=== PATIENT | male | born 1950 | race Caucasian/White ===

== ENCOUNTER 2022-11-30 12:18 | Inpatient (IN) | payer MEDICARE, MEDICAID, SELFPAY ==
[2022-11-30 12:19] VITALS: BP 146/81; PULSE 132; RESP 18; TEMP 36.2; O2SAT 99; BMI 22.4
--- NOTE | 2022-11-30 12:44 | ED.VIS.GI ---
HPI HPI - GI History of Present Illness Chief Complaint: GI Bleed Detail of Chief Complaint: Rectal bleeding today. Since 7 AM. Informant: patient Abdominal Pain/Flank Pain Onset: Today Current Severity: Mild Maximum Severity: Mild Worsened by: Nothing Relieved by: Nothing Nausea/Vomiting/Emesis GI Symptom: Negative for Nausea or Vomiting Diarrhea/Melena/Hematochezia GI Symptom: Positive for Hematochezia; Negative for Diarrhea or Melena Stool Quality: Positive for Loose Severity: Mild Associated Symptoms Associated Symptoms: Negative for Dysuria, Frequency or Hematuria Narrative Narrative: 72-year-old male past medical history of left inguinal hernia. Does not see a physician. He has never had abdominal surgery nor colonoscopy. Said the day he felt a pop and has had bright red blood rectal bleeding since about 7 AM. He had multiple episodes. He is not on any medications and no blood thinners. He has never had this before. Prior similar symptoms: No Recent Illness/Hospitalization: No PFSH PFSH Medical History no medical history no medical history Allergy/AdvReac Type Severity Reaction Status Date / Time No Known Allergies Allergy Verified 11/30/22 12:20 Surgical History no surgical history no surgical history Social History Smoking Status: Never smoker ROS ROS ED ROS Narrative Rectal bleeding today. No recent illness. Review of Systems ROS Unobtainable: Denies due to encephalopathy Constitutional Constitutional ED: Denies chills or fever(s) ENT ENT ED: Denies ear pain Cardiovascular Cardiovascular: Denies chest pain Respiratory/Chest Respiratory/Chest: Denies cough or dyspnea Gastrointestinal Gastrointestinal: Denies abdominal pain, constipation, diarrhea, melena, nausea or vomiting Genitourinary Genitourinary ED: Denies dysuria or hematuria Musculoskeletal Musculoskeletal: Denies arthralgias Integumentary Denies abscess Neurologic Neurologic: Denies headache(s) Psychiatric Psychiatric: Denies anxiety Endocrine Endocrinology: Denies polydipsia Hematologic/Lymphatic Hematologic/Lymphatic: Denies easy bleeding Allergic/Immunologic Allergic/Immunologic ED: Denies mouth swelling EXAM Physical Exam Narrative Exam Narrative: Well-appearing 72-year-old male. Vital signs are stable other elevated heart rate of 132. H EENT exam unremarkable. Neck nontender. Lungs clear. Heart tachycardic rate about 120 no murmur. Abdomen soft nontender normal bowel sounds no peritoneal signs. Reducible left inguinal hernia. Rectal exam currently no gross bleeding. No mass. No external hemorrhoids. Moving all 4 extremities. Nontender no edema. Neurologically is awake and alert with no focal motor deficits. Const Vital Signs: 11/30/22 12:19 Temperature 97.1 F L Temperature Source Temporal Pulse Rate 132 H Respiratory Rate 18 Blood Pressure 146/81 H Blood Pressure Mean 102 Pulse Ox 99 Oxygen Delivery Method Room Air Positive well nourished and well developed; Negative for obese, cachectic, contractures or unkempt General Appearance ED: well developed and NAD; Negative for unkempt, cachectic, contractures or pallor Nutritional Appearance: Negative for cachectic or obese HEENT Reports moist mucous membranes; Denies dry mucous membranes normocephalic and atraumatic; Negative for trauma or tenderness Mouth ED: No dry mucous membranes Mouth: No dry mucous membranes Eyes PERRL and EOMs intact bilaterally General Eye ED: Negative for pale conjunctiva or scleral icterus Neck no lymphadenopathy, supple and no JVD General: Negative for tenderness Carotids: Negative for other Lymph Lymphatic: Negative for other Resp normal respiratory effort and clear to auscultation bilaterally Effort and Inspection: Negative for respiratory distress or retractions Auscultation: Negative for rales, rhonchi or wheezes Cardio regular rhythm, S1 normal heart sound, S2 normal heart sound and no murmurs; Negative for regular rate Rate: tachycardic Rhythm: Negative for abnormal rhythm GI non-tender, non-distended and no masses GI Narrative: Reducible left inguinal hernia. Inspection: Negative for abdominal distention Auscultation: normoactive bowel sounds Palpation: soft and hernia; Negative for tender, guarding, rigid, mass, pulsatile mass or rebound tenderness present Back/Spine no CVA tenderness General Back: Negative for CVA tenderness Cervical Spine: Negative for cervical spine tenderness Thoracic Spine / Upper Back: Negative for thoracic spinal tenderness Lumbar Spine / Lower Back: Negative for lumbar spinal tenderness Coccyx: Negative for other Extremity full ROM General Extremety ED: Negative for edema or tenderness General Extremity: Negative for edema Neuro CN's II-XII intact bilaterally and moves all extremities Sensorium / Orientation: alert, oriented to person, oriented to place and oriented to time; Negative for orientation impaired, confused, lethargic or stuporous Motor Exam: strength 5/5 throughout Psych mental status grossly normal and thought process normal Appearance: Negative for unkempt Attitude: No agitated Mood & Affect: Negative for depressed, anxious or tearful Skin no wounds General Skin Exam: Negative for jaundice or pallor Lesions: no lesions Rashes: no rashes Trauma: Negative for abrasion Nails: Negative for discolored MDM MDM MDM Narrative Medical decision making narrative: 72-year-old male with bright red blood per rectum consistent with lower GI bleed. Screening labs will be obtained. To be typed and screened for blood in case he needs transfused. We patient is doing well at 2:40 PM. He knows he will be admitted for lower GI bleed needs further evaluation most likely colonoscopy. At this time he has been typed and screened for blood but he has not been transfused nor is he needed. Hospitalist is on page. Patient did have gross blood per rectum while in the emergency department. History & Record Review Discussion w/independent historian: Patient Lab Data Attestation: I reviewed the patient's lab results. Lab results narrative: CBC shows white count 8.7. H&H of 13.0 and 39. Platelets 234. Electrolytes show a gap of 8. BUN and creatinine of 20 and 1. Glucose 172. Liver enzymes unremarkable. Blood type a positive. Labs: Laboratory Results - last 24 hr 11/30/22 13:07 WBC 8.7 RBC 4.02 L Hgb 13.0 Hct 39.9 L MCV 99.3 H MCH 32.3 H MCHC 32.6 RDW Std Deviation 42.8 RDW Coeff of Angela 11.7 Plt Count 234 MPV 10.1 Immature Gran % (Auto) 0.600 Neut % (Auto) 82.3 H Lymph % (Auto) 12.9 L Alfalfa % (Auto) 3.6 Eos % (Auto) 0.1 Baso % (Auto) 0.5 Absolute Neuts (auto) 7.1 Absolute Lymphs (auto) 1.12 Nucleated RBC % 0 Sodium 136 Potassium 4.4 Chloride 105 Carbon Dioxide 23.0 Anion Gap 8 BUN 20 H Creatinine 1.05 Estim Creat Clear Calc 63.65 Est GFR (MDRD) Af Amer 89 Est GFR (MDRD) Non-Af 74 BUN/Creatinine Ratio 19.0 Glucose 172 H Calcium 9.1 Total Bilirubin 0.90 AST 15 ALT 21 Alkaline Phosphatase 70 Total Protein 7.0 Albumin 3.7 Globulin 3.3 Albumin/Globulin Ratio 1.1 Blood Type A POSITIVE Antibody Screen NEGATIVE Discharge Plan Triage Chief Complaint: GI Bleed ED Provider: Lasha Hinson Dx/Rx/DC Orders Clinical Impression: Acute lower gastrointestinal bleeding Primary Care Provider: Tim Dobbs Referrals: Tim Dobbs DO [Primary Care Provider] - Disposition Disposition: Acute Care Hospital [facility]
[2022-11-30 13:22] LABS: Absolute Lymphocyte Count 1.12 X10^3/uL (0.83-4.51); Absolute Neutrophil Count 7.1 X10^3/uL (2.0-7.7); Basophil# 0.04 X10^3/uL; Basophil% 0.5 % (0-1); Eosinophil# 0.01 X10^3/uL; Eosinophils% 0.1 % (0-5); Hematocrit 39.9 % (40-54); Lymphocyte # 1.12 X10^3/ul (0.83-4.51); Lymphocyte % 12.9 % (19-41); Mean Corp Hgb Conc 32.6 g/dL (32-36); Mean Corpuscular Hgb 32.3 pg (27.0-32.0); Mean Corpuscular Volume 99.3 fL (80-94); Mean Platelet Vol. 10.1 fl (6.2-12.0); Monocyte# 0.31 X10^3/uL; Monocyte% 3.6 % (0-10); NRBC Flagged by Analyzer 0 % (0-5); Neutrophil # 7.12 X10^3/uL (2.7-7.7); Neutrophil % 82.3 % (47-70); Platelet Count 234 K/mm3 (150-450); RBC Distribution Width CV 11.7 % (11.6-14.6); RBC Distribution Width SD 42.8 fl (35.1-43.9); Red Blood Count 4.02 M/mm3 (4.6-6.2); White Blood Count 8.7 K/mm3 (4.4-11.0)
[2022-11-30 13:31] LABS: ALB/GLOB Ratio 1.1 RATIO (0.9-2.4); AST(SGOT) 15 U/L (15-37); Alanine Aminotransfer ALT/SGPT 21 U/L (16-61); Albumin, Serum 3.7 g/dL (3.2-5.0); Alkaline Phosphatase 70 U/L (45-117); Anion Gap 8 (5-15); BUN 20 mg/dL (7-18); Calcium,Total 9.1 mg/dL (8.5-10.1); Chloride 105 mmol/L (98-107); Creatinine, Serum 1.05 mg/dL (0.70-1.30); EST Glomerular Filtration Rate 74 mL/min (>60); Est Glom Filt Rate - Afr Amer 89 mL/min (>60); Estimated Creatinine Clearance 63.65 ml/min; Globulin 3.3 g/dL (2.2-4.2); Glucose 172 mg/dL (74-106); Potassium 4.4 mmol/L (3.5-5.1); Sodium Level 136 mmol/L (136-145)
--- NOTE | 2022-11-30 15:05 | EKG12_ITS ---
Test Reason : ADMISSION Blood Pressure : / mmHG Vent. Rate : 110 BPM Atrial Rate : 110 BPM P-R Int : 160 ms QRS Dur : 072 ms QT Int : 338 ms P-R-T Axes : 062 -37 056 degrees QTc Int : 457 ms Sinus tachycardia Left axis deviation Inferior infarct , age undetermined Abnormal ECG Confirmed by SHREYA LANE, KRISSY ([id number]), advertising editor MERVIN CAMPBELL ([id number]) on 12/01/2022 1:29:40 PM Referred By: Confirmed By:KRISSY CASH MD
[2022-11-30 15:27] VITALS: BP 158/74; PULSE 105; RESP 20; TEMP 37.1; O2SAT 96
--- NOTE | 2022-11-30 15:28 | PCM.HP.STD ---
HPI - General General Date of Admission: 11/30/22 Date of Service: 11/30/22 Chief Complaint: Rectal bleed started at 6 AM today HPI Narrative SRINIVAS OG, is a 72 M who presents who has never seen a doctor in his life came to ED for bright red rectal bleeding started at 6 AM today. He said it was not large and first if it was red and then every about 90 minutes and was brownish in color. He also has left inguinal hernia for about 10 years which is reducible but for last few years he is having pain and bulges out when he stands up. Although he came mainly for lower GI bleed but he states he also intermittent, isolated, dull ache lower chest pain, unrelated to activity or exertion for last 5 6 years. It is not associated with shortness of breath, localized anteriorly and does not bother him. Vitals in the ED reviewed. Patient is sinus tachycardic heart rate 132/min blood pressure 146/81. EKG ordered in ED and shows sinus tachycardia 110 beats 1, QTc 457 ms. 2 sets of troponin ordered. Labs reviewed and discussed in assessment plan. Patient is further admitted Past medical history: Left inguinal hernia. Does not see any doctor therefore unclear whether he has hypertension. Blood sugar is 172, hypoglycemia therefore probably has diabetes mellitus. Past surgical history none Social history: Non-smoker. Not heavy alcoholic drinker. Denies substance use. Patient is unmarried has brothers and sisters. [facility] background Family history: Hypertension in his brother. [facility] Medical History no medical history Home Medications NK 11/30/22 [History Last Taken Unknown] Allergy/AdvReac Type Severity Reaction Status Date / Time No Known Allergies Allergy Verified 11/30/22 12:20 Surgical History no surgical history Social History Smoking Status: Never smoker ROS ROS Narrative Constitutional: Denies chronic fatigue and weakness. No fever. HEENT: Reports systems reviewed and no addt'l complaints, except as documented Respiratory/Chest: No acute shortness of breath or respiratory distress or wheezing. CVS: As described in HPI Gastrointestinal: Denies abdominal pain except left inguinal hernia pain intermittently Genitourinary: Denies burning urination or new urinary tract symptoms Musculoskeletal: Denies acute joint pain or limited range of motion. No acute injury Neurologic: Denies seizure-like symptoms. skin: No ulcer. No rash Endocrinology: Reports systems reviewed and no addt'l complaints, except as documented Hematologic/Lymphatic: Reports systems reviewed and no addt'l complaints, except as documented Rest 14 ROS are negative except as mentioned in HPI Vital Signs Vital Signs Vital Signs: 11/30/22 12:19 11/30/22 15:27 Temperature 97.1 F L 98.7 F Temperature Source Temporal Oral Pulse Rate 132 H 105 H Respiratory Rate 18 20 H Blood Pressure 146/81 H 158/74 H Blood Pressure Mean 102 102 Pulse Ox 99 96 Oxygen Delivery Method Room Air Room Air Weight Weight: 156 lb Body Mass Index (BMI) 22.4 Physical Exam Narrative General: Alert, Oriented x3, Cooperative HEENT: Atraumatic, PERRLA, EOMI, Normocephalic Oral: Oral mucosa dry. No Gingival or Mucosal Lesions/ Ulcerations Neck: Supple, No JVD, Negative Carotid Bruits Lungs: Air entry diminished in bilateral lung bases. No crepitation/rhonchi Cardiovascular: Regular rate, Regular Rhythm, Normal S1, Normal S2, No murmurs Abdomen: Bowel Sounds Present, Soft, Non Tender, Non-Distended Left large inguinal hernia seems direct. Reducible. Bowel sounds present probably bowel in hernial sac : No renal angle tenderness. No suprapubic tenderness. Extremities: No edema, Capillary Refill Less than 3 Seconds Skin: No rashes, No breakdown Musculoskeletal: No Tenderness to Palpation of Joints or Extremities Neurological: Cranial nerves II-XII grossly intact, DTR 2+/4. No acute focal neurological deficit. Psych/Mental Status: Normal Affect, Appropriate. Results Lab / Micro Data 11/30/22 13:07 11/30/22 13:07 Labs: Laboratory Results - last 24 hr 11/30/22 13:07: WBC 8.7, RBC 4.02 L, Hgb 13.0, Hct 39.9 L, MCV 99.3 H, MCH 32.3 H, MCHC 32.6, RDW Std Deviation 42.8, RDW Coeff of Angela 11.7, Plt Count 234, MPV 10.1, Immature Gran % (Auto) 0.600, Neut % (Auto) 82.3 H, Lymph % (Auto) 12.9 L, [place] % (Auto) 3.6, Eos % (Auto) 0.1, Baso % (Auto) 0.5, Absolute Neuts (auto) 7.1, Absolute Lymphs (auto) 1.12, Nucleated RBC % 0, Sodium 136, Potassium 4.4, Chloride 105, Carbon Dioxide 23.0, Anion Gap 8, BUN 20 H, Creatinine 1.05, Estim Creat Clear Calc 63.65, Est GFR (MDRD) Af Amer 89, Est GFR (MDRD) Non-Af 74, BUN/Creatinine Ratio 19.0, Glucose 172 H, Calcium 9.1, Total Bilirubin 0.90, AST 15, ALT 21, Alkaline Phosphatase 70, Total Protein 7.0, Albumin 3.7, Globulin 3.3, Albumin/Globulin Ratio 1.1, Blood Type A POSITIVE, Antibody Screen NEGATIVE Assessment & Plan Assessment/Plan (1) Acute lower gastrointestinal bleeding: PLAN: Plan 1. Acute GI bleed most probably lower GI bleed: Patient is being admitted in PCU. Currently hemodynamically stable except mild sinus tachycardia. H&H 13/40. MCV 100. Platelet count normal. H&H every 6 hourly x2. CBC with differential tomorrow AM. [employer] consulted and discussed with Dr. Bishop. Plan for EGD and colonoscopy tomorrow AM. Colon prep started and discussed with patient and he agrees. 2. Intermittent, isolated chest discomfort, atypical for 5 years: Unclear about etiology probably may be GERD/dyspepsia/GI etiology. Protonix 40 mg IV started. Twelve-lead EKG shows sinus tachycardia with nonspecific ST-T suggestive of cardiac ischemia. 2 sets of troponin ordered first now. Patient denies shortness of breath, dyspnea, dizziness, diaphoresis, orthopnea or PND. No leg swelling. 3. Hyperglycemia: A1c ordered for tomorrow AM. 4. Chronic left inguinal hernia for more than 10 years: Gradually left inguinal hernia is getting symptomatic with pain and discomfort therefore I recommended to follow-up general surgery after discharge. Will need referral to general surgery. DVT prophylaxis: Following prophylaxis contraindicated. Bilateral SCDs Living will/advanced directive/end of life care: Patient does not have living will or advanced directive. Patient does not have designated power of traffic law attorney for health. His brother, Pal is next of kin. After discussion of benefits/risks procedures involved with full code, DNR CC arrest and DNR CC, the patient opted for full code. Patient does want artificial life support including intubation, tube feed, ventilator and/chest compression, central venous catheter, vasopressor and DC shock if needed Total time spent in [id number] encounter in discussion of advanced directive 17 minutes. Laboratory Results 11/30/22 13:07: WBC 8.7, RBC 4.02 L, Hgb 13.0, Hct 39.9 L, MCV 99.3 H, MCH 32.3 H, MCHC 32.6, RDW Std Deviation 42.8, RDW Coeff of Angela 11.7, Plt Count 234, MPV 10.1, Immature Gran % (Auto) 0.600, Neut % (Auto) 82.3 H, Lymph % (Auto) 12.9 L, [place] % (Auto) 3.6, Eos % (Auto) 0.1, Baso % (Auto) 0.5, Absolute Neuts (auto) 7.1, Absolute Lymphs (auto) 1.12, Nucleated RBC % 0, Sodium 136, Potassium 4.4, Chloride 105, Carbon Dioxide 23.0, Anion Gap 8, BUN 20 H, Creatinine 1.05, Estim Creat Clear Calc 63.65, Est GFR (MDRD) Af Amer 89, Est GFR (MDRD) Non-Af 74, BUN/Creatinine Ratio 19.0, Glucose 172 H, Calcium 9.1, Total Bilirubin 0.90, AST 15, ALT 21, Alkaline Phosphatase 70, Total Protein 7.0, Albumin 3.7, Globulin 3.3, Albumin/Globulin Ratio 1.1, Blood Type A POSITIVE, Antibody Screen NEGATIVE Charges/Coding Visit Charges Inpatient E&M: 57957 Init Hosp L3 Procedures Hospitalists Procedures: 58117 Advncd Care Plan 30 Min
[2022-11-30 15:54] LABS: Magnesium 2.1 mg/dL (1.6-2.6)
[2022-11-30 16:26] LABS: Troponin-I HS 3 pg/mL (3.0-78.0)
[2022-11-30 16:30] LABS: Troponin-I HS 17 pg/mL (3.0-78.0)
[2022-11-30 16:52] VITALS: BP 138/75; PULSE 115; RESP 18; TEMP 36.6; O2SAT 97; BMI 21.7
--- NOTE | 2022-11-30 17:00 | NURSING ---
Patient stated to this nurse he was dizzy and lightheaded earlier today. This nurse explained to patient that he needs to call for assistance if he needs to go to the bathroom. Patient stated that he will be fine and will call staff if he becomes dizzy while getting up. This RN further explained that staff still needs to be with him that the call light may not be in reach if chcf to bathroom and he is dizzy. The patient then stated I know my body and fine getting up without staff. This RN continued to explain to patient that we do not want him to fall and for his safety, call staff. Patient agreed.
[2022-11-30] MEDS: Lactated Ringers 1,000 ML 100 ML IV (17:28)
[2022-11-30 17:56] LABS: Hematocrit 40.6 % (40-54); Hemoglobin 13.3 g/dL (13.0-16.5)
[2022-11-30] MEDS: Bisacodyl 5 MG Tablet 20 MG PO (18:10)
[2022-11-30] MEDS: Polyethylene Glycol 3350 BOWEL PREP PO (21:08)
[2022-11-30 21:50] VITALS: BP 109/56; PULSE 97; RESP 16; TEMP 35.3; O2SAT 97
[2022-11-30 21:57] VITALS: O2SAT 97
--- NOTE | 2022-11-30 23:00 | CON.PCM.GI_ITS ---
HPI Consult Data Date of Consult: 11/30/22 HPI Narrative Reason for Consultation: GI bleed HPI Narrative: SRINIVAS OG, is a 72-year-old male past medical history of left inguinal hernia. He does not see a physician. He has never had abdominal surgery nor colonoscopy. He said the day he felt a pop and has had bright red blood rectal bleeding since about 7 AM. He had multiple episodes. He is not on any medications and no blood thinners. He has never had this before. [facility] Medical History no medical history Home Medications egojpky-idgsosivpvnls-izhcadeh 250 mg-250 mg-65 mg tablet (Excedrin Extra Strength) 2 tab PO Q6H PRN pain 12/01/22 [History Last Taken Unknown] Allergy/AdvReac Type Severity Reaction Status Date / Time No Known Allergies Allergy Verified 11/30/22 12:20 Surgical History no surgical history Social History Smoking Status: Former smoker ROS ROS Narrative Constitutional: Denies chronic fatigue and weakness. No fever. HEENT: Reports systems reviewed and no addt'l complaints, except as documented Respiratory/Chest: No acute shortness of breath or respiratory distress or wheezing. CVS: As described in HPI Gastrointestinal: Denies abdominal pain except left inguinal hernia pain intermittently Genitourinary: Denies burning urination or new urinary tract symptoms Musculoskeletal: Denies acute joint pain or limited range of motion. No acute injury Neurologic: Denies seizure-like symptoms. skin: No ulcer. No rash Endocrinology: Reports systems reviewed and no addt'l complaints, except as documented Hematologic/Lymphatic: Reports systems reviewed and no addt'l complaints, except as documented Rest 14 ROS are negative except as mentioned in HPI Physical Exam Narrative GENERAL: cooperative HEENT: Atraumatic; normocephalic EYES; Anicteric, Normal Conjunctiva NECK; supple, normal thyroid, RESPIRATORY: Diminished to auscultation CARDIOVASCULAR: Regular S1 S2, GI: soft, normoactive bowel sounds, : No Renal angle tenderness; EXTREMITIES: No edema, no clubbing, MUSCULOSKELETAL: no muscle wasting NEURO: Awake; no lateralizing signs. SKIN: No Rash PSYCH; Flat affect Lab / Micro Data 12/01/22 05:40 12/01/22 05:40 Labs: Laboratory Results - last 24 hr 11/30/22 17:47: Hgb 13.3, Hct 40.6 11/30/22 23:30: Hgb 12.1 L, Hct 36.8 L 12/01/22 05:40: WBC 8.4, RBC 3.44 L, Hgb 11.5 L, Hct 33.0 L, MCV 95.9 H, MCH 33.4 H, MCHC 34.8 D, RDW Std Deviation 41.9, RDW Coeff of Angela 12.0, Plt Count 203, MPV 10.2, Immature Gran % (Auto) 0.600, Neut % (Auto) 69.1, Lymph % (Auto) 22.4, [place] % (Auto) 7.4, Eos % (Auto) 0.1, Baso % (Auto) 0.4, Absolute Neuts (auto) 5.8, Absolute Lymphs (auto) 1.88, Nucleated RBC % 0, Sodium 138, Potassium 4.3, Chloride 108 H, Carbon Dioxide 25.0, Anion Gap 5, BUN 25 H, Creatinine 0.91, Estim Creat Clear Calc 71.51, Est GFR (MDRD) Af Amer 106, Est GFR (MDRD) Non-Af 87, BUN/Creatinine Ratio 27.6 H, Glucose 101, Hemoglobin A1c 5.3, Calcium 8.5, TSH 0.54 Radiology Impression Abdomen/Pelvis CTA 12/01/22 12:38 IMPRESSION: Fatty infiltration of the liver. Left renal cyst. Sigmoid diverticulosis. 3.9 mm noncalcified nodule in the peripheral lateral aspect of the right lower lobe. Electronically Signed: Jan Clement MD at 14:14 EDT , Assessment & Plan Assessment/Plan (1) Acute lower gastrointestinal bleeding: PLAN: Plan Patient is a 72-year-old gentleman who presented with rectal bleed. To monitored bed consultation placed to GI 1. Hematochezia ? Lower versus upper GI bleed. Admitted to monitored bed H&H ordered every 6 hours patient started on Protonix drip consultation placed to GI plan for patient to undergo upper and lower endoscopy -Colonoscopy findings. - Blood in the rectum, in the recto-sigmoid colon, in the sigmoid colon, in the descending colon, at the splenic flexure, in the transverse colon, at the hepatic flexure, in the ascending colon and in the cecum. - Diverticulosis in the recto-sigmoid colon, in the sigmoid colon and in the descending colon. 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 Treated with a heater probe. - No specimens collected. EGD findings - Z-line irregular, 38 cm from the incisors. Biopsied. - Acute gastritis. Biopsied. - Chronic duodenitis. Biopsied. 2. Hyperglycemia ? Diabetes mellitus ruled out with a normal hemoglobin A1c 3. Chronic left inguinal hernia ? Patient to follow-up with general surgery as outpatient 4. DVT prophylaxis ? SCDs for now Time spent in the patient's overall evaluation,decision-making process, review of diagnostic data, adjustment of management, discussion with other providers, nursing nursing and ancillary staff involved in patient's care documentation, 40 Minutes
[2022-11-30 23:39] LABS: Hematocrit 36.8 % (40-54); Hemoglobin 12.1 g/dL (13.0-16.5)
[2022-12-01] VITALS (11 sets, daily range): BP systolic 99–148; BP diastolic 63–73; PULSE 92–109; RESP 15–18; TEMP 36.3–37.9; O2SAT 96–100; BMI 21.6; BMI 21.7
--- NOTE | 2022-12-01 | GASB_PTH ---
PATIENT: SRINIVAS OG LOC: [facility] U#:[id number] AGE/SX: 72/M ROOM: [facility] RE11/30/[address]: Dr. Ervin Snider MD : [id number] BED: 1 DIS: 12/02/2022 SPEC #: [id number] RECD: 12/01/22 14:20 STATUS: YOVANA BOWDEN #: [id number] LOLA: 12/01/22 00:[address]: Jim Bishop DEPT: SURGICAL PATHOLOGY RECD BY: Rambo Lazaro ENTERED: 12/02/22 08:55 SP TYPE: Gastric Bx OTHR DR: MD Dr. Tim Taylor DO Dr. Prakash Chand, MD Tissues: A - Duodenum, NOS B - Gastric mucous membrane C - Esophageal mucous membrane Procedures: Special Stain Group II Surgery Specimen Level IV Alcian Blue/PAS (control) Comments: @ Ordering doctor for SUIV edited from to @ by LISA at 12/02/22 1441 @ Submitting doctor edited from to @ by RGOOD at 12/02/22 1441 HEADER OPERATION: Colonoscopy, EGD and biopsy and gold probe bipolar PRE-OP DIAGNOSIS: GI bleed TISSUE SUBMITTED: A - Duodenal biopsy, B - Antral biopsy and H. pylori and path, C - Distal esophagus biopsy MICROSCOPIC DIAGNOSIS A. Duodenal biopsy: Fragments of duodenal mucosa with mild acute and chronic inflammation and villous blunting. B. Antral biopsy: Mild gastritis. See microscopic description and comment. C. Distal esophagus, biopsy: Fragments of gastroesophageal mucosa with chronic inflammation. Intestinal metaplasia (goblet cell metaplasia) not identified. See comment. SJ:filiberto 12/03/2022 COMMENT B. The results of immunohistochemistry for Helicobacter pylori will be reported separately ([id number]). C. Alcian blue/PAS stain with matched control is used in the evaluation of the specimen. MICROSCOPIC DESCRIPTION Slides are reviewed. B. The specimen shows fragments of gastric mucosa with chronic inflammatory cell infiltrates in the lamina propria consisting of lymphocytes and plasma cells, consistent with mild chronic gastritis. GROSS DESCRIPTION A - Received in fixative is one container labeled with the patient's name and designated duodenum biopsy. The specimen consists of two irregular fragments of light goetz soft tissue that in aggregate measure 0.6 x 0.3 x 0.1 cm. The specimen is totally submitted in one cassette. B - Received in fixative is one container labeled with the patient's name and designated antral biopsy. The specimen consists of two irregular fragments of light goetz soft tissue that in aggregate measure 0.9 x 0.3 x 0.1 cm. The specimen is totally submitted in one cassette. C - Received in fixative is one container labeled with the patient's name and designated distal esophagus. The specimen consists of two irregular fragments of light goetz soft tissue that in aggregate measure 0.6 x 0.3 x 0.1 cm. The specimen is totally submitted in one cassette. / SJ:rg 12/02/2022 TC:3 CPT: 59865 x3, 73798
[2022-12-01] MEDS: Lactated Ringers 1,000 ML 100 ML IV ×2 (03:42→12:38)
[2022-12-01 06:15] LABS: Absolute Lymphocyte Count 1.88 X10^3/uL (0.83-4.51); Absolute Neutrophil Count 5.8 X10^3/uL (2.0-7.7); Basophil# 0.03 X10^3/uL; Basophil% 0.4 % (0-1); Eosinophil# 0.01 X10^3/uL; Eosinophils% 0.1 % (0-5); Hemoglobin 11.5 g/dL (13.0-16.5); Lymphocyte # 1.88 X10^3/ul (0.83-4.51); Lymphocyte % 22.4 % (19-41); Mean Corp Hgb Conc 34.8 g/dL (32-36); Mean Corpuscular Hgb 33.4 pg (27.0-32.0); Mean Corpuscular Volume 95.9 fL (80-94); Mean Platelet Vol. 10.2 fl (6.2-12.0); Monocyte# 0.62 X10^3/uL; Monocyte% 7.4 % (0-10); NRBC Flagged by Analyzer 0 % (0-5); Neutrophil % 69.1 % (47-70); Platelet Count 203 K/mm3 (150-450); RBC Distribution Width SD 41.9 fl (35.1-43.9); Red Blood Count 3.44 M/mm3 (4.6-6.2); White Blood Count 8.4 K/mm3 (4.4-11.0)
[2022-12-01 06:57] LABS: Anion Gap 5 (5-15); BUN 25 mg/dL (7-18); BUN/Creat Ratio 27.6 RATIO (10-20); Calcium,Total 8.5 mg/dL (8.5-10.1); Chloride 108 mmol/L (98-107); Creatinine, Serum 0.91 mg/dL (0.70-1.30); EST Glomerular Filtration Rate 87 mL/min (>60); Est Glom Filt Rate - Afr Amer 106 mL/min (>60); Estimated Creatinine Clearance 71.51 ml/min; Glucose 101 mg/dL (74-106); Potassium 4.3 mmol/L (3.5-5.1); Sodium Level 138 mmol/L (136-145); Thyroid Stim Hormone (TSH) 0.54 uIU/mL (0.358-3.74)
--- NOTE | 2022-12-01 08:57 | PN.HOSP_ITS ---
Reason for Visit Reason for Visit: Diagnoses Gastrointestinal hemorrhage, unspecified (11/30/22) Subjective Subjective Patient is a 72-year-old gentleman who presented with rectal bleed. To monitored bed consultation placed to GI Objective Data Objective Data Vital Signs: Vital Signs Temp Pulse Resp BP Pulse Ox O2 Del Method 98.4 F 101 H 18 135/63 H 97 Room Air 12/01/22 07:41 12/01/22 07:41 12/01/22 07:41 12/01/22 07:41 12/01/22 07:41 12/01/22 07:51 Oxygen Delivery Method Room Air Weight: 68.9 kg Body Mass Index (BMI) 21.7 Intake & Output: Intake and Output for Last 24 Hours 11/29/22 11/30/22 12/01/22 23:59 23:59 23:59 Intake Total 455 / 455 795 / 795 Balance 455 / 455 795 / 795 Lab / Micro Data 12/01/22 05:40 12/01/22 05:40 Labs: Laboratory Results - last 24 hr 11/30/22 13:07: WBC 8.7, RBC 4.02 L, Hgb 13.0, Hct 39.9 L, MCV 99.3 H, MCH 32.3 H, MCHC 32.6, RDW Std Deviation 42.8, RDW Coeff of Angela 11.7, Plt Count 234, MPV 10.1, Immature Gran % (Auto) 0.600, Neut % (Auto) 82.3 H, Lymph % (Auto) 12.9 L, [place] % (Auto) 3.6, Eos % (Auto) 0.1, Baso % (Auto) 0.5, Absolute Neuts (auto) 7.1, Absolute Lymphs (auto) 1.12, Nucleated RBC % 0, Sodium 136, Potassium 4.4, Chloride 105, Carbon Dioxide 23.0, Anion Gap 8, BUN 20 H, Creatinine 1.05, Estim Creat Clear Calc 63.65, Est GFR (MDRD) Af Amer 89, Est GFR (MDRD) Non-Af 74, BUN/Creatinine Ratio 19.0, Glucose 172 H, Calcium 9.1, Magnesium 2.1, Total Bilirubin 0.90, AST 15, ALT 21, Alkaline Phosphatase 70, Troponin I High Sens 3, Total Protein 7.0, Albumin 3.7, Globulin 3.3, Albumin/Globulin Ratio 1.1, Blood Type A POSITIVE, Antibody Screen NEGATIVE 11/30/22 15:50: Troponin I High Sens 17 11/30/22 17:47: Hgb 13.3, Hct 40.6 11/30/22 19:07: Troponin I High Sens Cancelled 11/30/22 23:30: Hgb 12.1 L, Hct 36.8 L 12/01/22 05:40: WBC 8.4, RBC 3.44 L, Hgb 11.5 L, Hct 33.0 L, MCV 95.9 H, MCH 33.4 H, MCHC 34.8 D, RDW Std Deviation 41.9, RDW Coeff of Angela 12.0, Plt Count 203, MPV 10.2, Immature Gran % (Auto) 0.600, Neut % (Auto) 69.1, Lymph % (Auto) 22.4, [place] % (Auto) 7.4, Eos % (Auto) 0.1, Baso % (Auto) 0.4, Absolute Neuts ( auto) 5.8, Absolute Lymphs (auto) 1.88, Nucleated RBC % 0, Sodium 138, Potassium 4.3, Chloride 108 H, Carbon Dioxide 25.0, Anion Gap 5, BUN 25 H, Creatinine 0.91, Estim Creat Clear Calc 71.51, Est GFR (MDRD) Af Amer 106, Est GFR (MDRD) Non-Af 87, BUN/Creatinine Ratio 27.6 H, Glucose 101, Calcium 8.5, TSH 0.54 Physical Exam Narrative GENERAL: cooperative HEENT: Atraumatic; normocephalic EYES; Anicteric, Normal Conjunctiva NECK; supple, normal thyroid, RESPIRATORY: Diminished to auscultation CARDIOVASCULAR: Regular S1 S2, GI: soft, normoactive bowel sounds, : No Renal angle tenderness; EXTREMITIES: No edema, no clubbing, MUSCULOSKELETAL: no muscle wasting NEURO: Awake; no lateralizing signs. SKIN: No Rash PSYCH; Flat affect Assessment & Plan Assessment/Plan (1) Acute lower gastrointestinal bleeding: PLAN: Plan Patient is a 72-year-old gentleman who presented with rectal bleed. To monitored bed consultation placed to GI 1. Hematochezia ? Lower versus upper GI bleed. Admitted to monitored bed H&H ordered every 6 hours patient started on Protonix drip consultation placed to GI plan for patient to undergo upper and lower endoscopy -Colonoscopy findings. - Blood in the rectum, in the recto-sigmoid colon, in the sigmoid colon, in the descending colon, at the splenic flexure, in the transverse colon, at the hepatic flexure, in the ascending colon and in the cecum. - Diverticulosis in the recto-sigmoid colon, in the sigmoid colon and in the descending colon. 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 Treated with a heater probe. - No specimens collected. EGD findings - Z-line irregular, 38 cm from the incisors. Biopsied. - Acute gastritis. Biopsied. - Chronic duodenitis. Biopsied. 2. Hyperglycemia ? Diabetes mellitus ruled out with a normal hemoglobin A1c 3. Chronic left inguinal hernia ? Patient to follow-up with general surgery as outpatient 4. DVT prophylaxis ? SCDs for now Time spent in the patient's overall evaluation,decision-making process, review of diagnostic data, adjustment of management, discussion with other providers, nursing nursing and ancillary staff involved in patient's care documentation, 40 Minutes Charges/Coding Visit Charges Inpatient E&M: 58847 Subs Hosp L2
[2022-12-01 09:24] LABS: Hemoglobin A1c 5.3 % (3.8-5.6)
--- NOTE | 2022-12-01 10:26 | NURSING ---
Patient left unit to AC/OR for EGD and colonoscopy with Dr. Bishop.
--- NOTE | 2022-12-01 11:07 | EKG12_ITS ---
Test Reason : PREOP Blood Pressure : / mmHG Vent. Rate : 108 BPM Atrial Rate : 108 BPM P-R Int : 142 ms QRS Dur : 080 ms QT Int : 342 ms P-R-T Axes : 063 001 063 degrees QTc Int : 458 ms Sinus tachycardia Otherwise normal ECG When compared with ECG of 30-NOV-2022 15:14, MANUAL COMPARISON REQUIRED, DATA IS UNCONFIRMED Confirmed by ROLANDA LANE, ROSAURA ([id number]), web editor NICHOLAS HIGGINS ([id number]) on 12/08/2022 11:34:25 AM Referred By: SHAZIA Confirmed By:TYRONE ORANTES MD
--- NOTE | 2022-12-01 11:30 | IMM_PTH ---
PATIENT: SRINIVAS OG LOC: [facility] U#:[id number] AGE/SX: 72/M ROOM: [facility] RE11/30/[address]: Dr. Ervin Snider MD : 1950 BED: 1 DIS: 12/02/2022 SPEC #: [id number] RECD: 12/03/22 07:32 STATUS: YOVANA REQ #: [id number] LOLA: 12/01/22 11:[address]: Jim Bishop DEPT: IMMUNOHISTOCHEMISTRY RECD BY: Naomie Pack ENTERED: 12/03/22 07:33 SP TYPE: IMMUNO OTHR DR: MD Dr. Tim Taylor DO Dr. Prakash Chand, MD Tissues: B - Stomach, NOS Procedures: H Pylori (initial) PHYSICIAN & INSTITUTION [place] [id number] SPECIMEN INFORMATION: Tissue Source: B - Antral biopsy Clinical Info: GI bleed Specimen Number: [id number] CPT code: 51175 METHODOLOGY: Deparaffinized sections of prefer/formalin-fixed tissue or PAP/DQ stained slides are incubated with monoclonal/polyclonal antibodies/oligonucleotide probes. Localization is made via biotin free immunoperoxidase method. Appropriate controls are performed and reacted as expected. Results on target cell population are indicated in the following table: RESULTS: ANTIBODY / CLONE RESULT Block B H Pylori (polyclonal) negative These tests were developed and their performance characteristics determined by [facility]. They may not have been cleared or approved by the U.S. Food and Drug Administration. The FDA has determined that such clearance or approval is not necessary. The above immunohistochemical/dualISH markers are ordered and reviewed by the Pathologist. INTERPRETATION: B. Antral biopsy: Negative for Helicobacter pylori organisms. SJ:filiberto 12/03/2022
--- NOTE | 2022-12-01 12:30 | OP.EGD_ITS ---
Patient Name: Ezekiel Monson Procedure Date: 12/01/2022 11:20 AM Date of : 1950 Age: 72 Procedure: Upper GI endoscopy Indications: Hematochezia Providers: Jim Bishop DO Medicines: Monitored Anesthesia Care Patient Profile: This is a 72 year old male. Refer to note in patient chart for documentation of history and physical. Patient has symptoms of acute abdominal cramping. Complications: No immediate complications. Procedure: Pre-Anesthesia Assessment: - Prior to the procedure, a History and Physical was performed, and patient medications and allergies were reviewed. The patient is competent. The risks and benefits of the procedure and the sedation options and risks were discussed with the patient. All questions were answered and informed consent was obtained. Patient identification and proposed procedure were verified by the physician in the pre-procedure area. Mental Status Examination: alert and oriented. Airway Examination: normal oropharyngeal airway and neck mobility. Respiratory Examination: clear to auscultation. CV Examination: normal. Prophylactic Antibiotics: The patient does not require prophylactic antibiotics. Prior Anticoagulants: The patient has taken no previous anticoagulant or antiplatelet agents. ASA Grade Assessment: II - A patient with mild systemic disease. After reviewing the risks and benefits, the patient was deemed in satisfactory condition to undergo the procedure. The anesthesia plan was to use monitored anesthesia care (MAC). Immediately prior to administration of medications, the patient was re-assessed for adequacy to receive sedatives. The heart rate, respiratory rate, oxygen saturations, blood pressure, adequacy of pulmonary ventilation, and response to care were monitored throughout the procedure. The physical status of the patient was re-assessed after the procedure. After obtaining informed consent, the endoscope was passed under direct vision. Throughout the procedure, the patient's blood pressure, pulse, and oxygen saturations were monitored continuously. The pediatric colonoscope was introduced through the mouth, and advanced to the second part of duodenum. The upper GI endoscopy was accomplished without difficulty. The patient tolerated the procedure well. Scope In: 11:45:21 AM Scope Out: 11:51:18 AM Total Procedure Duration Time 0 hours 5 minutes 57 seconds Findings: The Z-line was irregular and was found 38 cm from the incisors. Biopsies were taken with a cold forceps for histology. Verification of patient identification for the specimen was done. Estimated blood loss was minimal. Patchy mild inflammation characterized by erosions and erythema was found in the gastric antrum. Biopsies were taken with a cold forceps for histology. Verification of patient identification for the specimen was done. Estimated blood loss was minimal. Patchy mild inflammation characterized by congestion (edema), erosions and erythema was found in the duodenal bulb. Biopsies were taken with a cold forceps for histology. Verification of patient identification for the specimen was done. Estimated blood loss: none. Impression: - Z-line irregular, 38 cm from the incisors. Biopsied. - Acute gastritis. Biopsied. - Chronic duodenitis. Biopsied. Recommendation: - Return patient to [facility] for [facility] care. - Await pathology results. - Use Protonix (pantoprazole) 40 mg PO BID. - Continue present medications. Procedure Code(s): --- Professional --- 97658, Esophagogastroduodenoscopy, flexible, transoral; with biopsy, single or multiple CPT copyright 2017 [employer]. All rights reserved. The codes documented in this report are preliminary and upon hot knife foxing cutter review may be revised to meet current compliance requirements. Jim Bishop DO 12/01/2022 12:29:58 PM This report has been signed electronically. Number of Addenda: 0 Note Initiated On: 12/01/2022 11:20 AM
--- NOTE | 2022-12-01 12:30 | OP.CCLET_ITS ---
12/01/2022 iTm Dobbs Re : Upper GI endoscopy procedure for Ezekiel Monson Dear Rinku This procedure was performed on Thursday, December 01, 2022. My impressions and recommendations are as follows: Impressions : - Z-line irregular, 38 cm from the incisors. Biopsied. - Acute gastritis. Biopsied. - Chronic duodenitis. Biopsied. Recommendations : - Return patient to [facility] for ongoing care. - Await pathology results. - Use Protonix (pantoprazole) 40 mg PO BID. - Continue present medications. My findings are described in the full procedure note, which is enclosed. If I can be of further assistance, please feel free to contact me at . Sincerely, Jim Bishop, 12/01/2022 12:29:58 PM This report has been signed electronically.
--- NOTE | 2022-12-01 12:36 | OP.COLON_ITS ---
Patient Name: Ezekiel Monson Procedure Date: 12/01/2022 11:51 AM Date of : 1950 Age: 72 Procedure: Colonoscopy Indications: Hematochezia Providers: Jim Bishop DO Medicines: Monitored Anesthesia Care Patient Profile: This is a 72 year old male. Refer to note in patient chart for documentation of history and physical. Patient has symptoms of acute abdominal cramping. Last Colonoscopy: none. The patient's first colonoscopy is today. Complications: No immediate complications. Procedure: Pre-Anesthesia Assessment: - Prior to the procedure, a History and Physical was performed, and patient medications and allergies were reviewed. The patient is competent. The risks and benefits of the procedure and the sedation options and risks were discussed with the patient. All questions were answered and informed consent was obtained. Patient identification and proposed procedure were verified by the physician in the pre-procedure area. Mental Status Examination: alert and oriented. Airway Examination: normal oropharyngeal airway and neck mobility. Respiratory Examination: clear to auscultation. CV Examination: normal. Prophylactic Antibiotics: The patient does not require prophylactic antibiotics. Prior Anticoagulants: The patient has taken no previous anticoagulant or antiplatelet agents. ASA Grade Assessment: II - A patient with mild systemic disease. After reviewing the risks and benefits, the patient was deemed in satisfactory condition to undergo the procedure. The anesthesia plan was to use monitored anesthesia care (MAC). Immediately prior to administration of medications, the patient was re-assessed for adequacy to receive sedatives. The heart rate, respiratory rate, oxygen saturations, blood pressure, adequacy of pulmonary ventilation, and response to care were monitored throughout the procedure. The physical status of the patient was re-assessed after the procedure. After I obtained informed consent, the scope was passed under direct vision. Throughout the procedure, the patient's blood pressure, pulse, and oxygen saturations were monitored continuously. The pediatric colonoscope was introduced through the anus and advanced to the terminal ileum. The colonoscopy was performed without difficulty. The patient tolerated the procedure well. The quality of the bowel preparation was fair. Scope In: 11:54:04 AM Scope Withdrawal Time 0 hours 19 minutes 21 seconds Scope Out: 12:21:46 PM Total Procedure Duration Time 0 hours 27 minutes 42 seconds Findings: The perianal and digital rectal examinations were normal. Red blood was found in the rectum, in the recto-sigmoid colon, in the sigmoid colon, in the descending colon, at the splenic flexure, in the transverse colon, at the hepatic flexure, in the ascending colon and in the cecum. Multiple small and large-mouthed diverticula were found in the recto-sigmoid colon, sigmoid colon and descending colon. Lavage of the area was performed using copious amounts, resulting in clearance with fair visualization. The terminal ileum contained two small angiodysplastic lesions with bleeding. Coagulation for hemostasis using heater probe was successful. Estimated blood loss was minimal. Impression: - Preparation of the colon was fair. - Blood in the rectum, in the recto-sigmoid colon, in the sigmoid colon, in the descending colon, at the splenic flexure, in the transverse colon, at the hepatic flexure, in the ascending colon and in the cecum. - Diverticulosis in the recto-sigmoid colon, in the sigmoid colon and in the descending colon. 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 Treated with a heater probe. - No specimens collected. - Ct angiography Recommendation: - Return patient to [facility] for ongoing care. - Repeat colonoscopy because the bowel preparation was poor. - Continue present medications. Procedure Code(s): --- Professional --- 70705, Colonoscopy, flexible; with control of bleeding, any method CPT copyright 2017 [employer]. All rights reserved. The codes documented in this report are preliminary and upon reactor operator review may be revised to meet current compliance requirements. Jim Bishop DO 12/01/2022 12:35:31 PM This report has been signed electronically. Number of Addenda: 0 Note Initiated On: 12/01/2022 11:51 AM
--- NOTE | 2022-12-01 12:36 | OP.CCLET_ITS ---
12/01/2022 Tim Dobbs Re : Colonoscopy procedure for Ezekiel Monson Ingridr Rinku This procedure was performed on Thursday, December 01, 2022. My impressions and recommendations are as follows: Impressions : - Preparation of the colon was fair. - Blood in the rectum, in the recto-sigmoid colon, in the sigmoid colon, in the descending colon, at the splenic flexure, in the transverse colon, at the hepatic flexure, in the ascending colon and in the cecum. - Diverticulosis in the recto-sigmoid colon, in the sigmoid colon and in the descending colon. 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 Treated with a heater probe. - No specimens collected. - Ct angiography Recommendations : - Return patient to [facility] for ongoing care. - Repeat colonoscopy because the bowel preparation was poor. - Continue present medications. My findings are described in the full procedure note, which is enclosed. If I can be of further assistance, please feel free to contact me at . Sincerely, Jim Bishop DO 12/01/2022 12:35:31 PM This report has been signed electronically.
--- NOTE | 2022-12-01 12:38 | CT_ITS ---
STUDY: CTA ABDOMEN AND PELVIS WITH CONTRAST REASON FOR EXAM: Male, 72 years old. Acute lower gi bleeding RADIATION DOSAGE (If Supplied By Facility): CTDIvol = ( 9.23 ) mGy, DLP = ( 375.94 ) mGycm TECHNIQUE: Transaxial images were obtained from the dome of the diaphragm to the symphysis pubis without oral contrast. IV 100mL Isovue-370 was administered. Sagittal and coronal images were reconstructed. Individualized dose optimization techniques were used for this CT. COMPARISON: None. FINDINGS: There is a 3.9 mm noncalcified nodule in the anterior lateral aspect of the right lower lobe abutting the lateral pleural surface as seen on axial image #7. The visualized portions of the heart are within normal limits. There is decreased attenuation of the liver consistent with steatosis. Normal gallbladder and extrahepatic biliary system. Normal spleen. Normal pancreas. Normal bilateral adrenal glands. Normal right kidney. 2 cm x 1.8 cm cyst in the lateral aspect of the left kidney. Normal visualized stomach. Normal small intestine. There are multiple colonic diverticula consistent with diverticulosis. The appendix is visualized and appears normal. There is scattered atherosclerotic calcification of the abdominal aorta, without a demonstrated aneurysm. Normal inferior vena cava. Normal retroperitoneum. Distended urinary bladder. There is enlargement of the prostate gland. The prostate measures 5.4 cm x 3.9 cm. This causes indentation at the bladder base. There is a small umbilical hernia containing fat. There are mild degenerative changes of the visualized lumbar spine. CT/CTA Abd/Pelvis W/WO Contrast IMPRESSION: Fatty infiltration of the liver. Left renal cyst. Sigmoid diverticulosis. 3.9 mm noncalcified nodule in the peripheral lateral aspect of the right lower lobe. Electronically Signed: Jan Clement MD at 14:14 EDT ,
--- NOTE | 2022-12-01 16:22 | CASEMGMT ---
RN CM Face to Face with patient for initial transition planning/care coordination assessment. RN CM introduced self and role at [facility]. Patient lying in bed, alert and oriented. Patient willing to participate in assessment and is able to answer all questions appropriately. Care providers, pharmacy, and demographics verified. Patient wishes to discharge home, denies need for home health at this time. Patient states he has no further needs or concerns at this time. CM to follow for discharge planning needs that may arise. PCP: Rinku, but has yet to make appt to establish care Specialists: none Preferred Pharmacy: [facility] Retail at discharge Insurance: [facility] Prescription Benefit: yes Living Will/HPOA: none LNOK: sister, Brother Living Arrangements: Patient lives alone in a 2 story apartment. Patient states he is independent and able to ambulate stairs. Transportation: self, brother, sisters DME/HHC: Patient denies DME or previous HHC or SNF Disposition Plan: Patient to discharge home with follow-up plans in place. Jolly ARIASN, RN, CM
[2022-12-02 01:00] VITALS: BP 127/71; PULSE 91; RESP 16; TEMP 37.3; O2SAT 97
[2022-12-02 05:00] VITALS: BP 131/65; PULSE 96; RESP 16; TEMP 37.2; O2SAT 98
[2022-12-02 05:28] VITALS: BMI 21.6
[2022-12-02 06:12] LABS: Absolute Lymphocyte Count 2.79 X10^3/uL (0.83-4.51); Basophil# 0.05 X10^3/uL; Basophil% 0.7 % (0-1); Eosinophil# 0.05 X10^3/uL; Eosinophils% 0.7 % (0-5); Hematocrit 27.5 % (40-54); Hemoglobin 8.7 g/dL (13.0-16.5); Lymphocyte # 2.79 X10^3/ul (0.83-4.51); Lymphocyte % 37.6 % (19-41); Mean Corp Hgb Conc 31.6 g/dL (32-36); Mean Corpuscular Hgb 32.3 pg (27.0-32.0); Mean Corpuscular Volume 102.2 fL (80-94); Mean Platelet Vol. 10.4 fl (6.2-12.0); Monocyte# 0.54 X10^3/uL; Monocyte% 7.3 % (0-10); NRBC Flagged by Analyzer 0 % (0-5); Neutrophil # 3.96 X10^3/uL (2.7-7.7); Neutrophil % 53.3 % (47-70); Platelet Count 179 K/mm3 (150-450); RBC Distribution Width CV 12.1 % (11.6-14.6); Red Blood Count 2.69 M/mm3 (4.6-6.2); White Blood Count 7.4 K/mm3 (4.4-11.0)
[2022-12-02 07:06] LABS: AST(SGOT) 13 U/L (15-37); Alanine Aminotransfer ALT/SGPT 18 U/L (16-61); Albumin, Serum 2.9 g/dL (3.2-5.0); Alkaline Phosphatase 50 U/L (45-117); Anion Gap 2 (5-15); BUN 21 mg/dL (7-18); BUN/Creat Ratio 20.8 RATIO (10-20); Bilirubin, Direct 0.22 mg/dL (0.00-0.30); Calcium,Total 8.5 mg/dL (8.5-10.1); Chloride 111 mmol/L (98-107); Creatinine, Serum 1.01 mg/dL (0.70-1.30); EST Glomerular Filtration Rate 77 mL/min (>60); Est Glom Filt Rate - Afr Amer 93 mL/min (>60); Estimated Creatinine Clearance 64.15 ml/min; Globulin 2.3 g/dL (2.2-4.2); Glucose 88 mg/dL (74-106); Magnesium 2.1 mg/dL (1.6-2.6); Phosphorus 3.1 mg/dL (2.5-4.9); Potassium 4.3 mmol/L (3.5-5.1); Protein, Total 5.2 g/dL (6.4-8.2); Sodium Level 141 mmol/L (136-145)
--- NOTE | 2022-12-02 08:23 | PN.HOSP_ITS ---
Reason for Visit Reason for Visit: Diagnoses Gastrointestinal hemorrhage, unspecified (11/30/22) Subjective Subjective Seen, hemoglobin down to 8.7. Patient continues to experience bowel movement with dark red blood. Objective Data Objective Data Vital Signs: Vital Signs Temp Pulse Resp BP Pulse Ox O2 Del Method 99.0 F 96 16 131/65 H 98 Room Air 12/02/22 05:00 12/02/22 05:00 12/02/22 05:00 12/02/22 05:00 12/02/22 05:00 12/02/22 05:00 Oxygen Delivery Method Room Air Weight: 68.6 kg Body Mass Index (BMI) 21.6 Intake & Output: Intake and Output for Last 24 Hours 11/30/22 12/01/22 12/02/22 23:59 23:59 23:59 Intake Total 455 / 455 2168.33 / 2408.33 340 / 340 Balance 455 / 455 2168.33 / 2408.33 340 / 340 Lab / Micro Data 12/02/22 05:49 12/02/22 05:49 Labs: Laboratory Results - last 24 hr 12/01/22 05:40: Hemoglobin A1c 5.3 12/02/22 05:49: WBC 7.4, RBC 2.69 L, Hgb 8.7 L, Hct 27.5 L, MCV 102.2 H D, MCH 32.3 H, MCHC 31.6 L D, RDW Std Deviation 45.0 H, RDW Coeff of Angela 12.1, Plt C ount 179, MPV 10.4, Immature Gran % (Auto) 0.400, Neut % (Auto) 53.3, Lymph % (Auto) 37.6, [place] % (Auto) 7.3, Eos % (Auto) 0.7, Baso % (Auto) 0.7, Absolute Neuts (auto) 4.0, Absolute Lymphs (auto) 2.79, Nucleated RBC % 0, Sodium 141, Potassium 4.3, Chloride 111 H, Carbon Dioxide 28.0, Anion Gap 2 L, BUN 21 H, Creatinine 1.01, Estim Creat Clear Calc 64.15, Est GFR (MDRD) Af Amer 93, Est GFR (MDRD) Non-Af 77, BUN/Creatinine Ratio 20.8 H, Glucose 88, Calcium 8.5, Phosphorus 3.1, Magnesium 2.1, Total Bilirubin 0.80, Direct Bilirubin 0.22, AST 13 L, ALT 18, Alkaline Phosphatase 50, Total Protein 5.2 L, Albumin 2.9 L, Globulin 2.3 Radiography Diagnostic Testing: Radiology Impression Abdomen/Pelvis CTA 12/01/22 12:38 IMPRESSION: Fatty infiltration of the liver. Left renal cyst. Sigmoid diverticulosis. 3.9 mm noncalcified nodule in the peripheral lateral aspect of the right lower lobe. Electronically Signed: Jan Clement MD at 14:14 EDT , Physical Exam Narrative GENERAL: cooperative HEENT: Atraumatic; normocephalic EYES; Anicteric, Normal Conjunctiva NECK; supple, normal thyroid, RESPIRATORY: Diminished to auscultation CARDIOVASCULAR: Regular S1 S2, GI: soft, normoactive bowel sounds, : No Renal angle tenderness; EXTREMITIES: No edema, no clubbing, MUSCULOSKELETAL: no muscle wasting NEURO: Awake; no lateralizing signs. SKIN: No Rash PSYCH; Flat affect Assessment & Plan Assessment/Plan (1) Acute lower gastrointestinal bleeding: PLAN: Plan Patient is a 72-year-old gentleman who presented with rectal bleed. To monitored bed consultation placed to GI 1. Hematochezia ? Lower versus upper GI bleed. Admitted to monitored bed H&H ordered every 6 hours patient started on Protonix drip consultation placed to GI plan for patient to undergo upper and lower endoscopy -Colonoscopy findings. - Blood in the rectum, in the recto-sigmoid colon, in the sigmoid colon, in the descending colon, at the splenic flexure, in the transverse colon, at the hepatic flexure, in the ascending colon and in the cecum. - Diverticulosis in the recto-sigmoid colon, in the sigmoid colon and in the descending colon. 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 Treated with a heater probe. - No specimens collected. EGD findings - Z-line irregular, 38 cm from the incisors. Biopsied. - Acute gastritis. Biopsied. - Chronic duodenitis. Biopsied. 2. Hyperglycemia ? Diabetes mellitus ruled out with a normal hemoglobin A1c 3. Chronic left inguinal hernia ? Patient to follow-up with general surgery as outpatient 4. DVT prophylaxis ? SCDs for now Time spent in the patient's overall evaluation,decision-making process, review of diagnostic data, adjustment of management, discussion with other providers, nursing nursing and ancillary staff involved in patient's care documentation, 40 Minutes Charges/Coding Visit Charges Inpatient E&M: 22661 Subs Hosp L2
--- NOTE | 2022-12-02 08:51 | DS.PCM_ITS ---
Providers Date of Admission: 11/30/22 Date of Discharge: 12/02/22 Primary Care Physician: Dr. Tim Dobbs, Consultations 11/30/22 17:10 Consult: Gastroenterology Routine Consulting Provider: [facility] Reason for Consult: Lower GI Bleed EMERGENT Consult: No MD Notified: Yes Date Notified: 11/30/22 Time Notified: 15:30 Method of Notification: Verbal Reason For Visit: RECTAL BLEED Diagnosis Discharge Diagnosis (1) Acute lower gastrointestinal bleeding: Status: Acute Code(s): K92.2 - Gastrointestinal hemorrhage, unspecified Plan Patient is a 72-year-old gentleman who presented with rectal bleed. To monitored bed consultation placed to GI 1. Hematochezia ? Lower versus upper GI bleed. Admitted to monitored bed H&H ordered every 6 hours patient started on Protonix drip consultation placed to GI plan for patient to undergo upper and lower endoscopy -Colonoscopy findings. - Blood in the rectum, in the recto-sigmoid colon, in the sigmoid colon, in the descending colon, at the splenic flexure, in the transverse colon, at the hepatic flexure, in the ascending colon and in the cecum. - Diverticulosis in the recto-sigmoid colon, in the sigmoid colon and in the descending colon. 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 Treated with a heater probe. - No specimens collected. EGD findings - Z-line irregular, 38 cm from the incisors. Biopsied. - Acute gastritis. Biopsied. - Chronic duodenitis. Biopsied. 2. Hyperglycemia ? Diabetes mellitus ruled out with a normal hemoglobin A1c 3. Chronic left inguinal hernia ? Patient to follow-up with general surgery as outpatient 4. DVT prophylaxis ? SCDs for now Time spent in the patient's overall evaluation,decision-making process, review of diagnostic data, adjustment of management, discussion with other providers, nursing nursing and ancillary staff involved in patient's care documentation, 35Minutes Medications at Discharge Home Medications acetaminophen 325 mg tablet 650 mg (2 x 325 mg) PO Q6H PRN PRN Pain 1-10 Or Fever >100.7 #0 tabs 12/02/22 pantoprazole 40 mg tablet,delayed release (Protonix) 40 mg PO BID #120 tabs 12/02/22 Hospital Course Procedures Colonoscopy and EGD Summary of Care Provided Minutes Spent on Discharge: 35 Physical Exam Narrative GENERAL: cooperative HEENT: Atraumatic; normocephalic EYES; Anicteric, Normal Conjunctiva NECK; supple, normal thyroid, RESPIRATORY: Diminished to auscultation CARDIOVASCULAR: Regular S1 S2, GI: soft, normoactive bowel sounds, : No Renal angle tenderness; EXTREMITIES: No edema, no clubbing, MUSCULOSKELETAL: no muscle wasting NEURO: Awake; no lateralizing signs. SKIN: No Rash PSYCH; Flat affect Weight / BMI Weight Weight: 68.6 kg Body Mass Index (BMI) 21.6 ABG / Lab / Microbiology Data 12/02/22 05:49 12/02/22 05:49 Laboratory: Laboratory Results - last 24 hr 12/01/22 05:40: Hemoglobin A1c 5.3 12/02/22 05:49: WBC 7.4, RBC 2.69 L, Hgb 8.7 L, Hct 27.5 L, MCV 102.2 H D, MCH 32.3 H, MCHC 31.6 L D, RDW Std Deviation 45.0 H, RDW Coeff of Angela 12.1, Plt Count 179, MPV 10.4, Immature Gran % (Auto) 0.400, Neut % (Auto) 53.3, Lymph % (Auto) 37.6, [place] % (Auto) 7.3, Eos % (Auto) 0.7, Baso % (Auto) 0.7, Absolute Neuts (auto) 4.0, Absolute Lymphs (auto) 2.79, Nucleated RBC % 0, Sodium 141, Potassium 4.3, Chloride 111 H, Carbon Dioxide 28.0, Anion Gap 2 L, BUN 21 H, Creatinine 1.01, Estim Creat Clear Calc 64.15, Est GFR (MDRD) Af Amer 93, Est G FR (MDRD) Non-Af 77, BUN/Creatinine Ratio 20.8 H, Glucose 88, Calcium 8.5, Ph osphorus 3.1, Magnesium 2.1, Total Bilirubin 0.80, Direct Bilirubin 0.22, AST 13 L, ALT 18, Alkaline Phosphatase 50, Total Protein 5.2 L, Albumin 2.9 L, Globulin 2.3 Radiography Diagnostic Testing: Radiology Impression Abdomen/Pelvis CTA 12/01/22 12:38 IMPRESSION: Fatty infiltration of the liver. Left renal cyst. Sigmoid diverticulosis. 3.9 mm noncalcified nodule in the peripheral lateral aspect of the right lower lobe. Electronically Signed: Jan Clement MD at 14:14 EDT , D/C Instructions Discharge Diet: No restrictions Discharge Activity: Return to Normal Activity Call your doctor if you observe: Fever of 101 or Higher, Shortness of breath, Fainting spells and Chest pain Meaningful Use Info Meaningful Use Diagnoses (Choose all that apply): None applicable Discharge Plan Admission Admit Date/Time: 11/30/22 14:52 Attending Provider: Ervin Snider Primary Care Provider: Tim Dobbs Consulting Providers: Stan Leung Discharge Orders/Prescriptions Prescriptions: New acetaminophen 325 mg Tablet 650 mg PO Q6H PRN PRN (Reason: Pain 1-10 Or Fever >100.7) Qty: 0 0RF pantoprazole [Protonix] 40 mg tablet,delayed release (DR/EC) 40 mg PO BID Qty: 120 0RF Discontinued Excedrin Extra Strength 250-250-65 mg tablet 2 tab PO Q6H PRN (Reason: pain) Patient Comments: Has been taking more past several weeks than normal for headaches Referrals / Follow Up: Tim Dobbs DO [Primary Care Provider] - Within 2 Weeks Jim Bishop DO [Med Staff - Active Staff] - Within 2 Weeks Yolette Clinton MD [Med Staff - Active Staff] - Within 2 Weeks (for Left Inguinal hernia) Disposition Disposition (needs filled in before D/C Order can be placed): Home, Self Care Charges/Coding Visit Charges Inpatient E&M: 18682 Disch Hosp >30min
[2022-12-02 09:08] VITALS: BP 131/59; PULSE 108; RESP 16; TEMP 36.8; O2SAT 99
[2022-12-02 09:38] VITALS: O2SAT 99
--- NOTE | 2022-12-02 10:24 | PHA.DC.MC.R ---
Pharmacy [facility] Pharmacy Service has performed discharge medication reconciliation and counseling for this patient. 1. ACETAMINOPHEN 650MG PO Q6H PRN PAIN OR FEVER 2. PANTOPRAZOLE 40MG PO BID The patient's discharge medication list was reviewed for discrepancies and discrepancies were resolved. The patient was counseled on the following discharge medications and changes in medications for homegoing were reviewed. The Reason for Use, instructions for use, and potential side effects were reviewed for all new medications. The patient's questions regarding all of their medications were answered. The patient was able to verbally demonstrate an understanding of their discharge medications. Patient counseled by pharmacy helperSharlene. Medications at Discharge Home Medications acetaminophen 325 mg tablet 650 mg (2 x 325 mg) PO Q6H PRN PRN Pain 1-10 Or Fever >100.7 #0 tabs 12/02/22 pantoprazole 40 mg tablet,delayed release (Protonix) 40 mg PO BID #120 tabs 12/02/22
--- NOTE | 2022-12-02 11:00 | EX.PCM.PN.GI ---
Subjective Subjective Patient underwent and egd and colonoscopy yesterday for an acute GI bleed. No problems or bleeding overnight. Objective Data Objective Data Vital Signs: Vital Signs Temp Pulse Resp BP Pulse Ox O2 Del Method 98.3 F 108 H 16 131/59 H 99 Room Air 12/02/22 09:08 12/02/22 09:08 12/02/22 09:08 12/02/22 09:08 12/02/22 09:38 12/02/22 09:08 Oxygen Delivery Method Room Air Weight: 151 lb 3.794 oz Body Mass Index (BMI) 21.6 Intake & Output: Intake and Output for Last 24 Hours 11/30/22 12/01/22 12/02/22 23:59 23:59 23:59 Intake Total 455 / 455 2168.33 / 2408.33 340 / 340 Balance 455 / 455 2168.33 / 2408.33 340 / 340 Lab / Micro Data 12/02/22 05:49 12/02/22 05:49 Labs: Laboratory Results - last 24 hr 12/02/22 05:49: WBC 7.4, RBC 2.69 L, Hgb 8.7 L, Hct 27.5 L, MCV 102.2 H D, MCH 32.3 H, MCHC 31.6 L D, RDW Std Deviation 45.0 H, RDW Coeff of Angela 12.1, Plt Count 179, MPV 10.4, Immature Gran % (Auto) 0.400, Neut % (Auto) 53.3, Lymph % (Auto) 37.6, [place] % (Auto) 7.3, Eos % (Auto) 0.7, Baso % (Auto) 0.7, Absolute Neuts (auto) 4.0, Absolute Lymphs (auto) 2.79, Nucleated RBC % 0, Sodium 141, Potassium 4.3, Chloride 111 H, Carbon Dioxide 28.0, Anion Gap 2 L, BUN 21 H, Creatinine 1.01, Estim Creat Clear Calc 64.15, Est GFR (MDRD) Af Amer 93, Est GFR (MDRD) Non-Af 77, BUN/Creatinine Ratio 20.8 H, Glucose 88, Calcium 8.5, Phosphorus 3.1, Magnesium 2.1, Total Bilirubin 0.80, Direct Bilirubin 0.22, AST 13 L, ALT 18, Alkaline Phosphatase 50, Total Protein 5.2 L, Albumin 2.9 L, Globulin 2.3 Radiography Diagnostic Testing: Radiology Impression Abdomen/Pelvis CTA 12/01/22 12:38 IMPRESSION: Fatty infiltration of the liver. Left renal cyst. Sigmoid diverticulosis. 3.9 mm noncalcified nodule in the peripheral lateral aspect of the right lower lobe. Electronically Signed: Jan Clement MD at 14:14 EDT , Physical Exam Narrative GENERAL: cooperative HEENT: Atraumatic; normocephalic EYES; Anicteric, Normal Conjunctiva NECK; supple, normal thyroid, RESPIRATORY: Diminished to auscultation CARDIOVASCULAR: Regular S1 S2, GI: soft, normoactive bowel sounds, : No Renal angle tenderness; EXTREMITIES: No edema, no clubbing, MUSCULOSKELETAL: no muscle wasting NEURO: Awake; no lateralizing signs. SKIN: No Rash PSYCH; Flat affect Assessment & Plan Assessment/Plan (1) Acute lower gastrointestinal bleeding: PLAN: Plan Patient is a 72-year-old gentleman who presented with rectal bleed. To monitored bed consultation placed to GI Hematochezia ? Likely secondary to diverticular bleed. He did have blood school. There was some angiodysplastic or active bleeding was. He should undergo repeat colonoscopy with a better prep for capsule endoscopy in the future. -Colonoscopy findings. - Blood in the rectum, in the recto-sigmoid colon, in the sigmoid colon, in the descending colon, at the splenic flexure, in the transverse colon, at the hepatic flexure, in the ascending colon and in the cecum. - Diverticulosis in the recto-sigmoid colon, in the sigmoid colon and in the descending colon. 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 Treated with a heater probe. - No specimens collected. EGD findings - Z-line irregular, 38 cm from the incisors. Biopsied. - Acute gastritis. Biopsied. - Chronic duodenitis. Biopsied. Charges/Coding Visit Charges Inpatient E&M: 91220 Subs Hosp L3
== END 2022-12-02 11:17 | disposition home or self-care (01) | DRG 379 ==
LOC: ED 15:03 → PCU 15:28
PROVIDERS: Internal Medicine Gastroenterology; Admitting Provider Internal Medicine; Emergency Provider Emergency Medicine; PCP Family Medicine; Visit Provider Internal Medicine
PROC: 0DJD8ZZ Inspection of Lower Intestinal Tract, Via Natural or Artificial Opening Endoscopic (ICD-10-PCS; CPT 45378; principal; 2022-12-01 11:25)
DX: K55.21 Angiodysplasia of colon with hemorrhage (principal); K29.01 Acute gastritis with bleeding; K62.5 Hemorrhage of anus and rectum; K40.90 Unilateral inguinal hernia, without obstruction or gangrene, not specified as recurrent; K21.9 Gastro-esophageal reflux disease without esophagitis; K57.31 Diverticulosis of large intestine without perforation or abscess with bleeding; K29.81 Duodenitis with bleeding; R73.9 Hyperglycemia, unspecified; R07.89 Other chest pain; Z87.891 Personal history of nicotine dependence
CPT/HCPCS: 36415; 74174; 80048; 80053; 80076; 83036; 83735; 84100; 84443; 84484; 85014; 85018; 85025; 86850; 86900; 86901; 88305; 88313; 88342; 93005; 94668; 97162; 97165; 97530; 97535; 99252; 99284; J7030; J7120; Q9967; A4216; G0463; J2405

== ENCOUNTER 2022-12-03 10:40 | Inpatient (IN) | payer MEDICARE, MEDICAID, SELFPAY ==
[2022-12-03] VITALS (12 sets, daily range): BP systolic 106–156; BP diastolic 61–75; PULSE 74–112; RESP 12–18; TEMP 36.6–37.7; O2SAT 98–100; BMI 21.9; BMI 21.7
--- NOTE | 2022-12-03 10:51 | EKG12_ITS ---
Test Reason : GI Blood Pressure : / mmHG Vent. Rate : 107 BPM Atrial Rate : 107 BPM P-R Int : 144 ms QRS Dur : 082 ms QT Int : 340 ms P-R-T Axes : 062 014 045 degrees QTc Int : 453 ms Sinus tachycardia Otherwise normal ECG Confirmed by ROLANDA LANE, ROSAURA ([id number]), staff editor NICHOLAS HIGGINS ([id number]) on 12/08/2022 8:16:27 AM Referred By: Confirmed By:TYRONE ORANTES MD
--- NOTE | 2022-12-03 10:53 | ED.VIS.GI ---
HPI HPI - GI History of Present Illness Chief Complaint: GI Bleed Informant: patient Narrative Narrative: Presents to ED by EMS for continued rectal bleeding with lightheaded symptoms with standing. Discharged yesterday after 2-day stay for similar. He had a upper and lower endoscopy. He is not on any blood thinners. Said to bowel movements with blood since leaving the hospital last 1 this morning. He was lightheaded in the shower. He did not trust himself driving therefore called EMS. He lives alone. Lower abdominal cramping. No cardiac history. He was placed on Protonix and he was discharged status post 2 doses. After initiation of workup evaluation records, EGD colonoscopy. Colonoscopy is blood throughout the colon, there was heater probe performed to areas of angiodysplasia. There is recommendations of repeat colonoscopy in the near future with a better bowel prep. Possible capsule endoscopy. His hemoglobin 8.7 yesterday down from 11 the day prior. He was not transfused any blood. Blood type a positive. Prior similar symptoms: Yes PFSH PFSH Medical History GI bleed Home Medications pantoprazole 40 mg tablet,delayed release (Protonix) 40 mg PO BID #120 tabs 12/02/22 [Rx Last Taken 12/02/22] Allergy/AdvReac Type Severity Reaction Status Date / Time No Known Allergies Allergy Verified 12/03/22 10:42 Social History Smoking Status: Unknown if ever smoked ROS ROS ED Constitutional Constitutional ED: Denies chills, fever(s) or sweats Eyes Eyes: Denies change in vision ENT ENT ED: Denies dysphagia or sore throat Cardiovascular Cardiovascular: Reports other Details: lightheaded ; Denies chest pain, leg edema, palpitations or racing heartbeat Respiratory/Chest Respiratory/Chest: Denies cough, dyspnea or dyspnea on exertion Gastrointestinal Gastrointestinal: Reports abdominal pain and other Details: Rectal bleeding ; Denies diarrhea, nausea or vomiting Genitourinary Genitourinary ED: Denies dysuria, hematuria or urinary frequency Musculoskeletal Musculoskeletal: Denies back pain, extremity pain or neck pain Integumentary Denies rash or wounds Neurologic Neurologic: Denies headache(s), paresthesias or weakness EXAM Physical Exam Const Vital Signs: 12/03/22 10:42 12/03/22 10:48 12/03/22 11:11 Temperature 98 F Temperature Source Oral Pulse Rate 112 H 102 H Respiratory Rate 12 16 Respiratory Effort Normal Non-Labored Respiratory Pattern Normal Blood Pressure 146/69 H 121/66 H Blood Pressure Mean 94 84 Pulse Ox 98 100 Oxygen Delivery Method Room Air Room Air Positive well nourished and well developed General Appearance ED: well developed and NAD HEENT Reports moist mucous membranes normocephalic and atraumatic Eyes PERRL and EOMs intact bilaterally General Eye ED: Yes normal appearance of both eyes and pale conjunctiva Neck no lymphadenopathy and supple General: Negative for tenderness Chest Wall Chest: Negative for tenderness Resp normal respiratory effort and normal air movement Effort and Inspection: symmetric chest movement; Negative for respiratory distress Cardio regular rhythm and no murmurs Rate: tachycardic Peripheral Pulses: pulses 2+ throughout GI normal to inspection, nondistended, normoactive bowel sounds and non-tender Palpation: Negative for guarding or rebound tenderness present Back/Spine no CVA tenderness and no thoracic nor lumbar tenderness Extremity normal to inspection General Extremety ED: Negative for edema or tenderness General Extremity: Negative for edema Neuro oriented x3 and no sensory deficits noted Sensorium / Orientation: awake and alert Skin no rashes or lesions noted and no wounds Skin Narrative: Mild pallor of the skin. MDM MDM MDM Narrative Medical decision making narrative: Interventions / MDM: Differential diagnosis: Hematochezia, diverticular bleed Diagnosis considered but do not suspect: No significant pain for diverticulitis concerns My EKG interpretation: Sinus rate of 107, no ST or T wave changes. Imaging independently reviewed and interpreted by myself: N/A External documents reviewed: Inpatient records and colonoscopy and EGD report. Test considered but not ordered:N/A ED course: Patient tachycardic on arrival blood pressure 146/69. Started on IV fluids, NPO. EKG ordered. Will check labs, will likely need readmission for continued GI bleed. 1135: Hemoglobin trend 8.5 slightly down from 8.7 yesterday. Heart rate improving with fluids. I spoke with SHAHZAD Vega, will keep n.p.o. he would like to obtain a CT angiogram abdomen pelvis due to diffuse blood in the colon from the colonoscopy. This will help guide his treatment plan. Plan for admission. I spoke with Dr. Mcdowell for admission. After admission, I did receive a call from Dr. Bishop, I reviewed the CT imaging concerning for pneumoperitoneum. I reviewed this and also saw this. I did speak with hospitalist Dr. Snider who is managing the patient. I spoke with surgeon Dr. Rivera, to inform him of the findings and the consult placed to him. He is aware of the consult. He will see the patient on the medical floor. Re-evaluation: stable Disposition discussed with patient/family/significant other: Case discussed with consulting clinician: N/A This note was generated with [employer] dictation software. It may contain incorrect words, spelling, and punctuation that were not noted in checking the note before signing. Lab Data Labs: Laboratory Results - last 24 hr 12/03/22 11:10 WBC 10.0 RBC 2.54 L Hgb 8.5 L Hct 25.0 L MCV 98.4 H MCH 33.5 H MCHC 34.0 D RDW Std Deviation 42.5 RDW Coeff of Angela 11.9 Plt Count 182 MPV 9.9 Immature Gran % (Auto) 0.500 Neut % (Auto) 81.0 H Lymph % (Auto) 11.7 L [place] % (Auto) 6.1 Eos % (Auto) 0.1 Baso % (Auto) 0.6 Absolute Neuts (auto) 8.1 H Absolute Lymphs (auto) 1.17 Nucleated RBC % 0 PT 14.8 INR 1.2 APTT 25.8 Sodium 139 Potassium 3.7 Chloride 107 Carbon Dioxide 24.0 Anion Gap 8 BUN 22 H Creatinine 1.14 Estim Creat Clear Calc 57.50 Est GFR (MDRD) Af Amer 81 Est GFR (MDRD) Non-Af 67 BUN/Creatinine Ratio 19.3 Glucose 140 H Calcium 8.6 Radiography Diagnostic Testing: Clinical Impression(s) from Imaging Studies Abdomen/Pelvis CTA 12/03/22 11:33 IMPRESSION: Small amount of free intraperitoneal air. Sigmoid diverticulosis. Prostatic enlargement. Small umbilical hernia and left inguinal hernia containing fat. Electronically Signed: Jan Clement MD at 12:34 EDT , Critical Care Time Critical Care Time: Yes Critical care time (excluding procedures): 30-74 minutes, Discussing w/Patient &/or Family/Film Flat Inspector, Discussing w/Consultants, Arranging Admission or Transfer, Performing Direct Patient Care at Bedside and - (35 minutes) Discharge Plan Dx/Rx/DC Orders Clinical Impression: GI bleed, Sinus tachycardia, Near syncope, Blood loss anemia, Pneumoperitoneum Disposition Disposition: Acute Care Hospital [facility] Discharge Date/Time: 12/03/22 12:31
[2022-12-03] MEDS: 0.9% Normal Saline 1,000 ML 150 ML IV (11:10)
[2022-12-03 11:19] LABS: Absolute Lymphocyte Count 1.17 X10^3/uL (0.83-4.51); Absolute Neutrophil Count 8.1 X10^3/uL (2.0-7.7); Basophil# 0.06 X10^3/uL; Basophil% 0.6 % (0-1); Eosinophil# 0.01 X10^3/uL; Eosinophils% 0.1 % (0-5); Hemoglobin 8.5 g/dL (13.0-16.5); Lymphocyte # 1.17 X10^3/ul (0.83-4.51); Lymphocyte % 11.7 % (19-41); Mean Corpuscular Hgb 33.5 pg (27.0-32.0); Mean Corpuscular Volume 98.4 fL (80-94); Mean Platelet Vol. 9.9 fl (6.2-12.0); Monocyte# 0.61 X10^3/uL; Monocyte% 6.1 % (0-10); NRBC Flagged by Analyzer 0 % (0-5); Neutrophil # 8.08 X10^3/uL (2.7-7.7); Platelet Count 182 K/mm3 (150-450); RBC Distribution Width CV 11.9 % (11.6-14.6); RBC Distribution Width SD 42.5 fl (35.1-43.9); Red Blood Count 2.54 M/mm3 (4.6-6.2)
[2022-12-03 11:28] LABS: International Normalized Ratio 1.2; Partial Thromboplast Time 25.8 Seconds (24.1-36.2); Prothrombin Time (Protime)PT. 14.8 SECONDS (11.7-14.9)
[2022-12-03 11:33] LABS: Anion Gap 8 (5-15); BUN 22 mg/dL (7-18); BUN/Creat Ratio 19.3 RATIO (10-20); Calcium,Total 8.6 mg/dL (8.5-10.1); Chloride 107 mmol/L (98-107); Creatinine, Serum 1.14 mg/dL (0.70-1.30); EST Glomerular Filtration Rate 67 mL/min (>60); Est Glom Filt Rate - Afr Amer 81 mL/min (>60); Glucose 140 mg/dL (74-106); Potassium 3.7 mmol/L (3.5-5.1); Sodium Level 139 mmol/L (136-145)
--- NOTE | 2022-12-03 11:33 | CT_ITS ---
STUDY: CTA ABDOMEN AND PELVIS WITH CONTRAST REASON FOR EXAM: Male, 72 years old. gi bleed RADIATION DOSAGE (If Supplied By Facility): CTDIvol = ( 16.89 ) mGy, DLP = ( 621.37 ) mGycm TECHNIQUE: Transaxial images were obtained from the dome of the diaphragm to the symphysis pubis without oral contrast. IV 100mL Isovue-370 was administered. Sagittal and coronal images were reconstructed. Individualized dose optimization techniques were used for this CT. COMPARISON: Comparison is made with prior study dated December 01, 2022. FINDINGS: The visualized lung bases are unremarkable. The visualized portions of the heart are within normal limits. Small amount of the free intraperitoneal air. There is decreased attenuation of the liver consistent with steatosis. Normal gallbladder and extrahepatic biliary system. Normal spleen. Normal pancreas. Normal bilateral adrenal glands. Normal right kidney. Stable 2 cm cyst in the lateral aspect of the left kidney. Normal visualized stomach. Normal small intestine. There are multiple colonic diverticula consistent with diverticulosis. The appendix is visualized and appears normal. There is scattered atherosclerotic calcification of the abdominal aorta, without a demonstrated aneurysm. Normal inferior vena cava. Normal retroperitoneum. Normal urinary bladder. Stable enlargement of the prostate with indentation at the bladder base. There is a small umbilical hernia containing fat. Left pneumonia containing fat. There are diffuse degenerative changes of the visualized lumbar spine. CT/CTA Abd/Pelvis W/WO Contrast IMPRESSION: Small amount of free intraperitoneal air. Sigmoid diverticulosis. Prostatic enlargement. Small umbilical hernia and left inguinal hernia containing fat. Electronically Signed: Jan Clement MD at 12:34 EDT ,
--- NOTE | 2022-12-03 11:44 | NURSING ---
DR VALERIO FOR DR HAN
--- NOTE | 2022-12-03 11:47 | NURSING ---
MED SURG GI BLEED ELLER
--- NOTE | 2022-12-03 11:54 | HP.PCM.HOS_ITS ---
HPI - General General Date of Admission: 12/03/22 Date of Service: 12/03/22 Chief Complaint: Bleeding per rectum HPI Narrative SRINIVAS OG, is a 72 M who presents with bleeding per rectum. Patient had recently been admitted for rectal bleed underwent colonoscopy and EGD colonoscopy did not show. Blood in the rectum, in the recto-sigmoid colon, in the sigmoid colon, in the descending colon, at the splenic flexure, in the transverse colon, at the hepatic flexure, in the ascending colon and in the cecum. Diverticulosis in the recto-sigmoid colon, in the sigmoid colon and in the descending colon. 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 Treated with a heater probe. EGD findings included- Z-line irregular, 38 cm fr om the incisors. Biopsied. - Acute gastritis. Biopsied. - Chronic duodenitis. Biopsied. Patient was discharged home in stable condition returned the following day complaining of lightheadedness as well as bleeding per rectum. Hemoglobin on discharge was 8.7 hemoglobin on his 3 admission was 8.5 admitted to a monitored bed for further management [facility] Medical History GI bleed Home Medications pantoprazole 40 mg tablet,delayed release (Protonix) 40 mg PO BID #120 tabs 12/02/22 [Rx Last Taken 12/02/22] Allergy/AdvReac Type Severity Reaction Status Date / Time No Known Allergies Allergy Verified 12/03/22 10:42 no significant family history Social History Smoking Status: Unknown if ever smoked ROS ROS Narrative GENERAL: denies fever, chills, night sweats, weight loss, anorexia HEENT: denies headache, sinus congestion, or drainage, dysphagia RESPIRATORY: denies cough, sputum production, shortness of breath, CARDIAC: denies chest pain, palpitations, orthopnea, PND GASTROINTESTINAL: denies abdominal pain, nausea, vomiting, GENITOURINARY: denies dysuria, urgency, frequency, heamaturia EXTREMITY: denies swelling MUSCULOSKELETAL: denies current joint pain or tenderness NEUROLOGIC: denies focal numbness, weakness, tingling HEMATOLOGIC: denies easy bruising and/or hemorrhage INTEGUMENT: denies rashes PSYCHIATRIC: denies suicidal or homicidal ideation Vital Signs Vital Signs Vital Signs: 12/03/22 10:42 12/03/22 10:48 12/03/22 11:11 Temperature 98 F Temperature Source Oral Pulse Rate 112 H 102 H Respiratory Rate 12 16 Respiratory Effort Normal Non-Labored Respiratory Pattern Normal Blood Pressure 146/69 H 121/66 H Blood Pressure Mean 94 84 Pulse Ox 98 100 Oxygen Delivery Method Room Air Room Air 12/03/22 11:49 Temperature 98.8 F Temperature Source Oral Pulse Rate 99 Respiratory Rate 18 Respiratory Effort Respiratory Pattern Blood Pressure 106/62 Blood Pressure Mean 76 Pulse Ox 98 Oxygen Delivery Method Room Air Weight Weight: 69.4 kg Body Mass Index (BMI) 21.9 Physical Exam Narrative GENERAL: cooperative HEENT: Atraumatic; normocephalic EYES; Anicteric, Normal Conjunctiva NECK; supple, normal thyroid, RESPIRATORY: Diminished to auscultation CARDIOVASCULAR: Regular S1 S2, GI: soft, normoactive bowel sounds, : No Renal angle tenderness; EXTREMITIES: No edema, no clubbing, MUSCULOSKELETAL: no muscle wasting NEURO: Awake; no lateralizing signs. SKIN: No Rash PSYCH; Flat affect Results Lab / Micro Data 12/03/22 11:10 12/03/22 11:10 Labs: Laboratory Results - last 24 hr 12/03/22 11:10: WBC 10.0, RBC 2.54 L, Hgb 8.5 L, Hct 25.0 L, MCV 98.4 H, MCH 33.5 H, MCHC 34.0 D, RDW Std Deviation 42.5, RDW Coeff of Angela 11.9, Plt Count 182, MPV 9.9, Immature Gran % (Auto) 0.500, Neut % (Auto) 81.0 H, Lymph % (Auto) 11.7 L, [place] % (Auto) 6.1, Eos % (Auto) 0.1, Baso % (Auto) 0.6, Absolute Neuts (auto) 8.1 H, Absolute Lymphs (auto) 1.17, Nucleated RBC % 0, PT 14.8, INR 1.2, APTT 25.8, Sodium 139, Potassium 3.7, Chloride 107, Carbon Dioxide 24.0, Anion Gap 8, BUN 22 H, Creatinine 1.14, Estim Creat Clear Calc 57.50, Est GFR (MDRD) Af Amer 81, Est GFR (MDRD) Non-Af 67, BUN/Creatinine Ratio 19.3, Glucose 140 H, Calcium 8.6 Assessment & Plan Assessment/Plan (1) Blood loss anemia: PLAN: Plan Patient is a 72-year-old gentleman who presented with recent hospitalization for GI bleed underwent endoscopic evaluation with findings as stated above readmitted with bleeding per rectum and lightheadedness 1. Hematochezia Patient had recently undergone endoscopic evaluation findings included -Colonoscopy findings. - Blood in the rectum, in the recto-sigmoid colon, in the sigmoid colon, in the descending colon, at the splenic flexure, in the transverse colon, at the hepatic flexure, in the ascending colon and in the cecum. - Diverticulosis in the recto-sigmoid colon, in the sigmoid colon and in the descending colon. - Two bleeding angiodysplas No specimens collected. EGD findings - Z-line irregular, 38 cm from the incisors. Biopsied. - Acute gastritis. Biopsied. - Chronic duodenitis. Biopsied. Patient presented with bleeding per rectum. Hemoglobin on discharge was 8.7 was 8.5 on admission admitted to a monitored bed H&H ordered patient is on PPI continue 2. Relative hypotension ? Patient resuscitated with IV fluids 3. Chronic left inguinal hernia ? Patient to follow-up with general surgery as outpatient 4. DVT prophylaxis ? SCDs for now Time spent in the patient's overall evaluation,decision-making process, review of diagnostic data, adjustment of management, discussion with other providers, nursing nursing and ancillary staff involved in patient's care documentation, 55 minutes Charges/Coding Visit Charges Inpatient E&M: 40867 Init Hosp L2
[2022-12-03] MEDS: KCl 20MEQ in D5NS 20 MEQ/1,000 ML IV.SOLN. 150 MEQ IV ×3 (15:15→23:57)
--- NOTE | 2022-12-03 15:35 | CON.PCM.SX_ITS ---
Assessment & Plan Assessment/Plan (1) Perforated bowel: PLAN: I have been consulted in conjunction with Dr. Rivera. I have reviewed my findings with him and he will independently evaluate this patient. Patient returns to the hospital with severe abdominal pain and guarding in the right lower quadrant following a colonoscopy and upper scope from a recent hospitalization. CT scan of the ab/pel is demonstrating free air consistent with a bowel perforation likely in the area of the distal ileum where the heater probe was used. Dr. Rivera will plan to perform an urgent laparoscopic possible conversion to open exploration with possible bowel resection, today. Procedure details, risks and benefits have been explained. Patient has had the opportunity to ask and have questions answered. Patient verbally understands and agrees with the plan. I have attempted to contact the patient's brother to discuss the plan with him however he did not pick up and delivery driver and there was no answering machine. Thank you for allowing us to participate in this patient's care. HPI Consult Data Date of Consult: 12/03/22 HPI Narrative Reason for Consultation: Abdominal pain HPI Narrative: SRINIVAS OG, is a 72 M who presents following a 2 day hospitalization for GI bleed. Patient had an upper and lower scope by Dr. Bishop on 12/01/22. Findings included Blood in the rectum, in the recto-sigmoid colon, in the sigmoid colon, in the descending colon, at the splenic flexure, in the transverse colon, at the hepatic flexure, in the ascending colon and in the cecum. Diverticulosis in the recto-sigmoid colon, in the sigmoid colon and in the descending colon. 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 Treated with a heater probe. No specimens collected Patient was discharged to home yesterday. Patient states he was sent home on Protonix. Patient notes he had abdominal pain wake him up around 0200 AM. He notes he tried to move around to get comfortable and drink so me water, however this took an hour before he was able to settle down. Patient notes when he tried to get up for the morning and get his shower, he felt lightheaded. Abdominal pain continued. He also was noting melanotic stools at least 2 times before calling EMS to return back to the hospital. Patient continues to have melanotic stools since admission. CT scan of the ab/pel demonstrated free air in the abdomen. Patient was subsequently admitted. Patient notes a slight amount of nausea. No vomiting. He notes he has been taking Excedrin 1-2 tablets daily x 2 weeks for a headache. Patient denies cardiac history. He does not take any routine medications. He is not on any blood thinners at home. He greco not have any pulmonary concerns. He denies any previous abdominal surgeries. He denies any complications with anesthesia. [facility] Medical History GI bleed Home Medications pantoprazole 40 mg tablet,delayed release (Protonix) 40 mg PO BID #120 tabs 12/02/22 [Rx Last Taken 12/02/22] Allergy/AdvReac Type Severity Reaction Status Date / Time No Known Allergies Allergy Verified 12/03/22 10:42 Family History no significant family his Social History Smoking Status: Unknown if ever smoked ROS Constitutional Constitutional: Reports malaise and weakness Eyes Eyes: Reports systems reviewed and no addt'l complaints, except as documented ENT HEENT: Reports systems reviewed and no addt'l complaints, except as documented Cardiovascular Cardiovascular: Reports systems reviewed and no addt'l complaints, except as d ocumented Respiratory/Chest Respiratory/Chest: Reports systems reviewed and no addt'l complaints, except as documented Gastrointestinal Gastrointestinal: Reports systems reviewed and no addt'l complaints, except as documented Genitourinary Genitourinary: Reports systems reviewed and no addt'l complaints, except as documented Musculoskeletal Musculoskeletal: Reports systems reviewed and no addt'l complaints, except as documented Integumentary Integumentary: Reports systems reviewed and no addt'l complaints, except as documented Neurologic Neurologic: Reports systems reviewed and no addt'l complaints, except as documented Psychiatric Psychiatric: Reports systems reviewed and no addt'l complaints, except as documented Endocrine Endocrinology: Reports systems reviewed and no addt'l complaints, except as documented Hematologic/Lymphatic Hematologic/Lymphatic: Reports systems reviewed and no addt'l complaints, except as documented Allergic/Immunologic Allergic/Immunologic: Reports systems reviewed and no addt'l complaints, except as documented Physical Exam Const alert, oriented x3 and no apparent distress HEENT normocephalic Eyes General Eye: normal appearance of both eyes Neck full ROM Lymph Lymphatic: no lymphadenopathy noted Chest inspection of chest normal Resp normal respiratory effort and clear to auscultation bilaterally Cardio regular rate and regular rhythm GI GI Narrative: Abdomen- pain and guarding with palpation of the right lower quadrant. Positive bowel sounds throughout. no CVA tenderness Back/Spine no CVA tenderness Extremity normal to inspection Skin no rashes or lesions noted Neuro no focal motor deficits and no sensory deficits noted Psych mental status grossly normal Lab / Micro Data 12/03/22 11:10 12/03/22 11:10 Labs: Laboratory Results - last 24 hr 12/03/22 11:10: WBC 10.0, RBC 2.54 L, Hgb 8.5 L, Hct 25.0 L, MCV 98.4 H, MCH 33.5 H, MCHC 34.0 D, RDW Std Deviation 42.5, RDW Coeff of Angela 11.9, Plt Count 182, MPV 9.9, Immature Gran % (Auto) 0.500, Neut % (Auto) 81.0 H, Lymph % (Auto) 11.7 L, [place] % (Auto) 6.1, Eos % (Auto) 0.1, Baso % (Auto) 0.6, Absolute Neuts (auto) 8.1 H, Absolute Lymphs (auto) 1.17, Nucleated RBC % 0, PT 14.8, INR 1.2, APTT 25.8, Sodium 139, Potassium 3.7, Chloride 107, Carbon Dioxide 24.0, Anion Gap 8, BUN 22 H, Creatinine 1.14, Estim Creat Clear Calc 57.50, Est GFR (MDRD) Af Amer 81, Est GFR (MDRD) Non-Af 67, BUN/Creatinine Ratio 19.3, Glucose 140 H, Calcium 8.6 Radiology Impression Abdomen/Pelvis CTA 12/03/22 11:33 IMPRESSION: Small amount of free intraperitoneal air. Sigmoid diverticulosis. Prostatic enlargement. Small umbilical hernia and left inguinal hernia containing fat. Electronically Signed: Jan Clement MD at 12:34 EDT , Charges/Coding Visit Charges Office Visits / Consults: [id number] IP Consult L3
--- NOTE | 2022-12-03 16:00 | COL_PTH ---
PATIENT: SRINIVAS OG LOC: [facility] U#:[id number] AGE/SX: 72/M ROOM: [facility] RE12/03/[address]: Dr. Wil York DO : 1950 BED: 1 DIS: 12/22/2022 SPEC #: [id number] RECD: 12/04/22 07:37 STATUS: YOVANA RESoraya #: [id number] LOLA: 12/03/22 16:[address]: Donny Rivera DEPT: SURGICAL PATHOLOGY RECD BY: Shamika Allen ENTERED: 12/04/22 10:01 SP TYPE: COLON OTHR DR: MD Dr. Pk Shearer, MD Dr. Tim Maravilla Dr., DO Dr. Stan Leung MD Tissues: Colon, NOS Procedures: Surgery Specimen Level V Comments: @ Ordering doctor for SUV edited from to @ by LISA at 12/04/22 1445 @ Submitting doctor edited from to @ ángel GONZALEZ at 12/04/22 1445 HEADER OPERATION: Exploratory laparoscopy and ileocecectomy PRE-OP DIAGNOSIS: Perforated bowel TISSUE SUBMITTED: Terminal ileum and cecum MICROSCOPIC DIAGNOSIS Cecum and terminal ileum, segmental resection: Mucosal ulceration of small bowel with associated microscopic perforation, acute and chronic inflammation and acute serositis. Appendix with fibrofatty obliteration of lumen. Margins of excision with no pathologic change. Five out of five lymph nodes with no pathologic change. See comment. AM:filiberto 12/08/2022 COMMENT The microscopic focus of perforation measures approximately 1 mm in diameter. Clinical correlation is suggested. MICROSCOPIC DESCRIPTION Slides are reviewed. GROSS DESCRIPTION Received in fixative is one container labeled with the patient's name and designated terminal ileum and cecum. The specimen consists of a segment of cecum with segment of small intestine with attached mesentery and pericolonic adipose tissue. The appendix is also present. Segment of small intestine measures 15.0 cm in length and cecum measures 6.0 x 6.0 cm. The appendix measures 5.0 cm in length and 0.4 cm in diameter. The cecum appears to be dilated. Both resection margins are stapled. The cecum is filled with large amount of fecal material. The ileocecal valve appears to be slightly congested. No mucosal lesion is identified. Also present in the container is a donut-shaped piece of tissue measuring 4.0 x 1.0 x 1.0 cm. Sections will be submitted after fixation. / SJ:filiberto 12/04/2022 The specimen consists of 16.0 cm of small bowel with attached cecum measuring 7.0 cm in length and attached appendix measuring 6.0 cm in length with a diameter of 0.6 cm. The mucosa is thrown into normal fold. No mass lesions are identified. Located approximately 11.0 cm from the proximal margin of resection and 5.6 cm from the ileocecal valve and within the small bowel is an area of ulceration measuring 3.0 x 3.0 mm. The serosal in the area of the ulceration is whitish-goetz in color. No gross perforation is identified. Serial sections of the appendix reveal fibrous obliteration of lumen. The attached fibrofatty tissue contains a number of grossly unremarkable nodules resembling lymph nodes. [employer] sections are submitted in six cassettes as follows: 1 - mucosal margins of excision, 2??ileocecal valve, 3 - area of ulceration, 4 - appendix, 5 - uninvolved small and large bowel, 6 - lymph nodes. / AM:filiberto 12/05/2022 TC:2 CPT: 17578
--- NOTE | 2022-12-03 16:33 | NURSING ---
Patient transported to surgery.
[2022-12-03] MEDS: Bupivacaine 0.5% PF 10 ML VIAL (18:42)
--- NOTE | 2022-12-03 18:48 | PCM.OPRPT ---
Report of Operation Date of Procedure: 12/03/22 Pre-Operative Diagnosis: Perforated bowel Post-Operative Diagnosis: Perforated distal ileum Surgery/Procedure Performed:: Exploratory laparoscopy with ileocecectomy Type of Anesthesia: General/Regional Specimen's removed: Terminal ileum and cecum Estimated Blood Loss (mL): 20 Description of Procedure: Patient was brought back to the operating room and general anesthesia was induced. The abdomen was prepped and draped in usual sterile fashion. A midline incision was made superior to the umbilicus and deepened to the fascia which was elevated and incised. A port was placed into the abdomen and the abdomen was insufflated 15 mmHg. Under direct visualization a left lower quadrant 5 mm port was placed and a suprapubic 5 mm port was placed. Patient was placed in Trendelenburg position and the colon was identified. Terminal ileum was identified and traced backwards until the inflamed area overlying the psoas. Next using Enseal the terminal ileum and cecum were mobilized from its lateral attachments. Once there was enough mobility in the small bowel and colon the ports were removed. The midline superior incision was lengthened and the trocar was removed. A wound protector was placed. The terminal ileum and cecum were delivered through the incision. The terminal ileum was traced to proximal to the area of injury and divided using a VICENTE stapler. Using Enseal the bowel was taken from its mesentery back to the cecum. Just distal to the ileocecal valve the cecum was divided using a VICENTE stapler and the specimen was sent for pathology. Next the corner of the staple line of the colon and the corner of the staple line of the small bowel removed. A VICENTE stapler was used to create a [id number] functional end to end anastomosis. The staple line was inspected and there appeared to be no bleeding. The enterostomy was closed with a 60 TX stapler. The 3-0 silk was used to create a crotch suture. The staple line appeared to have good hemostasis and it was well-perfused. The mesenteric defect was closed with a running 3-0 Vicryl suture and the bowel was returned into the abdomen. The abdomen was copiously irrigated and suctioned dry. The omentum was draped over the bowel. Next gloves were changed by the operating staff and then the fascia was closed with running #1 PDS suture from the top and bottom meeting in the middle. Subcutaneous tissue was irrigated and suctioned dry. Local anesthetic was injected, the incisions were closed with interrupted 4-0 Monocryl sutures. Steri-Strips and bandages were applied and the patient was taken to PACU in stable condition. Admit VTE Documentation VTE Mechan Device Prophylaxis: SCD's
[2022-12-03] MEDS: 0.9% Normal Saline 1,000 ML 15 ML IV (19:24)
[2022-12-03] MEDS: Morphine 2 MG/ML Syringe IV (23:01)
[2022-12-04] VITALS (17 sets, daily range): BP systolic 122–156; BP diastolic 52–74; PULSE 99–113; RESP 16–18; TEMP 36.7–37.4; O2SAT 92–100; BMI 22.7
[2022-12-04 06:35] LABS: Absolute Lymphocyte Count 0.58 X10^3/uL (0.83-4.51); Absolute Neutrophil Count 11.2 X10^3/uL (2.0-7.7); Basophil# 0.01 X10^3/uL; Basophil% 0.1 % (0-1); Hematocrit 20.3 % (40-54); Hemoglobin 6.6 g/dL (13.0-16.5); Lymphocyte # 0.58 X10^3/ul (0.83-4.51); Lymphocyte % 4.5 % (19-41); Mean Corp Hgb Conc 32.5 g/dL (32-36); Mean Corpuscular Hgb 33.3 pg (27.0-32.0); Mean Corpuscular Volume 102.5 fL (80-94); Mean Platelet Vol. 10.3 fl (6.2-12.0); Monocyte# 0.97 X10^3/uL; Monocyte% 7.6 % (0-10); NRBC Flagged by Analyzer 0 % (0-5); Neutrophil # 11.16 X10^3/uL (2.7-7.7); Neutrophil % 87.3 % (47-70); POSITIVE DIFFERENTIAL YES; Platelet Count 167 K/mm3 (150-450); RBC Distribution Width CV 12.3 % (11.6-14.6); RBC Distribution Width SD 44.8 fl (35.1-43.9); Red Blood Count 1.98 M/mm3 (4.6-6.2); White Blood Count 12.8 K/mm3 (4.4-11.0)
[2022-12-04 06:38] LABS: Differential Indicated SCAN CRITERIA MET
[2022-12-04 07:09] LABS: Anion Gap 4 (5-15); BUN 15 mg/dL (7-18); BUN/Creat Ratio 13.9 RATIO (10-20); Calcium,Total 7.6 mg/dL (8.5-10.1); Chloride 115 mmol/L (98-107); Creatinine, Serum 1.08 mg/dL (0.70-1.30); EST Glomerular Filtration Rate 71 mL/min (>60); Est Glom Filt Rate - Afr Amer 86 mL/min (>60); Estimated Creatinine Clearance 62.79 ml/min; Glucose 177 mg/dL (74-106); Phosphorus 2.7 mg/dL (2.5-4.9); Potassium 4.3 mmol/L (3.5-5.1); Sodium Level 142 mmol/L (136-145)
[2022-12-04 07:10] LABS: Macrocytosis 2+
[2022-12-04 07:52] LABS: Hematocrit 20.3 % (40-54); Hemoglobin 6.6 g/dL (13.0-16.5)
--- NOTE | 2022-12-04 08:15 | PN.SURG_ITS ---
Subjective Subjective The patient describes that he is not in much pain but his nurses are saying he was complaining of right lower quadrant pain earlier today. He also had to have straight cath overnight. Objective Data Objective Data Vital Signs: Vital Signs Temp Pulse Resp BP Pulse Ox O2 Del Method O2 Flow Rate 99.0 F 104 H 18 132/59 H 99 Nasal Cannula 2 12/04/22 08:00 12/04/22 08:00 12/04/22 08:00 12/04/22 08:00 12/04/22 08:00 12/04/22 08:00 12/04/22 08:00 Oxygen Flow Rate (L/min) 2 Oxygen Delivery Method Nasal Cannula Weight: 158 lb 4.67 oz Body Mass Index (BMI) 22.7 Intake & Output: Intake and Output for Last 24 Hours 12/02/22 12/03/22 12/04/22 23:59 23:59 23:59 Intake Total 2476.5 / 2476.5 1050 / 1050 Output Total 570 / 570 Balance 2476.5 / 2476.5 480 / 480 Lab / Micro Data 12/04/22 07:34 12/04/22 06:13 Labs: Laboratory Results - last 24 hr 12/03/22 11:10: WBC 10.0, RBC 2.54 L, Hgb 8.5 L, Hct 25.0 L, MCV 98.4 H, MCH 33.5 H, MCHC 34.0 D, RDW Std Deviation 42.5, RDW Coeff of Angela 11.9, Plt Count 182, MPV 9.9, Immature Gran % (Auto) 0.500, Neut % (Auto) 81.0 H, Lymph % (Auto) 11.7 L, [place] % (Auto) 6.1, Eos % (Auto) 0.1, Baso % (Auto) 0.6, Absolute Neuts (auto) 8.1 H, Absolute Lymphs (auto) 1.17, Nucleated RBC % 0, PT 14.8, INR 1.2, APTT 25.8, Sodium 139, Potassium 3.7, Chloride 107, Carbon Dioxide 24.0, Anion Gap 8, BUN 22 H, Creatinine 1.14, Estim Creat Clear Calc 57.50, Est GFR (MDRD) Af Amer 81, Est GFR (MDRD) Non-Af 67, BUN/Creatinine Ratio 19.3, Glucose 140 H, Calcium 8.6, Crossmatch See Detail 12/04/22 06:13: WBC 12.8 H, RBC 1.98 L, Hgb 6.6 L, Hct 20.3 L, MCV 102.5 H, MCH 33.3 H, MCHC 32.5, RDW Std Deviation 44.8 H, RDW Coeff of Angela 12.3, Plt Count 167, MPV 10.3, Immature Gran % (Auto) 0.500, Neut % (Auto) 87.3 H, Lymph % (Auto) 4.5 L, [place] % (Auto) 7.6, Eos % (Auto) 0.0, Baso % (Auto) 0.1, Absolute Neuts (auto) 11.2 H, Absolute Lymphs (auto) 0.58 L, Nucleated RBC % 0, Macrocytosis 2+, Sodium 142, Potassium 4.3, Chloride 115 H, Carbon Dioxide 23.0, Anion Gap 4 L, BUN 15, Creatinine 1.08, Estim Creat Clear Calc 62.79, Est GFR (MDRD) Af Amer 86, Est GFR (MDRD) Non-Af 71, BUN/Creatinine Ratio 13.9, Glucose 177 H, Calcium 7.6 L, Phosphorus 2.7, Magnesium 2.0 12/04/22 07:34: Hgb 6.6 L, Hct 20.3 L Radiography Diagnostic Testing: Radiology Impression Abdomen/Pelvis CTA 12/03/22 11:33 IMPRESSION: Small amount of free intraperitoneal air. Sigmoid diverticulosis. Prostatic enlargement. Small umbilical hernia and left inguinal hernia containing fat. Electronically Signed: Jan Clement MD at 12:34 EDT , Physical Exam Const oriented x3 Resp normal respiratory effort GI soft to palpation Palpation: tender RLQ and RUQ Assessment & Plan Assessment/Plan (1) Perforated bowel: PLAN: Patient had ileocecectomy yesterday for perforated bowel. There was not much bleeding at all during the case but today his hemoglobin has dropped 2 g. It was confirmed with repeat H&H. I have ordered 2 units of blood. Recheck hemoglobin after transfusion. Unsure if the anemia is due to his ongoing GI bleed or if this is due to the surgery. If his hemoglobin does not respond to the 2 units of blood I will order CT scan of the abdomen pelvis to check for intra-abdominal bleeding. Continue n.p.o. with IV fluids and IV antibiotics for now. Donny Rivera MD Pager: [facility] [address] [place] [address], [address] [place] [phone] Office:
--- NOTE | 2022-12-04 10:56 | PCM.PN.HOSP ---
Reason for Visit Reason for Visit: Diagnoses Iron deficiency anemia secondary to blood loss (chronic) (12/03/22) Perforation of intestine (nontraumatic) (12/03/22) Objective Data Objective Data Vital Signs: Vital Signs Temp Pulse Resp BP Pulse Ox O2 Del Method O2 Flow Rate 99 F 103 H 16 127/59 H 97 Room Air 2 12/04/22 10:17 12/04/22 10:17 12/04/22 10:17 12/04/22 10:17 12/04/22 10:17 12/04/22 10:17 12/04/22 08:00 Oxygen Flow Rate (L/min) 2 Oxygen Delivery Method Room Air Weight: 158 lb 4.67 oz Body Mass Index (BMI) 22.7 Intake & Output: Intake and Output for Last 24 Hours 12/02/22 12/03/22 12/04/22 23:59 23:59 23:59 Intake Total 2476.5 / 2476.5 1100 / 1100 Output Total 670 / 670 Balance 2476.5 / 2476.5 430 / 430 Lab / Micro Data 12/04/22 07:34 12/04/22 06:13 Labs: Laboratory Results - last 24 hr 12/03/22 11:10: WBC 10.0, RBC 2.54 L, Hgb 8.5 L, Hct 25.0 L, MCV 98.4 H, MCH 33.5 H, MCHC 34.0 D, RDW Std Deviation 42.5, RDW Coeff of Angela 11.9, Plt Count 182, MPV 9.9, Immature Gran % (Auto) 0.500, Neut % (Auto) 81.0 H, Lymph % (Auto) 11.7 L, [place] % (Auto) 6.1, Eos % (Auto) 0.1, Baso % (Auto) 0.6, Absolute Neuts (auto) 8.1 H, Absolute Lymphs (auto) 1.17, Nucleated RBC % 0, PT 14.8, INR 1.2, APTT 25.8, Sodium 139, Potassium 3.7, Chloride 107, Carbon Dioxide 24.0, Anion Gap 8, BUN 22 H, Creatinine 1.14, Estim Creat Clear Calc 57.50, Est GFR (MDRD) Af Amer 81, Est GFR (MDRD) Non-Af 67, BUN/Creatinine Ratio 19.3, Glucose 140 H, Calcium 8.6, Blood Type A POSITIVE, Antibody Screen NEGATIVE, Crossmatch See Detail 12/04/22 06:13: WBC 12.8 H, RBC 1.98 L, Hgb 6.6 L, Hct 20.3 L, MCV 102.5 H, MCH 33.3 H, MCHC 32.5, RDW Std Deviation 44.8 H, RDW Coeff of Angela 12.3, Plt Count 167, MPV 10.3, Immature Gran % (Auto) 0.500, Neut % (Auto) 87.3 H, Lymph % (Auto) 4.5 L, [place] % (Auto) 7.6, Eos % (Auto) 0.0, Baso % (Auto) 0.1, Absolute Neuts (auto) 11.2 H, Absolute Lymphs (auto) 0.58 L, Nucleated RBC % 0, Macrocytosis 2+, Sodium 142, Potassium 4.3, Chloride 115 H, Carbon Dioxide 23.0, Anion Gap 4 L, BUN 15, Creatinine 1.08, Estim Creat Clear Calc 62.79, Est GFR (MDRD) Af Amer 86, Est GFR (MDRD) Non-Af 71, BUN/Creatinine Ratio 13.9, Glucose 177 H, Calcium 7.6 L, Phosphorus 2.7, Magnesium 2.0 12/04/22 07:34: Hgb 6.6 L, Hct 20.3 L Radiography Diagnostic Testing: Radiology Impression Abdomen/Pelvis CTA 12/03/22 11:33 IMPRESSION: Small amount of free intraperitoneal air. Sigmoid diverticulosis. Prostatic enlargement. Small umbilical hernia and left inguinal hernia containing fat. Physical Exam Narrative Seen and examined. Patient has not passed flatus. Patient was taken for surgery yesterday. Physical exam General: Alert, Oriented x3, Cooperative HEENT: Atraumatic, PERRLA, EOMI, Normocephalic Oral: Oral mucosa dry. No Gingival or Mucosal Lesions/ Ulcerations Neck: Supple, No JVD, Negative Carotid Bruits Lungs: Air entry diminished in bilateral lung bases. No crepitation/rhonchi Cardiovascular: Regular rate, Regular Rhythm, Normal S1, Normal S2, No murmurs Abdomen: Bowel Sounds sluggish, Soft, mild operative tenderness with voluntary rigidity on palpation : No renal angle tenderness. No suprapubic tenderness. Extremities: No edema, Capillary Refill Less than 3 Seconds Skin: No rashes, No breakdown Musculoskeletal: No Tenderness to Palpation of Joints or Extremities Neurological: Cranial nerves II-XII grossly intact, DTR 2+/4. No acute focal neurological deficit. Psych/Mental Status: Flat affect. Assessment & Plan Assessment/Plan (1) Blood loss anemia: PLAN: Plan Patient is a 72-year-old gentleman who presented with recent hospitalization for GI bleed underwent endoscopic evaluation with findings as stated above readmitted with bleeding per rectum and lightheadedness 1. Perforated distal ileum with free intraperitoneal air after recent colonoscopy 12/01/2022: Patient was recently admitted and discharged after hematochezia. Patient had exploratory laparoscopy. Ileocecectomy under general anesthesia on 12/03/2022. Surgeon on board. 2. Recent lower GI bleed with hematochezia Patient had recently undergone endoscopic evaluation findings included -Colonoscopy findings. - Blood in the rectum, in the recto-sigmoid colon, in the sigmoid colon, in the descending colon, at the splenic flexure, in the transverse colon, at the hepatic flexure, in the ascending colon and in the cecum. - Diverticulosis in the recto-sigmoid colon, in the sigmoid colon and in the descending colon. - Two bleeding angiodysplas No specimens collected. EGD findings - Z-line irregular, 38 cm from the incisors. Biopsied. - Acute gastritis. Biopsied. - Chronic duodenitis. Biopsied. 3. Relative hypotension with acute anemia of blood loss/GI hemorrhage and postop blood loss: Patient hemoglobin was 12.1 on 11/30/2022 dropped to 6.6 today. 1 unit of PRBC transfusion. Monitor posttransfusion H&H 3. Chronic left inguinal hernia ? Patient to follow-up with general surgery as outpatient 4. DVT prophylaxis ? SCDs for now Total time of the visit including total time spent in counseling or coordination of care, (more than 50% of the total time, spent in obtaining medical information from nurses and other ancillary care providers,explaining to the patient about labs, imaging, diagnosis and management of active complex medical conditions), , review of labs and imaging is 40 minutes. Clinical Impression(s) from Imaging Studies Abdomen/Pelvis CTA 12/03/22 11:33 IMPRESSION: Small amount of free intraperitoneal air. Sigmoid diverticulosis. Prostatic enlargement. Small umbilical hernia and left inguinal hernia containing fat. Charges/Coding Visit Charges Inpatient E&M: 48757 Subs Hosp L2
[2022-12-04 17:10] LABS: Hematocrit 28.7 % (40-54); Hemoglobin 9.4 g/dL (13.0-16.5)
[2022-12-04] MEDS: 0.9% Normal Saline 1,000 ML 125 ML IV (17:24)
[2022-12-04] MEDS: Tamsulosin HCl 0.4 MG Capsule 0.8 MG PO (17:59)
[2022-12-05] VITALS (7 sets, daily range): BP systolic 146–169; BP diastolic 63–80; PULSE 99–113; RESP 14–18; TEMP 36.7–37; O2SAT 94–99; BMI 23.2
[2022-12-05] MEDS: 0.9% Normal Saline 1,000 ML 125 ML IV ×2 (02:03→11:24)
[2022-12-05] MEDS: Ondansetron 4 MG/2 ML Vial IV ×3 (05:30→23:42)
[2022-12-05 06:15] LABS: Absolute Lymphocyte Count 1.35 X10^3/uL (0.83-4.51); Absolute Neutrophil Count 7.9 X10^3/uL (2.0-7.7); Basophil# 0.04 X10^3/uL; Basophil% 0.4 % (0-1); Eosinophil# 0.03 X10^3/uL; Eosinophils% 0.3 % (0-5); Hematocrit 27.1 % (40-54); Hemoglobin 8.7 g/dL (13.0-16.5); Lymphocyte # 1.35 X10^3/ul (0.83-4.51); Lymphocyte % 13.3 % (19-41); Mean Corp Hgb Conc 32.1 g/dL (32-36); Mean Corpuscular Volume 96.4 fL (80-94); Mean Platelet Vol. 10.3 fl (6.2-12.0); Monocyte# 0.78 X10^3/uL; Monocyte% 7.7 % (0-10); NRBC Flagged by Analyzer 0 % (0-5); Neutrophil # 7.87 X10^3/uL (2.7-7.7); Neutrophil % 77.8 % (47-70); Platelet Count 177 K/mm3 (150-450); RBC Distribution Width CV 15.9 % (11.6-14.6); RBC Distribution Width SD 56.1 fl (35.1-43.9); Red Blood Count 2.81 M/mm3 (4.6-6.2); White Blood Count 10.1 K/mm3 (4.4-11.0)
[2022-12-05 06:40] LABS: Anion Gap 5 (5-15); BUN 13 mg/dL (7-18); BUN/Creat Ratio 15.2 RATIO (10-20); Calcium,Total 8.4 mg/dL (8.5-10.1); Chloride 115 mmol/L (98-107); Creatinine, Serum 0.86 mg/dL (0.70-1.30); EST Glomerular Filtration Rate 93 mL/min (>60); Est Glom Filt Rate - Afr Amer 113 mL/min (>60); Estimated Creatinine Clearance 78.85 ml/min; Glucose 114 mg/dL (74-106); Potassium 3.8 mmol/L (3.5-5.1); Sodium Level 142 mmol/L (136-145)
[2022-12-05] MEDS: proCHLORPERazine 10 MG/2 ML Vial IV (06:46)
--- NOTE | 2022-12-05 08:27 | PCM.PN.SRG ---
Subjective Subjective Patient reports he is feeling some pain and weakness today. Objective Data Objective Data Vital Signs: Vital Signs Temp Pulse Resp BP Pulse Ox O2 Del Method O2 Flow Rate 98.4 F 105 H 18 146/70 H 96 Room Air 2 12/05/22 03:57 12/05/22 03:57 12/05/22 03:57 12/05/22 03:57 12/05/22 03:57 12/05/22 03:57 12/04/22 08:00 Oxygen Flow Rate (L/min) 2 Oxygen Delivery Method Room Air Weight: 158 lb 4.67 oz Body Mass Index (BMI) 22.7 Intake & Output: Intake and Output for Last 24 Hours 12/03/22 12/04/22 12/05/22 23:59 23:59 23:59 Intake Total 2476.5 / 2476.5 2170 / 2170 1050 / 1050 Output Total 1045 / 1945 1300 / 1300 Balance 2476.5 / 2476.5 1125 / 225 -250 / -250 Lab / Micro Data 12/05/22 05:57 12/05/22 05:57 Labs: Laboratory Results - last 24 hr 12/03/22 11:10: Blood Type A POSITIVE, Antibody Screen NEGATIVE, Crossmatch See Detail 12/04/22 15:02: Hgb 9.4 L, Hct 28.7 L 12/05/22 05:57: WBC 10.1, RBC 2.81 L, Hgb 8.7 L, Hct 27.1 L, MCV 96.4 H D, MCH 31.0, MCHC 32.1, RDW Std Deviation 56.1 H, RDW Coeff of Angela 15.9 H, Plt Count 177, MPV 10.3, Immature Gran % (Auto) 0.500, Neut % (Auto) 77.8 H, Lymph % (Auto) 13.3 L, [place] % (Auto) 7.7, Eos % (Auto) 0.3, Baso % (Auto) 0.4, Absolute Neuts (auto) 7.9 H, Absolute Lymphs (auto) 1.35, Nucleated RBC % 0, Sodium 142, Potassium 3.8, Chloride 115 H, Carbon Dioxide 22.0, Anion Gap 5, BUN 13, Creatinine 0.86, Estim Creat Clear Calc 78.85, Est GFR (MDRD) Af Amer 113, Est GFR (MDRD) Non-Af 93, BUN/Creatinine Ratio 15.2, Glucose 114 H, Calcium 8.4 L Physical Exam Const oriented x3 Resp normal respiratory effort GI soft to palpation Inspection: abdominal distention Palpation: tender Assessment & Plan Assessment/Plan (1) Perforated bowel: PLAN: Patient's white count came down and his hemoglobin responded appropriately to the transfusion. Tachycardia mildly improved. Patient is very distended and likely has postoperative ileus. I will obtain an x-ray and continue to monitor. If the patient becomes too nauseated or starts vomiting then I will place an NG tube. Patient's urine output has picked up. Donny Rivera MD Pager: [facility] [address] [place] [address], [address] [place] [address] Office:
--- NOTE | 2022-12-05 09:29 | RAD_ITS ---
STUDY: X-RAY - ABDOMEN/PELVIS REASON FOR EXAM: Male, 72 years old. distention, s/p ileocecectomy TECHNIQUE: Single AP view of the abdomen / pelvis. COMPARISON: None. FINDINGS: Normal visualized lung bases. Gas-filled loops of small and large bowel. The visualized liver, spleen and kidneys are grossly normal in size and morphology. Normal soft tissue structures. Normal visualized osseous structures. RAD/Abdomen Single View (Portable) IMPRESSION: Ileus versus bowel obstruction Electronically Signed: Eamon Wood MD at 17:01 EDT ,
--- NOTE | 2022-12-05 09:31 | PN.HOSP_ITS ---
Reason for Visit Reason for Visit: Diagnoses Iron deficiency anemia secondary to blood loss (chronic) (12/03/22) Perforation of intestine (nontraumatic) (12/03/22) Subjective Subjective Perioperative follow-up after hollow viscus perforation. Objective Data Objective Data Vital Signs: Vital Signs Temp Pulse Resp BP Pulse Ox O2 Del Method O2 Flow Rate 98.1 F 107 H 14 156/63 H 95 Room Air 2 12/05/22 09:00 12/05/22 09:00 12/05/22 09:00 12/05/22 09:00 12/05/22 09:00 12/05/22 09:05 12/04/22 08:00 Oxygen Flow Rate (L/min) 2 Oxygen Delivery Method Room Air Weight: 162 lb Body Mass Index (BMI) 23.2 Intake & Output: Intake and Output for Last 24 Hours 12/03/22 12/04/22 12/05/22 23:59 23:59 23:59 Intake Total 2476.5 / 2476.5 2170 / 2170 1100 / 1100 Output Total 1045 / 1945 1300 / 1300 Balance 2476.5 / 2476.5 1125 / 225 -200 / -200 Lab / Micro Data 12/05/22 05:57 12/05/22 05:57 Labs: Laboratory Results - last 24 hr 12/03/22 11:10: Blood Type A POSITIVE, Antibody Screen NEGATIVE, Crossmatch See Detail 12/04/22 15:02: Hgb 9.4 L, Hct 28.7 L 12/05/22 05:57: WBC 10.1, RBC 2.81 L, Hgb 8.7 L, Hct 27.1 L, MCV 96.4 H D, MCH 31.0, MCHC 32.1, RDW Std Deviation 56.1 H, RDW Coeff of Angela 15.9 H, Plt Count 17 7, MPV 10.3, Immature Gran % (Auto) 0.500, Neut % (Auto) 77.8 H, Lymph % (Auto) 13.3 L, [place] % (Auto) 7.7, Eos % (Auto) 0.3, Baso % (Auto) 0.4, Absolute Neuts (auto) 7.9 H, Absolute Lymphs (auto) 1.35, Nucleated RBC % 0, Sodium 142, Potassium 3.8, Chloride 115 H, Carbon Dioxide 22.0, Anion Gap 5, BUN 13, Cr eatinine 0.86, Estim Creat Clear Calc 78.85, Est GFR (MDRD) Af Amer 113, Est GFR (MDRD) Non-Af 93, BUN/Creatinine Ratio 15.2, Glucose 114 H, Calcium 8.4 L Physical Exam Narrative Seen and examined. Patient has not passed flatus. Patient states he is feeling worse than yesterd ay. Abdomen distended. Patient not also taking deep breath. No fever. Physical exam General: Alert, Oriented x3, Cooperative HEENT: Atraumatic, PERRLA, EOMI, Normocephalic Oral: Oral mucosa dry. No Gingival or Mucosal Lesions/ Ulcerations Neck: Supple, No JVD, Negative Carotid Bruits Lungs: Air entry diminished in bilateral lung bases. No crepitation/rhonchi Cardiovascular: Sinus tachycardia, Normal S1, Normal S2, No murmurs Abdomen: Bowel Sounds absent, Soft, mild operative tenderness and distention with voluntary rigidity on palpation : No renal angle tenderness. No suprapubic tenderness. Extremities: No edema, Capillary Refill Less than 3 Seconds Skin: No rashes, No breakdown Musculoskeletal: No Tenderness to Palpation of Joints or Extremities Neurological: Cranial nerves II-XII grossly intact, DTR 2+/4. No acute focal neurological deficit. Psych/Mental Status: Flat affect. Assessment & Plan Assessment/Plan (1) Blood loss anemia: PLAN: Plan Patient is a 72-year-old gentleman who presented with recent hospitalization for GI bleed underwent endoscopic evaluation with findings as stated above readmitted with bleeding per rectum and lightheadedness 1. Perforated distal ileum with free intraperitoneal air after recent colonoscopy 12/01/2022: Patient was recently admitted and discharged after hematochezia. Patient had exploratory laparoscopy. Ileocecectomy under general anesthesia on 12/03/2022. Surgeon on board. 12/05: Discussed with the surgeon. Patient is afebrile with mild sinus tachycardia blood pressure is good. Patient urine output was low but did picked up 1300 ml yesterday. Leukocytosis resolved. Patient had 3 days of IV Zosyn therefore discontinued. Repeat KUB followed and shows gaseous distention of small bowel/jejunum. The stomach does not seem distended but if patient vomits will need NG tube suction. Incentive spirometry encouraged. IV fluid changed from normal saline to Ringer lactate. 2. Recent lower GI bleed with hematochezia Patient had recently undergone endoscopic evaluation findings included -Colonoscopy findings. - Blood in the rectum, in the recto-sigmoid colon, in the sigmoid colon, in the descending colon, at the splenic flexure, in the transverse colon, at the hepatic flexure, in the ascending colon and in the cecum. - Diverticulosis in the recto-sigmoid colon, in the sigmoid colon and in the descending colon. - Two bleeding angiodysplas No specimens collected. EGD findings - Z-line irregular, 38 cm from the incisors. Biopsied. - Acute gastritis. Biopsied. - Chronic duodenitis. Biopsied. 3. Relative hypotension with acute anemia of blood loss/GI hemorrhage and postop blood loss: Patient hemoglobin was 12.1 on 11/30/2022 dropped to 6.6 today. 1 unit of PRBC transfusion. 12/05: Posttransfusion hemoglobin 8.7 g. 3. Chronic left inguinal hernia ? Patient to follow-up with general surgery as outpatient 4. DVT prophylaxis ? SCDs for now Total time of the visit including total time spent in counseling or coordination of care, (more than 50% of the total time, spent in obtaining medical information from nurses and other ancillary care providers,explaining to the patient about labs, imaging, diagnosis and management of active complex medical conditions), discussion with surgeon, review of labs and imaging is 50 minutes. Clinical Impression(s) from Imaging Studies Abdomen/Pelvis CTA 12/03/22 11:33 IMPRESSION: Small amount of free intraperitoneal air. Sigmoid diverticulosis. Prostatic enlargement. Small umbilical hernia and left inguinal hernia containing fat. Charges/Coding Visit Charges Inpatient E&M: 79900 Subs Hosp L3
[2022-12-05] MEDS: Lactated Ringers 1,000 ML 100 ML IV ×2 (13:12→23:12)
[2022-12-05] MEDS: Fleet Enema 1 ML RC (14:29)
[2022-12-05] MEDS: 0.9% Saline Lock 10 ML Syringe IV ×2 (14:29→23:39)
[2022-12-05] MEDS: Morphine 2 MG/ML Syringe IV (14:29)
--- NOTE | 2022-12-05 16:35 | CASEMGMT ---
RN CM chart review: patient was admitted 11/30-12/02/22 for rectal bleeding. See RN CM assessment from 12/01/22. Patient was discharged home with follow-up plans in place. Patient returned 12/03/22 for continued rectal bleeding. CT showed possible bowel perferation of the terminal ileum. Patient went to surgery for exploratory laparoscopy with ileocecectomy. Patient is currently NPO, abdomen distended. Patient has not worked with therapy, in too much pain. Patient was independent prior to surgery. Patient is unsure of needs at discharge, will monitor progress with therapy. CM will continue to follow this patient and plan for a safe discharge.
[2022-12-05] MEDS: Tamsulosin HCl 0.4 MG Capsule 0.8 MG PO (18:06)
[2022-12-05] MEDS: hydrALAZINE 20 MG/ML Vial 10 MG IV (23:38)
[2022-12-06] VITALS (9 sets, daily range): BP systolic 153–168; BP diastolic 71–77; PULSE 97–111; RESP 16–18; TEMP 36.4–37.3; O2SAT 92–96; BMI 23.8
[2022-12-06] MEDS: 0.9% Saline Lock 10 ML Syringe IV (01:29)
[2022-12-06] MEDS: proCHLORPERazine 10 MG/2 ML Vial IV (01:30)
--- NOTE | 2022-12-06 06:16 | RAD_ITS ---
EXAM: XR ABDOMEN, 1 VIEW CLINICAL INDICATION: postop ileus TECHNIQUE: Frontal supine view of the abdomen/pelvis. COMPARISON: XR Abdomen dated 12/05/2022 FINDINGS: GASTROINTESTINAL TRACT: Diffuse gaseous distention of the large and small bowel again noted with some improvement in the large bowel distention. ORGANS: No organomegaly. BONES/JOINTS: No acute abnormality. RAD/Abdomen Single View (Portable) IMPRESSION: Diffuse ileus with mild improvement in the large bowel component. Electronically Signed: Gómez Moe MD at 7:11 EDT
[2022-12-06 08:14] LABS: Absolute Lymphocyte Count 0.69 X10^3/uL (0.83-4.51); Absolute Neutrophil Count 8.2 X10^3/uL (2.0-7.7); Basophil# 0.01 X10^3/uL; Basophil% 0.1 % (0-1); Hematocrit 28.1 % (40-54); Hemoglobin 9.2 g/dL (13.0-16.5); Lymphocyte # 0.69 X10^3/ul (0.83-4.51); Lymphocyte % 7.2 % (19-41); Mean Corp Hgb Conc 32.7 g/dL (32-36); Mean Corpuscular Hgb 31.2 pg (27.0-32.0); Mean Corpuscular Volume 95.3 fL (80-94); Mean Platelet Vol. 10.4 fl (6.2-12.0); Monocyte# 0.61 X10^3/uL; Monocyte% 6.4 % (0-10); NRBC Flagged by Analyzer 0 % (0-5); Neutrophil # 8.21 X10^3/uL (2.7-7.7); Neutrophil % 85.8 % (47-70); Platelet Count 223 K/mm3 (150-450); RBC Distribution Width CV 14.8 % (11.6-14.6); RBC Distribution Width SD 51.5 fl (35.1-43.9); Red Blood Count 2.95 M/mm3 (4.6-6.2); White Blood Count 9.6 K/mm3 (4.4-11.0)
--- NOTE | 2022-12-06 08:14 | PN.SURG_ITS ---
Subjective Subjective Patient is still not passing any flatus. He had a little bit of flatus when he had his fleets enema yesterday along with a small liquid bowel movement. He is still feeling tender diffusely. He is having some mild nausea. Objective Data Objective Data Vital Signs: Vital Signs Temp Pulse Resp BP Pulse Ox O2 Del Method O2 Flow Rate 98 F 111 H 16 155/73 H 96 Room Air 2 12/06/22 05:34 12/06/22 05:34 12/06/22 05:34 12/06/22 05:34 12/06/22 05:34 12/06/22 05:34 12/05/22 22:48 Oxygen Flow Rate (L/min) 2 Oxygen Delivery Method Room Air Weight: 165 lb 12.602 oz Body Mass Index (BMI) 23.8 Intake & Output: Intake and Output for Last 24 Hours 12/04/22 12/05/22 12/06/22 23:59 23:59 23:59 Intake Total 2170 / 2170 3549.17 / 3549.17 Output Total 1045 / 1945 2250 / 2550 450 / 450 Balance 1125 / 225 1299.17 / 999.17 -450 / -450 Lab / Micro Data 12/05/22 05:57 12/05/22 05:57 Radiography Diagnostic Testing: Radiology Impression KUB X-Ray 12/05/22 09:29 IMPRESSION: Ileus versus bowel obstruction Electronically Signed: Eamon Wood MD at 17:01 EDT Reading Location ID and State: [address] [place] [address] , Service support , Physical Exam Const oriented x3 Resp normal respiratory effort Cardio Rate: tachycardic GI soft to palpation Inspection: abdominal distention Palpation: tender Assessment & Plan Assessment/Plan (1) Perforated bowel: PLAN: The patient had a KUB this morning which shows small and large bowel distended with air. The patient has a postoperative ileus due to perforation and surgery. I recommend continuing n.p.o. and observation. Antibiotics have been stopped. Labs are pending to ensure that his hemoglobin is stable. Encouraged ambulation with the patient feels too weak to get out of bed. Urine output has been better. Donny Rivera MD Pager: [facility] [address] [place] [address], [address] [place] [address] Office:
[2022-12-06 08:29] LABS: Anion Gap 6 (5-15); BUN 21 mg/dL (7-18); BUN/Creat Ratio 28.5 RATIO (10-20); Calcium,Total 8.8 mg/dL (8.5-10.1); Chloride 113 mmol/L (98-107); Creatinine, Serum 0.74 mg/dL (0.70-1.30); EST Glomerular Filtration Rate 111 mL/min (>60); Est Glom Filt Rate - Afr Amer 134 mL/min (>60); Estimated Creatinine Clearance 68.94 ml/min; Glucose 141 mg/dL (74-106); Potassium 3.7 mmol/L (3.5-5.1); Sodium Level 143 mmol/L (136-145)
[2022-12-06] MEDS: Lactated Ringers 1,000 ML 100 ML IV ×2 (10:01→20:25)
--- NOTE | 2022-12-06 13:12 | NURSING ---
Patient complains of abdominal discomfort, denies need for medication. Ambulated from chair to bed with standby assist. States he is passing flatus.
--- NOTE | 2022-12-06 18:44 | PN.HOSP_ITS ---
Reason for Visit Reason for Visit: Diagnoses Iron deficiency anemia secondary to blood loss (chronic) (12/03/22) Perforation of intestine (nontraumatic) (12/03/22) Subjective Subjective Patient seen at bedside. Sitting comfortably at bedside chair, conversing normally, no acute distress. Reports mild abdominal pain currently. Has continued to have some flatus; no bowel movements this morning. Has been getting up from the chair and going to the restroom without any issue with ambulation. No lightheadedness or dizziness with standing. Denies any fevers or chills. Denies any chest pain or shortness of breath. No other acute issues. Objective Data Objective Data Vital Signs: Vital Signs Temp Pulse Resp BP Pulse Ox O2 Del Method O2 Flow Rate 99 F 97 18 164/75 H 96 Room Air 2 12/06/22 17:06 12/06/22 17:06 12/06/22 17:06 12/06/22 17:06 12/06/22 17:06 12/06/22 17:42 12/05/22 22:48 Oxygen Flow Rate (L/min) 2 Oxygen Delivery Method Room Air Weight: 75.2 kg Body Mass Index (BMI) 23.8 Intake & Output: Intake and Output for Last 24 Hours 12/04/22 12/05/22 12/06/22 23:59 23:59 23:59 Intake Total 2170 / 2170 3549.17 / 3549.17 1110 / 1110 Output Total 1045 / 1945 2250 / 2550 450 / 450 Balance 1125 / 225 1299.17 / 999.17 660 / 660 Lab / Micro Data Attestation: I reviewed the patient's lab results. 12/06/22 07:14 12/06/22 07:14 Labs: Laboratory Results - last 24 hr 12/06/22 07:14: WBC 9.6, RBC 2.95 L, Hgb 9.2 L, Hct 28.1 L, MCV 95.3 H, MCH 31.2, MCHC 32.7, RDW Std Deviation 51.5 H, RDW Coeff of Angela 14.8 H, Plt Count 223, MPV 10.4, Immature Gran % (Auto) 0.500, Neut % (Auto) 85.8 H, Lymph % (Auto) 7.2 L, [place] % (Auto) 6.4, Eos % (Auto) 0.0, Baso % (Auto) 0.1, Absolute Neuts (auto) 8.2 H, Absolute Lymphs (auto) 0.69 L, Nucleated RBC % 0, Sodium 143, Potassium 3.7, Chloride 113 H, Carbon Dioxide 24.0, Anion Gap 6, BUN 21 H, Creatinine 0.74, Estim Creat Clear Calc 68.94, Est GFR (MDRD) Af Amer 134, Est GFR (MDRD) Non-Af 111, BUN/Creatinine Ratio 28.5 H, Glucose 141 H, Calcium 8.8 Physical Exam Const alert, oriented x3, no apparent distress and average body habitus Constitutional Narrative: Pleasant male, conversing normally, sitting comfortably in bedside chair, no acute distress. General Appearance: cooperative and comfortable HEENT normocephalic, head/scalp atraumatic, hearing grossly normal bilaterally, nasal mucous membranes and turbinates normal and moist oral mucous membranes Eyes PERRL, EOMs intact bilaterally and conjunctivae normal Neck full ROM and supple Chest inspection of chest normal Resp normal respiratory effort, normal air movement, no use of accessory muscles and clear to auscultation bilaterally Cardio regular rate, regular rhythm, no murmurs and peripheral pulses 2+ throughout GI GI Narrative: Mildly distended, mildly tender to palpation diffusely, hypoactive bowel sounds. Back/Spine normal ROM Extremity normal to inspection, full ROM and no pedal edema Skin no rashes or lesions noted Psych mental status grossly normal Assessment & Plan Assessment/Plan (1) Perforated bowel: PLAN: Plan Patient is a 72-year-old male with history significant for GERD who presented to [facility] on 12/03 with bleeding per rectum and worsening lightheadedness. 1. Perforated distal ileum with free intraperitoneal air after recent colonoscopy, postop ileus ?Patient had EGD and colonoscopy done on 12/01 for rectal bleeding, was discharged home on 12/02. Represented on 12/03 with recurrent bleeding per rectum and worsening lightheadedness. CT abdomen pelvis on 12/03 showed a small amount of free intraperitoneal air. Surgery following. Status post exploratory laparotomy on 12/03 with ileocecectomy. Patient tolerated procedure well. Had 3 days of IV Zosyn, antibiotics not discontinued. Patient has had significant postop ileus as anticipated. Has not required an NG tube. Has been passing some flatus and had small bowel movements. Tylenol as needed for pain control. Maintenance IV fluids can be continued for now. Remains n.p.o., will defer to surgery on timing of restarting diet. Incentive spirometry encouraged. 2. Recent lower GI bleed with hematochezia ?Colonoscopy showed 2 bleeding angiodysplasias that were cauterized, no specimens collected. EGD showed acute gastritis and chronic duodenitis, areas were biopsied. No further evaluation at this time. 3. Acute blood loss anemia, improved -Patient had hemoglobin drop from 12.1-6.6 post op. Received 1 unit of packed red blood cells with improvement in hemoglobin to 8.7. Hemoglobin remained stable around 8-9. Monitor. DVT prophylaxis: SCDs CODE STATUS: Full code, verified Expected disposition: Home, 3 to 4 days Total clinical time spent by myself addressing the patient's medical issues, reviewing all the data, and collaborating with patient's care team: 35 minutes. Charges/Coding Visit Charges Inpatient E&M: 24294 Subs Hosp L2
[2022-12-07] VITALS (8 sets, daily range): BP systolic 133–159; BP diastolic 62–76; PULSE 76–96; RESP 16–19; TEMP 36.9–37.2; O2SAT 93–97; BMI 23.1
[2022-12-07] MEDS: Lactated Ringers 1,000 ML 100 ML IV (05:48)
--- NOTE | 2022-12-07 07:58 | RAD_ITS ---
INDICATION: ileus EXAMINATION/TECHNIQUE: X-RAY - XR Abdomen 1 View COMPARISON: Abdomen x-ray of 12/06/2022. FINDINGS: BOWEL GAS PATTERN: Diffusely dilated small bowel loops and gaseous colon for the most part unchanged since prior examination likely due to ileus. FREE AIR: Not assessed on a single supine view. ORGANOMEGALY: Not seen. CALCIFICATIONS: No abnormal calcifications observed. LOWER CHEST: Not included on this exam. BONES AND SOFT TISSUES: No acute pathology. RAD/Abdomen Single View (Portable) IMPRESSION: Persistent diffuse evaluated gaseous small bowel loops and colon essentially unchanged prior exam likely due to ileus. Electronically Signed: Robinson Garcia MD at 9:34 EDT ,
--- NOTE | 2022-12-07 08:57 | PN.SURG_ITS ---
Subjective Subjective The patient reports he is passing flatus. He says he is feeling like he has more energy and less pain today Objective Data Objective Data Vital Signs: Vital Signs Temp Pulse Resp BP Pulse Ox O2 Del Method O2 Flow Rate 98.5 F 93 18 152/69 H 94 Room Air 2 12/07/22 07:24 12/07/22 07:24 12/07/22 07:24 12/07/22 07:24 12/07/22 07:26 12/07/22 07:26 12/05/22 22:48 Oxygen Flow Rate (L/min) 2 Oxygen Delivery Method Room Air Weight: 161 lb 9.581 oz Body Mass Index (BMI) 23.1 Intake & Output: Intake and Output for Last 24 Hours 12/05/22 12/06/22 12/07/22 23:59 23:59 23:59 Intake Total 3549.17 / 3549.17 2250 / 2250 1145 / 1145 Output Total 2250 / 2550 850 / 850 Balance 1299.17 / 999.17 1400 / 1400 1145 / 1145 Lab / Micro Data 12/06/22 07:14 12/06/22 07:14 Physical Exam Const oriented x3 and no apparent distress Resp normal respiratory effort GI soft to palpation Palpation: Negative for tender Assessment & Plan Assessment/Plan (1) Perforated bowel: PLAN: The patient is passing flatus today. I ordered a KUB but it appears that the KUB looks a little worse. His colon looks less distended but his small bowel is more distended. Patient is feeling hungry and feels that he is having more energy and less nausea and less pain. I advised ambulation and moving to the chair and I will try sips of clears today I will repeat a KUB tomorrow and once the KUB seems to be improved I will started diet. Donny Rivera MD Pager: [facility] [address] [place] [address], [address] [place] [address] Office:
--- NOTE | 2022-12-07 13:08 | PN.HOSP_ITS ---
Reason for Visit Reason for Visit: Diagnoses Iron deficiency anemia secondary to blood loss (chronic) (12/03/22) Perforation of intestine (nontraumatic) (12/03/22) Subjective Subjective Patient seen at bedside. Sitting comfortably in bedside chair, conversing normally, no acute distress this morning. Reports mild improvement from yesterday. Has been passing gas, still no bowel movements. Surgery saw him this morning and advanced him to a liquid diet. He has gotten down some liquids without vomiting or significant abdominal discomfort. Has been moving throughout the room without issue. Still feels fairly distended in his abdomen. No other acute concerns this morning. Objective Data Objective Data Vital Signs: Vital Signs Temp Pulse Resp BP Pulse Ox O2 Del Method O2 Flow Rate 98.9 F 96 16 146/74 H 97 Room Air 2 12/07/22 10:40 12/07/22 10:40 12/07/22 10:40 12/07/22 10:40 12/07/22 10:40 12/07/22 10:40 12/05/22 22:48 Oxygen Flow Rate (L/min) 2 Oxygen Delivery Method Room Air Weight: 73.3 kg Body Mass Index (BMI) 23.1 Intake & Output: Intake and Output for Last 24 Hours 12/05/22 12/06/22 12/07/22 23:59 23:59 23:59 Intake Total 3549.17 / 3549.17 2250 / 2250 1288.5 / 1288.5 Output Total 2250 / 2550 850 / 850 Balance 1299.17 / 999.17 1400 / 1400 1288.5 / 1288.5 Lab / Micro Data Attestation: I reviewed the patient's lab results. 12/06/22 07:14 12/06/22 07:14 Radiography Diagnostic Testing: Radiology Impression KUB X-Ray 12/07/22 07:58 IMPRESSION: Persistent diffuse evaluated gaseous small bowel loops and colon essentially unchanged prior exam likely due to ileus. Electronically Signed: Robinson Garcia MD at 9:34 EDT , Physical Exam Const alert, oriented x3, no apparent distress and average body habitus Constitutional Narrative: Pleasant male, conversing normally, sitting comfortably in bedside chair, no acute distress. General Appearance: cooperative and comfortable HEENT normocephalic, head/scalp atraumatic, hearing grossly normal bilaterally, nasal mucous membranes and turbinates normal and moist oral mucous membranes Eyes PERRL, EOMs intact bilaterally and conjunctivae normal Neck full ROM and supple Chest inspection of chest normal Resp normal respiratory effort, normal air movement, no use of accessory muscles and clear to auscultation bilaterally Cardio regular rate, regular rhythm, no murmurs and peripheral pulses 2+ throughout GI GI Narrative: Mildly distended, mildly tender to palpation diffusely, hypoactive bowel sounds. Back/Spine normal ROM Extremity normal to inspection, full ROM and no pedal edema Skin no rashes or lesions noted Psych mental status grossly normal Assessment & Plan Assessment/Plan (1) Perforated bowel: PLAN: Plan Patient is a 72-year-old male with history significant for GERD who presented to [facility] on 12/03 with bleeding per rectum and worsening lightheadedness. 1. Perforated distal ileum with free intraperitoneal air after recent colonoscopy, postop ileus ?Patient had EGD and colonoscopy done on 12/01 for rectal bleeding, was discharged home on 12/02. Represented on 12/03 with recurrent bleeding per rectum and worsening lightheadedness. CT abdomen pelvis on 12/03 showed a small amount of free intraperitoneal air. Surgery following. Status post exploratory laparotom y on 12/03 with ileocecectomy. Patient tolerated procedure well. Had 3 days of IV Zosyn, antibiotics now discontinued. Patient has had significant postop ileus as anticipated. Has not required an NG tube. Has been passing some flatus and had small bowel movements. Surgery advanced him to liquid diet this morning and he is tolerating well. We will discontinue maintenance IV fluids. Tylenol as needed for pain control. Incentive spirometry encouraged. 2. Recent lower GI bleed with hematochezia ?Colonoscopy showed 2 bleeding angiodysplasias that were cauterized, no specimens collected. EGD showed acute gastritis and chronic duodenitis, areas were biopsied. No further evaluation at this time. 3. Acute blood loss anemia, improved -Patient had hemoglobin drop from 12.1-6.6 post op. Received 1 unit of packed red blood cells with improvement in hemoglobin to 8.7. Hemoglobin has now remained stable around 8-9. No need for further CBC checks. DVT prophylaxis: SCDs CODE STATUS: Full code, verified Expected disposition: Home, 3 to 4 days Total clinical time spent by myself addressing the patient's medical issues, reviewing all the data, and collaborating with patient's care team: 35 minutes.
[2022-12-08] MEDS: Morphine 2 MG/ML Syringe IV ×2 (04:28→17:28)
[2022-12-08 04:31] VITALS: BP 132/66; PULSE 76; RESP 18; TEMP 37; O2SAT 94
[2022-12-08 05:43] VITALS: BMI 23.3
[2022-12-08 06:22] LABS: Absolute Lymphocyte Count 0.66 X10^3/uL (0.83-4.51); Absolute Neutrophil Count 1.9 X10^3/uL (2.0-7.7); Basophil# 0.01 X10^3/uL; Basophil% 0.3 % (0-1); Eosinophil# 0.03 X10^3/uL; Hematocrit 24.2 % (40-54); Hemoglobin 7.7 g/dL (13.0-16.5); Lymphocyte # 0.66 X10^3/ul (0.83-4.51); Lymphocyte % 21.2 % (19-41); Mean Corp Hgb Conc 31.8 g/dL (32-36); Mean Corpuscular Hgb 30.4 pg (27.0-32.0); Mean Corpuscular Volume 95.7 fL (80-94); Monocyte# 0.48 X10^3/uL; Monocyte% 15.4 % (0-10); NRBC Flagged by Analyzer 0 % (0-5); Neutrophil # 1.93 X10^3/uL (2.7-7.7); Neutrophil % 61.8 % (47-70); Platelet Count 217 K/mm3 (150-450); RBC Distribution Width CV 13.8 % (11.6-14.6); RBC Distribution Width SD 48.1 fl (35.1-43.9); Red Blood Count 2.53 M/mm3 (4.6-6.2); White Blood Count 3.1 K/mm3 (4.4-11.0)
[2022-12-08 06:52] LABS: Anion Gap 5 (5-15); BUN 27 mg/dL (7-18); BUN/Creat Ratio 41.5 RATIO (10-20); Calcium,Total 7.9 mg/dL (8.5-10.1); Chloride 110 mmol/L (98-107); Creatinine, Serum 0.65 mg/dL (0.70-1.30); EST Glomerular Filtration Rate 128 mL/min (>60); Est Glom Filt Rate - Afr Amer 155 mL/min (>60); Estimated Creatinine Clearance 68.94 ml/min; Glucose 106 mg/dL (74-106); Potassium 3.4 mmol/L (3.5-5.1); Sodium Level 143 mmol/L (136-145)
--- NOTE | 2022-12-08 08:03 | CT_ITS ---
STUDY: CT ABDOMEN AND PELVIS WITH CONTRAST REASON FOR EXAM: Male, 72 years old. Ileus, abdominal pain RADIATION DOSAGE (If Supplied By Facility): CTDIvol = ( 10.64 ) mGy, DLP = ( 609.26 ) mGycm TECHNIQUE: Transaxial images were obtained from the dome of the diaphragm to the symphysis pubis without oral contrast. IV 100mL Isovue-370 was administered. Sagittal and coronal images were reconstructed. Individualized dose optimization techniques were used for this CT. COMPARISON: Comparison is made with prior study dated December 03, 2022. FINDINGS: Minimal bilateral pleural effusions. Increased markings are now seen at both lung bases slightly more prominent on the left side suggestive of a basilar atelectasis. Minimal coronary artery calcification is seen. Minimal amount of free intraperitoneal air is seen along the anterior aspect of the liver. Perihepatic and perisplenic fluid. Fluid is seen in the pelvis suggestive of mild degree of ascites. Normal gallbladder and extrahepatic biliary system. Normal spleen. There is diffuse atrophy of the pancreas. Normal bilateral adrenal glands. Stable small bilateral renal cysts. Normal visualized stomach. Small bowel dilatation with multiple air-fluid levels down to the distal ileum. The terminal ileum is not distended. Small amount of gas and fecal material is seen in the colon. Since prior study, the patient has undergone surgery with anastomosis at the level of the cecum. Sigmoid diverticulosis. There is non-visualization of the appendix. There is scattered atherosclerotic calcification of the abdominal aorta, without a demonstrated aneurysm. Normal inferior vena cava. Normal retroperitoneum. Normal urinary bladder. Stable prostatic enlargement. Bilateral inguinal hernias more prominent on the left side. There are degenerative changes of the visualized lumbar spine. CT/Abdomen/Pelvis W IV Cont ONLY IMPRESSION: The patient is status post anastomosis at the ileocolic region with evidence of dilated small bowel loops which are fluid-filled down to the region of the distal ileum. Ascites. Minimal amount of free intraperitoneal air. Stable bilateral inguinal hernias more prominent on the left side. Electronically Signed: Jan Clement MD at 8:56 EDT ,
--- NOTE | 2022-12-08 09:25 | PCM.PN.SRG ---
Subjective Subjective The patient reports that he had some pain this morning requiring morphine. He also had a small amount of vomiting overnight. Patient still reports he is passing some flatus. Objective Data Objective Data Vital Signs: Vital Signs Temp Pulse Resp BP Pulse Ox O2 Del Method O2 Flow Rate 98.6 F 76 18 132/66 H 94 Room Air 2 12/08/22 04:31 12/08/22 04:31 12/08/22 04:12/08/22 04:12/08/22 04:12/08/22 04:12/05/22 22:48 Oxygen Flow Rate (L/min) 2 Oxygen Delivery Method Room Air Weight: 162 lb 14.746 oz Body Mass Index (BMI) 23.3 Intake & Output: Intake and Output for Last 24 Hours 12/06/22 12/07/22 12/08/22 23:59 23:59 23:59 Intake Total 2250 / 2250 1987.0 / 1987.0 Output Total 850 / 850 455 / 455 150 / 150 Balance 1400 / 1400 1532.0 / 1532.0 -150 / -150 Lab / Micro Data 12/08/22 06:00 12/08/22 06:00 Labs: Laboratory Results - last 24 hr 12/08/22 06:00: WBC 3.1 L, RBC 2.53 L, Hgb 7.7 L, Hct 24.2 L, MCV 95.7 H, MCH 30.4, MCHC 31.8 L, RDW Std Deviation 48.1 H, RDW Coeff of Angela 13.8, Plt Count 217, MPV 10.0, Immature Gran % (Auto) 0.300, Neut % (Auto) 61.8, Lymph % (Auto) 21.2, [place] % (Auto) 15.4 H, Eos % (Auto) 1.0, Baso % (Auto) 0.3, Absolute Neuts (auto) 1.9 L, Absolute Lymphs (auto) 0.66 L, Nucleated RBC % 0, Sodium 143, Potassium 3.4 L, Chloride 110 H, Carbon Dioxide 28.0, Anion Gap 5, BUN 27 H, Creatinine 0.65 L, Estim Creat Clear Calc 68.94, Est GFR (MDRD) Af Amer 155, Est GFR (MDRD) Non-Af 128, BUN/Creatinine Ratio 41.5 H, Glucose 106, Calcium 7.9 L Radiography Diagnostic Testing: Radiology Impression KUB X-Ray 12/06/22 06:16 IMPRESSION: Diffuse ileus with mild improvement in the large bowel component. Electronically Signed: Gómez Moe MD at 7:11 EDT , KUB X-Ray 12/07/22 07:58 IMPRESSION: Persistent diffuse evaluated gaseous small bowel loops and colon essentially unchanged prior exam likely due to ileus. Electronically Signed: Robinson Garcia MD at 9:34 EDT , Abdomen/Pelvis CT 12/08/22 08:03 IMPRESSION: The patient is status post anastomosis at the ileocolic region with evidence of dilated small bowel loops which are fluid-filled down to the region of the distal ileum. Ascites. Minimal amount of free intraperitoneal air. Stable bilateral inguinal hernias more prominent on the left side. Electronically Signed: Jan Clement MD at 8:56 EDT , Physical Exam Const oriented x3 Resp normal respiratory effort GI soft to palpation Inspection: abdominal distention Palpation: tender Assessment & Plan Assessment/Plan (1) Perforated bowel: PLAN: The patient had some vomiting with sips of clears overnight. He also had some increased pain this morning. I ordered a CT scan, and the CT scan shows dilated small bowel and colon indicating ileus. There does not appear to be a leak of the anastomosis or large hematoma in the abdomen. Unsure why his hemoglobin came down today and why he is neutropenic today. Continue sips of clears and await improvement and more substantial bowel function before starting diet. Donny Rivera MD Pager: [facility] [address] [place] [address], [address] [place] [address] Office:
[2022-12-08] MEDS: Lactated Ringers 1,000 ML 30 ML IV (09:36)
[2022-12-08] MEDS: Potassium Chloride Oral Tablet 20 MEQ 60 MEQ PO (09:37)
[2022-12-08 09:42] LABS: Hematocrit 26.5 % (40-54); Hemoglobin 8.5 g/dL (13.0-16.5); Mean Corp Hgb Conc 32.1 g/dL (32-36); Mean Corpuscular Volume 96.7 fL (80-94); Mean Platelet Vol. 10.2 fl (6.2-12.0); Platelet Count 222 K/mm3 (150-450); RBC Distribution Width CV 13.9 % (11.6-14.6); RBC Distribution Width SD 48.7 fl (35.1-43.9); Red Blood Count 2.74 M/mm3 (4.6-6.2); White Blood Count 3.5 K/mm3 (4.4-11.0)
[2022-12-08 10:00] VITALS: BP 136/71; PULSE 87; RESP 16; TEMP 37.2; O2SAT 92
[2022-12-08 10:30] VITALS: BP 136/71; PULSE 87; RESP 16; TEMP 37.2; O2SAT 92
--- NOTE | 2022-12-08 15:00 | PN.HOSP_ITS ---
Reason for Visit Reason for Visit: Diagnoses Iron deficiency anemia secondary to blood loss (chronic) (12/03/22) Perforation of intestine (nontraumatic) (12/03/22) Subjective Subjective Patient seen at bedside this morning. He reports no improvement in symptoms since yesterday morning. Is sitting at the edge of the bed, therapy planning to work with him after my interview. Continues to report moderate abdominal distention. Has been passing gas but has not had any bowel movements. Has been tolerating liquid diet without nausea or vomiting, but per nursing has reportedly not been drinking much. Patient also has not been moving around the room much per nursing staff. Patient denies any fevers or chills. No other acute concerns. Objective Data Objective Data Vital Signs: Vital Signs Temp Pulse Resp BP Pulse Ox O2 Del Method O2 Flow Rate 98.9 F 87 16 136/71 H 92 Room Air 2 12/08/22 10:30 12/08/22 10:30 12/08/22 10:30 12/08/22 10:30 12/08/22 10:30 12/08/22 14:00 12/05/22 22:48 Oxygen Flow Rate (L/min) 2 Oxygen Delivery Method Room Air Weight: 73.9 kg Body Mass Index (BMI) 23.3 Intake & Output: Intake and Output for Last 24 Hours 12/06/22 12/07/22 12/08/22 23:59 23:59 23:59 Intake Total 2250 / 2250 1987.0 / 1987.0 458 / 458 Output Total 850 / 850 455 / 455 150 / 150 Balance 1400 / 1400 1532.0 / 1532.0 308 / 308 Lab / Micro Data Attestation: I reviewed the patient's lab results. 12/08/22 09:33 12/08/22 06:00 Labs: Laboratory Results - last 24 hr 12/08/22 06:00: WBC 3.1 L, RBC 2.53 L, Hgb 7.7 L, Hct 24.2 L, MCV 95.7 H, MCH 30.4, MCHC 31.8 L, RDW Std Deviation 48.1 H, RDW Coeff of Angela 13.8, Plt Count 217, MPV 10.0, Immature Gran % (Auto) 0.300, Neut % (Auto) 61.8, Lymph % (Auto) 21.2, [place] % (Auto) 15.4 H, Eos % (Auto) 1.0, Baso % (Auto) 0.3, Absolute Neuts (auto) 1.9 L, Absolute Lymphs (auto) 0.66 L, Nucleated RBC % 0, Sodium 143, Potassium 3.4 L, Chloride 110 H, Carbon Dioxide 28.0, Anion Gap 5, BUN 27 H, Creatinine 0.65 L, Estim Creat Clear Calc 68.94, Est GFR (MDRD) Af Amer 155, Est GFR (MDRD) Non-Af 128, BUN/Creatinine Ratio 41.5 H, Glucose 106, Calcium 7.9 L 12/08/22 09:33: WBC 3.5 L, RBC 2.74 L, Hgb 8.5 L, Hct 26.5 L, MCV 96.7 H, MCH 31.0, MCHC 32.1, RDW Std Deviation 48.7 H, RDW Coeff of Angela 13.9, Plt Count 222, MPV 10.2 Radiography Diagnostic Testing: Radiology Impression KUB X-Ray 12/06/22 06:16 IMPRESSION: Diffuse ileus with mild improvement in the large bowel component. Electronically Signed: Gómez Moe MD at 7:11 EDT , Abdomen/Pelvis CT 12/08/22 08:03 IMPRESSION: The patient is status post anastomosis at the ileocolic region with evidence of dilated small bowel loops which are fluid-filled down to the region of the distal ileum. Ascites. Minimal amount of free intraperitoneal air. Stable bilateral inguinal hernias more prominent on the left side. Electronically Signed: Jan Clement MD at 8:56 EDT , Physical Exam Const alert, oriented x3, no apparent distress and average body habitus Constitutional Narrative: Sitting at edge of bed without issue, conversing normally, no acute distress. General Appearance: cooperative and comfortable HEENT normocephalic, head/scalp atraumatic, hearing grossly normal bilaterally, nasal mucous membranes and turbinates normal and moist oral mucous membranes Eyes PERRL, EOMs intact bilaterally and conjunctivae normal Neck full ROM and supple Chest inspection of chest normal Resp normal respiratory effort, normal air movement, no use of accessory muscles and clear to auscultation bilaterally Cardio regular rate, regular rhythm, no murmurs and peripheral pulses 2+ throughout GI GI Narrative: Moderately distended, somewhat worse than yesterday. Mild tenderness to palpation. Back/Spine normal ROM Extremity normal to inspection, full ROM and no pedal edema Skin no rashes or lesions noted Psych mental status grossly normal Assessment & Plan Assessment/Plan (1) Perforated bowel: PLAN: Plan Patient is a 72-year-old male with history significant for GERD who presented to [facility] on 12/03 with bleeding per rectum and worsening lightheadedness. 1. Perforated distal ileum with free intraperitoneal air after recent colonoscopy, postop ileus Patient had EGD and colonoscopy done on 12/01 for rectal bleeding, was discharged home on 12/02. Represented on 12/03 with recurrent bleeding per rectum and wo rsening lightheadedness. CT abdomen pelvis on 12/03 showed a small amount of free intraperitoneal air. Surgery following. Status post exploratory laparotomy on 12/03 with ileocecectomy. Patient tolerated procedure well. Had 3 days of IV Zosyn, antibiotics now discontinued. Patient has had significant postop ileus as anticipated. Has not required an NG tube. -Has been passing some flatus but now has not had any bowel movements for last [address] abdomen pelvis on 12/08 ordered by surgery showed continued small bowel distention, no concern for issues with surgical site. Sips of clear liquids per surgery, will advance as tolerated. Tylenol as needed for pain control. Encouraged up and moving around the room. 2. Recent lower GI bleed with hematochezia ?Colonoscopy showed 2 bleeding angiodysplasias that were cauterized, no specimens collected. EGD showed acute gastritis and chronic duodenitis, areas were biopsied. No further evaluation at this time. 3. Acute blood loss anemia, improved -Patient had hemoglobin drop from 12.1-6.6 post op. Received 1 unit of packed red blood cells with improvement in hemoglobin to 8.7. Hemoglobin has now remained stable around 8-9. 4. Leukopenia Unclear etiology. White blood cell count noted to be 3.1 on 12/08, down from 9-10. Repeat CBC showed count of 3.5. Patient afebrile, low concern for infection. We will hold on further infectious work-up at this time. Monitor closely. Continue CBC daily. DVT prophylaxis: SCDs CODE STATUS: Full code, verified Expected disposition: Home, 3 to 4 days Total clinical time spent by myself addressing the patient's medical issues, reviewing all the data, and collaborating with patient's care team: 35 minutes. Charges/Coding Visit Charges Inpatient E&M: 63991 Subs Hosp L2
[2022-12-08 17:00] VITALS: BP 151/71; PULSE 81; RESP 18; TEMP 36.7; O2SAT 96
[2022-12-08] MEDS: Ondansetron 4 MG/2 ML Vial IV (17:28)
[2022-12-08 21:50] VITALS: BP 154/80; PULSE 90; RESP 18; TEMP 36.6; O2SAT 93
[2022-12-08 22:00] VITALS: BP 154/80; PULSE 90; RESP 18; TEMP 36.6; O2SAT 93
[2022-12-09 04:00] VITALS: BMI 23.5
[2022-12-09 04:01] VITALS: BP 159/67; PULSE 81; RESP 16; TEMP 36.5; O2SAT 95
[2022-12-09 06:45] LABS: Hematocrit 28.4 % (40-54); Hemoglobin 9.2 g/dL (13.0-16.5); Mean Corp Hgb Conc 32.4 g/dL (32-36); Mean Corpuscular Hgb 30.7 pg (27.0-32.0); Mean Corpuscular Volume 94.7 fL (80-94); Mean Platelet Vol. 10.2 fl (6.2-12.0); Platelet Count 257 K/mm3 (150-450); RBC Distribution Width CV 13.4 % (11.6-14.6); RBC Distribution Width SD 46.3 fl (35.1-43.9); White Blood Count 3.8 K/mm3 (4.4-11.0)
[2022-12-09 07:17] LABS: Anion Gap 7 (5-15); BUN 26 mg/dL (7-18); BUN/Creat Ratio 37.5 RATIO (10-20); Calcium,Total 8.2 mg/dL (8.5-10.1); Chloride 108 mmol/L (98-107); Creatinine, Serum 0.69 mg/dL (0.70-1.30); EST Glomerular Filtration Rate 119 mL/min (>60); Est Glom Filt Rate - Afr Amer 144 mL/min (>60); Estimated Creatinine Clearance 68.94 ml/min; Glucose 110 mg/dL (74-106); Potassium 3.8 mmol/L (3.5-5.1); Sodium Level 141 mmol/L (136-145)
[2022-12-09] MEDS: Lactated Ringers 500 ML 999 ML IV (08:22)
--- NOTE | 2022-12-09 08:34 | PN.SURG_ITS ---
Subjective Subjective Patient had a very small amount of vomiting yesterday afternoon and again this morning. He says he is passing very little flatus. Complains of bloating and discomfort. Objective Data Objective Data Vital Signs: Vital Signs Temp Pulse Resp BP Pulse Ox O2 Del Method O2 Flow Rate 97.7 F L 81 16 159/67 H 95 Room Air 2 12/09/22 04:01 12/09/22 04:01 12/09/22 04:01 12/09/22 04:01 12/09/22 04:01 12/09/22 07:50 12/05/22 22:48 Oxygen Flow Rate (L/min) 2 Oxygen Delivery Method Room Air Weight: 163 lb 12.855 oz Body Mass Index (BMI) 23.5 Intake & Output: Intake and Output for Last 24 Hours 12/07/22 12/08/22 12/09/22 23:59 23:59 23:59 Intake Total 1987.0 / 1987.0 688 / 688 682.5 / 682.5 Output Total 455 / 455 705 / 805 500 / 500 Balance 1532.0 / 1532.0 -17 / -117 182.5 / 182.5 Lab / Micro Data 12/09/22 06:05 12/09/22 06:05 Labs: Laboratory Results - last 24 hr 12/08/22 09:33: WBC 3.5 L, RBC 2.74 L, Hgb 8.5 L, Hct 26.5 L, MCV 96.7 H, MCH 31.0, MCHC 32.1, RDW Std Deviation 48.7 H, RDW Coeff of Angela 13.9, Plt Count 222, MPV 10.2 12/09/22 06:05: WBC 3.8 L, RBC 3.00 L, Hgb 9.2 L, Hct 28.4 L, MCV 94.7 H, MCH 30.7, MCHC 32.4, RDW Std Deviation 46.3 H, RDW Coeff of Angela 13.4, Plt Count 257, MPV 10.2, Sodium 141, Potassium 3.8, Chloride 108 H, Carbon Dioxide 26.0, Anion Gap 7, BUN 26 H, Creatinine 0.69 L, Estim Creat Clear Calc 68.94, Est GFR (MDRD) Af Amer 144, Est GFR (MDRD) Non-Af 119, BUN/Creatinine Ratio 37.5 H, Glucose 110 H, Calcium 8.2 L Radiography Diagnostic Testing: Radiology Impression KUB X-Ray 12/06/22 06:16 IMPRESSION: Diffuse ileus with mild improvement in the large bowel component. Electronically Signed: Gómez Moe MD at 7:11 EDT , Abdomen/Pelvis CT 12/08/22 08:03 IMPRESSION: The patient is status post anastomosis at the ileocolic region with evidence of dilated small bowel loops which are fluid-filled down to the region of the distal ileum. Ascites. Minimal amount of free intraperitoneal air. Stable bilateral inguinal hernias more prominent on the left side. Electronically Signed: Jan Clement MD at 8:56 EDT , Physical Exam Const oriented x3 and no apparent distress Resp normal respiratory effort GI soft to palpation Inspection: abdominal distention Palpation: tender Assessment & Plan Assessment/Plan (1) Perforated bowel: (2) Postoperative ileus: PLAN: Plan Patient continues to have postoperative ileus. I performed a CT scan yesterday which did not show any signs of leak or large hematoma in the abdomen. It appeared that the bowel was uniformly dilated. I continue to encourage him to get out of bed. Continues to wait for abdominal distention to improve and vomiting to stop before starting a diet. Donny Rivera MD Pager: [facility] [address] [place] [address], [address] [place] [address] Office:
--- NOTE | 2022-12-09 08:43 | EKG12_ITS ---
Test Reason : Blood Pressure : / mmHG Vent. Rate : 080 BPM Atrial Rate : 080 BPM P-R Int : 134 ms QRS Dur : 088 ms QT Int : 394 ms P-R-T Axes : 058 005 046 degrees QTc Int : 454 ms Normal sinus rhythm Normal ECG Confirmed by SHREYA LANE, KRISSY ([id number]), editor department NICHOLAS HIGGINS ([id number]) on 02/12/2023 2:13:10 PM Referred By: MASOUD Confirmed By:KRISSY CASH MD
[2022-12-09] MEDS: Lactated Ringers 1,000 ML 100 ML IV ×2 (09:38→18:47)
[2022-12-09 09:53] VITALS: BP 151/78; PULSE 90; RESP 19; TEMP 36.6; O2SAT 96
[2022-12-09 09:54] VITALS: BP 151/78; PULSE 90; RESP 19; TEMP 36.6; O2SAT 96
[2022-12-09 15:55] VITALS: BP 157/73; PULSE 81; RESP 18; TEMP 36.4; O2SAT 95
--- NOTE | 2022-12-09 16:11 | NURSING ---
Pt educated on importance of moving and ambulating frequently. Assisted pt with ambulating in hallway. Up in chair no other needs at this time. call light in reach
--- NOTE | 2022-12-09 17:15 | PN.HOSP_ITS ---
Reason for Visit Reason for Visit: Diagnoses Iron deficiency anemia secondary to blood loss (chronic) (12/03/22) Ileus, unspecified (12/03/22) Perforation of intestine (nontraumatic) (12/03/22) Other postprocedural complications and disorders of digestive system (12/03/22) Subjective Subjective Patient seen at bedside. Patient was sleeping when I entered the room, but on awakening he did appear to be in mild distress due to abdominal pain. States his abdomen remains significantly distended. He is passing some gas but does not have a bowel movement still. Has not been able to move around much due to his discomfort. Denies any nausea or vomiting. Denies any fevers or chills. Does not have any appetite at this point. No other acute concerns. Objective Data Objective Data Vital Signs: Vital Signs Temp Pulse Resp BP Pulse Ox O2 Del Method O2 Flow Rate 97.6 F L 81 18 157/73 H 95 Room Air 2 12/09/22 15:55 12/09/22 15:55 12/09/22 15:55 12/09/22 15:55 12/09/22 15:55 12/09/22 15:55 12/05/22 22:48 Oxygen Flow Rate (L/min) 2 Oxygen Delivery Method Room Air Weight: 74.3 kg Body Mass Index (BMI) 23.5 Intake & Output: Intake and Output for Last 24 Hours 12/07/22 12/08/22 12/09/22 23:59 23:59 23:59 Intake Total 1987.0 / 1987.0 688 / 688 1742.5 / 1742.5 Output Total 455 / 455 705 / 805 600 / 600 Balance 1532.0 / 1532.0 -17 / -117 1142.5 / 1142.5 Lab / Micro Data Attestation: I reviewed the patient's lab results. 12/09/22 06:05 12/09/22 06:05 Labs: Laboratory Results - last 24 hr 12/09/22 06:05: WBC 3.8 L, RBC 3.00 L, Hgb 9.2 L, Hct 28.4 L, MCV 94.7 H, MCH 30.7, MCHC 32.4, RDW Std Deviation 46.3 H, RDW Coeff of Angela 13.4, Plt Count 257, MPV 10.2, Sodium 141, Potassium 3.8, Chloride 108 H, Carbon Dioxide 26.0, Anion Gap 7, BUN 26 H, Creatinine 0.69 L, Estim Creat Clear Calc 68.94, Est GFR (MDRD) Af Amer 144, Est GFR (MDRD) Non-Af 119, BUN/Creatinine Ratio 37.5 H, Glucose 110 H, Calcium 8.2 L Physical Exam Const alert, oriented x3, no apparent distress and average body habitus Constitutional Narrative: Laying in bed, conversing normally, mild distress due to abdominal discomfort. General Appearance: cooperative HEENT normocephalic, head/scalp atraumatic, hearing grossly normal bilaterally, nasal mucous membranes and turbinates normal and moist oral mucous membranes Eyes PERRL, EOMs intact bilaterally and conjunctivae normal Neck full ROM and supple Chest inspection of chest normal Resp normal respiratory effort, normal air movement, no use of accessory muscles and clear to auscultation bilaterally Cardio regular rate, regular rhythm, no murmurs and peripheral pulses 2+ throughout GI GI Narrative: Remains distended, similar to yesterday. Mild tenderness to palpation. Back/Spine normal ROM Extremity normal to inspection, full ROM and no pedal edema Skin no rashes or lesions noted Psych mental status grossly normal Assessment & Plan Assessment/Plan (1) Postoperative ileus: PLAN: Plan Patient is a 72-year-old male with history significant for GERD who presented to [facility] on 12/03 with bleeding per rectum and worsening lighth eadedness. 1. Perforated distal ileum with free intraperitoneal air after recent colonoscopy, postop ileus Patient had EGD and colonoscopy done on 12/01 for rectal bleeding, was discharged home on 12/02. Represented on 12/03 with recurrent bleeding per rectum and worsening lightheadedness. CT abdomen pelvis on 12/03 showed a small amount of free intraperitoneal air. Surgery following. Status post exploratory laparotomy on 12/03 with ileocecectomy. Patient tolerated procedure well. Had 3 days of IV Zosyn, antibiotics now discontinued. Patient has had significant postop ileus as anticipated. Has not required an NG tube. CT Abdo pelvis on 12/08 showed continued small bowel dilation, but importantly no concern for issues with surgical site. -Difficult situation as patient continues to be fairly distended and has not made much progress. Passing some flatus but still no bowel movements to this point. Only tolerating sips of clear liquids. Has had limited ambulation around the room, activity level has been comforted by his discomfort. Continue Tylenol as needed for pain. Appreciate surgical recommendations. 2. Recent lower GI bleed with hematochezia ?Colonoscopy showed 2 bleeding angiodysplasias that were cauterized, no specimens collected. EGD showed acute gastritis and chronic duodenitis, areas were biopsied. No further evaluation at this time. 3. Acute blood loss anemia, improved -Patient had hemoglobin drop from 12.1-6.6 post op. Received 1 unit of packed red blood cells with improvement in hemoglobin to 8.7. Hemoglobin has now remained stable around 8-9. 4. Leukopenia Unclear etiology. White blood cell count noted to be 3.1 on 12/08, down from 9- 10. Repeat CBC showed count of 3.5. Patient afebrile, low concern for infection. We will hold on further infectious work-up at this time. Monitor closely. Continue CBC daily. DVT prophylaxis: SCDs CODE STATUS: Full code, verified Expected disposition: Home, 3 to 4 days Total clinical time spent by myself addressing the patient's medical issues, reviewing all the data, and collaborating with patient's care team: 35 minutes. Charges/Coding Visit Charges Inpatient E&M: 02291 Subs Hosp L2
--- NOTE | 2022-12-09 19:35 | RAD_ITS ---
INDICATION: previous ileus COMPARISON: Abdominal CT previous day. FINDINGS: 2 frontal views of the abdomen. Again is noted extensive diffuse dilated small bowel loops, consistent with bowel obstruction, little change from previous day. No obvious free air. No definite suspicious calcifications. No mass appreciated. RAD/Abdomen Single View (Portable) IMPRESSION: Again is noted extensive diffuse dilated small bowel loops, consistent with bowel obstruction, little change from previous day. Electronically Signed: Donny Elder MD at 21:40 EDT ,
[2022-12-09 20:00] VITALS: BP 152/68; PULSE 90; RESP 19; TEMP 36.8; O2SAT 95
--- NOTE | 2022-12-09 21:27 | NURSING ---
Radiology dept notified of need for URGENT interpretation of ordered KUB performed at 193; per Yisel in radiology dept order changed to STAT read and radiologist notified of need.
[2022-12-09 22:00] VITALS: BP 152/68; PULSE 90; RESP 19; TEMP 36.8; O2SAT 95
[2022-12-09] MEDS: proCHLORPERazine 10 MG/2 ML Vial IV (22:39)
[2022-12-09] MEDS: Morphine 2 MG/ML Syringe IV (22:39)
--- NOTE | 2022-12-09 22:55 | RAD_ITS ---
INDICATION: NGT placement -- KUB with both diaphragms for NG/OG Verification EXAMINATION/TECHNIQUE: X-RAY - XR Abdomen 1 View COMPARISON: Abdominal radiograph earlier same day, 1935 hours. FINDINGS: Single frontal view radiograph of the upper abdomen and lower chest. Again noted multiple dilated small bowel loops. Interval placement of enteric tube with tip overlying left mid abdomen, likely mid stomach. No obvious free air. No definite suspicious calcifications. No mass appreciated. Streaky left lung base atelectasis versus scarring again noted. RAD/Abdomen Single View (Portable) IMPRESSION: Interval placement of enteric tube with tip overlying left mid abdomen, likely mid stomach. Again noted multiple dilated small bowel loops, ileus versus bowel obstruction. Streaky left lung base atelectasis versus scarring again noted. Electronically Signed: Donny Elder MD at 23:35 EDT ,
--- NOTE | 2022-12-09 23:01 | NURSING ---
Inserted 16fr NGT into right nare per policy and attached to LIS. Patient tolerated well.
[2022-12-10] VITALS (9 sets, daily range): BP systolic 144–165; BP diastolic 62–77; PULSE 74–93; RESP 14–19; TEMP 36.6–36.9; O2SAT 94–98; BMI 23.4
[2022-12-10] MEDS: Lactated Ringers 1,000 ML 100 ML IV ×2 (05:16→14:54)
--- NOTE | 2022-12-10 06:55 | PCM.PN.SRG ---
Subjective Subjective The patient had vomiting last night and had NG tube placed. He says after the NG tube was placed he was very comfortable. He is not complaining of any abdominal pain. He is passing some minimal flatus. Objective Data Objective Data Vital Signs: Vital Signs Temp Pulse Resp BP Pulse Ox O2 Del Method O2 Flow Rate 98.1 F 74 17 165/68 H 95 Room Air 2 12/10/22 04:00 12/10/22 04:00 12/10/22 04:00 12/10/22 04:00 12/10/22 04:00 12/10/22 04:00 12/05/22 22:48 Oxygen Flow Rate (L/min) 2 Oxygen Delivery Method Room Air Weight: 163 lb 5.8 oz Body Mass Index (BMI) 23.4 Intake & Output: Intake and Output for Last 24 Hours 12/08/22 12/09/22 12/10/22 23:59 23:59 23:59 Intake Total 688 / 688 2842.5 / 3082.5 1280 / 1280 Output Total 705 / 805 1300 / 1950 1200 / 1200 Balance -17 / -117 1542.5 / 1132.5 80 / 80 Lab / Micro Data 12/09/22 06:05 12/09/22 06:05 Labs: Laboratory Results - last 24 hr 12/09/22 06:05: Sodium 141, Potassium 3.8, Chloride 108 H, Carbon Dioxide 26.0, Anion Gap 7, BUN 26 H, Creatinine 0.69 L, Estim Creat Clear Calc 68.94, Est GFR (MDRD) Af Amer 144, Est GFR (MDRD) Non-Af 119, BUN/Creatinine Ratio 37.5 H, Glucose 110 H, Calcium 8.2 L Radiography Diagnostic Testing: Radiology Impression KUB X-Ray 12/09/22 19:35 IMPRESSION: Again is noted extensive diffuse dilated small bowel loops, consistent with bowel obstruction, little change from previous day. Electronically Signed: Donny Elder MD at 21:40 EDT , KUB X-Ray 12/09/22 22:55 IMPRESSION: Interval placement of enteric tube with tip overlying left mid abdomen, likely mid stomach. Again noted multiple dilated small bowel loops, ileus versus bowel obstruction. Streaky left lung base atelectasis versus scarring again noted. Electronically Signed: Donny Elder MD at 23:35 EDT , Physical Exam Const oriented x3 and no apparent distress Resp normal respiratory effort GI soft to palpation and non-tender Inspection: abdominal distention Assessment & Plan Assessment/Plan (1) Postoperative ileus: (2) Perforated bowel: PLAN: Plan The patient had some vomiting yesterday and NG tube was placed. 1 L of fluid was removed. Patient is not having any nausea or pain this morning. He says he is passing some minimal gas. I will repeat x-ray tomorrow. Labs are pending. Unsure as to the etiology of the ileus as the patient does not complain of any burning with urination or coughing or shortness of breath. I have encouraged him to ambulate and he says he will. I will order Dulcolax suppository to see if this stimulates the colon. Donny Rivera MD Pager: [facility] [address] [place] [address], [address] [place] [phone] Office:
[2022-12-10 07:11] LABS: Absolute Lymphocyte Count 0.86 X10^3/uL (0.83-4.51); Absolute Neutrophil Count 2.8 X10^3/uL (2.0-7.7); Basophil# 0.01 X10^3/uL; Basophil% 0.2 % (0-1); Eosinophils% 2.3 % (0-5); Hematocrit 28.6 % (40-54); Hemoglobin 9.1 g/dL (13.0-16.5); Lymphocyte # 0.86 X10^3/ul (0.83-4.51); Lymphocyte % 19.4 % (19-41); Mean Corp Hgb Conc 31.8 g/dL (32-36); Mean Corpuscular Hgb 30.5 pg (27.0-32.0); Mean Platelet Vol. 9.8 fl (6.2-12.0); Monocyte# 0.67 X10^3/uL; Monocyte% 15.1 % (0-10); NRBC Flagged by Analyzer 0 % (0-5); Neutrophil # 2.75 X10^3/uL (2.7-7.7); Neutrophil % 62.1 % (47-70); Platelet Count 245 K/mm3 (150-450); RBC Distribution Width CV 13.7 % (11.6-14.6); RBC Distribution Width SD 47.8 fl (35.1-43.9); Red Blood Count 2.98 M/mm3 (4.6-6.2); White Blood Count 4.4 K/mm3 (4.4-11.0)
[2022-12-10 07:39] LABS: AST(SGOT) 19 U/L (15-37); Alanine Aminotransfer ALT/SGPT 28 U/L (16-61); Albumin, Serum 2.5 g/dL (3.2-5.0); Alkaline Phosphatase 47 U/L (45-117); Anion Gap 7 (5-15); BUN 26 mg/dL (7-18); BUN/Creat Ratio 35.8 RATIO (10-20); Calcium,Total 8.2 mg/dL (8.5-10.1); Chloride 108 mmol/L (98-107); Creatinine, Serum 0.73 mg/dL (0.70-1.30); EST Glomerular Filtration Rate 113 mL/min (>60); Est Glom Filt Rate - Afr Amer 137 mL/min (>60); Estimated Creatinine Clearance 68.94 ml/min; Globulin 2.6 g/dL (2.2-4.2); Glucose 86 mg/dL (74-106); Magnesium 2.2 mg/dL (1.6-2.6); Phosphorus 2.9 mg/dL (2.5-4.9); Potassium 3.5 mmol/L (3.5-5.1); Protein, Total 5.1 g/dL (6.4-8.2); Sodium Level 141 mmol/L (136-145)
[2022-12-10] MEDS: Bisacodyl 10 MG Suppository RC (10:39)
--- NOTE | 2022-12-10 14:09 | PN.HOSP_ITS ---
Reason for Visit Reason for Visit: Diagnoses Iron deficiency anemia secondary to blood loss (chronic) (12/03/22) Ileus, unspecified (12/03/22) Perforation of intestine (nontraumatic) (12/03/22) Other postprocedural complications and disorders of digestive system (12/03/22) Subjective Subjective Patient seen at bedside's morning. He had NG tube placed overnight and has had about 1 L out from the NG tube. Patient feels significantly better and less distended this morning. He continues to pass some gas but has not had a bowel movement. He denies any fevers or chills. He does have some discomfort with the NG tube but it is manageable. No other acute concerns. Objective Data Objective Data Vital Signs: Vital Signs Temp Pulse Resp BP Pulse Ox O2 Del Method O2 Flow Rate 98.5 F 87 16 156/71 H 95 Room Air 2 12/10/22 12:17 12/10/22 12:17 12/10/22 12:17 12/10/22 12:17 12/10/22 12:17 12/10/22 12:17 12/05/22 22:48 Oxygen Flow Rate (L/min) 2 Oxygen Delivery Method Room Air Weight: 74.1 kg Body Mass Index (BMI) 23.4 Intake & Output: Intake and Output for Last 24 Hours 12/08/22 12/09/22 12/10/22 23:59 23:59 23:59 Intake Total 688 / 688 2842.5 / 3082.5 2090 / 2090 Output Total 705 / 805 1300 / 1950 1850 / 1850 Balance -17 / 117 1542.5 / 1132.5 240 / 240 Lab / Micro Data Attestation: I reviewed the patient's lab results. 12/10/22 07:00 12/10/22 07:00 Labs: Laboratory Results - last 24 hr 12/10/22 07:00: WBC 4.4, RBC 2.98 L, Hgb 9.1 L, Hct 28.6 L, MCV 96.0 H, MCH 30.5, MCHC 31.8 L, RDW Std Deviation 47.8 H, RDW Coeff of Angela 13.7, Plt Count 245, MPV 9.8, Immature Gran % (Auto) 0.900, Neut % (Auto) 62.1, Lymph % (Auto) 19.4, Campbell % (Auto) 15.1 H, Eos % (Auto) 2.3, Baso % (Auto) 0.2, Absolute Neuts (auto) 2.8, Absolute Lymphs (auto) 0.86, Nucleated RBC % 0, Sodium 141, Potassium 3.5, Chloride 108 H, Carbon Dioxide 26.0, Anion Gap 7, BUN 26 H, Creatinine 0.73, Estim Creat Clear Calc 68.94, Est GFR (MDRD) Af Amer 137, Est GFR (MDRD) Non-Af 113, BUN/Creatinine Ratio 35.8 H, Glucose 86, Calcium 8.2 L, Phosphorus 2.9, Magnesium 2.2, Total Bilirubin 0.90, AST 19, ALT 28, Alkaline Phosphatase 47, Total Protein 5.1 L, Albumin 2.5 L, Globulin 2.6, Albumin/Globulin Ratio 1.0 Radiography Diagnostic Testing: Radiology Impression KUB X-Ray 12/09/22 19:35 IMPRESSION: Again is noted extensive diffuse dilated small bowel loops, consistent with bowel obstruction, little change from previous day. Electronically Signed: Donny Elder MD at 21:40 EDT , KUB X-Ray 12/09/22 22:55 IMPRESSION: Interval placement of enteric tube with tip overlying left mid abdomen, likely mid stomach. Again noted multiple dilated small bowel loops, ileus versus bowel obstruction. Streaky left lung base atelectasis versus scarring again noted. Electronically Signed: Donny Elder MD at 23:35 EDT , Physical Exam Const alert, oriented x3, no apparent distress and average body habitus Constitutional Narrative: Laying in bed, conversing normally. NG tube is in place, patient appears to be tolerating fine. General Appearance: cooperative HEENT normocephalic, head/scalp atraumatic, hearing grossly normal bilaterally, nasal mucous membranes and turbinates normal and moist oral mucous membranes Eyes PERRL, EOMs intact bilaterally and conjunctivae normal Neck full ROM and supple Chest inspection of chest normal Resp normal respiratory effort, normal air movement, no use of accessory muscles and clear to auscultation bilaterally Cardio regular rate, regular rhythm, no murmurs and peripheral pulses 2+ throughout GI GI Narrative: NG tube in place. Distention is significantly improved. Abdomen is still mildly distended but is soft and nontender to palpation. Back/Spine normal ROM Extremity normal to inspection, full ROM and no pedal edema Skin no rashes or lesions noted Psych mental status grossly normal Assessment & Plan Assessment/Plan (1) Postoperative ileus: PLAN: Plan Patient is a 72-year-old male with history significant for GERD who presented to [facility] on 12/03 with bleeding per rectum and worsening lightheadedness. 1. Perforated distal ileum with free intraperitoneal air after recent colonoscopy, postop ileus Patient had EGD and colonoscopy done on 12/01 for rectal bleeding, was discharged home on 12/02. Represented on 12/03 with recurrent bleeding per rectum and worsening lightheadedness. CT abdomen pelvis on 12/03 showed a small amount of free intraperitoneal air. Surgery following. Status post exploratory laparotomy on 12/03 with ileocecectomy. Patient tolerated procedure well. Had 3 days of IV Zosyn, antibiotics now discontinued. Patient has had significant postop ileus as anticipated. CT Abdo pelvis on 12/08 showed continued small bowel dilation, but importantly no concern for issues with surgical site. -NG tube placed on evening of 12/09 with about 1 L out from the tube shortly after placement. Output has slowed down significantly now. Patient also given Dulcolax suppository by surgery and had a small bowel movement. Continue NG tube, defer to surgery for timing of removal. Appreciate surgical recommendati ons. 2. Recent lower GI bleed with hematochezia ?Colonoscopy showed 2 bleeding angiodysplasias that were cauterized, no specimens collected. EGD showed acute gastritis and chronic duodenitis, areas were biopsied. No further evaluation at this time. 3. Acute blood loss anemia, improved -Patient had hemoglobin drop from 12.1-6.6 post op. Received 1 unit of packed red blood cells with improvement in hemoglobin to 8.7. Hemoglobin has now remained stable around 8-9. 4. Leukopenia Unclear etiology. White blood cell count noted to be 3.1 on 12/08, down from 9- 10. Repeat CBC showed count of 3.5. Patient afebrile, low concern for infection. We will hold on further infectious work-up at this time. Monitor closely. Continue CBC daily. DVT prophylaxis: SCDs CODE STATUS: Full code, verified Expected disposition: Home, 3 to 4 days Total clinical time spent by myself addressing the patient's medical issues, reviewing all the data, and collaborating with patient's care team: 35 minutes. Charges/Coding Visit Charges Inpatient E&M: 02166 Subs Hosp L2
[2022-12-11] MEDS: Lactated Ringers 1,000 ML 100 ML IV ×3 (00:38→18:55)
[2022-12-11 00:43] VITALS: BP 154/80; PULSE 81; RESP 14; TEMP 36.7; O2SAT 93
[2022-12-11 03:08] VITALS: BP 151/80; PULSE 81; RESP 14; TEMP 36.6; O2SAT 93; BMI 23.7
[2022-12-11 05:40] VITALS: BMI 23.8
--- NOTE | 2022-12-11 05:55 | RAD_ITS ---
INDICATION: ileus EXAMINATION/TECHNIQUE: X-RAY - XR Abdomen 1 View: Supine AP view COMPARISON: Abdominal radiographs from 12/09/2022 FINDINGS: BOWEL GAS PATTERN: Multiple dilated loops of small bowel again noted. Scattered gas within nondilated large bowel. FREE AIR: Not assessed on a single supine view. ORGANOMEGALY: Not seen. CALCIFICATIONS: No suspicious calcifications observed. Sutures within right lower quadrant. LOWER CHEST: No acute pathology. BONES AND SOFT TISSUES: No acute pathology. RAD/Abdomen Single View (Portable) IMPRESSION: Stable bowel gas pattern suggesting partial small bowel obstruction. Electronically Signed: Wil Alejandro MD at 6:43 EDT ,
--- NOTE | 2022-12-11 08:34 | PCM.PN.SRG ---
Subjective Subjective Patient was unable to tolerate his NG and it was removed yesterday afternoon. The patient reports he is not passing much gas but he did have 3 soft bowel movements. Patient reports that he did have some vomiting this morning. He is not complaining of abdominal pain only distention and pressure. Objective Data Objective Data Vital Signs: Vital Signs Temp Pulse Resp BP Pulse Ox O2 Del Method O2 Flow Rate 98 F 81 14 151/80 H 93 Room Air 2 12/11/22 03:08 12/11/22 03:08 12/11/22 03:08 12/11/22 03:08 12/11/22 03:08 12/11/22 03:12 12/05/22 22:48 Oxygen Flow Rate (L/min) 2 Oxygen Delivery Method Room Air Weight: 166 lb 6.4 oz Body Mass Index (BMI) 23.8 Intake & Output: Intake and Output for Last 24 Hours 12/09/22 12/10/22 12/11/22 23:59 23:59 23:59 Intake Total 2842.5 / 3082.5 3985 / 4085 1073.33 / 1073.33 Output Total 1300 / 1950 2400 / 2500 250 / 250 Balance 1542.5 / 1132.5 1585 / 1585 823.33 / 823.33 Lab / Micro Data 12/10/22 07:00 12/10/22 07:00 Radiography Diagnostic Testing: Radiology Impression KUB X-Ray 12/11/22 05:55 IMPRESSION: Stable bowel gas pattern suggesting partial small bowel obstruction. Electronically Signed: Wil Alejandro MD at 6:43 EDT , Physical Exam Const oriented x3 Resp normal respiratory effort Cardio regular rate and regular rhythm GI soft to palpation Inspection: abdominal distention Extremity normal to inspection Assessment & Plan Assessment/Plan (1) Postoperative ileus: (2) Perforated bowel: PLAN: Plan The patient was unable to tolerate his NG and it was removed yesterday. He did have a mild amount of vomiting this morning. He did have bowel movements with the suppository. His KUB this morning still shows abdominal distention. I would like to eventually get a small bowel follow-through to ensure that the patient is not having obstruction and this is just ileus but at this time he is too distended. I will start TPN and order a PICC line. Donny Rivera MD Pager: [facility] [address] [place] [address] [address] [place] [address] Office:
[2022-12-11] MEDS: 0.9% Saline Lock 10 ML Syringe IV (09:31)
[2022-12-11] MEDS: amLODIPine 5 MG Tablet PO (10:04)
[2022-12-11 12:43] VITALS: BP 152/70; PULSE 74; RESP 18; TEMP 37; O2SAT 94
--- NOTE | 2022-12-11 14:12 | PCM.PN.HOSP ---
Reason for Visit Reason for Visit: Diagnoses Iron deficiency anemia secondary to blood loss (chronic) (12/03/22) Ileus, unspecified (12/03/22) Perforation of intestine (nontraumatic) (12/03/22) Other postprocedural complications and disorders of digestive system (12/03/22) Subjective Subjective Patient seen at bedside this morning. He was having a triple-lumen PICC line for TPN placed at that time. States that his NG tube was removed yesterday afternoon due to discomfort. He has had mild worsening of his abdominal pain and distention this morning. He had a small bowel movement with a Dulcolax suppository yesterday, and continues to pass gas. However he has not had another bowel movement since then. He otherwise denies any fevers or chills. No other acute concerns. Objective Data Objective Data Vital Signs: Vital Signs Temp Pulse Resp BP Pulse Ox O2 Del Method O2 Flow Rate 98 F 81 14 151/80 H 93 Room Air 2 12/11/22 03:08 12/11/22 03:08 12/11/22 03:08 12/11/22 03:08 12/11/22 03:08 12/11/22 03:12 12/05/22 22:48 Oxygen Flow Rate (L/min) 2 Oxygen Delivery Method Room Air Weight: 75.478 kg Body Mass Index (BMI) 23.8 Intake & Output: Intake and Output for Last 24 Hours 12/09/22 12/10/22 12/11/22 23:59 23:59 23:59 Intake Total 2842.5 / 3082.5 3985 / 4085 2081.66 / 2081.66 Output Total 1300 / 1950 2400 / 2500 350 / 350 Balance 1542.5 / 1132.5 1585 / 1585 1731.66 / 1731.66 Lab / Micro Data Attestation: I reviewed the patient's lab results. 12/10/22 07:00 12/10/22 07:00 Radiography Diagnostic Testing: Radiology Impression KUB X-Ray 12/11/22 05:55 IMPRESSION: Stable bowel gas pattern suggesting partial small bowel obstruction. Electronically Signed: Wil Alejandro MD at 6:43 EDT , Physical Exam Const alert, oriented x3, no apparent distress and average body habitus Constitutional Narrative: Sitting up in bed, conversing normally, no acute distress. General Appearance: cooperative HEENT normocephalic, head/scalp atraumatic, hearing grossly normal bilaterally, nasal mucous membranes and turbinates normal and moist oral mucous membranes Eyes PERRL, EOMs intact bilaterally and conjunctivae normal Neck full ROM and supple Chest inspection of chest normal Resp normal respiratory effort, normal air movement, no use of accessory muscles and clear to auscultation bilaterally Cardio regular rate, regular rhythm, no murmurs and peripheral pulses 2+ throughout GI GI Narrative: Abdomen remains soft but is mildly more distended than yesterday. No tenderness to palpation. Back/Spine normal ROM Extremity normal to inspection, full ROM and no pedal edema Skin no rashes or lesions noted Psych mental status grossly normal Assessment & Plan Assessment/Plan (1) Postoperative ileus: PLAN: Plan Patient is a 72-year-old male with history significant for GERD who presented to [facility] on 12/03 with bleeding per rectum and worsening lightheadedness. 1. Perforated distal ileum with free intraperitoneal air after recent colonoscopy, postop ileus Patient had EGD and colonoscopy done on 12/01 for rectal bleeding, was discharged home on 12/02. Represented on 12/03 with recurrent bleeding per rectum and worsening lightheadedness. CT abdomen pelvis on 12/03 showed a small amount of free intraperitoneal air. Surgery following. Status post exploratory laparotomy on 12/03 with ileocecectomy. Patient tolerated procedure well. Had 3 days of IV Zosyn, antibiotics now discontinued. Patient has had significant postop ileus as anticipated. CT Abdo pelvis on 12/08 showed continued small bowel dilation, but importantly no concern for issues with surgical site. NG tube placed on evening of 12/09 with 1 L removed. Also given Dulcolax positive right 12/09 with 1 small bowel movement. NG tube removed on 12/10 as output had diminished and patient was uncomfortable with it. -PICC line placed for TPN today per surgery recommendations. Appreciate surgery recommendations for further indications for suppositories or p.o. laxatives. 2. Recent lower GI bleed with hematochezia ?Colonoscopy showed 2 bleeding angiodysplasias that were cauterized, no specimens collected. EGD showed acute gastritis and chronic duodenitis, areas were biopsied. No further evaluation at this time. 3. Acute blood loss anemia, improved -Patient had hemoglobin drop from 12.1-6.6 post op. Received 1 unit of packed red blood cells with improvement in hemoglobin to 8.7. Hemoglobin has now remained stable around 8-9. 4. Leukopenia Unclear etiology. White blood cell count noted to be 3.1 on 12/08, down from 9-10. Repeat CBC showed count of 3.5. Patient afebrile, low concern for infection. We will hold on further infectious work-up at this time. Monitor closely. Continue CBC daily. DVT prophylaxis: SCDs CODE STATUS: Full code, verified Expected disposition: TBD Total clinical time spent by myself addressing the patient's medical issues, reviewing all the data, and collaborating with patient's care team: 35 minutes. Charges/Coding Visit Charges Inpatient E&M: 58935 Subs Hosp L2
[2022-12-11] MEDS: TPN - Clinimix E 8%-14% Soln 2,000 ML with Multivitamins 10 ML, Trace Elements 1 ML, Fo... 42 ML IV (16:25)
[2022-12-11 18:40] VITALS: BP 154/74; PULSE 77; RESP 16; TEMP 36.8; O2SAT 96
[2022-12-11 19:18] LABS: Bedside Glucose 109 mg/dL (74-106)
[2022-12-11 19:49] VITALS: BP 159/67; PULSE 78; RESP 14; TEMP 36.8; O2SAT 94
[2022-12-11] MEDS: Bisacodyl 10 MG Suppository RC (22:30)
[2022-12-12] VITALS (8 sets, daily range): BP systolic 127–160; BP diastolic 62–79; PULSE 75–85; RESP 16; TEMP 35.9–36.9; O2SAT 92–94; BMI 24.3
[2022-12-12 01:05] LABS: Bedside Glucose 148 mg/dL (74-106)
[2022-12-12] MEDS: Acetaminophen 325 MG Tablet 650 MG PO (02:53)
[2022-12-12] MEDS: Morphine 2 MG/ML Syringe IV (05:31)
[2022-12-12] MEDS: Lactated Ringers 1,000 ML 100 ML IV ×2 (05:39→17:34)
[2022-12-12 05:54] LABS: Bedside Glucose 157 mg/dL (74-106)
--- NOTE | 2022-12-12 07:42 | PCM.PN.SRG ---
Subjective Subjective Patient reports he is passing more copious gas and he did have a bowel movement. He is not having any abdominal pain. Objective Data Objective Data Vital Signs: Vital Signs Temp Pulse Resp BP Pulse Ox O2 Del Method O2 Flow Rate 98.2 F 79 16 129/62 H 93 Room Air 2 12/12/22 05:34 12/12/22 05:34 12/12/22 05:34 12/12/22 05:34 12/12/22 05:34 12/12/22 05:34 12/05/22 22:48 Oxygen Flow Rate (L/min) 2 Oxygen Delivery Method Room Air Weight: 170 lb 3.2 oz Body Mass Index (BMI) 24.3 Intake & Output: Intake and Output for Last 24 Hours 12/10/22 12/11/22 12/12/22 23:59 23:59 23:59 Intake Total 3985 / 4085 3121.66 / 3321.66 1250 / 1250 Output Total 2400 / 2500 1400 / 1400 350 / 350 Balance 1585 / 1585 1721.66 / 1921.66 900 / 900 Lab / Micro Data 12/10/22 07:00 12/10/22 07:00 Labs: Laboratory Results - last 24 hr 12/11/22 18:57: POC Glucose 109 H 12/12/22 00:46: POC Glucose 148 H 12/12/22 05:24: POC Glucose 157 H Physical Exam Const no apparent distress Resp normal respiratory effort GI soft to palpation and non-tender Inspection: abdominal distention Assessment & Plan Assessment/Plan (1) Postoperative ileus: (2) Perforated bowel: PLAN: Plan The patient still seems distended although nontender. He reports he is passing more copious gas but he did have a small episode of vomiting this morning. His abdomen seems less distended but still distended. I advised him that we will continue observation through the weekend but if he is not able to tolerate a diet and pass gas and have nondistended abdomen by Thursday I would recommend reexploration. TPN was initiated yesterday. Donny Rivera MD Pager: [facility] [address] [place] [address], [address] [place] [address] Office:
[2022-12-12] MEDS: amLODIPine 5 MG Tablet PO (09:49)
[2022-12-12 11:44] LABS: Bedside Glucose 140 mg/dL (74-106)
--- NOTE | 2022-12-12 16:24 | PCM.PN.HOSP ---
Reason for Visit Reason for Visit: Diagnoses Iron deficiency anemia secondary to blood loss (chronic) (12/03/22) Ileus, unspecified (12/03/22) Perforation of intestine (nontraumatic) (12/03/22) Other postprocedural complications and disorders of digestive system (12/03/22) Subjective Subjective Patient seen at bedside this morning. He was sitting comfortably in his bedside chair and had just walked around the entire floor without any assistance. States he tolerated ambulation well. He has been tolerating his TPN well. He does continue to feel distended this morning, similar to yesterday. He is passing some gas and had 2 very small bowel movements yesterday. He denies any fevers or chills. No other acute concerns. Objective Data Objective Data Vital Signs: Vital Signs Temp Pulse Resp BP Pulse Ox O2 Del Method O2 Flow Rate 98.2 F 78 16 127/62 H 94 Room Air 2 12/12/22 11:00 12/12/22 11:00 12/12/22 11:00 12/12/22 11:00 12/12/22 11:00 12/12/22 11:00 12/05/22 22:48 Oxygen Flow Rate (L/min) 2 Oxygen Delivery Method Room Air Weight: 77.201 kg Body Mass Index (BMI) 24.3 Intake & Output: Intake and Output for Last 24 Hours 12/10/22 12/11/22 12/12/22 23:59 23:59 23:59 Intake Total 3985 / 4085 3121.66 / 3321.66 1360 / 1360 Output Total 2400 / 2500 1400 / 1400 350 / 350 Balance 1585 / 1585 1721.66 / 1921.66 1010 / 1010 Lab / Micro Data Attestation: I reviewed the patient's lab results. 12/10/22 07:00 12/10/22 07:00 Labs: Laboratory Results - last 24 hr 12/11/22 18:57: POC Glucose 109 H 12/12/22 00:46: POC Glucose 148 H 12/12/22 05:24: POC Glucose 157 H 12/12/22 11:24: POC Glucose 140 H Physical Exam Const alert, oriented x3, no apparent distress and average body habitus Constitutional Narrative: Sitting in bedside chair, conversing normally, no acute distress. General Appearance: cooperative HEENT normocephalic, head/scalp atraumatic, hearing grossly normal bilaterally, nasal mucous membranes and turbinates normal and moist oral mucous membranes Eyes PERRL, EOMs intact bilaterally and conjunctivae normal Neck full ROM and supple Chest inspection of chest normal Resp normal respiratory effort, normal air movement, no use of accessory muscles and clear to auscultation bilaterally Cardio regular rate, regular rhythm, no murmurs and peripheral pulses 2+ throughout GI GI Narrative: Abdomen is slightly more distended and hard on palpation today than yesterday. No tenderness to palpation. Back/Spine normal ROM Extremity normal to inspection, full ROM and no pedal edema Skin no rashes or lesions noted Psych mental status grossly normal Assessment & Plan Assessment/Plan (1) Postoperative ileus: PLAN: Plan Patient is a 72-year-old male with history significant for GERD who presented to [facility] on 12/03 with bleeding per rectum and worsening lightheadedness. 1. Perforated distal ileum with free intraperitoneal air after recent colonoscopy, postop ileus Patient had EGD and colonoscopy done on 12/01 for rectal bleeding, was discharged home on 12/02. Represented on 12/03 with recurrent bleeding per rectum and worsening lightheadedness. CT abdomen pelvis on 12/03 showed a small amount of free intraperitoneal air. Surgery following. Status post exploratory laparotomy on 12/03 with ileocecectomy. Patient tolerated procedure well. Had 3 days of IV Zosyn, antibiotics now discontinued. Patient has had significant postop ileus as anticipated. CT Abdo pelvis on 12/08 showed continued small bowel dilation, but importantly no concern for issues with surgical site. NG tube placed on evening of 12/09 with 1 L removed. Also given Dulcolax positive right 12/09 with 1 small bowel movement. NG tube removed on 12/10 as output had diminished and patient was uncomfortable with it. PICC line placed 12/11 for TPN. -Surgery following, appreciate recommendations. Will monitor over the weekend and if no improvement, may need to go back for reexploration surgery on Thursday. 2. Recent lower GI bleed with hematochezia ?Colonoscopy showed 2 bleeding angiodysplasias that were cauterized, no specimens collected. EGD showed acute gastritis and chronic duodenitis, areas were biopsied. No further evaluation at this time. 3. Acute blood loss anemia, improved -Patient had hemoglobin drop from 12.1-6.6 post op. Received 1 unit of packed red blood cells with improvement in hemoglobin to 8.7. Hemoglobin has now remained stable around 8-9. 4. Leukopenia Unclear etiology. White blood cell count noted to be 3.1 on 12/08, down from 9-10. Repeat CBC showed count of 3.5. Patient afebrile, low concern for infection. We will hold on further infectious work-up at this time. Monitor closely. Continue CBC daily. DVT prophylaxis: SCDs CODE STATUS: Full code, verified Expected disposition: TBD Total clinical time spent by myself addressing the patient's medical issues, reviewing all the data, and collaborating with patient's care team: 35 minutes. Charges/Coding Visit Charges Inpatient E&M: 81829 Subs Hosp L2
[2022-12-12] MEDS: TPN - Clinimix E 8%-14% Soln 2,000 ML with Multivitamins 10 ML, Trace Elements 1 ML, Fo... 84 ML IV (17:01)
[2022-12-12 17:09] LABS: Bedside Glucose 125 mg/dL (74-106)
[2022-12-13] MEDS: Morphine 2 MG/ML Syringe IV (01:47)
[2022-12-13 02:01] LABS: Bedside Glucose 138 mg/dL (74-106)
[2022-12-13 02:04] VITALS: BP 146/80; PULSE 84; RESP 16; TEMP 36.5; O2SAT 95
[2022-12-13 03:48] VITALS: BMI 25.2
[2022-12-13 03:53] LABS: Absolute Lymphocyte Count 0.83 X10^3/uL (0.83-4.51); Absolute Neutrophil Count 4.5 X10^3/uL (2.0-7.7); Basophil# 0.01 X10^3/uL; Basophil% 0.2 % (0-1); Eosinophils% 1.6 % (0-5); Hematocrit 26.7 % (40-54); Hemoglobin 8.7 g/dL (13.0-16.5); Lymphocyte # 0.83 X10^3/ul (0.83-4.51); Lymphocyte % 13.5 % (19-41); Mean Corp Hgb Conc 32.6 g/dL (32-36); Mean Corpuscular Hgb 30.6 pg (27.0-32.0); Mean Platelet Vol. 10.3 fl (6.2-12.0); Monocyte# 0.58 X10^3/uL; Monocyte% 9.4 % (0-10); NRBC Flagged by Analyzer 0 % (0-5); Neutrophil # 4.54 X10^3/uL (2.7-7.7); Platelet Count 264 K/mm3 (150-450); RBC Distribution Width CV 13.5 % (11.6-14.6); RBC Distribution Width SD 45.7 fl (35.1-43.9); Red Blood Count 2.84 M/mm3 (4.6-6.2); White Blood Count 6.1 K/mm3 (4.4-11.0)
[2022-12-13 04:09] LABS: Anion Gap 5 (5-15); BUN 22 mg/dL (7-18); Calcium,Total 7.5 mg/dL (8.5-10.1); Chloride 106 mmol/L (98-107); EST Glomerular Filtration Rate 142 mL/min (>60); Est Glom Filt Rate - Afr Amer 172 mL/min (>60); Estimated Creatinine Clearance 68.94 ml/min; Glucose 143 mg/dL (74-106); Magnesium 1.9 mg/dL (1.6-2.6); Phosphorus 2.4 mg/dL (2.5-4.9); Sodium Level 138 mmol/L (136-145)
[2022-12-13] MEDS: Lactated Ringers 1,000 ML 100 ML IV ×2 (04:45→14:09)
[2022-12-13 05:13] VITALS: BP 158/72; PULSE 85; RESP 14; TEMP 36.6; O2SAT 94
--- NOTE | 2022-12-13 08:38 | PN.SURG_ITS ---
Subjective Subjective Patient seen and examined during AM rounds. He denies any frequent belching, hiccuping, nausea, or vomiting today. He denies any significant abdominal pain. He states that he has not yet walked today, but has been walking more regularly. He denies an appetite. He wishes to know what the significance of a nodule on the left posterior aspect of his neck is and whether or not it may be related to his abdominal discomfort or to a prior trauma. Objective Data Objective Data Vital Signs: Vital Signs Temp Pulse Resp BP Pulse Ox O2 Del Method O2 Flow Rate 97.8 F 85 14 158/72 H 94 Room Air 2 12/13/22 05:13 12/13/22 05:13 12/13/22 05:13 12/13/22 05:13 12/13/22 05:13 12/13/22 05:13 12/05/22 22:48 Oxygen Flow Rate (L/min) 2 Oxygen Delivery Method Room Air Weight: 175 lb 7.807 oz Body Mass Index (BMI) 25.2 Intake & Output: Intake and Output for Last 24 Hours 12/11/22 12/12/22 12/13/22 23:59 23:59 23:59 Intake Total 3121.66 / 3321.66 2360 / 2360 1000 / 1000 Output Total 1400 / 1400 550 / 550 275 / 275 Balance 1721.66 / 1921.66 1810 / 1810 725 / 725 Lab / Micro Data 12/13/22 03:45 12/13/22 03:45 Labs: Laboratory Results - last 24 hr 12/12/22 11:24: POC Glucose 140 H 12/12/22 16:51: POC Glucose 125 H 12/13/22 01:41: POC Glucose 138 H 12/13/22 03:45: WBC 6.1, RBC 2.84 L, Hgb 8.7 L, Hct 26.7 L, MCV 94.0, MCH 30.6, MCHC 32.6, RDW Std Deviation 45.7 H, RDW Coeff of Angela 13.5, Plt Count 264, MPV 10.3, Immature Gran % (Auto) 1.300 H, Neut % (Auto) 74.0 H, Lymph % (Auto) 13.5 L, [place] % (Auto) 9.4, Eos % (Auto) 1.6, Baso % (Auto) 0.2, Absolute Neuts (auto) 4.5, Absolute Lymphs (auto) 0.83, Nucleated RBC % 0, Sodium 138, Potassium 3.0 L , Chloride 106, Carbon Dioxide 27.0, Anion Gap 5, BUN 22 H, Creatinine 0.60 L, Estim Creat Clear Calc 68.94, Est GFR (MDRD) Af Amer 172, Est GFR (MDRD) Non-Af 142, BUN/Creatinine Ratio 37.0 H, Glucose 143 H, Calcium 7.5 L, Phosphorus 2.4 L , Magnesium 1.9 Physical Exam Const Constitutional Narrative: Patient somewhat stoic?appearing and avoids some eye contact Resp normal respiratory effort GI GI Narrative: Mild to moderately distended and tympanic. Operative dressings remain intact with a dressing date of 12/07/2022. There is scant serosanguineous drainage to these bandages before they are removed. Underneath Steri-Strips remain intact and there is no charlette-incisional erythema or drainage. Patient has no significant tenderness with palpation. Assessment & Plan Assessment/Plan (1) Postoperative ileus: (2) Perforated bowel: PLAN: Plan Patient still experiencing signs and symptoms of postoperative ileus with persistent abdominal distention, minimal passage of flatus, and absence of an appetite. Positively, he denies any belching, hiccuping, nausea, or vomiting this morning. He reports that he has been ambulating outside of this morning. I have encouraged him to trial use of either gum or hard candy to try to resolve his ileus. I will also plan to repeat a Dulcolax suppository today. I have asked him to strongly consider nasogastric tube replacement should he recur with any nausea or vomiting, but I remain hopeful that we can get him through this ileus. From a clinical standpoint, patient had a number of electrolyte abnormalities that I have tried to correct with IV replacements. We will plan to repeat labs tomorrow to ensure repletion. Lastly we will repeat his KUB si nce it has been 2 days since we obtained a plain film. Continue TPN today. Charges/Coding Visit Charges Inpatient E&M: 06674 Subs Hosp L2
[2022-12-13 08:49] LABS: Bedside Glucose 147 mg/dL (74-106)
--- NOTE | 2022-12-13 09:35 | PN.HOSP_ITS ---
Reason for Visit Reason for Visit: Diagnoses Iron deficiency anemia secondary to blood loss (chronic) (12/03/22) Ileus, unspecified (12/03/22) Perforation of intestine (nontraumatic) (12/03/22) Other postprocedural complications and disorders of digestive system (12/03/22) Subjective Subjective Some flatus. Abdomen still distended. Objective Data Objective Data Vital Signs: Vital Signs Temp Pulse Resp BP Pulse Ox O2 Del Method O2 Flow Rate 36.6 C 85 14 158/72 H 94 Room Air 2 12/13/22 05:13 12/13/22 05:13 12/13/22 05:13 12/13/22 05:13 12/13/22 05:13 12/13/22 08:46 12/05/22 22:48 Oxygen Flow Rate (L/min) 2 Oxygen Delivery Method Room Air Weight: 79.6 kg Body Mass Index (BMI) 25.2 Intake & Output: Intake and Output for Last 24 Hours 12/11/22 12/12/22 12/13/22 23:59 23:59 23:59 Intake Total 3121.66 / 3321.66 2360 / 2360 2692.6 / 2692.6 Output Total 1400 / 1400 550 / 550 275 / 275 Balance 1721.66 / 1921.66 1810 / 1810 2417.6 / 2417.6 Lab / Micro Data 12/13/22 03:45 12/13/22 03:45 Labs: Laboratory Results - last 24 hr 12/12/22 11:24: POC Glucose 140 H 12/12/22 16:51: POC Glucose 125 H 12/13/22 01:41: POC Glucose 138 H 12/13/22 03:45: WBC 6.1, RBC 2.84 L, Hgb 8.7 L, Hct 26.7 L, MCV 94.0, MCH 30.6, MCHC 32.6, RDW Std Deviation 45.7 H, RDW Coeff of Angela 13.5, Plt Count 264, MPV 10.3, Immature Gran % (Auto) 1.300 H, Neut % (Auto) 74.0 H, Lymph % (Auto) 13.5 L, [place] % (Auto) 9.4, Eos % (Auto) 1.6, Baso % (Auto) 0.2, Absolute Neuts (auto) 4.5, Absolute Lymphs (auto) 0.83, Nucleated RBC % 0, Sodium 138, Potassium 3.0 L , Chloride 106, Carbon Dioxide 27.0, Anion Gap 5, BUN 22 H, Creatinine 0.60 L, Estim Creat Clear Calc 68.94, Est GFR (MDRD) Af Amer 172, Est GFR (MDRD) Non-Af 142, BUN/Creatinine Ratio 37.0 H, Glucose 143 H, Calcium 7.5 L, Phosphorus 2.4 L , Magnesium 1.9 12/13/22 05:09: POC Glucose 147 H Physical Exam Const alert and no apparent distress Resp normal respiratory effort, no retractions, no use of accessory muscles and clear to auscultation bilaterally Cardio regular rate, regular rhythm, S1 normal heart sound and S2 normal heart sound GI GI Narrative: distended. hypoactive bowel sounds. Assessment & Plan Assessment/Plan (1) Postoperative ileus: PLAN: Perforated distal ileum with free intraperitoneal air after recent colonoscopy, postop ileus History * Patient had EGD and colonoscopy done on 12/01 for rectal bleeding, was discharged home on 12/02. * Represented on 12/03 with recurrent bleeding per rectum and worsening lightheadedness. CT abdomen pelvis on 12/03 showed a small amount of free intraperitoneal air. * Status post exploratory laparotomy on 12/03 with ileocecectomy. Patient tolerated procedure well. Had 3 days of IV Zosyn, antibiotics now discontinued. * Patient has had significant postop ileus as anticipated. * CT Abdo pelvis on 12/08 showed continued small bowel dilation, but importantly no concern for issues with surgical site. * NG tube placed on evening of 12/09 with 1 L removed. Also given Dulcolax positive right 12/09 with 1 small bowel movement. * NG tube removed on 12/10 as output had diminished and patient was uncomfortable with it. PICC line placed 12/11 for TPN. Surgery following, appreciate recommendations. Will monitor over the weekend and if no improvement, may need to go back for reexploration surgery on Thursday. (2) Blood loss anemia: PLAN: Acute blood loss anemia, improved -Patient had hemoglobin drop from 12.1-6.6 post op. Received 1 unit of packed red blood cells with improvement in hemoglobin to 8.7. Hemoglobin has now remained stable around 8-9. (3) Leukopenia: QUALIFIERS: Leukopenia type: unspecified Qualified Code(s): D72.819 - Decreased white blood cell count, unspecified PLAN: Unclear etiology. White blood cell count noted to be 3.1 on 12/08, down from 9- 10. Repeat CBC showed count of 3.5. Patient afebrile, low concern for inf ection. We will hold on further infectious work-up at this time. Monitor closely. Continue CBC daily. (4) Perforated bowel: PLAN: s/p ex lap w ileocecectomy on 12/03 mgmt per general surgery PLAN: Plan Chronic conditions: * Recent lower GI bleed with hematochezia?Colonoscopy showed 2 bleeding angiodysplasias that were cauterized, no specimens collected. EGD showed acute gastritis and chronic duodenitis, areas were biopsied. No further evaluation at this time. DVT prophylaxis: SCDs CODE STATUS: Full code, verified Expected disposition: TBD Charges/Coding Visit Charges Inpatient E&M: 40838 Subs Hosp L2
[2022-12-13] MEDS: amLODIPine 5 MG Tablet PO (10:15)
[2022-12-13 10:16] VITALS: BP 146/70; PULSE 89; RESP 16; TEMP 36.8; O2SAT 96
--- NOTE | 2022-12-13 11:11 | RAD_ITS ---
STUDY: X-RAY - ABDOMEN/PELVIS REASON FOR EXAM: Male, 72 years old. f/u ileus symptoms TECHNIQUE: Single AP view of the abdomen / pelvis. COMPARISON: 12/11/2022 FINDINGS: There are dilated loops of the small intestine with a non-distended colon consistent with a small bowel obstruction. The visualized liver, spleen and kidneys are grossly normal in size and morphology. Normal soft tissue structures. Normal visualized osseous structures. RAD/Abdomen Single View (Portable) IMPRESSION: No change in the moderate small bowel obstruction. Electronically Signed: Maurilio Molina MD at 15:18 EDT ,
[2022-12-13] MEDS: Potassium Chloride 10mEq/100mL 10 MEQ/100 ML IV.SOLN. 100 MEQ IV BOLUS ×4 (13:03→16:24)
[2022-12-13] MEDS: Bisacodyl 10 MG Suppository RC (14:49)
[2022-12-13 15:42] LABS: Bedside Glucose 119 mg/dL (74-106)
[2022-12-13] MEDS: TPN - Clinimix E 8%-14% Soln 2,000 ML with Multivitamins 10 ML, Trace Elements 1 ML, Fo... 84 ML IV (16:33)
[2022-12-13] MEDS: Fat Emulsions 20% 250 ML IV (16:34)
[2022-12-13 17:58] VITALS: BP 147/77; PULSE 89; RESP 16; TEMP 37.3; O2SAT 95
--- NOTE | 2022-12-13 18:15 | RAD_ITS ---
We are attempting to reach an attending provider to discuss findings. An addendum with communication details will be sent when the communication is complete. EXAM: XR ABDOMEN, 1 VIEW CLINICAL INDICATION: Ng placement TECHNIQUE: Frontal supine view of the abdomen/pelvis. COMPARISON: 12/13/2022 at 1124 hours FINDINGS: LOWER THORAX: No acute pathology. GASTROINTESTINAL TRACT: Unremarkable. Non-obstructive. No bowel or stomach distention. ORGANS: Unremarkable as visualized. No organomegaly. No abnormal calcifications. BONES/JOINTS: No acute pathology. SOFT TISSUES: No acute pathology. TUBES, LINES AND DEVICES: Nasogastric tube has been placed with the distal tip just below the gastroesophageal junction. The side port is within the distal esophagus. This should be advanced several centimeters into the stomach. RAD/Abdomen Single View (Portable) IMPRESSION: Nasogastric tube with the distal tip just below the gastroesophageal junction and the side port still within the distal esophagus. This should be advanced several centimeters to the stomach. Electronically Signed: Mario Tovar MD at 18:57 EDT ,
--- NOTE | 2022-12-13 19:01 | NURSING ---
NG advanced 10cm more per Dr Silveira.
--- NOTE | 2022-12-13 19:10 | RAD_ITS ---
STUDY: X-RAY - ABDOMEN/PELVIS REASON FOR EXAM: Male, 72 years old. NG placement TECHNIQUE: Single AP view of the abdomen / pelvis. COMPARISON: 12/13/2022 at 1810 FINDINGS: Interval advancement of the nasogastric tube with the tip in left upper quadrant likely in the body the stomach. There are dilated loops of the small intestine with a non-distended colon consistent with a small bowel obstruction. The visualized liver, spleen and kidneys are grossly normal in size and morphology. Normal soft tissue structures. Normal visualized osseous structures. RAD/Abdomen Single View (Portable) IMPRESSION: 1. Interval advancement of nasogastric tube with the tip likely in the body the stomach. 2. No change in moderate small bowel obstruction. Electronically Signed: Maurilio Molina MD at 19:54 EDT ,
[2022-12-13 19:12] LABS: Bedside Glucose 122 mg/dL (74-106)
[2022-12-13 23:58] VITALS: BP 140/72; PULSE 82; RESP 15; TEMP 37; O2SAT 96
[2022-12-14] MEDS: Lactated Ringers 1,000 ML 100 ML IV ×3 (00:13→19:28)
[2022-12-14 03:55] VITALS: BMI 24.7
[2022-12-14 05:19] VITALS: BP 140/67; PULSE 84; RESP 15; TEMP 36.9; O2SAT 97
[2022-12-14 05:34] LABS: Absolute Lymphocyte Count 1.25 X10^3/uL (0.83-4.51); Absolute Neutrophil Count 6.9 X10^3/uL (2.0-7.7); Basophil# 0.02 X10^3/uL; Basophil% 0.2 % (0-1); Eosinophil# 0.36 X10^3/uL; Eosinophils% 3.8 % (0-5); Hematocrit 28.6 % (40-54); Hemoglobin 9.5 g/dL (13.0-16.5); Lymphocyte # 1.25 X10^3/ul (0.83-4.51); Lymphocyte % 13.1 % (19-41); Mean Corp Hgb Conc 33.2 g/dL (32-36); Mean Corpuscular Hgb 31.3 pg (27.0-32.0); Mean Corpuscular Volume 94.1 fL (80-94); Mean Platelet Vol. 10.7 fl (6.2-12.0); Monocyte# 0.75 X10^3/uL; Monocyte% 7.9 % (0-10); NRBC Flagged by Analyzer 0 % (0-5); Neutrophil # 6.91 X10^3/uL (2.7-7.7); Neutrophil % 72.7 % (47-70); Platelet Count 277 K/mm3 (150-450); RBC Distribution Width CV 13.6 % (11.6-14.6); RBC Distribution Width SD 45.9 fl (35.1-43.9); Red Blood Count 3.04 M/mm3 (4.6-6.2); White Blood Count 9.5 K/mm3 (4.4-11.0)
[2022-12-14 05:59] LABS: Bedside Glucose 110 mg/dL (74-106)
[2022-12-14 06:05] LABS: Anion Gap 7 (5-15); BUN 24 mg/dL (7-18); BUN/Creat Ratio 36.5 RATIO (10-20); Calcium,Total 7.7 mg/dL (8.5-10.1); Chloride 107 mmol/L (98-107); Creatinine, Serum 0.66 mg/dL (0.70-1.30); EST Glomerular Filtration Rate 127 mL/min (>60); Est Glom Filt Rate - Afr Amer 153 mL/min (>60); Estimated Creatinine Clearance 68.94 ml/min; Glucose 107 mg/dL (74-106); Magnesium 2.2 mg/dL (1.6-2.6); Phosphorus 2.6 mg/dL (2.5-4.9); Potassium 3.3 mmol/L (3.5-5.1); Sodium Level 139 mmol/L (136-145)
[2022-12-14 06:52] LABS: Bedside Glucose 120 mg/dL (74-106)
--- NOTE | 2022-12-14 07:47 | RAD_ITS ---
HISTORY: ngt placement. TECHNIQUE: XR Abdomen 1 View. COMPARISON: Prior day. FINDINGS: BOWEL GAS PATTERN: Nasogastric tube side port retracted the gastroesophageal junction with tip at the level of the proximal stomach. Multiple dilated small bowel loops again seen from small bowel obstruction. FREE AIR: Not assessed on supine view. RAD/Abdomen Single View (Portable) IMPRESSION: Nasogastric tube side-port retracted to the gastroesophageal junction; recommend mild advancement. Electronically Signed: Pam Garibay MD at 9:09 EDT ,
--- NOTE | 2022-12-14 09:07 | PN.HOSP_ITS ---
Reason for Visit Reason for Visit: Diagnoses Iron deficiency anemia secondary to blood loss (chronic) (12/03/22) Decreased white blood cell count, unspecified (12/03/22) Ileus, unspecified (12/03/22) Perforation of intestine (nontraumatic) (12/03/22) Other postprocedural complications and disorders of digestive system (12/03/22) Subjective Subjective NG placed which removed copious amounts of fluid. Objective Data Objective Data Vital Signs: Vital Signs Temp Pulse Resp BP Pulse Ox O2 Del Method O2 Flow Rate 36.9 C 84 15 140/67 H 97 Room Air 2 12/14/22 05:19 12/14/22 05:19 12/14/22 05:12/14/22 05:12/14/22 05:12/14/22 05:12/05/22 22:48 Oxygen Flow Rate (L/min) 2 Oxygen Delivery Method Room Air Weight: 78.3 kg Body Mass Index (BMI) 24.7 Intake & Output: Intake and Output for Last 24 Hours 12/12/22 12/13/22 12/14/22 23:59 23:59 23:59 Intake Total 2360 / 2360 6529.8 / 6549.8 1310 / 1310 Output Total 550 / 550 2125 / 2575 1875 / 1875 Balance 1810 / 1810 4404.8 / 3974.8 -565 / -565 Lab / Micro Data 12/14/22 04:20 12/14/22 04:20 Labs: Laboratory Results - last 24 hr 12/13/22 14:53: POC Glucose 119 H 12/13/22 18:51: POC Glucose 122 H 12/13/22 23:59: POC Glucose 120 H 12/14/22 04:20: WBC 9.5, RBC 3.04 L, Hgb 9.5 L, Hct 28.6 L, MCV 94.1 H, MCH 31.3, MCHC 33.2, RDW Std Deviation 45.9 H, RDW Coeff of Angela 13.6, Plt Count 277, MPV 10.7, Immature Gran % (Auto) 2.300 H, Neut % (Auto) 72.7 H, Lymph % (Auto) 13.1 L, [place] % (Auto) 7.9, Eos % (Auto) 3.8, Baso % (Auto) 0.2, Absolute Neuts (auto) 6.9, Absolute Lymphs (auto) 1.25, Nucleated RBC % 0, Sodium 139, Potassium 3.3 L, Chloride 107, Carbon Dioxide 25.0, Anion Gap 7, BUN 24 H, C reatinine 0.66 L, Estim Creat Clear Calc 68.94, Est GFR (MDRD) Af Amer 153, Est GFR (MDRD) Non-Af 127, BUN/Creatinine Ratio 36.5 H, Glucose 107 H, Calcium 7.7 L , Phosphorus 2.6, Magnesium 2.2 12/14/22 05:25: POC Glucose 110 H Radiography Diagnostic Testing: Radiology Impression KUB X-Ray 12/13/22 11:11 IMPRESSION: No change in the moderate small bowel obstruction. Electronically Signed: Maurilio Molina MD at 15:18 EDT , KUB X-Ray 12/13/22 18:15 IMPRESSION: Nasogastric tube with the distal tip just below the gastroesophageal junction and the side port still within the distal esophagus. This should be advanced several centimeters to the stomach. Electronically Signed: Mario Tovar MD at 18:57 EDT , ADDENDUM: 12/13/222019 IMPRESSION: Nasogastric tube with the distal tip just below the gastroesophageal junction and the side port still within the distal esophagus. This should be advanced several centimeters to the stomach. N.B. : The above Results were Read Back by Mario Tovar MD to Randy Silveira MD, and understanding confirmed on 12/13/2022 20:13:23 (ET). Electronically Signed: Mario Tovar MD at 18:57 EDT , KUB X-Ray 12/13/22 19:10 IMPRESSION: 1. Interval advancement of nasogastric tube with the tip likely in the body the stomach. 2. No change in moderate small bowel obstruction. Electronically Signed: Maurilio Molina MD at 19:54 EDT , Physical Exam Const alert and no apparent distress Resp normal respiratory effort, no retractions, no use of accessory muscles and clear to auscultation bilaterally Cardio regular rate, regular rhythm, S1 normal heart sound and S2 normal heart sound GI GI Narrative: distended, though softer than yesterday. hypoactive BS. Assessment & Plan Assessment/Plan (1) Postoperative ileus: PLAN: Perforated distal ileum with free intraperitoneal air after recent colonoscopy, postop ileus History * Patient had EGD and colonoscopy done on 12/01 for rectal bleeding, was discharged home on 12/02. * Represented on 12/03 with recurrent bleeding per rectum and worsening lightheadedness. CT abdomen pelvis on 12/03 showed a small amount of free intraperitoneal air. * Status post exploratory laparotomy on 12/03 with ileocecectomy. Patient tolerated procedure well. Had 3 days of IV Zosyn, antibiotics now discontinued. * Patient has had significant postop ileus as anticipated. * CT Abdo pelvis on 12/08 showed continued small bowel dilation, but importantly no concern for issues with surgical site. * NG tube placed on evening of 12/09 with 1 L removed. Also given Dulcolax positive right 12/09 with 1 small bowel movement. * NG tube removed on 12/10 as output had diminished and patient was uncomfortable with it. PICC line placed 12/11 for TPN. * NGT replaced 12/13 which removed copious amounts of fluid. DW general surgery following. SBFT ordered. May need to go back for reexploration surgery on Thursday. (2) Blood loss anemia: PLAN: Acute blood loss anemia, improved -Patient had hemoglobin drop from 12.1-6.6 post op. Received 1 unit of packed red blood cells with improvement in hemoglobin to 8.7. Hemoglobin has now remained stable around 8-9. (3) Leukopenia: QUALIFIERS: Leukopenia type: unspecified Qualified Code(s): D72.819 - Decreased white blood cell count, unspecified PLAN: Unclear etiology. White blood cell count noted to be 3.1 on 12/08, down from 9- 10. Repeat CBC showed count of 3.5. Patient afebrile, low concern for infection. We will hold on further infectious work-up at this time. Monitor closely. Continue CBC daily. (4) Perforated bowel: PLAN: s/p ex lap w ileocecectomy on 12/03 mgmt per general surgery PLAN: Plan Chronic conditions: * Recent lower GI bleed with hematochezia?Colonoscopy showed 2 bleeding angiodysplasias that were cauterized, no specimens collected. EGD showed acute gastritis and chronic duodenitis, areas were biopsied. No further evaluation at this time. DVT prophylaxis: SCDs CODE STATUS: Full code, verified Expected disposition: TBD 12/14: DW patient's brother, Pal. Explained to him that it is unclear if patient does have a postoperative ileus versus a small bowel obstruction. Explained to him that if he does have small bowel obstruction noted to be more of a kinking of the bowel such as from adhesions or malpositioning of the bowel. Explained that I will follow-up on the results of the small bowel follow-through and then general surgery determined the patient needs to go for an exploratory laparotomy on the . Charges/Coding Visit Charges Inpatient E&M: 57505 Subs Hosp L2
--- NOTE | 2022-12-14 09:30 | RAD_ITS ---
EXAMINATION: Small bowel follow-through INDICATION: ileus vs sbo -- GG, X-rays @ immediate post, 6 h, 12 h, and 24h TECHNIQUE: Gastrograffin oral contrast was administered orally via NG tube to the patient. COMPARISON: CT abdomen/pelvis from 12/08/2022. Abdomen x-ray from 12/14/2022. FINDINGS: Support devices: An NG tube terminates within the gastric body. There are dilated air-filled loops of small bowel throughout the abdomen. Oral contrast reaches the large bowel within 6 hours. RAD/Small Bowel Series Only IMPRESSION: Oral contrast reaches large bowel within 6 hours. Dilated air-filled loops of small bowel throughout the abdomen are favored to relate to ileus rather than obstruction. Electronically Signed: Neftali Lopez DO at 8:13 EDT ,
--- NOTE | 2022-12-14 09:44 | PN.SURG_ITS ---
Subjective Subjective Patient seen and examined during AM rounds. He is found sitting out of bed in a chair. He states he is thankful that he listen to my advice to have his nasogastric tube replaced as there was a significant output overnight?he estimates at least 2 full canisters. He still experience some interrupted sleep, but reports that he feels somewhat better. He also reports passage of a small amount of flatus and a very small bowel movement. Objective Data Objective Data Vital Signs: Vital Signs Temp Pulse Resp BP Pulse Ox O2 Del Method O2 Flow Rate 98.5 F 84 15 140/67 H 97 Room Air 2 12/14/22 05:12/14/22 05:12/14/22 05:12/14/22 05:12/14/22 05:12/14/22 05:12/05/22 22:48 Oxygen Flow Rate (L/min) 2 Oxygen Delivery Method Room Air Weight: 172 lb 9.951 oz Body Mass Index (BMI) 24.7 Intake & Output: Intake and Output for Last 24 Hours 12/12/22 12/13/22 12/14/22 23:59 23:59 23:59 Intake Total 2360 / 2360 6529.8 / 6549.8 2216.67 / 2216.67 Output Total 550 / 550 2125 / 2575 1875 / 1875 Balance 1810 / 1810 4404.8 / 3974.8 341.67 / 341.67 Lab / Micro Data 12/14/22 04:20 12/14/22 04:20 Labs: Laboratory Results - last 24 hr 12/13/22 14:53: POC Glucose 119 H 12/13/22 18:51: POC Glucose 122 H 12/13/22 23:59: POC Glucose 120 H 12/14/22 04:20: WBC 9.5, RBC 3.04 L, Hgb 9.5 L, Hct 28.6 L, MCV 94.1 H, MCH 31.3, MCHC 33.2, RDW Std Deviation 45.9 H, RDW Coeff of Angela 13.6, Plt Count 277, MPV 10.7, Immature Gran % (Auto) 2.300 H, Neut % (Auto) 72.7 H, Lymph % (Auto) 13.1 L, [place] % (Auto) 7.9, Eos % (Auto) 3.8, Baso % (Auto) 0.2, Absolute Neuts (auto) 6.9, Absolute Lymphs (auto) 1.25, Nucleated RBC % 0, Sodium 139, Potassium 3.3 L, Chloride 107, Carbon Dioxide 25.0, Anion Gap 7, BUN 24 H, Creatinine 0.66 L, Estim Creat Clear Calc 68.94, Est GFR (MDRD) Af Amer 153, Est GFR (MDRD) Non-Af 127, BUN/Creatinine Ratio 36.5 H, Glucose 107 H, Calcium 7.7 L , Phosphorus 2.6, Magnesium 2.2 12/14/22 05:25: POC Glucose 110 H Radiography Diagnostic Testing: Radiology Impression KUB X-Ray 12/13/22 11:11 IMPRESSION: No change in the moderate small bowel obstruction. Electronically Signed: Maurilio Molina MD at 15:18 EDT , KUB X-Ray 12/13/22 18:15 IMPRESSION: Nasogastric tube with the distal tip just below the gastroesophageal junction and the side port still within the distal esophagus. This should be advanced several centimeters to the stomach. Electronically Signed: Mario Tovar MD at 18:57 EDT , ADDENDUM: 12/13/222019 IMPRESSION: Nasogastric tube with the distal tip just below the gastroesophageal junction and the side port still within the distal esophagus. This should be advanced several centimeters to the stomach. N.B. : The above Results were Read Back by Mario Tovar MD to Randy Silveira MD, and understanding confirmed on 12/13/2022 20:13:23 (ET). Electronically Signed: Mario Tovar MD at 18:57 EDT , KUB X-Ray 12/13/22 19:10 IMPRESSION: 1. Interval advancement of nasogastric tube with the tip likely in the body the stomach. 2. No change in moderate small bowel obstruction. Electronically Signed: Maurilio Molina MD at 19:54 EDT , KUB X-Ray 12/14/22 07:47 IMPRESSION: Nasogastric tube side-port retracted to the gastroesophageal junction; recommend mild advancement. Electronically Signed: Pam Garibay MD at 9:09 EDT , Physical Exam Const oriented x3 and no apparent distress Resp normal respiratory effort GI GI Narrative: Slight improvement in abdominal distention, nontender to palpation x4 quadrants Assessment & Plan Assessment/Plan (1) Postoperative ileus: (2) Perforated bowel: PLAN: Plan Patient still experiencing signs and symptoms of postoperative ileus with persistent abdominal distention, minimal passage of flatus, and yesterday had recurrent issues with severe nausea and vomiting. Therefore I encouraged him to allow us to replace his nasogastric tube. With some additional explanation he consented and this was placed last evening. There was reportedly over a liter aspirated from patient's stomach. He notes that over the last 6 to 7 hours the tube does not seem to have taken anything additional, but nursing reports that the tube did get pulled back and they are awaiting a KUB read to confirm replacement. Per patient's KUBs from yesterday there is certainly concern for at least a high-grade partial small bowel obstruction with very minimal colonic gas and significant distention of the small bowel. I would like to evaluate for a mechanical cause of this obstruction with a small bowel follow-through today. This procedure has been explained to the patient as well as the attendant aspiration risk. He thus has been encouraged to sit out of bed in a chair or walk while his nasogastric tube was clamped. Continue TPN today. Charges/Coding Visit Charges Inpatient E&M: 80954 Subs Hosp L2
[2022-12-14] MEDS: Potassium Chloride 10mEq/100mL 10 MEQ/100 ML IV.SOLN. 100 MEQ IV BOLUS ×4 (10:38→14:17)
[2022-12-14 11:19] VITALS: BP 141/80; PULSE 89; RESP 16; TEMP 37.1; O2SAT 96
[2022-12-14 13:39] LABS: Bedside Glucose 116 mg/dL (74-106)
[2022-12-14] MEDS: TPN - Clinimix E 8%-14% Soln 2,000 ML with Multivitamins 10 ML, Trace Elements 1 ML, Fo... 84 ML IV (16:49)
[2022-12-14 17:00] VITALS: BP 137/79; PULSE 85; RESP 16; TEMP 36.8; O2SAT 95
[2022-12-14 18:15] LABS: Bedside Glucose 112 mg/dL (74-106)
[2022-12-14 23:00] VITALS: BP 159/68; PULSE 89; RESP 15; TEMP 36.9; O2SAT 98
[2022-12-14 23:49] LABS: Bedside Glucose 113 mg/dL (74-106)
[2022-12-15 05:00] VITALS: BP 141/85; PULSE 72; RESP 15; TEMP 36.8; O2SAT 97
[2022-12-15 05:33] VITALS: BMI 24.1
[2022-12-15] MEDS: Lactated Ringers 1,000 ML 100 ML IV (05:35)
[2022-12-15 05:47] LABS: Absolute Lymphocyte Count 1.19 X10^3/uL (0.83-4.51); Absolute Neutrophil Count 7.8 X10^3/uL (2.0-7.7); Basophil# 0.03 X10^3/uL; Basophil% 0.3 % (0-1); Eosinophil# 0.33 X10^3/uL; Eosinophils% 3.2 % (0-5); Hematocrit 28.1 % (40-54); Hemoglobin 9.4 g/dL (13.0-16.5); Lymphocyte # 1.19 X10^3/ul (0.83-4.51); Lymphocyte % 11.6 % (19-41); Mean Corp Hgb Conc 33.5 g/dL (32-36); Mean Corpuscular Hgb 31.5 pg (27.0-32.0); Mean Corpuscular Volume 94.3 fL (80-94); Monocyte# 0.74 X10^3/uL; Monocyte% 7.2 % (0-10); NRBC Flagged by Analyzer 0 % (0-5); Neutrophil # 7.81 X10^3/uL (2.7-7.7); Neutrophil % 75.9 % (47-70); Platelet Count 271 K/mm3 (150-450); RBC Distribution Width CV 13.9 % (11.6-14.6); RBC Distribution Width SD 46.8 fl (35.1-43.9); Red Blood Count 2.98 M/mm3 (4.6-6.2); White Blood Count 10.3 K/mm3 (4.4-11.0)
[2022-12-15 06:16] LABS: Anion Gap 3 (5-15); BUN 26 mg/dL (7-18); BUN/Creat Ratio 39.9 RATIO (10-20); Calcium,Total 7.9 mg/dL (8.5-10.1); Chloride 108 mmol/L (98-107); Creatinine, Serum 0.65 mg/dL (0.70-1.30); EST Glomerular Filtration Rate 128 mL/min (>60); Est Glom Filt Rate - Afr Amer 155 mL/min (>60); Estimated Creatinine Clearance 68.94 ml/min; Glucose 105 mg/dL (74-106); Potassium 3.8 mmol/L (3.5-5.1); Sodium Level 137 mmol/L (136-145)
[2022-12-15 06:18] LABS: Bedside Glucose 106 mg/dL (74-106)
--- NOTE | 2022-12-15 06:53 | PN.HOSP_ITS ---
Reason for Visit Reason for Visit: Diagnoses Iron deficiency anemia secondary to blood loss (chronic) (12/03/22) Decreased white blood cell count, unspecified (12/03/22) Ileus, unspecified (12/03/22) Perforation of intestine (nontraumatic) (12/03/22) Other postprocedural complications and disorders of digestive system (12/03/22) Subjective Subjective Patient overnight with continued copious bowel movements, liquid with no nausea nor any emesis nor abdominal pain. Patient is fatigued but otherwise no acute complaints at this time. Discussed plan of care which included reattempt at clamping NG tube as well as plain films to reassess potential discontinuation of NG tube. Patient denies fevers, chills, nausea, emesis, abdominal pain, chest pain or dyspnea. Objective Data Objective Data Vital Signs: Vital Signs Temp Pulse Resp BP Pulse Ox O2 Del Method O2 Flow Rate 98.3 F 72 15 141/85 H 97 Room Air 2 12/15/22 05:00 12/15/22 05:00 12/15/22 05:00 12/15/22 05:00 12/15/22 05:00 12/15/22 05:54 12/05/22 22:48 Oxygen Flow Rate (L/min) 2 Oxygen Delivery Method Room Air Weight: 168 lb 3.403 oz Body Mass Index (BMI) 24.1 Intake & Output: Intake and Output for Last 24 Hours 12/13/22 12/14/22 12/15/22 23:59 23:59 23:59 Intake Total 6529.8 / 6549.8 5671.87 / 5671.87 1040 / 1040 Output Total 2125 / 2575 2024 / 2024 1400 / 1400 Balance 4404.8 / 3974.8 3646.87 / 3646.87 -360 / -360 Lab / Micro Data 12/15/22 05:35 12/15/22 05:35 Labs: Laboratory Results - last 24 hr 12/14/22 13:12: POC Glucose 116 H 12/14/22 17:55: POC Glucose 112 H 12/14/22 23:24: POC Glucose 113 H 12/15/22 05:24: POC Glucose 106 12/15/22 05:35: WBC 10.3, RBC 2.98 L, Hgb 9.4 L, Hct 28.1 L, MCV 94.3 H, MCH 31.5, MCHC 33.5, RDW Std Deviation 46.8 H, RDW Coeff of Angela 13.9, Plt Count 271, MPV 10.0, Immature Gran % (Auto) 1.800 H, Neut % (Auto) 75.9 H, Lymph % (Auto) 11.6 L, [place] % (Auto) 7.2, Eos % (Auto) 3.2, Baso % (Auto) 0.3, Absolute Neuts (auto) 7.8 H, Absolute Lymphs (auto) 1.19, Nucleated RBC % 0, Sodium 137, Potassium 3.8, Chloride 108 H, Carbon Dioxide 26.0, Anion Gap 3 L, BUN 26 H, Creatinine 0.65 L, Estim Creat Clear Calc 68.94, Est GFR (MDRD) Af Amer 155, Est GFR (MDRD) Non-Af 128, BUN/Creatinine Ratio 39.9 H, Glucose 105, Calcium 7.9 L, Phosphorus 3.0, Magnesium 2.0 Radiography Diagnostic Testing: Radiology Impression KUB X-Ray 12/14/22 07:47 IMPRESSION: Nasogastric tube side-port retracted to the gastroesophageal junction; recommend mild advancement. Electronically Signed: Pam Garibay MD at 9:09 EDT , Physical Exam Narrative Physical Examination: General: Awake, alert, oriented x 3 and cooperative, seated upright in the PCU bed, fatigued otherwise no acute distress. Skin: Normal color, normal turgor, no icterus, no cyanosis except occasional staged ecchymoses likely from lab draws. HEENT: AT/NC, EOMI, PERRLA, dry MM, NG tube in place with yellow output. Lungs: Mildly diminished, greater bases, proper effort, no rales, ronchi or wheezing. Heart: Regular rate and rhythm; no gallop, rub audible. Abdomen: Soft, no marked tenderness to palpation, no marked distention, hypoacti ve BS. Extremities: No cyanosis, clubbing, or edema. Neurological: Patient awake, alert, oriented as noted, cognitive function intact; pupils equally reactive to light and accommodation, cranial nerves grossly normal, moving all 4 extremities, no focal deficits, strength moderately global decreased but able to get up and move to the restroom with minimal assistance. Psychiatric: Affect appears flat, fatigued, no acute evidence of depressive or anxiety feelings. Assessment & Plan Assessment/Plan (1) Perforated bowel: PLAN: Plan The patient is a 72 y/o M w/ PMHx: recent discharge 12/02/22 following evaluation for lower GI bleed discharged on PPI twice daily unfortunately representing to the [facility] ED on 12/03/22 with onset of lightheadedness as well as bleeding per rectum prompting ED return. #1. Acute Perforated Bowel (distal ileum with free intraperitoneal air following recent colonoscopy) complicated by lower GI bleed with postop ileus: s/p exploratory laparotomy with ileocecectomy 12/03/2022, 12/14/2022 small bowel follow-through with contrast reaching the colon with several bowel movements since with also notable output via NG, unfortunately somehow was discontinued but reportedly when unclamped 100 cc came from the NG and then reclamped at 830 to go the bathroom, attempting another clamping trial this morning, if plain film continues to improve surgery notes likely NG discontinuation, decreasing IV fluids secondary to concern for overload, continue TPN with noted famotidine in the regimen. If plain film in AM not marked appearing and NGT output decreasing ideally in AM would be able to transition to clears. #2. Acute blood loss anemia secondary to acute presentation with perforated bowel as well as recent lower GI bleed with hematochezia: Colonoscopy demonstrated to bleeding angiodysplasias which were cauterized, EGD with acute gastritis and chronic duodenitis with biopsies performed at that time, hemoglobin unfortunately 12.1 prior to OR and postoperative 6.6 status post PRBC administration of at least 1 unit, hemoglobin 12/15/2022 9.4, stable, continue to trend, currently on TPN and not on any PPI, will clarify with general surgery. #3. DVT prophylaxis: SCDs. #4. CODE status: Full Code. Charges/Coding Visit Charges Inpatient E&M: 67489 Subs Hosp L2
--- NOTE | 2022-12-15 08:14 | PN.HOSP_ITS ---
Reason for Visit Reason for Visit: Diagnoses Iron deficiency anemia secondary to blood loss (chronic) (12/03/22) Decreased white blood cell count, unspecified (12/03/22) Ileus, unspecified (12/03/22) Perforation of intestine (nontraumatic) (12/03/22) Other postprocedural complications and disorders of digestive system (12/03/22) Objective Data Objective Data Vital Signs: Vital Signs Temp Pulse Resp BP Pulse Ox O2 Del Method O2 Flow Rate 98.3 F 72 15 141/85 H 97 Room Air 2 12/15/22 05:00 12/15/22 05:00 12/15/22 05:00 12/15/22 05:00 12/15/22 05:00 12/15/22 05:54 12/05/22 22:48 Oxygen Flow Rate (L/min) 2 Oxygen Delivery Method Room Air Weight: 76.3 kg Body Mass Index (BMI) 24.1 Intake & Output: Intake and Output for Last 24 Hours 12/13/22 12/14/22 12/15/22 23:59 23:59 23:59 Intake Total 6529.8 / 6549.8 5671.87 / 5671.87 1040 / 1040 Output Total 2125 / 2575 2024 / 2024 1400 / 1400 Balance 4404.8 / 3974.8 3646.87 / 3646.87 -360 / -360 Lab / Micro Data 12/15/22 05:35 12/15/22 05:35 Labs: Laboratory Results - last 24 hr 12/14/22 13:12: POC Glucose 116 H 12/14/22 17:55: POC Glucose 112 H 12/14/22 23:24: POC Glucose 113 H 12/15/22 05:24: POC Glucose 106 12/15/22 05:35: WBC 10.3, RBC 2.98 L, Hgb 9.4 L, Hct 28.1 L, MCV 94.3 H, MCH 31.5, MCHC 33.5, RDW Std Deviation 46.8 H, RDW Coeff of Angela 13.9, Plt Count 271, MPV 10.0, Immature Gran % (Auto) 1.800 H, Neut % (Auto) 75.9 H, Lymph % (Auto) 11.6 L, [place] % (Auto) 7.2, Eos % (Auto) 3.2, Baso % (Auto) 0.3, Absolute Neuts (auto) 7.8 H, Absolute Lymphs (auto) 1.19, Nucleated RBC % 0, Sodium 137, Potassium 3.8, Chloride 108 H, Carbon Dioxide 26.0, Anion Gap 3 L, BUN 26 H, Creatinine 0.65 L, Estim Creat Clear Calc 68.94, Est GFR (MDRD) Af Amer 155, Est GFR (MDRD) Non-Af 128, BUN/Creatinine Ratio 39.9 H, Glucose 105, Calcium 7.9 L, Phosphorus 3.0, Magnesium 2.0 Radiography Diagnostic Testing: Radiology Impression KUB X-Ray 12/14/22 07:47 IMPRESSION: Nasogastric tube side-port retracted to the gastroesophageal junction; recommend mild advancement. Electronically Signed: Pam Garibay MD at 9:09 EDT Reading Location ID and State: [facility] / [place] Tel , Service support , Assessment & Plan Assessment/Plan PLAN: Plan Patient is a 72-year-old gentleman who presented with recent hospitalization for GI bleed underwent endoscopic evaluation with findings as stated above readmitted with bleeding per rectum and lightheadedness 1. Hematochezia Patient had recently undergone endoscopic evaluation findings included -Colonoscopy findings. - Blood in the rectum, in the recto-sigmoid colon, in the sigmoid colon, in the descending colon, at the splenic flexure, in the transverse colon, at the hepatic flexure, in the ascending colon and in the cecum. - Diverticulosis in the recto-sigmoid colon, in the sigmoid colon and in the descending colon. - Two bleeding angiodysplas No specimens collected. EGD findings - Z-line irregular, 38 cm from the incisors. Biopsied. - Acute gastritis. Biopsied. - Chronic duodenitis. Biopsied. Patient presented with bleeding per rectum. Hemoglobin on discharge was 8.7 was 8.5 on admission admitted to a monitored bed H&H ordered patient is on PPI continue 2. Relative hypotension ? Patient resuscitated with IV fluids 3. Chronic left inguinal hernia ? Patient to follow-up with general surgery as outpatient 4. DVT prophylaxis ? SCDs for now Time spent in the patient's overall evaluation,decision-making process, review of diagnostic data, adjustment of management, discussion with other providers, nursing nursing and ancillary staff involved in patient's care documentation, 55 minutes
[2022-12-15 09:41] VITALS: O2SAT 97
--- NOTE | 2022-12-15 09:44 | PN.SURG_ITS ---
Subjective Subjective Patient reports he is having copious liquid bowel movements after the small bowel follow-through. He is not have any nausea and has not had any nausea in 48 hours. He is not having any abdominal pain. Objective Data Objective Data Vital Signs: Vital Signs Temp Pulse Resp BP Pulse Ox O2 Del Method O2 Flow Rate 98.3 F 72 15 141/85 H 97 Room Air 2 12/15/22 05:00 12/15/22 05:00 12/15/22 05:00 12/15/22 05:00 12/15/22 05:00 12/15/22 05:54 12/05/22 22:48 Oxygen Flow Rate (L/min) 2 Oxygen Delivery Method Room Air Weight: 168 lb 3.403 oz Body Mass Index (BMI) 24.1 Intake & Output: Intake and Output for Last 24 Hours 12/13/22 12/14/22 12/15/22 23:59 23:59 23:59 Intake Total 6529.8 / 6549.8 5671.87 / 5671.87 1040 / 1040 Output Total 2125 / 2575 5 / 2024 1400 / 1400 Balance 4404.8 / 3974.8 3646.87 / 3646.87 -360 / -360 Lab / Micro Data 12/15/22 05:35 12/15/22 05:35 Labs: Laboratory Results - last 24 hr 12/14/22 13:12: POC Glucose 116 H 12/14/22 17:55: POC Glucose 112 H 12/14/22 23:24: POC Glucose 113 H 12/15/22 05:24: POC Glucose 106 12/15/22 05:35: WBC 10.3, RBC 2.98 L, Hgb 9.4 L, Hct 28.1 L, MCV 94.3 H, MCH 31.5, MCHC 33.5, RDW Std Deviation 46.8 H, RDW Coeff of Angela 13.9, Plt Count 271, MPV 10.0, Immature Gran % (Auto) 1.800 H, Neut % (Auto) 75.9 H, Lymph % (Auto) 11.6 L, [place] % (Auto) 7.2, Eos % (Auto) 3.2, Baso % (Auto) 0.3, Absolute Neuts (auto) 7.8 H, Absolute Lymphs (auto) 1.19, Nucleated RBC % 0, Sodium 137, Potassium 3.8, Chloride 108 H, Carbon Dioxide 26.0, Anion Gap 3 L, BUN 26 H, Creatinine 0.65 L, Estim Creat Clear Calc 68.94, Est GFR (MDRD) Af Amer 155, Est GFR (MDRD) Non-Af 128, BUN/Creatinine Ratio 39.9 H, Glucose 105, Calcium 7.9 L, Phosphorus 3.0, Magnesium 2.0 Physical Exam Const oriented x3 Resp normal respiratory effort GI soft to palpation and non-tender Assessment & Plan Assessment/Plan (1) Postoperative ileus: (2) Perforated bowel: PLAN: Plan The patient has small bowel follow-through yesterday that showed contrast reaching the colon and he has had several bowel movements since the small bowel follow-through. They also did chart that he had a lot of his NG. I am unsure as to when that came out because according to the nurses this morning he was clamped until 430 this morning. When he was unclamped about 100 cc came from the NG and then he reclamped at 830 to go to the bathroom. I am having another clamping trial performed this morning. If he does well and the x-ray shows improvement I may remove his NG and start clears as the patient finally says he feels hungry. I am also decreasing his IV fluids as the patient is fluid overloaded. Continue TPN for now. Donny Rivera MD Pager: [facility] [address] [place] [address], [address] [place] [address] Office:
[2022-12-15 10:32] VITALS: BP 148/69; PULSE 84; RESP 15; TEMP 36.7; O2SAT 98
[2022-12-15 13:46] VITALS: BP 143/72; PULSE 99; RESP 16; TEMP 36.9; O2SAT 98
[2022-12-15] MEDS: amLODIPine 5 MG Tablet PO (13:49)
[2022-12-15] MEDS: TPN - Clinimix E 8%-14% Soln 2,000 ML with Multivitamins 10 ML, Trace Elements 1 ML, Fo... 84 ML IV (15:56)
[2022-12-15] MEDS: 0.9% Saline Lock 10 ML Syringe IV (16:06)
[2022-12-15 17:33] VITALS: BP 139/69; PULSE 96; RESP 16; TEMP 36.8; O2SAT 96
[2022-12-15 18:01] LABS: Bedside Glucose 115 mg/dL (74-106)
[2022-12-15 21:30] VITALS: BP 136/69; PULSE 99; RESP 16; TEMP 36.7; O2SAT 96
[2022-12-16 03:30] VITALS: BP 138/68; PULSE 95; RESP 17; TEMP 36.5; O2SAT 95
--- NOTE | 2022-12-16 04:12 | NURSING ---
Pt ambulated the unit floor x2; tex very well. Denies abd pain and nausea.
[2022-12-16] MEDS: 0.9% Saline Lock 10 ML Syringe IV (05:23)
[2022-12-16 05:56] LABS: Anion Gap 4 (5-15); BUN 29 mg/dL (7-18); BUN/Creat Ratio 48.1 RATIO (10-20); Calcium,Total 8.1 mg/dL (8.5-10.1); Chloride 108 mmol/L (98-107); EST Glomerular Filtration Rate 140 mL/min (>60); Est Glom Filt Rate - Afr Amer 169 mL/min (>60); Estimated Creatinine Clearance 68.94 ml/min; Glucose 106 mg/dL (74-106); Phosphorus 3.4 mg/dL (2.5-4.9); Sodium Level 137 mmol/L (136-145)
[2022-12-16 06:00] VITALS: BMI 24.3
[2022-12-16 06:22] LABS: Absolute Lymphocyte Count 1.05 X10^3/uL (0.83-4.51); Basophil# 0.04 X10^3/uL; Basophil% 0.4 % (0-1); Eosinophil# 0.42 X10^3/uL; Eosinophils% 4.4 % (0-5); Hematocrit 28.1 % (40-54); Hemoglobin 9.1 g/dL (13.0-16.5); Lymphocyte # 1.05 X10^3/ul (0.83-4.51); Lymphocyte % 11.1 % (19-41); Mean Corp Hgb Conc 32.4 g/dL (32-36); Mean Corpuscular Hgb 30.7 pg (27.0-32.0); Mean Corpuscular Volume 94.9 fL (80-94); Mean Platelet Vol. 10.7 fl (6.2-12.0); Monocyte# 0.75 X10^3/uL; Monocyte% 7.9 % (0-10); NRBC Flagged by Analyzer 0 % (0-5); Neutrophil # 7.01 X10^3/uL (2.7-7.7); Neutrophil % 74.4 % (47-70); Platelet Count 275 K/mm3 (150-450); RBC Distribution Width SD 47.8 fl (35.1-43.9); Red Blood Count 2.96 M/mm3 (4.6-6.2); White Blood Count 9.4 K/mm3 (4.4-11.0)
--- NOTE | 2022-12-16 06:24 | PCM.PN.HOSP ---
Reason for Visit Reason for Visit: Diagnoses Iron deficiency anemia secondary to blood loss (chronic) (12/03/22) Decreased white blood cell count, unspecified (12/03/22) Ileus, unspecified (12/03/22) Perforation of intestine (nontraumatic) (12/03/22) Other postprocedural complications and disorders of digestive system (12/03/22) Subjective Subjective Tight for breakfast but following this has not had an appetite since and only ordered breakfast and has not had anything since. He does feel mildly distended and notes he still had some liquid stools. He notes feeling fatigued but denies any nausea or vomiting or abdominal sharp pain but does state he still has cramping. Patient denies fevers, chills, nausea, emesis, chest pain or dyspnea. Objective Data Objective Data Vital Signs: Vital Signs Temp Pulse Resp BP Pulse Ox O2 Del Method O2 Flow Rate 97.7 F L 95 17 138/68 H 95 Room Air 2 12/16/22 03:30 12/16/22 03:30 12/16/22 03:30 12/16/22 03:30 12/16/22 03:30 12/16/22 03:30 12/05/22 22:48 Oxygen Flow Rate (L/min) 2 Oxygen Delivery Method Room Air Weight: 170 lb 6.677 oz Body Mass Index (BMI) 24.3 Intake & Output: Intake and Output for Last 24 Hours 12/14/22 12/15/22 12/16/22 23:59 23:59 23:59 Intake Total 5671.87 / 5671.87 3712.4 / 3712.4 250 / 250 Output Total 2024 / 2024 1850 / 1850 Balance 3646.87 / 3646.87 1862.4 / 1862.4 250 / 250 Lab / Micro Data 12/16/22 05:20 12/16/22 05:20 Labs: Laboratory Results - last 24 hr 12/15/22 17:41: POC Glucose 115 H 12/16/22 05:20: WBC 9.4, RBC 2.96 L, Hgb 9.1 L, Hct 28.1 L, MCV 94.9 H, MCH 30.7, MCHC 32.4, RDW Std Deviation 47.8 H, RDW Coeff of Angela 14.0, Plt Count 275, MPV 10.7, Immature Gran % (Auto) 1.800 H, Neut % (Auto) 74.4 H, Lymph % (Auto) 11.1 L, [place] % (Auto) 7.9, Eos % (Auto) 4.4, Baso % (Auto) 0.4, Absolute Neuts (auto) 7.0, Absolute Lymphs (auto) 1.05, Nucleated RBC % 0, Sodium 137, Potassium 4.0, Chloride 108 H, Carbon Dioxide 25.0, Anion Gap 4 L, BUN 29 H, Creatinine 0.60 L, Estim Creat Clear Calc 68.94, Est GFR (MDRD) Af Amer 169, Est GFR (MDRD) Non-Af 140, BUN/Creatinine Ratio 48.1 H, Glucose 106, Calcium 8.1 L, Phosphorus 3.4, Magnesium 2.0 Physical Exam Narrative Physical Examination: General: Awake, alert, oriented x 3 and cooperative, seated upright in the PCU bed, fatigued otherwise no acute distress. Skin: Normal color, normal turgor, no icterus, no cyanosis except occasional staged ecchymoses likely from lab draws. HEENT: AT/NC, EOMI, PERRLA, dry MM, tube has been removed. Lungs: Mildly diminished, greater bases, proper effort, no rales, ronchi or wheezing. Heart: Regular rate and rhythm; no gallop, rub audible. Abdomen: Soft, mild generalized discomfort but no rebound or guarding, increased distention from previous evaluation with hyperactive bowel sounds noted. Extremities: No cyanosis, clubbing, or pitting edema. Neurological: Patient awake, alert, oriented as noted, cognitive function intact; pupils equally reactive to light and accommodation, cranial nerves grossly normal, moving all 4 extremities, no focal deficits, strength moderately globally decreased. Psychiatric: Affect appears flat, fatigued, no acute evidence of depressive or anxiety feelings. Assessment & Plan Assessment/Plan (1) Perforated bowel: PLAN: Plan The patient is a 72 y/o M w/ PMHx: recent discharge 12/02/22 following evaluation for lower GI bleed discharged on PPI twice daily unfortunately representing to the [facility] ED on 12/03/22 with onset of lightheadedness as well as bleeding per rectum prompting ED return. #1. Acute Perforated Bowel (distal ileum with free intraperitoneal air following recent colonoscopy) complicated by lower GI bleed with postop ileus: s/p exploratory laparotomy with ileocecectomy 12/03/2022, 12/14/2022 small bowel follow-through with contrast reaching the colon with several bowel movements since with also notable output via NG. Surgery attempting NGT clamping and output assessment for consideration d/c. 12/16/22 AM [facility] pending. 12/15/22 per surgery IV fluids decreased secondary to concern for overload, continued on TPN with noted famotidine in the regimen. #2. Acute blood loss anemia secondary to acute presentation with perforated bowel as well as recent lower GI bleed with hematochezia: Colonoscopy demonstrated to bleeding angiodysplasias which were cauterized, EGD with acute gastritis and chronic duodenitis with biopsies performed at that time, hemoglobin unfortunately 12.1 prior to OR and postoperative 6.6 status post PRBC administration of at least 1 unit, hemoglobin 12/15/2022 9.4-->12/16/22 Hgb 9.1, stable, continue to trend, currently on TPN w/ famotidine. #3. Severe protein calorie malnutrition: Patient with significant prolonged period without food, previously been on TPN, transitioned recently by general surgery as noted to full liquids, tolerated breakfast but has not eaten anything since, nutrition consulted and following. #4. Significant weight gain, significant resuscitation given #1, #2: Upon presentation with weight noted of 151 pounds however today's 170 pounds, discussed with general surgery and patient administered IV Lasix dose x1 now and will plan repeat dosing 12/17/2022 and monitor weight. Given patient has not had good intake today do not want to necessarily over diurese him. #5. DVT prophylaxis: SCDs. #6. CODE status: Full Code. Charges/Coding Visit Charges Inpatient E&M: 71734 Subs Hosp L2
--- NOTE | 2022-12-16 06:25 | RAD_ITS ---
STUDY: X-RAY - ABDOMEN/PELVIS REASON FOR EXAM: Male, 72 years old. Ileus. Follow-up. TECHNIQUE: Single AP view of the abdomen / pelvis on 3 images. COMPARISON: Abdomen x-rays dated December 14, 2022. FINDINGS: Normal visualized lung bases. Gaseous distention of stomach and small bowel, mainly in the upper abdomen. Small bowel is dilated to approximately 4.2 cm. Paucity of gas distally. Findings are still compatible with ileus. Contrast present on the prior abdominal study is no longer seen. The visualized liver, spleen and kidneys are grossly normal in size and morphology. Normal soft tissue structures. Normal visualized osseous structures. RAD/Abdomen Single View (Portable) IMPRESSION: Findings compatible with ileus. High-grade partial small bowel obstruction cannot be excluded and follow-up abdominal imaging is recommended. Electronically Signed: Chacho Forbes MD at 10:46 EDT ,
[2022-12-16 08:26] VITALS: BP 128/60; PULSE 96; RESP 16; TEMP 37.1; O2SAT 99
[2022-12-16] MEDS: Furosemide 40 MG/4 ML Vial IV (08:31)
--- NOTE | 2022-12-16 08:55 | PCM.PN.SRG ---
Subjective Subjective Patient reports he had multiple bowel movements overnight. He tolerated full liquids with no nausea or vomiting. He says he does feel a lot of cramping after eating. Objective Data Objective Data Vital Signs: Vital Signs Temp Pulse Resp BP Pulse Ox O2 Del Method O2 Flow Rate 98.8 F 96 16 128/60 H 99 Room Air 2 12/16/22 08:26 12/16/22 08:26 12/16/22 08:26 12/16/22 08:26 12/16/22 08:26 12/16/22 08:26 12/05/22 22:48 Oxygen Flow Rate (L/min) 2 Oxygen Delivery Method Room Air Weight: 170 lb 6.677 oz Body Mass Index (BMI) 24.3 Intake & Output: Intake and Output for Last 24 Hours 12/14/22 12/15/22 12/16/22 23:59 23:59 23:59 Intake Total 5671.87 / 5671.87 3712.4 / 3712.4 1928.05 / 1928.05 Output Total 2024 / 2024 1850 / 1850 Balance 3646.87 / 3646.87 1862.4 / 1862.4 1928.05 / 1928.05 Lab / Micro Data 12/16/22 05:20 12/16/22 05:20 Labs: Laboratory Results - last 24 hr 12/15/22 17:41: POC Glucose 115 H 12/16/22 05:20: WBC 9.4, RBC 2.96 L, Hgb 9.1 L, Hct 28.1 L, MCV 94.9 H, MCH 30.7, MCHC 32.4, RDW Std Deviation 47.8 H, RDW Coeff of Angela 14.0, Plt Count 275, MPV 10.7, Immature Gran % (Auto) 1.800 H, Neut % (Auto) 74.4 H, Lymph % (Auto) 11.1 L, [place] % (Auto) 7.9, Eos % (Auto) 4.4, Baso % (Auto) 0.4, Absolute Neuts (auto) 7.0, Absolute Lymphs (auto) 1.05, Nucleated RBC % 0, Sodium 137, Potassium 4.0, Chloride 108 H, Carbon Dioxide 25.0, Anion Gap 4 L, BUN 29 H, Creatinine 0.60 L, Estim Creat Clear Calc 68.94, Est GFR (MDRD) Af Amer 169, Est GFR (MDRD) Non-Af 140, BUN/Creatinine Ratio 48.1 H, Glucose 106, Calcium 8.1 L, Phosphorus 3.4, Magnesium 2.0 Radiography Diagnostic Testing: Radiology Impression Small Bowel X-Ray 12/14/22 09:30 IMPRESSION: Oral contrast reaches large bowel within 6 hours. Dilated air-filled loops of small bowel throughout the abdomen are favored to relate to ileus rather than obstruction. Electronically Signed: Neftali Lopez DO at 8:13 EDT , Physical Exam Const oriented x3 and no apparent distress Resp normal respiratory effort GI soft to palpation Inspection: abdominal distention Assessment & Plan Assessment/Plan (1) Perforated bowel: (2) Postoperative ileus: PLAN: Plan The patient tolerated some full liquids yesterday. He has not had any nausea or vomiting but he is having cramping after eating. He is still having bowel movements and passing flatus. He feels his abdomen feels swollen from fluid overload. I will stop his TPN and IV fluids today. Continue full liquids for breakfast and lunch and may be start regular diet later today. I will also give him 40 mg of oral Lasix to try to get some of the fluid overload reduced. Donny Rivera MD Pager: [facility] [address] [place] [address], [address] [place] [address] Office:
[2022-12-16 14:29] VITALS: BP 118/62; PULSE 91; RESP 16; TEMP 36.7; O2SAT 97
[2022-12-16 21:00] VITALS: BP 129/71; PULSE 90; RESP 16; TEMP 36.6; O2SAT 96
[2022-12-17 02:18] LABS: Bedside Glucose 105 mg/dL (74-106)
[2022-12-17 03:00] VITALS: BP 112/67; PULSE 92; RESP 16; TEMP 36.4; O2SAT 99
[2022-12-17 04:02] LABS: Absolute Lymphocyte Count 1.29 X10^3/uL (0.83-4.51); Absolute Neutrophil Count 6.2 X10^3/uL (2.0-7.7); Basophil# 0.03 X10^3/uL; Basophil% 0.3 % (0-1); Eosinophil# 0.31 X10^3/uL; Eosinophils% 3.6 % (0-5); Hematocrit 27.9 % (40-54); Hemoglobin 9.2 g/dL (13.0-16.5); Lymphocyte # 1.29 X10^3/ul (0.83-4.51); Lymphocyte % 14.8 % (19-41); Mean Corpuscular Hgb 30.9 pg (27.0-32.0); Mean Corpuscular Volume 93.6 fL (80-94); Mean Platelet Vol. 9.8 fl (6.2-12.0); Monocyte# 0.73 X10^3/uL; Monocyte% 8.4 % (0-10); NRBC Flagged by Analyzer 0 % (0-5); Neutrophil # 6.24 X10^3/uL (2.7-7.7); Neutrophil % 71.4 % (47-70); Platelet Count 283 K/mm3 (150-450); RBC Distribution Width CV 14.1 % (11.6-14.6); RBC Distribution Width SD 47.6 fl (35.1-43.9); Red Blood Count 2.98 M/mm3 (4.6-6.2); White Blood Count 8.7 K/mm3 (4.4-11.0)
[2022-12-17 04:38] LABS: AST(SGOT) 40 U/L (15-37); Alanine Aminotransfer ALT/SGPT 77 U/L (16-61); Albumin, Serum 2.9 g/dL (3.2-5.0); Alkaline Phosphatase 68 U/L (45-117); Anion Gap 7 (5-15); BUN 25 mg/dL (7-18); BUN/Creat Ratio 35.1 RATIO (10-20); Calcium,Total 8.3 mg/dL (8.5-10.1); Chloride 104 mmol/L (98-107); Creatinine, Serum 0.71 mg/dL (0.70-1.30); EST Glomerular Filtration Rate 115 mL/min (>60); Est Glom Filt Rate - Afr Amer 140 mL/min (>60); Estimated Creatinine Clearance 68.94 ml/min; Glucose 102 mg/dL (74-106); Potassium 3.7 mmol/L (3.5-5.1); Protein, Total 5.9 g/dL (6.4-8.2); Sodium Level 136 mmol/L (136-145)
[2022-12-17 05:38] VITALS: BMI 22.5
--- NOTE | 2022-12-17 05:55 | RAD_ITS ---
INDICATION: ileus EXAMINATION/TECHNIQUE: X-RAY - XR Abdomen 1 View: 2 image AP abdomen COMPARISON: December 16, 2022 FINDINGS: BOWEL GAS PATTERN: Diffuse layering bowel loops of small bowel persists though slightly decreased in caliber from prior exam. Slight increase in mild scattered colonic gas. FREE AIR: No supine evidence of pneumoperitoneum. ORGANOMEGALY: Not seen. CALCIFICATIONS: No concerning calcifications. LOWER CHEST: No acute pathology. BONES AND SOFT TISSUES: No acute pathology. RAD/Abdomen Single View (Portable) IMPRESSION: Persistent diffuse small bowel distention compatible history of ileus with slight improvement from prior exam. Electronically Signed: Farshad Johnson MD at 8:18 EDT ,
[2022-12-17 06:16] LABS: Bedside Glucose 95 mg/dL (74-106)
--- NOTE | 2022-12-17 06:27 | PN.HOSP_ITS ---
Reason for Visit Reason for Visit: Diagnoses Iron deficiency anemia secondary to blood loss (chronic) (12/03/22) Decreased white blood cell count, unspecified (12/03/22) Ileus, unspecified (12/03/22) Perforation of intestine (nontraumatic) (12/03/22) Other postprocedural complications and disorders of digestive system (12/03/22) Subjective Subjective Patient overnight with no acute issues per his report and notes that he actually had improvement as of appetite and did eat some ice cream during the evening and has more of an appetite this morning as well. He is eager to have an advance but does admit that he does have sensation of bowel distention and some abdominal mild cramping but still having flatus. Patient denies fevers, chills, nausea, emesis, abdominal pain, chest pain or dyspnea. Objective Data Objective Data Vital Signs: Vital Signs Temp Pulse Resp BP Pulse Ox O2 Del Method O2 Flow Rate 97.6 F L 92 16 112/67 99 Room Air 2 12/17/22 03:00 12/17/22 03:00 12/17/22 03:00 12/17/22 03:00 12/17/22 03:00 12/17/22 03:00 12/05/22 22:48 Oxygen Flow Rate (L/min) 2 Oxygen Delivery Method Room Air Weight: 157 lb 3.033 oz Body Mass Index (BMI) 22.5 Intake & Output: Intake and Output for Last 24 Hours 12/15/22 12/16/22 12/17/22 23:59 23:59 23:59 Intake Total 3712.4 / 3712.4 1927.05 / 1927.05 Output Total 1850 / 1850 Balance 1862.4 / 1862.4 1927. / 1927.05 Lab / Micro Data 12/17/22 03:55 12/17/22 03:55 Labs: Laboratory Results - last 24 hr 12/17/22 01:37: POC Glucose 105 12/17/22 03:55: WBC 8.7, RBC 2.98 L, Hgb 9.2 L, Hct 27.9 L, MCV 93.6, MCH 30.9, MCHC 33.0, RDW Std Deviation 47.6 H, RDW Coeff of Angela 14.1, Plt Count 283, MPV 9.8, Immature Gran % (Auto) 1.500 H, Neut % (Auto) 71.4 H, Lymph % (Auto) 14.8 L , [place] % (Auto) 8.4, Eos % (Auto) 3.6, Baso % (Auto) 0.3, Absolute Neuts (auto) 6.2, Absolute Lymphs (auto) 1.29, Nucleated RBC % 0, Sodium 136, Potassium 3.7, Chloride 104, Carbon Dioxide 25.0, Anion Gap 7, BUN 25 H, Creatinine 0.71, Estim Creat Clear Calc 68.94, Est GFR (MDRD) Af Amer 140, Est GFR (MDRD) Non-Af 115, BUN/Creatinine Ratio 35.1 H, Glucose 102, Calcium 8.3 L, Phosphorus 4.0, Magnesium 2.0, Total Bilirubin 0.70, AST 40 H, ALT 77 H, Alkaline Phosphatase 68, Total Protein 5.9 L, Albumin 2.9 L, Globulin 3.0, Albumin/Globulin Ratio 1.0 12/17/22 05:58: POC Glucose 95 Radiography Diagnostic Testing: Radiology Impression Small Bowel X-Ray 12/14/22 09:30 IMPRESSION: Oral contrast reaches large bowel within 6 hours. Dilated air-filled loops of small bowel throughout the abdomen are favored to relate to ileus rather than obstruction. Electronically Signed: Neftali Lopez DO at 8:13 EDT , KUB X-Ray 12/16/22 06:25 IMPRESSION: Findings compatible with ileus. High-grade partial small bowel obstruction cannot be excluded and follow-up abdominal imaging is recommended. Electronically Signed: Chacho Forbes MD at 10:46 EDT , Physical Exam Narrative Physical Examination: General: Awake, alert, oriented x 3 and cooperative, initially walking around in the room, mildly fatigued but improved better than day prior. Skin: Normal color, normal turgor, no icterus, no cyanosis except occasional staged ecchymoses likely from lab draws. HEENT: AT/NC, EOMI, PERRLA, MMM. Lungs: Mildly diminished, greater bases, proper effort, no rales, ronchi or wheezing. Heart: Regular rate and rhythm; no gallop, rub audible. Abdomen: Soft, still mild generalized discomfort but no rebound or guarding, still mildly distended and tympanitic, hyperactive bowel sounds noted. Extremities: No cyanosis, clubbing, or pitting edema. Neurological: Patient awake, alert, oriented as noted, cognitive function intact; pupils equally reactive to light and accommodation, cranial nerves grossly normal, moving all 4 extremities, no focal deficits, strength moderately globally decreased, seems to be walking better in the room today. Psychiatric: Affect appears less fatigued and more interactive, no acute evidence of depressive or anxiety feelings. Assessment & Plan Assessment/Plan (1) Perforated bowel: PLAN: Plan The patient is a 72 y/o M w/ PMHx: recent discharge 12/02/22 following evaluation for lower GI bleed discharged on PPI twice daily unfortunately representing to the [facility] ED on 12/03/22 with onset of lightheadedness as well as bleeding per rectum prompting ED return. #1. Acute Perforated Bowel (distal ileum with free intraperitoneal air following recent colonoscopy) complicated by lower GI bleed with postop ileus: s/p exploratory laparotomy with ileocecectomy 12/03/2022, 12/14/2022 small bowel follow-through with contrast reaching the colon with several bowel movements since. 12/15/22 NGT d/c given improvement with decreased output. Diet initiated 12/15/22 per surgery. 12/15/22 per surgery IV fluids decreased secondary to concern for overload and transitioned off TPN. Upon admission weight 150->up to 171, administered IV lasix 40 mg x 2 doses, last 12/16/22 with weight down into 150 range, will hold on further. 12/17/22 KUB w/ persistent diffuse small bowel distention compatible with history of ileus with a slight improvement from previous KUB. Surgery ordered CT A/P with oral and IV contrast today to evaluate anastomosis and notes plan to ADAT if this is well appearing. #2. Acute blood loss anemia secondary to acute presentation with perforated bowel as well as recent lower GI bleed with hematochezia: Colonoscopy demonstrated to bleeding angiodysplasias which were cauterized, EGD with acute gastritis and chronic duodenitis with biopsies performed at that time, hemoglobin unfortunately 12.1 prior to OR and postoperative 6.6 status post PRBC administration of at least 1 unit, hemoglobin 12/15/2022 9.4-->12/17/22 Hgb 9.2, stable, continue to trend. #3. Severe protein calorie malnutrition: Patient with significant prolonged period without food, previously been on TPN, transitioned by general surgery as noted to diet with slow transition as noted above, nutrition consulted and following. #4. Significant weight gain, significant resuscitation given #1, #2: Upon presentation with weight noted of 151 pounds however today's 170 pounds, discussed with general surgery and patient administered IV Lasix dose x 2 doses total, last 12/16/22 with weight down into 150 range, will hold on further. #5. DVT prophylaxis: SCDs. #6. CODE status: Full Code. Charges/Coding Visit Charges Inpatient E&M: 51216 Subs Hosp L2
--- NOTE | 2022-12-17 08:19 | CT_ITS ---
STUDY: CT ABDOMEN AND PELVIS WITH CONTRAST - URINARY TRACT REASON FOR EXAM: Male, 72 years old. Distention, prolonged ileus RADIATION DOSAGE (If Supplied By Facility): CTDIvol = ( 9.72 ) mGy, DLP = ( 667.77 ) mGycm TECHNIQUE: Oral and amp; IV Gastrografin and amp; 100mL Isovue-300 was administered. Transaxial images were obtained from the dome of the diaphragm to the symphysis pubis subsequent to intravenous contrast administration. Multiplanar coronal and sagittal images were reformatted. Individualized Dose Optimization Techniques Were Used For This CT. COMPARISON: Prior study dated: December 08, 2022 FINDINGS: There is a 4 mm right lower lobe subpleural nodule. The visualized portions of the heart are within normal limits. Normal liver. Normal gallbladder and extrahepatic biliary system. There are scattered benign calcified granulomata of the spleen. Normal pancreas. Normal bilateral adrenal glands. Normal visualized stomach. There are dilated loops of the small intestine with a non-distended colon consistent with a small bowel obstruction. There are multiple colonic diverticula consistent with diverticulosis. There is non-visualization of the appendix. There is diffuse atherosclerotic calcification of the abdominal aorta, without a demonstrated aneurysm. No retroperitoneal adenopathy. Normal right kidney. There is a stable left renal cysts. Normal urinary bladder. There is minimal free fluid within the pelvis. The prostate gland is enlarged. There are small bilateral inguinal hernias. There is trace fluid within the right inguinal hernia. There are postsurgical changes of the anterior abdominal wall. Normal osseous structures. CT/Abdomen/Pelvis WITH Contrast IMPRESSION: Small bowel obstruction. Atherosclerosis. Colonic diverticulosis. Enlarged prostate gland. Bilateral fat-containing inguinal hernias. Electronically Signed: Lucero Kam MD at 14:53 EDT ,
--- NOTE | 2022-12-17 08:20 | PCM.PN.SRG ---
Subjective Subjective The patient reports that he is passing gas and having bowel movements. He still is bloated after eating. He tolerated full liquids with no nausea or vomiting yesterday. Objective Data Objective Data Vital Signs: Vital Signs Temp Pulse Resp BP Pulse Ox O2 Del Method O2 Flow Rate 97.6 F L 92 16 112/67 99 Room Air 2 12/17/22 03:00 12/17/22 03:00 12/17/22 03:00 12/17/22 03:00 12/17/22 03:00 12/17/22 03:00 12/05/22 22:48 Oxygen Flow Rate (L/min) 2 Oxygen Delivery Method Room Air Weight: 157 lb 3.033 oz Body Mass Index (BMI) 22.5 Intake & Output: Intake and Output for Last 24 Hours 12/15/22 12/16/22 12/17/22 23:59 23:59 23:59 Intake Total 3712.4 / 3712.4 1928.05 / 1928.05 Output Total 1850 / 1850 Balance 1862.4 / 1862.4 192.05 / 1928.05 Lab / Micro Data 12/17/22 03:55 12/17/22 03:55 Labs: Laboratory Results - last 24 hr 12/17/22 01:37: POC Glucose 105 12/17/22 03:55: WBC 8.7, RBC 2.98 L, Hgb 9.2 L, Hct 27.9 L, MCV 93.6, MCH 30.9, MCHC 33.0, RDW Std Deviation 47.6 H, RDW Coeff of Angela 14.1, Plt Count 283, MPV 9.8, Immature Gran % (Auto) 1.500 H, Neut % (Auto) 71.4 H, Lymph % (Auto) 14.8 L, [place] % (Auto) 8.4, Eos % (Auto) 3.6, Baso % (Auto) 0.3, Absolute Neuts (auto) 6.2, Absolute Lymphs (auto) 1.29, Nucleated RBC % 0, Sodium 136, Potassium 3.7, Chloride 104, Carbon Dioxide 25.0, Anion Gap 7, BUN 25 H, Creatinine 0.71, Estim Creat Clear Calc 68.94, Est GFR (MDRD) Af Amer 140, Est GFR (MDRD) Non-Af 115, BUN/Creatinine Ratio 35.1 H, Glucose 102, Calcium 8.3 L, Phosphorus 4.0, Magnesium 2.0, Total Bilirubin 0.70, AST 40 H, ALT 77 H, Alkaline Phosphatase 68, Total Protein 5.9 L, Albumin 2.9 L, Globulin 3.0, Albumin/Globulin Ratio 1.0 12/17/22 05:58: POC Glucose 95 Radiography Diagnostic Testing: Radiology Impression Small Bowel X-Ray 12/14/22 09:30 IMPRESSION: Oral contrast reaches large bowel within 6 hours. Dilated air-filled loops of small bowel throughout the abdomen are favored to relate to ileus rather than obstruction. Electronically Signed: Neftali Lopez DO at 8:13 EDT , KUB X-Ray 12/16/22 06:25 IMPRESSION: Findings compatible with ileus. High-grade partial small bowel obstruction cannot be excluded and follow-up abdominal imaging is recommended. Electronically Signed: Chacho Forbes MD at 10:46 EDT , KUB X-Ray 12/17/22 05:55 IMPRESSION: Persistent diffuse small bowel distention compatible history of ileus with slight improvement from prior exam. Electronically Signed: Farshad Johnson MD at 8:18 EDT , Physical Exam Const oriented x3 Resp normal respiratory effort GI soft to palpation and non-tender Inspection: abdominal distention Assessment & Plan Assessment/Plan (1) Postoperative ileus: (2) Perforated bowel: PLAN: Plan The patient tolerated full liquids with no nausea or but he did report bloating after eating. Patient is still passing flatus and he says that he feels less swollen. I will order CT scan with oral and IV contrast today to evaluate the anastomosis. As long as the CT scan appears that the anastomosis is open and I will advance his diet to regular later today. Donny Rivera MD Pager: [facility] [address] [place] [address] [address] [place] [address] Office:
[2022-12-17 09:41] VITALS: BP 128/72; PULSE 96; RESP 16; TEMP 36.2; O2SAT 99
[2022-12-17 15:10] VITALS: BP 118/61; PULSE 90; RESP 16; TEMP 36.5; O2SAT 99
[2022-12-17 23:11] VITALS: BP 124/61; PULSE 92; RESP 16; TEMP 36.7; O2SAT 95
[2022-12-18] VITALS (10 sets, daily range): BP systolic 123–136; BP diastolic 52–75; PULSE 88–107; RESP 12–18; TEMP 36.4–37.3; O2SAT 94–100; BMI 22.4
[2022-12-18 05:45] LABS: Absolute Lymphocyte Count 0.52 X10^3/uL (0.83-4.51); Absolute Neutrophil Count 7.8 X10^3/uL (2.0-7.7); Basophil# 0.04 X10^3/uL; Basophil% 0.4 % (0-1); Eosinophil# 0.31 X10^3/uL; Eosinophils% 3.3 % (0-5); Hematocrit 29.3 % (40-54); Hemoglobin 9.5 g/dL (13.0-16.5); Lymphocyte # 0.52 X10^3/ul (0.83-4.51); Lymphocyte % 5.5 % (19-41); Mean Corp Hgb Conc 32.4 g/dL (32-36); Mean Corpuscular Hgb 30.5 pg (27.0-32.0); Mean Corpuscular Volume 94.2 fL (80-94); Mean Platelet Vol. 10.2 fl (6.2-12.0); Monocyte# 0.68 X10^3/uL; Monocyte% 7.2 % (0-10); NRBC Flagged by Analyzer 0 % (0-5); Neutrophil # 7.82 X10^3/uL (2.7-7.7); Neutrophil % 82.6 % (47-70); POSITIVE DIFFERENTIAL YES; Platelet Count 316 K/mm3 (150-450); RBC Distribution Width CV 14.1 % (11.6-14.6); RBC Distribution Width SD 47.7 fl (35.1-43.9); Red Blood Count 3.11 M/mm3 (4.6-6.2); White Blood Count 9.5 K/mm3 (4.4-11.0)
[2022-12-18 05:50] LABS: Differential Indicated SCAN CRITERIA MET
[2022-12-18 06:17] LABS: AST(SGOT) 16 U/L (15-37); Alanine Aminotransfer ALT/SGPT 54 U/L (16-61); Albumin, Serum 2.9 g/dL (3.2-5.0); Alkaline Phosphatase 67 U/L (45-117); Anion Gap 7 (5-15); BUN 16 mg/dL (7-18); BUN/Creat Ratio 24.2 RATIO (10-20); Calcium,Total 8.6 mg/dL (8.5-10.1); Chloride 103 mmol/L (98-107); Creatinine, Serum 0.66 mg/dL (0.70-1.30); EST Glomerular Filtration Rate 126 mL/min (>60); Est Glom Filt Rate - Afr Amer 152 mL/min (>60); Estimated Creatinine Clearance 66.96 ml/min; Globulin 2.9 g/dL (2.2-4.2); Glucose 106 mg/dL (74-106); Magnesium 2.1 mg/dL (1.6-2.6); Phosphorus 3.6 mg/dL (2.5-4.9); Potassium 4.1 mmol/L (3.5-5.1); Protein, Total 5.8 g/dL (6.4-8.2); Sodium Level 136 mmol/L (136-145)
--- NOTE | 2022-12-18 06:25 | PN.HOSP_ITS ---
Reason for Visit Reason for Visit: Diagnoses Iron deficiency anemia secondary to blood loss (chronic) (12/03/22) Decreased white blood cell count, unspecified (12/03/22) Ileus, unspecified (12/03/22) Perforation of intestine (nontraumatic) (12/03/22) Other postprocedural complications and disorders of digestive system (12/03/22) Subjective Subjective Patient overnight unfortunately with continued abdominal distention and ramping in severe sharp stabbing 10 out of 10 pains, he notes this is improved this morning he feels rather comfortable and does admit to flatus but still significant distention and no recent bowel movement. CT abdomen pelvis performed yesterday with noted evidence of small bowel obstruction with planned return to the OR today per general surgery to which patient is aware. Patient denies fevers, chills, nausea, emesis, chest pain or dyspnea. Objective Data Objective Data Vital Signs: Vital Signs Temp Pulse Resp BP Pulse Ox O2 Del Method O2 Flow Rate 98.1 F 93 12 132/67 H 96 Room Air 2 12/18/22 05:11 12/18/22 05:11 12/18/22 05:11 12/18/22 05:11 12/18/22 05:11 12/18/22 05:11 12/05/22 22:48 Oxygen Flow Rate (L/min) 2 Oxygen Delivery Method Room Air Weight: 156 lb 4.924 oz Body Mass Index (BMI) 22.4 Intake & Output: Intake and Output for Last 24 Hours 12/16/22 12/17/22 12/18/22 23:59 23:59 23:59 Intake Total 1927.05 / 1928.05 1400 / 1400 Balance 1927.05 / 1928.05 1400 / 1400 Lab / Micro Data 12/18/22 05:10 12/18/22 05:10 Labs: Laboratory Results - last 24 hr 12/18/22 05:10: WBC 9.5, RBC 3.11 L, Hgb 9.5 L, Hct 29.3 L, MCV 94.2 H, MCH 30.5, MCHC 32.4, RDW Std Deviation 47.7 H, RDW Coeff of Angela 14.1, Plt Count 316, MPV 10.2, Immature Gran % (Auto) 1.000 H, Neut % (Auto) 82.6 H, Lymph % (Auto) 5.5 L, [place] % (Auto) 7.2, Eos % (Auto) 3.3, Baso % (Auto) 0.4, Absolute Neuts (auto) 7.8 H, Absolute Lymphs (auto) 0.52 L, Nucleated RBC % 0, Sodium 136, Potassium 4.1, Chloride 103, Carbon Dioxide 26.0, Anion Gap 7, BUN 16, Creatinine 0.66 L, Estim Creat Clear Calc 66.96, Est GFR (MDRD) Af Amer 152, Est GFR (MDRD) Non-Af 126, BUN/Creatinine Ratio 24.2 H, Glucose 106, Calcium 8.6, Phosphorus 3.6, Magnesium 2.1, Total Bilirubin 0.60, AST 16, ALT 54, Alkaline Phosphatase 67, Total Protein 5.8 L, Albumin 2.9 L, Globulin 2.9, Albumin/Globulin Ratio 1.0 Radiography Diagnostic Testing: Radiology Impression KUB X-Ray 12/06/22 06:16 IMPRESSION: Diffuse ileus with mild improvement in the large bowel component. Electronically Signed: Gómez Moe MD at 7:11 EDT , Small Bowel X-Ray 12/14/22 09:30 IMPRESSION: Oral contrast reaches large bowel within 6 hours. Dilated air-filled loops of small bowel throughout the abdomen are favored to relate to ileus rather than obstruction. Electronically Signed: Neftali Lopez DO at 8:13 EDT , KUB X-Ray 12/17/22 05:55 IMPRESSION: Persistent diffuse small bowel distention compatible history of ileus with slight improvement from prior exam. Electronically Signed: Farshad Johnson MD at 8:18 EDT , Abdomen/Pelvis CT 12/17/22 08:19 IMPRESSION: Small bowel obstruction. Atherosclerosis. Colonic diverticulosis. Enlarged prostate gland. Bilateral fat-containing inguinal hernias. Electronically Signed: Lucero Kam MD at 14:53 EDT , Physical Exam Narrative Physical Examination: General: Awake, alert, oriented x 3 and cooperative, initially walking around in the room, getting himself ready for the AM, fatigued appearance, flat affect and suspect patient is more so depressed regarding the need for return to OR. Skin: Normal color, normal turgor, no icterus, no cyanosis except occasional staged ecchymoses. HEENT: AT/NC, EOMI, PERRLA, mildly dry MM. Lungs: Mildly diminished, greater bases, proper effort, no rales, ronchi or wheezing. Heart: Regular rate and rhythm; no gallop, rub audible. Abdomen: Soft, still mild generalized discomfort but no rebound or guarding, increased distention from day prior, at least moderately distended, remains tympanitic, now decreased bowel sounds. Extremities: No cyanosis, clubbing, or pitting edema. Neurological: Patient awake, alert, oriented as noted, cognitive function intact; pupils equally reactive to light and accommodation, cranial nerves grossly normal, moving all 4 extremities, no focal deficits, strength moderately globally decreased. Psychiatric: Affect appears fatigued, flat affect, suspect wildly depressed with lengthy course and now return for overall or necessity. Assessment & Plan Assessment/Plan (1) Perforated bowel: PLAN: Plan The patient is a 72 y/o M w/ PMHx: recent discharge 12/02/22 following evaluation for lower GI bleed discharged on PPI twice daily unfortunately representing to the [facility] ED on 12/03/22 with onset of lightheadedness as well as bleeding per rectum prompting ED return. #1. Acute Perforated Bowel (distal ileum with free intraperitoneal air following recent colonoscopy) complicated by lower GI bleed with postop ileus: s/p exploratory laparotomy with ileocecectomy 12/03/2022, 12/14/2022 small bowel follow-through with contrast reaching the colon with several bowel movements since. 12/15/22 NGT d/c given improvement with decreased output. Diet initiated 12/15/22 per surgery. 12/15/22 per surgery IV fluids decreased secondary to concern for overload and transitioned off TPN. Upon admission weight 150->up to 171, administered IV lasix 40 mg x 2 doses, last 12/16/22 with weight down into 150 range, will hold on further. 12/17/22 KUB w/ persistent diffuse small bowel distention compatible with history of ileus with a slight improvement from previous KUB. Surgery ordered CT A/P with oral and IV contrast with noted evidence SBO. 12/17/21 diet held, NPO, discussed with General surgery with noted surgical intervention plans. #2. Acute blood loss anemia secondary to acute presentation with perforated bowel as well as recent lower GI bleed with hematochezia: Colonoscopy demonstrated to bleeding angiodysplasias which were cauterized, EGD with acute gastritis and chronic duodenitis with biopsies performed at that time, hemoglobin unfortunately 12.1 prior to OR and postoperative 6.6 status post PRBC administration of at least 1 unit, hemoglobin 12/15/2022 9.4-->12/18/22 Hgb 9.5, stable, continue to trend. #3. Severe protein calorie malnutrition: Patient with significant prolonged period without food, previously been on TPN, transitioned by general surgery as noted to diet with slow transition as noted above, nutrition consulted and following. #4. Significant weight gain, significant resuscitation given #1, #2: Upon presentation with weight noted of 151 pounds however today's 170 pounds, discussed with general surgery and patient administered IV Lasix dose x 2 doses total, last 12/16/22 with weight down into 150 range, will hold on further. #5. DVT prophylaxis: SCDs. #6. CODE status: Full Code. Charges/Coding Visit Charges Inpatient E&M: 07167 Subs Hosp L3
--- NOTE | 2022-12-18 07:39 | PCM.PN.SRG ---
Subjective Subjective The patient says he was very distended after eating yesterday and was very miserable overnight. Objective Data Objective Data Vital Signs: Vital Signs Temp Pulse Resp BP Pulse Ox O2 Del Method O2 Flow Rate 98.1 F 93 12 132/67 H 96 Room Air 2 12/18/22 05:11 12/18/22 05:11 12/18/22 05:11 12/18/22 05:11 12/18/22 05:11 12/18/22 05:11 12/05/22 22:48 Oxygen Flow Rate (L/min) 2 Oxygen Delivery Method Room Air Weight: 156 lb 4.924 oz Body Mass Index (BMI) 22.4 Intake & Output: Intake and Output for Last 24 Hours 12/16/22 12/17/22 12/18/22 23:59 23:59 23:59 Intake Total 8.05 / 1928.05 1400 / 1400 Balance 1928.05 / 1928.05 1400 / 1400 Lab / Micro Data 12/18/22 05:10 12/18/22 05:10 Labs: Laboratory Results - last 24 hr 12/18/22 05:10: WBC 9.5, RBC 3.11 L, Hgb 9.5 L, Hct 29.3 L, MCV 94.2 H, MCH 30.5, MCHC 32.4, RDW Std Deviation 47.7 H, RDW Coeff of Angela 14.1, Plt Count 316, MPV 10.2, Immature Gran % (Auto) 1.000 H, Neut % (Auto) 82.6 H, Lymph % (Auto) 5.5 L, [place] % (Auto) 7.2, Eos % (Auto) 3.3, Baso % (Auto) 0.4, Absolute Neuts (auto) 7.8 H, Absolute Lymphs (auto) 0.52 L, Nucleated RBC % 0, Sodium 136, Potassium 4.1, Chloride 103, Carbon Dioxide 26.0, Anion Gap 7, BUN 16, Creatinine 0.66 L, Estim Creat Clear Calc 66.96, Est GFR (MDRD) Af Amer 152, Est GFR (MDRD) Non-Af 126, BUN/Creatinine Ratio 24.2 H, Glucose 106, Calcium 8.6, Phosphorus 3.6, Magnesium 2.1, Total Bilirubin 0.60, AST 16, ALT 54, Alkaline Phosphatase 67, Total Protein 5.8 L, Albumin 2.9 L, Globulin 2.9, Albumin/Globulin Ratio 1.0 Radiography Diagnostic Testing: Radiology Impression KUB X-Ray 12/06/22 06:16 IMPRESSION: Diffuse ileus with mild improvement in the large bowel component. Electronically Signed: Gómez Moe MD at 7:11 EDT , Small Bowel X-Ray 12/14/22 09:30 IMPRESSION: Oral contrast reaches large bowel within 6 hours. Dilated air-filled loops of small bowel throughout the abdomen are favored to relate to ileus rather than obstruction. Electronically Signed: Neftali Lopez DO at 8:13 EDT , KUB X-Ray 12/17/22 05:55 IMPRESSION: Persistent diffuse small bowel distention compatible history of ileus with slight improvement from prior exam. Electronically Signed: Farshad Johnson MD at 8:18 EDT , Abdomen/Pelvis CT 12/17/22 08:19 IMPRESSION: Small bowel obstruction. Atherosclerosis. Colonic diverticulosis. Enlarged prostate gland. Bilateral fat-containing inguinal hernias. Electronically Signed: Lucero Kam MD at 14:53 EDT , Physical Exam Const oriented x3 Resp normal respiratory effort GI soft to palpation Inspection: abdominal distention Assessment & Plan Assessment/Plan (1) SBO (small bowel obstruction): PLAN: The patient had a CT scan yesterday which I reviewed. The patient had distended small bowel but it appeared that the distal small bowel was collapsed. I believe the patient has a partial small bowel obstruction in the right lower quadrant due to inflammation. I believe it is proximal to the anastomosis. It seems that plenty is getting through as he is having bowel movements and passing gas but I believe that there must be partial blockage of the distal small bowel. I recommended surgery today. It has been 2 weeks of trying to let this resolve on its own with TPN and 2 different attempts at an NG tube. I believe it is time to reexplore and free the bowel up. I discussed exploratory laparoscopy with possible conversion to open and possible need for bowel resection. I discussed the risks of the procedure such as bleeding, infection, anastomotic leak, need for bowel resection, injury to other organs like the bowel, bladder, ureters. Patient understands the risks and is willing to proceed. Donny Rivera MD Pager: [facility] [address] [place] [address] [address] [place] [address] Office:
[2022-12-18] MEDS: Lactated Ringers 1,000 ML 15 ML IV (13:41)
[2022-12-18] MEDS: Bupivacaine Mpf 0.5% 30 ML VIAL (15:43)
--- NOTE | 2022-12-18 15:57 | PCM.OPRPT ---
Report of Operation Date of Procedure: 12/18/22 Pre-Operative Diagnosis: Partial small bowel obstruction Post-Operative Diagnosis: Same Surgery/Procedure Performed:: Exploratory laparoscopy with lysis of adhesions Description of Surgical Findings:: Inflammation on the right lower quadrant with omentum causing partial obstruction Type of Anesthesia: General/Regional Estimated Blood Loss (mL): 5 Description of Procedure: Patient was brought back to the operating room and general anesthesia was induced. A Philip catheter was placed. The abdomen was prepped and draped in usual sterile fashion. In the left upper quadrant a small incision was made and then using Visiport technique a port was placed in the left upper quadrant. The abdomen was insufflated to 15 mmHg. The abdomen was inspected and there were no injuries from entry. The patient was placed in steep Trendelenburg position. Under direct visualization a right lateral 5 mm port was placed as well as ventral 5 mm port just left of the midline incision prior. Next using atraumatic graspers the bowel was followed from the dilated portion down to the anastomosis. There were a few areas where small bowel was stuck to itself and this was bluntly able to be divided. There was also an area where the omentum was stuck to the mesentery at the anastomosis. The omentum was bluntly removed from the bowel and reflected superiorly. The anastomosis appeared healthy. There was stool in the right colon distal to the anastomosis. There appeared to be no signs of leak or ischemia. The small bowel was able to be laid out across the lower abdomen with no kinking. The omentum was then reflected back over the entire abdominal contents. I believe at this point the partial obstruction had been resolved. There was good flow of liquid stool to the distal small bowel and into the colon after it was freed up. After this the ports were removed and the abdomen was allowed to desufflate. The ports were injected with local anesthetic and closed with interrupted 4-0 Monocryl suture. Steri-Strips and bandages were applied. Philip was removed at the end of the case and the patient was taken to PACU in stable condition. Admit VTE Documentation VTE Mechan Device Prophylaxis: SCD's
--- NOTE | 2022-12-19 02:52 | NURSING ---
Pt complained of distention in the stomach and unable to urinate on his own. Pt was then bladder scanned with 587mL seen within his bladder. Pt was then straight cathed and had an output of 600mL of urine.
[2022-12-19 03:28] VITALS: BP 131/63; PULSE 86; RESP 16; TEMP 36.7; O2SAT 95
[2022-12-19 04:33] VITALS: BMI 22.1
--- NOTE | 2022-12-19 05:03 | NURSING ---
Pt was bladderscanned for 527 ml. Voided a small amount in the bathroom. Offerred to straight cath again. Pt declined states he wants to give his bladder a chance to wake up. Pt is walking laps in the room in an attempt to awaken his bladder more quickly.
--- NOTE | 2022-12-19 06:03 | NURSING ---
Straight catheterized patient for 600 ml at this time patient tolerated well.
--- NOTE | 2022-12-19 06:11 | PN.HOSP_ITS ---
Reason for Visit Reason for Visit: Diagnoses Iron deficiency anemia secondary to blood loss (chronic) (12/03/22) Decreased white blood cell count, unspecified (12/03/22) Unspecified intestinal obstruction, unspecified as to partial versus complete obstruction (12/03/22) Ileus, unspecified (12/03/22) Perforation of intestine (nontraumatic) (12/03/22) Other postprocedural complications and disorders of digestive system (12/03/22) Subjective Subjective Patient overnight with concern for urinary tension requiring catheterization x2 and initially been resistant to starting his Flomax but eventually amenable. Patient tolerated clears overnight including broth. He denies any significant diffuse abdominal pain but does still feel mildly distended, passing flatus but no BM. Patient denies fevers, chills, nausea, emesis, chest pain or dyspnea. Objective Data Objective Data Vital Signs: Vital Signs Temp Pulse Resp BP Pulse Ox O2 Del Method O2 Flow Rate 98.1 F 86 16 131/63 H 95 Room Air 2 12/19/22 03:28 12/19/22 03:28 12/19/22 03:28 12/19/22 03:28 12/19/22 03:28 12/19/22 05:38 12/05/22 22:48 Oxygen Flow Rate (L/min) 2 Oxygen Delivery Method Room Air Weight: 154 lb 8.705 oz Body Mass Index (BMI) 22.1 Intake & Output: Intake and Output for Last 24 Hours 12/17/22 12/18/22 12/19/22 23:59 23:59 23:59 Intake Total 1400 / 1400 409.25 / 409.25 Output Total 75 / 75 Balance 1400 / 1400 334.25 / 334.25 Lab / Micro Data 12/19/22 06:53 12/19/22 06:53 Labs: Laboratory Results - last 24 hr 12/18/22 05:10: Sodium 136, Potassium 4.1, Chloride 103, Carbon Dioxide 26.0, Anion Gap 7, BUN 16, Creatinine 0.66 L, Estim Creat Clear Calc 66.96, Est GFR (MDRD) Af Amer 152, Est GFR (MDRD) Non-Af 126, BUN/Creatinine Ratio 24.2 H, Glucose 106, Calcium 8.6, Phosphorus 3.6, Magnesium 2.1, Total Bilirubin 0.60, AST 16, ALT 54, Alkaline Phosphatase 67, Total Protein 5.8 L, Albumin 2.9 L, Globulin 2.9, Albumin/Globulin Ratio 1.0 Physical Exam Narrative Physical Examination: General: Awake, alert, oriented x 3 and cooperative, fatigued, notes feeling improved but abdominal pain still present status post recent return to the OR, notes passing flatus but no BM. Skin: Normal color, normal turgor, no icterus, no cyanosis except occasional staged ecchymoses as well as incisional dressings in place with no drainage. HEENT: AT/NC, EOMI, PERRLA, MMM. Lungs: Mildly diminished, greater bases, proper effort, no rales, ronchi or wheezing. Heart: Regular rate and rhythm; no gallop, rub audible. Abdomen: Soft, mild generalized discomfort, dressings in place on incisions with no drainage, still mildly distended. Extremities: No cyanosis, clubbing, or pitting edema. Neurological: Patient awake, alert, oriented as noted, cognitive function intact; pupils equally reactive to light and accommodation, cranial nerves grossly normal, moving all 4 extremities, no focal deficits, strength moderately globally decreased. Psychiatric: Affect appears fatigued, still flat, again suspect likely depressed with his prolonged hospitalization course. Assessment & Plan Assessment/Plan (1) Perforated bowel: PLAN: Plan The patient is a 72 y/o M w/ PMHx: recent discharge 12/02/22 following evaluation for lower GI bleed discharged on PPI twice daily unfortunately representing to the [facility] ED on 12/03/22 with onset of lightheadedness as well as bleeding per rectum prompting ED return. #1. Acute Perforated Bowel (distal ileum with free intraperitoneal air following recent colonoscopy) complicated by lower GI bleed with postop ileus: s/p exploratory laparotomy with ileocecectomy 12/03/2022, 12/14/2022 small bowel follow-through with contrast reaching the colon with several bowel movements since. 12/15/22 NGT d/c given improvement with decreased output. Diet initiated 12/15/22 per surgery. 12/15/22 per surgery IV fluids decreased secondary to concern for overload and transitioned off TPN. Upon admission weight 150->up to 171, administered IV lasix 40 mg x 2 doses, last 12/16/22 with weight down into 150 range, will hold on further. 12/17/22 KUB w/ persistent diffuse small bowel distention compatible with history of ileus with a slight improvement from previous KUB. Surgery ordered CT A/P with oral and IV contrast with noted evidence SBO. 12/18/22 Exploratory laparoscopy with lysis of adhesions per Dr. Rivera, 12/19/22 currently tolerating full liquid diet. #2. Acute blood loss anemia secondary to acute presentation with perforated bowel as well as recent lower GI bleed with hematochezia: Colonoscopy demonstrated to bleeding angiodysplasias which were cauterized, EGD with acute gastritis and chronic duodenitis with biopsies performed at that time, hemoglobin unfortunately 12.1 prior to OR and postoperative 6.6 status post PRBC administration of at least 1 unit, hemoglobin 12/15/2022 9.4-->12/18/22 Hgb 9.5-->12/18/22 s/p recent repeat OR as noted Hgb 9.0-->12/19/22 Hgb 9.0, stable. #3. Severe protein calorie malnutrition: Patient with significant prolonged period without food, previously been on TPN, transitioned by general surgery as noted to diet with slow transition as noted above with then NPO for repeat OR, 12/19/22 again on fulls, nutrition consulted and following. #4. Significant weight gain, significant resuscitation given #1, #2: Upon presentation with weight noted of 151 pounds however today's 170 pounds, discussed with general surgery and patient administered IV Lasix dose x 2 doses total, last 12/16/22 with weight down into 150 range, 12/19/22 weight 154 lbs, will hold on further. #5. DVT prophylaxis: SCDs. #6. CODE status: Full Code. Charges/Coding Visit Charges Inpatient E&M: 58240 Subs Hosp L2
[2022-12-19] MEDS: Tamsulosin HCl 0.4 MG Capsule 0.8 MG PO (06:16)
[2022-12-19 07:07] LABS: Absolute Lymphocyte Count 0.92 X10^3/uL (0.83-4.51); Absolute Neutrophil Count 5.1 X10^3/uL (2.0-7.7); Basophil# 0.03 X10^3/uL; Basophil% 0.4 % (0-1); Eosinophils% 1.4 % (0-5); Hematocrit 26.9 % (40-54); Lymphocyte # 0.92 X10^3/ul (0.83-4.51); Lymphocyte % 13.3 % (19-41); Mean Corp Hgb Conc 33.5 g/dL (32-36); Mean Corpuscular Hgb 31.8 pg (27.0-32.0); Mean Corpuscular Volume 95.1 fL (80-94); Monocyte# 0.73 X10^3/uL; Monocyte% 10.6 % (0-10); NRBC Flagged by Analyzer 0.6 % (0-5); Neutrophil # 5.08 X10^3/uL (2.7-7.7); Neutrophil % 73.6 % (47-70); POSITIVE MORPHOLOGY YES; Platelet Count 293 K/mm3 (150-450); RBC Distribution Width CV 13.9 % (11.6-14.6); RBC Distribution Width SD 48.3 fl (35.1-43.9); Red Blood Count 2.83 M/mm3 (4.6-6.2); White Blood Count 6.9 K/mm3 (4.4-11.0)
[2022-12-19 07:08] LABS: Differential Indicated SCAN CRITERIA MET
[2022-12-19 07:41] LABS: AST(SGOT) 11 U/L (15-37); Alanine Aminotransfer ALT/SGPT 42 U/L (16-61); Albumin, Serum 2.9 g/dL (3.2-5.0); Alkaline Phosphatase 64 U/L (45-117); Anion Gap 4 (5-15); BUN 12 mg/dL (7-18); BUN/Creat Ratio 12.6 RATIO (10-20); Calcium,Total 8.6 mg/dL (8.5-10.1); Chloride 104 mmol/L (98-107); Creatinine, Serum 0.95 mg/dL (0.70-1.30); EST Glomerular Filtration Rate 82 mL/min (>60); Est Glom Filt Rate - Afr Amer 100 mL/min (>60); Estimated Creatinine Clearance 69.69 ml/min; Glucose 112 mg/dL (74-106); Magnesium 2.1 mg/dL (1.6-2.6); Phosphorus 3.3 mg/dL (2.5-4.9); Potassium 4.1 mmol/L (3.5-5.1); Protein, Total 5.9 g/dL (6.4-8.2); Sodium Level 136 mmol/L (136-145)
--- NOTE | 2022-12-19 08:01 | PN.SURG_ITS ---
Subjective Subjective Patient had some urinary retention issues overnight. He tolerated clear liquids and 2 cups of broth with no nausea or pain. Objective Data Objective Data Vital Signs: Vital Signs Temp Pulse Resp BP Pulse Ox O2 Del Method O2 Flow Rate 98.1 F 86 16 131/63 H 95 Room Air 2 12/19/22 03:28 12/19/22 03:28 12/19/22 03:28 12/19/22 03:28 12/19/22 03:28 12/19/22 05:38 12/05/22 22:48 Oxygen Flow Rate (L/min) 2 Oxygen Delivery Method Room Air Weight: 154 lb 8.705 oz Body Mass Index (BMI) 22.1 Intake & Output: Intake and Output for Last 24 Hours 12/17/22 12/18/22 12/19/22 23:59 23:59 23:59 Intake Total 1400 / 1400 409.25 / 409.25 Output Total 75 / 75 1200 / 1200 Balance 1400 / 1400 334.25 / 334.25 -1200 / -1200 Lab / Micro Data 12/19/22 06:53 12/19/22 06:53 Labs: Laboratory Results - last 24 hr 12/19/22 06:53: WBC 6.9, RBC 2.83 L, Hgb 9.0 L, Hct 26.9 L, MCV 95.1 H, MCH 31.8, MCHC 33.5, RDW Std Deviation 48.3 H, RDW Coeff of Angela 13.9, Plt Count 293, MPV 10.0, Immature Gran % (Auto) 0.700, Neut % (Auto) 73.6 H, Lymph % (Auto) 13.3 L, [place] % (Auto) 10.6 H, Eos % (Auto) 1.4, Baso % (Auto) 0.4, Absolute Neuts (auto) 5.1, Absolute Lymphs (auto) 0.92, Nucleated RBC % 0.6, Sodium 136, Potassium 4.1, Chloride 104, Carbon Dioxide 28.0, Anion Gap 4 L, BUN 12, Creatinine 0.95, Estim Creat Clear Calc 69.69, Est GFR (MDRD) Af Amer 100, Est GFR (MDRD) Non-Af 82, BUN/Creatinine Ratio 12.6, Glucose 112 H, Calcium 8.6, Phosphorus 3.3, Magnesium 2.1, Total Bilirubin 0.40, AST 11 L, ALT 42, Alkaline Phosphatase 64, Total Protein 5.9 L, Albumin 2.9 L, Globulin 3.0, Albumin/Globulin Ratio 1.0 Physical Exam Const oriented x3 Resp normal respiratory effort GI soft to palpation and non-tender Inspection: abdominal distention Assessment & Plan Assessment/Plan (1) SBO (small bowel obstruction): PLAN: Patient is postop day 1 from laparoscopic exploration with takedown of adhesions. Patient reports that he tolerated clear liquids yesterday with no issue. I will advance him to full liquids today and see how he tolerates this. If it results in distention and pain I will keep him on fulls and await bowel function. If he tolerates full liquids and starts having more significant bowel function with no nausea or bloating I will hopefully advance his diet soon and anticipate DC. Donny Rivera MD Pager: [facility] [address] [place] [address], [address] [place] [address] Office:
[2022-12-19 09:30] VITALS: BP 125/79; PULSE 74; RESP 18; TEMP 36.6; O2SAT 97
[2022-12-19 10:10] VITALS: O2SAT 100
[2022-12-19 15:30] VITALS: BP 121/69; PULSE 80; RESP 18; TEMP 36.6; O2SAT 98
--- NOTE | 2022-12-19 16:40 | DS.PCM_ITS ---
Providers Date of Admission: 12/03/22 Primary Care Physician: Dr. Tim Dobbs, Consultations 12/03/22 13:36 Consult: Gastroenterology Routine Consulting Provider: [facility] Reason for Consult: Rectal bleed EMERGENT Consult: No Notified: Yes Date Notified: 12/03/22 Time Notified: 13:37 Method of Notification: Verbal Consult: General Surgery Routine Consulting Provider: Donny Rivera Reason for Consult: Air under the diaphragm EMERGENT Consult: No Notified: Yes Date Notified: 12/03/22 Time Notified: 13:37 Method of Notification: Verbal Reason For Visit: GI BLEED Diagnosis Discharge Diagnosis (1) Perforated bowel: Status: Acute Code(s): K63.1 - Perforation of intestine (nontraumatic) Medications at Discharge Home Medications acetaminophen 325 mg tablet 650 mg (2 x 325 mg) PO Q4H PRN PRN Fever, pain 1-10 #0 tabs 12/19/22 Hospital Course Summary of Care Provided Hospital Course: Patient was admitted through the emergency room with abdominal pain. Patient has CT scan which showed free air. He had just underwent a colonoscopy with cauterization of bleeding 2 days prior. It was felt that the patient had perforated his terminal ileum. He was taken for laparoscopic ileocecectomy. Following surgery he was brought to the floor. He had a prolonged postoperative ileus due to inflammation in the right lower quadrant. It was 2 weeks of off-and-on starting a diet and stopping a diet and placing and removing NG tube and starting TPN. Finally after [address] scan continue to reveal small bowel obstruction he was taken for surgery. During surgery he was found to have dense adhesions in the right lower quadrant due to the inflammation. These were lysed bluntly and the following day he was started back on a diet and having bowel function. Once advance to regular diet he was discharged home. Weight / BMI Weight Weight: 154 lb 8.705 oz Body Mass Index (BMI) 22.1 ABG / Lab / Microbiology Data 12/19/22 06:53 12/19/22 06:53 Laboratory: Laboratory Results - last 24 hr 12/19/22 06:53: WBC 6.9, RBC 2.83 L, Hgb 9.0 L, Hct 26.9 L, MCV 95.1 H, MCH 31.8, MCHC 33.5, RDW Std Deviation 48.3 H, RDW Coeff of Angela 13.9, Plt Count 293, MPV 10.0, Immature Gran % (Auto) 0.700, Neut % (Auto) 73.6 H, Lymph % (Auto) 13.3 L, [place] % (Auto) 10.6 H, Eos % (Auto) 1.4, Baso % (Auto) 0.4, Absolute Neuts (auto) 5.1, Absolute Lymphs (auto) 0.92, Nucleated RBC % 0.6, Sodium 136, Potassium 4.1, Chloride 104, Carbon Dioxide 28.0, Anion Gap 4 L, BUN 12, Creatinine 0.95, Estim Creat Clear Calc 69.69, Est GFR (MDRD) Af Amer 100, Est G FR (MDRD) Non-Af 82, BUN/Creatinine Ratio 12.6, Glucose 112 H, Calcium 8.6, P hosphorus 3.3, Magnesium 2.1, Total Bilirubin 0.40, AST 11 L, ALT 42, Alkaline Phosphatase 64, Total Protein 5.9 L, Albumin 2.9 L, Globulin 3.0, Albumin/Globulin Ratio 1.0 D/C Instructions Discharge Diet: Light diet - advance as tolerated Discharge Activity: May Drive and May Shower Lifting Restrictions: 15 lbs for 4 weeks Call your doctor if your incision/area has: Continuous Slow Oozing, Sudden Increased Bleeding, Increased Pain/ Swelling, Increased Redness, Foul Smelling Discharge and Swelling at the incision site Call your doctor if you observe: Fever of 101 or Higher and Inability to have a bowel movement Remove Dressing in: 1 day (Remove Steri-Strips in 7-10) Cleanse incision/area with: Soap & Water Please Follow Up With: Donny Rivera MD When: Please call to schedule 1 week follow up appointment. [phone] Meaningful Use Info Meaningful Use Diagnoses (Choose all that apply): None applicable Discharge Plan Admission Admit Date/Time: 12/03/22 11:48 Attending Provider: Marci Deng Primary Care Provider: Tim Dobbs Consulting Providers: Donny Rivera; Pk Chaves; Ervin Snider; Stan Leung; Karl Thorpe Discharge Orders/Prescriptions Prescriptions: New acetaminophen 325 mg Tablet 650 mg PO Q4H PRN PRN (Reason: Fever, pain 1-10) Qty: 0 0RF Discontinued pantoprazole [Protonix] 40 mg tablet,delayed release (DR/EC) 40 mg PO BID Qty: 120 0RF Patient Comments: PT STATES JUST STARTED YESTERDAY AND STARTED HAVING ISSUES WITH IT. UNSURE IF HE WANTS TO CONTINUE TAKING DUE TO ISSUES. Referrals / Follow Up: Tim Dobbs, [Primary Care Provider] - Disposition Disposition (needs filled in before D/C Order can be placed): Home, Self Care
[2022-12-19 21:30] VITALS: BP 121/62; PULSE 90; RESP 16; TEMP 36.6; O2SAT 97
[2022-12-20 03:28] VITALS: BP 127/65; PULSE 77; RESP 18; TEMP 36.4; O2SAT 95
[2022-12-20 04:04] VITALS: BMI 21.8
--- NOTE | 2022-12-20 05:59 | PCM.PN.HOSP ---
Reason for Visit Reason for Visit: Diagnoses Iron deficiency anemia secondary to blood loss (chronic) (12/03/22) Decreased white blood cell count, unspecified (12/03/22) Unspecified intestinal obstruction, unspecified as to partial versus complete obstruction (12/03/22) Ileus, unspecified (12/03/22) Perforation of intestine (nontraumatic) (12/03/22) Other postprocedural complications and disorders of digestive system (12/03/22) Subjective Subjective Patient tolerating transition to general regular diet although he does report some mild abdominal cramping but still passing flatus. He has been up and about moving in the room without issue he notes. He still has a very flat affect and remains fatigued during evaluations. Discussed plan of care via general surgery that if he continues to improve and tolerates diet possibility of discharge to home in the next day. Patient denies fevers, chills, nausea, emesis, chest pain or dyspnea. Objective Data Objective Data Vital Signs: Vital Signs Temp Pulse Resp BP Pulse Ox O2 Del Method O2 Flow Rate 97.5 F L 77 18 127/65 H 95 Room Air 2 12/20/22 03:28 12/20/22 03:28 12/20/22 03:28 12/20/22 03:28 12/20/22 03:28 12/20/22 03:28 12/05/22 22:48 Oxygen Flow Rate (L/min) 2 Oxygen Delivery Method Room Air Weight: 152 lb 1.903 oz Body Mass Index (BMI) 21.8 Intake & Output: Intake and Output for Last 24 Hours 12/18/22 12/19/22 12/20/22 23:59 23:59 23:59 Intake Total 409.25 / 409.25 1000 / 1000 Output Total 75 / 75 1200 / 1350 150 / 150 Balance 334.25 / 334.25 -200 / -350 -150 / -150 Lab / Micro Data 12/20/22 07:35 12/20/22 07:35 Labs: Laboratory Results - last 24 hr 12/19/22 06:53: WBC 6.9, RBC 2.83 L, Hgb 9.0 L, Hct 26.9 L, MCV 95.1 H, MCH 31.8, MCHC 33.5, RDW Std Deviation 48.3 H, RDW Coeff of Angela 13.9, Plt Count 293, MPV 10.0, Immature Gran % (Auto) 0.700, Neut % (Auto) 73.6 H, Lymph % (Auto) 13.3 L, [place] % (Auto) 10.6 H, Eos % (Auto) 1.4, Baso % (Auto) 0.4, Absolute Neuts (auto) 5.1, Absolute Lymphs (auto) 0.92, Nucleated RBC % 0.6, Sodium 136, Potassium 4.1, Chloride 104, Carbon Dioxide 28.0, Anion Gap 4 L, BUN 12, Creatinine 0.95, Estim Creat Clear Calc 69.69, Est GFR (MDRD) Af Amer 100, Est GFR (MDRD) Non-Af 82, BUN/Creatinine Ratio 12.6, Glucose 112 H, Calcium 8.6, Phosphorus 3.3, Magnesium 2.1, Total Bilirubin 0.40, AST 11 L, ALT 42, Alkaline Phosphatase 64, Total Protein 5.9 L, Albumin 2.9 L, Globulin 3.0, Albumin/Globulin Ratio 1.0 Physical Exam Narrative Physical Examination: General: Awake, alert, oriented x 3 and cooperative, fatigued appearing, flat affect, laying in the MedSurg bed, notes mild abdominal cramping but otherwise no complaints. Skin: Normal color, normal turgor, no icterus, no cyanosis except occasional staged ecchymoses as well as incisional dressings in place with no drainage. HEENT: AT/NC, EOMI, PERRLA, MMM. Lungs: Mildly diminished, greater bases, proper effort, no rales, ronchi or wheezing. Heart: Regular rate and rhythm; no gallop, rub audible. Abdomen: Soft, mild generalized discomfort but improved since day prior, dressings in place with no drainage, still very mildly distended but no tympany like there was prior, decreased bowel sounds but present. Extremities: No cyanosis, clubbing, or pitting edema. Neurological: Patient awake, alert, oriented as noted, cognitive function intact; pupils equally reactive to light and accommodation, cranial nerves grossly normal, moving all 4 extremities, no focal deficits, strength moderately globally decreased. Psychiatric: Affect appears fatigued, flat, as noted prior low mood suspected secondary to prolonged hospitalization. Assessment & Plan Assessment/Plan (1) Perforated bowel: PLAN: Plan The patient is a 72 y/o M w/ PMHx: recent discharge 12/02/22 following evaluation for lower GI bleed discharged on PPI twice daily unfortunately representing to the [facility] ED on 12/03/22 with onset of lightheadedness as well as bleeding per rectum prompting ED return. #1. Acute Perforated Bowel (distal ileum with free intraperitoneal air following recent colonoscopy) complicated by lower GI bleed with postop ileus: s/p exploratory laparotomy with ileocecectomy 12/03/2022, 12/14/2022 small bowel follow-through with contrast reaching the colon with several bowel movements since. 12/15/22 NGT d/c given improvement with decreased output. Diet initiated 12/15/22 per surgery. 12/15/22 per surgery IV fluids decreased secondary to concern for overload and transitioned off TPN. Upon admission weight 150->up to 171, administered IV lasix 40 mg x 2 doses, last 12/16/22 with weight down into 150 range, will hold on further. 12/17/22 KUB w/ persistent diffuse small bowel distention compatible with history of ileus with a slight improvement from previous KUB. Surgery ordered CT A/P with oral and IV contrast with noted evidence SBO. 12/18/22 Exploratory laparoscopy with lysis of adhesions per Dr. Rivera, 12/19/22 full liquid diet--> 12/20/2022 full transition to regular diet, will continue to monitor and see if tolerates and will await general surgery allowance of discharge 1 clinically appropriate. #2. Acute blood loss anemia secondary to acute presentation with perforated bowel as well as recent lower GI bleed with hematochezia: Colonoscopy demonstrated to bleeding angiodysplasias which were cauterized, EGD with acute gastritis and chronic duodenitis with biopsies performed at that time, hemoglobin unfortunately 12.1 prior to OR and postoperative 6.6 status post PRBC administration of at least 1 unit, hemoglobin 12/15/2022 9.4-->12/18/22 Hgb 9.5-->12/18/22 s/p recent repeat OR as noted Hgb 9.0-->12/19/22 Hgb 9.0-->12/20/22 Hgb 9.3. #3. Severe protein calorie malnutrition: Patient with significant prolonged period without food, previously been on TPN, transitioned by general surgery as noted to diet with slow transition as noted above with then NPO for repeat OR, 12/19/22 again on fulls, nutrition consulted and following. #4. Significant weight gain, significant resuscitation given #1, #2: Upon presentation with weight noted of 151 pounds however today's 170 pounds, discussed with general surgery and patient administered IV Lasix dose x 2 doses total, last 12/16/22 with weight down into 150 range, 12/20/22 weight 152 lbs, will hold on further. #5. DVT prophylaxis: SCDs. #6. CODE status: Full Code. Charges/Coding Visit Charges Inpatient E&M: 86840 Subs Hosp L2
[2022-12-20 08:15] LABS: Absolute Lymphocyte Count 1.41 X10^3/uL (0.83-4.51); Absolute Neutrophil Count 4.4 X10^3/uL (2.0-7.7); Basophil# 0.04 X10^3/uL; Basophil% 0.6 % (0-1); Eosinophil# 0.37 X10^3/uL; Eosinophils% 5.4 % (0-5); Hematocrit 29.5 % (40-54); Hemoglobin 9.3 g/dL (13.0-16.5); Lymphocyte # 1.41 X10^3/ul (0.83-4.51); Lymphocyte % 20.4 % (19-41); Mean Corp Hgb Conc 31.5 g/dL (32-36); Mean Corpuscular Hgb 30.6 pg (27.0-32.0); Mean Platelet Vol. 10.2 fl (6.2-12.0); Monocyte# 0.61 X10^3/uL; Monocyte% 8.8 % (0-10); NRBC Flagged by Analyzer 0 % (0-5); Neutrophil # 4.42 X10^3/uL (2.7-7.7); Neutrophil % 64.1 % (47-70); POSITIVE MORPHOLOGY YES; Platelet Count 305 K/mm3 (150-450); RBC Distribution Width SD 49.7 fl (35.1-43.9); Red Blood Count 3.04 M/mm3 (4.6-6.2); White Blood Count 6.9 K/mm3 (4.4-11.0)
[2022-12-20 08:22] LABS: Differential Indicated SCAN CRITERIA MET
--- NOTE | 2022-12-20 08:42 | PN.SURG_ITS ---
Subjective Subjective Patient is passing gas and tolerating clear liquids. Objective Data Objective Data Vital Signs: Vital Signs Temp Pulse Resp BP Pulse Ox O2 Del Method O2 Flow Rate 97.5 F L 77 18 127/65 H 95 Room Air 2 12/20/22 03:28 12/20/22 03:28 12/20/22 03:28 12/20/22 03:28 12/20/22 03:28 12/20/22 03:28 12/05/22 22:48 Oxygen Flow Rate (L/min) 2 Oxygen Delivery Method Room Air Weight: 152 lb 1.903 oz Body Mass Index (BMI) 21.8 Intake & Output: Intake and Output for Last 24 Hours 12/18/22 12/19/22 12/20/22 23:59 23:59 23:59 Intake Total 409.25 / 409.25 1000 / 1000 Output Total 75 / 75 1200 / 1350 150 / 150 Balance 334.25 / 334.25 -200 / -350 -150 / -150 Lab / Micro Data 12/20/22 07:35 12/19/22 06:53 Labs: Laboratory Results - last 24 hr 12/20/22 07:35: WBC 6.9, RBC 3.04 L, Hgb 9.3 L, Hct 29.5 L, MCV 97.0 H, MCH 30.6, MCHC 31.5 L D, RDW Std Deviation 49.7 H, RDW Coeff of Angela 14.0, Plt Count 305, MPV 10.2, Immature Gran % (Auto) 0.700, Neut % (Auto) 64.1, Lymph % (Auto) 20.4, [place] % (Auto) 8.8, Eos % (Auto) 5.4 H, Baso % (Auto) 0.6, Absolute Neuts (auto) 4.4, Absolute Lymphs (auto) 1.41, Nucleated RBC % 0 Physical Exam Const oriented x3 and no apparent distress Resp normal respiratory effort Cardio regular rate GI soft to palpation GI Narrative: Mild abdominal distention, incisions clean dry and intact, minimally tender to palpation, no peritoneal signs Assessment & Plan Assessment/Plan (1) SBO (small bowel obstruction): PLAN: Patient is postop day 2 from laparoscopic exploration with takedown of adhesions. Patient is having bowel function tolerating full liquid diet?will advance to r egular diet. We will see how patient tolerates he is still a little distended as well. Yolette Clinton M.D. Pager: [phone] [facility] [address] [place] [address], [address] [place] [address] Office: [phone]
[2022-12-20 08:49] LABS: AST(SGOT) 13 U/L (15-37); Alanine Aminotransfer ALT/SGPT 35 U/L (16-61); Albumin, Serum 2.9 g/dL (3.2-5.0); Alkaline Phosphatase 61 U/L (45-117); Anion Gap 9 (5-15); BUN 9 mg/dL (7-18); BUN/Creat Ratio 11.8 RATIO (10-20); Calcium,Total 8.4 mg/dL (8.5-10.1); Chloride 107 mmol/L (98-107); Creatinine, Serum 0.76 mg/dL (0.70-1.30); EST Glomerular Filtration Rate 106 mL/min (>60); Est Glom Filt Rate - Afr Amer 129 mL/min (>60); Estimated Creatinine Clearance 65.17 ml/min; Glucose 97 mg/dL (74-106); Magnesium 2.1 mg/dL (1.6-2.6); Phosphorus 3.8 mg/dL (2.5-4.9); Potassium 3.8 mmol/L (3.5-5.1); Protein, Total 5.9 g/dL (6.4-8.2); Sodium Level 138 mmol/L (136-145)
[2022-12-20 10:09] VITALS: BP 119/63; PULSE 98; RESP 18; TEMP 36.8; O2SAT 96
[2022-12-20 10:58] LABS: Differential Comment SCANNED; Reactive Lymphocyte 1+
[2022-12-20 14:34] VITALS: BP 122/60; PULSE 87; RESP 18; TEMP 36.9; O2SAT 97
[2022-12-20] MEDS: Tamsulosin HCl 0.4 MG Capsule 0.8 MG PO (16:48)
[2022-12-20 22:25] VITALS: BP 135/62; PULSE 91; RESP 16; TEMP 37.2; O2SAT 97
[2022-12-21 04:36] VITALS: BP 138/70; PULSE 96; RESP 16; TEMP 36.8; O2SAT 98
[2022-12-21 06:00] VITALS: BMI 21.9
--- NOTE | 2022-12-21 06:46 | PCM.PN.HOSP ---
Reason for Visit Reason for Visit: Diagnoses Iron deficiency anemia secondary to blood loss (chronic) (12/03/22) Decreased white blood cell count, unspecified (12/03/22) Unspecified intestinal obstruction, unspecified as to partial versus complete obstruction (12/03/22) Ileus, unspecified (12/03/22) Perforation of intestine (nontraumatic) (12/03/22) Other postprocedural complications and disorders of digestive system (12/03/22) Subjective Subjective Patient with no acute events overnight per self and per nursing report. He is tolerating his diet advancement however he does state he still has abdominal cramping occasionally but is continued to have flatus and did have BMs but does still feel mildly distended and has noted crampy. Patient denies fevers, chills, nausea, emesis, abdominal pain, chest pain or dyspnea. Objective Data Objective Data Vital Signs: Vital Signs Temp Pulse Resp BP Pulse Ox O2 Del Method O2 Flow Rate 98.2 F 96 16 138/70 H 98 Room Air 2 12/21/22 04:36 12/21/22 04:36 12/21/22 04:36 12/21/22 04:36 12/21/22 04:36 12/21/22 04:37 12/05/22 22:48 Oxygen Flow Rate (L/min) 2 Oxygen Delivery Method Room Air Weight: 153 lb 0.013 oz Body Mass Index (BMI) 21.9 Intake & Output: Intake and Output for Last 24 Hours 12/19/22 12/20/22 12/21/22 23:59 23:59 23:59 Intake Total 1000 / 1000 740 / 740 Output Total 1200 / 1350 1450 / 1950 500 / 500 Balance -200 / -350 -1450 / -1450 240 / 240 Lab / Micro Data 12/21/22 07:00 12/21/22 07:00 Labs: Laboratory Results - last 24 hr 12/20/22 07:35: WBC 6.9, RBC 3.04 L, Hgb 9.3 L, Hct 29.5 L, MCV 97.0 H, MCH 30.6, MCHC 31.5 L D, RDW Std Deviation 49.7 H, RDW Coeff of Angela 14.0, Plt Count 305, MPV 10.2, Immature Gran % (Auto) 0.700, Neut % (Auto) 64.1, Lymph % (Auto) 20.4, [place] % (Auto) 8.8, Eos % (Auto) 5.4 H, Baso % (Auto) 0.6, Absolute Neuts (auto) 4.4, Absolute Lymphs (auto) 1.41, Nucleated RBC % 0, Differential Comment SCANNED, Reactive Lymphocytes 1+, Sodium 138, Potassium 3.8, Chloride 107, Carbon Dioxide 22.0, Anion Gap 9, BUN 9, Creatinine 0.76, Estim Creat Clear Calc 65.17, Est GFR (MDRD) Af Amer 129, Est GFR (MDRD) Non-Af 106, BUN/Creatinine Ratio 11.8, Glucose 97, Calcium 8.4 L, Phosphorus 3.8, Magnesium 2.1, Total Bilirubin 0.40, AST 13 L, ALT 35, Alkaline Phosphatase 61, Total Protein 5.9 L, Albumin 2.9 L, Globulin 3.0, Albumin/Globulin Ratio 1.0 Physical Exam Narrative Physical Examination: General: Awake, alert, oriented x 3 and cooperative, fatigued appearing, continued flat affect, laying in the bed, still reports mild abdominal cramping. Skin: Normal color, normal turgor, no icterus, no cyanosis except occasional staged ecchymoses as well as incisional dressings in place with no drainage. HEENT: AT/NC, EOMI, PERRLA, MMM. Lungs: Mildly diminished, greater bases, proper effort, no rales, ronchi or wheezing. Heart: Regular rate and rhythm; no gallop, rub audible. Abdomen: Soft, mild generalized discomfort but no rebound or guarding, dressings in place with no drainage, still mildly distended but no tympany and bowel sounds noted throughout. Extremities: No cyanosis, clubbing, or pitting edema. Neurological: Patient awake, alert, oriented as noted, cognitive function intact; pupils equally reactive to light and accommodation, cranial nerves grossly normal, moving all 4 extremities, no focal deficits, strength moderately globally decreased. Psychiatric: Affect appears flat, as noted prior low mood suspected secondary to prolonged hospitalization. Assessment & Plan Assessment/Plan (1) Perforated bowel: PLAN: Plan The patient is a 72 y/o M w/ PMHx: recent discharge 12/02/22 following evaluation for lower GI bleed discharged on PPI twice daily unfortunately representing to the [facility] ED on 12/03/22 with onset of lightheadedness as well as bleeding per rectum prompting ED return. #1. Acute Perforated Bowel (distal ileum with free intraperitoneal air following recent colonoscopy) complicated by lower GI bleed with postop ileus: s/p exploratory laparotomy with ileocecectomy 12/03/2022, 12/14/2022 small bowel follow-through with contrast reaching the colon with several bowel movements since. 12/15/22 NGT d/c given improvement with decreased output. Diet initiated 12/15/22 per surgery. 12/15/22 per surgery IV fluids decreased secondary to concern for overload and transitioned off TPN. Upon admission weight 150->up to 171, administered IV lasix 40 mg x 2 doses, last 12/16/22 with weight down into 150 range, will hold on further. 12/17/22 KUB w/ persistent diffuse small bowel distention compatible with history of ileus with a slight improvement from previous KUB. Surgery ordered CT A/P with oral and IV contrast with noted evidence SBO. 12/18/22 Exploratory laparoscopy with lysis of adhesions per Dr. Rivera, 12/19/22 full liquid diet--> 12/20/2022 full transition to regular diet. 12/21/2022 from discussion with general surgery plan continued evaluation through the evening and if continued toleration of diet, ongoing flatus and bowel movement as long as does not increase his distention significantly possible discharge 12/21/2022. #2. Acute blood loss anemia secondary to acute presentation with perforated bowel as well as recent lower GI bleed with hematochezia: Colonoscopy demonstrated to bleeding angiodysplasias which were cauterized, EGD with acute gastritis and chronic duodenitis with biopsies performed at that time, hemoglobin unfortunately 12.1 prior to OR and postoperative 6.6 status post PRBC administration of at least 1 unit, hemoglobin 12/15/2022 9.4-->12/18/22 Hgb 9.5-->12/18/22 s/p recent repeat OR as noted Hgb 9.0-->12/19/22 Hgb 9.0-->12/20/22 Hgb 9.3-->12/21/22 Hgb 9.2, stable. #3. Severe protein calorie malnutrition: Patient with significant prolonged period without food, previously been on TPN, transitioned by general surgery as noted to diet with slow transition as noted above with then NPO for repeat OR, 12/19/22 again on fulls, nutrition consulted and following. #4. Significant weight gain, significant resuscitation given #1, #2: Upon presentation with weight noted of 151 pounds however today's 170 pounds, discussed with general surgery and patient administered IV Lasix dose x 2 doses total, last 12/16/22 with weight down into 150 range, 12/20/22 weight 152 lbs->12/21/22 weight 153 lbs, will hold on further. #5. DVT prophylaxis: SCDs. #6. CODE status: Full Code. Charges/Coding Visit Charges Inpatient E&M: 85220 Subs Hosp L2
[2022-12-21 07:15] LABS: Absolute Lymphocyte Count 1.44 X10^3/uL (0.83-4.51); Absolute Neutrophil Count 4.2 X10^3/uL (2.0-7.7); Basophil# 0.03 X10^3/uL; Basophil% 0.5 % (0-1); Eosinophil# 0.33 X10^3/uL; Hematocrit 29.2 % (40-54); Hemoglobin 9.2 g/dL (13.0-16.5); Lymphocyte # 1.44 X10^3/ul (0.83-4.51); Lymphocyte % 21.9 % (19-41); Mean Corp Hgb Conc 31.5 g/dL (32-36); Mean Corpuscular Hgb 30.2 pg (27.0-32.0); Mean Corpuscular Volume 95.7 fL (80-94); Mean Platelet Vol. 9.8 fl (6.2-12.0); Monocyte# 0.54 X10^3/uL; Monocyte% 8.2 % (0-10); NRBC Flagged by Analyzer 0 % (0-5); Neutrophil # 4.21 X10^3/uL (2.7-7.7); Neutrophil % 63.8 % (47-70); Platelet Count 277 K/mm3 (150-450); RBC Distribution Width SD 49.7 fl (35.1-43.9); Red Blood Count 3.05 M/mm3 (4.6-6.2); White Blood Count 6.6 K/mm3 (4.4-11.0)
[2022-12-21 07:28] LABS: ALB/GLOB Ratio 0.9 RATIO (0.9-2.4); AST(SGOT) 11 U/L (15-37); Alanine Aminotransfer ALT/SGPT 28 U/L (16-61); Albumin, Serum 2.8 g/dL (3.2-5.0); Alkaline Phosphatase 57 U/L (45-117); Anion Gap 5 (5-15); BUN 11 mg/dL (7-18); BUN/Creat Ratio 15.6 RATIO (10-20); Calcium,Total 8.2 mg/dL (8.5-10.1); Chloride 111 mmol/L (98-107); EST Glomerular Filtration Rate 117 mL/min (>60); Est Glom Filt Rate - Afr Amer 141 mL/min (>60); Estimated Creatinine Clearance 65.54 ml/min; Glucose 95 mg/dL (74-106); Phosphorus 3.2 mg/dL (2.5-4.9); Potassium 3.9 mmol/L (3.5-5.1); Protein, Total 5.8 g/dL (6.4-8.2); Sodium Level 137 mmol/L (136-145)
--- NOTE | 2022-12-21 08:35 | PN.SURG_ITS ---
Subjective Subjective Patient been tolerating regular diet, occasional cramping after eating, abdomen still distended-improving, still having bowel movements. Objective Data Objective Data Vital Signs: Vital Signs Temp Pulse Resp BP Pulse Ox O2 Del Method O2 Flow Rate 98.2 F 96 16 138/70 H 98 Room Air 2 12/21/22 04:36 12/21/22 04:36 12/21/22 04:36 12/21/22 04:36 12/21/22 04:36 12/21/22 07:55 12/05/22 22:48 Oxygen Flow Rate (L/min) 2 Oxygen Delivery Method Room Air Weight: 153 lb 0.013 oz Body Mass Index (BMI) 21.9 Intake & Output: Intake and Output for Last 24 Hours 12/19/22 12/20/22 12/21/22 23:59 23:59 23:59 Intake Total 1000 / 1000 740 / 740 Output Total 1200 / 1350 1450 / 1950 500 / 500 Balance -200 / -350 -1450 / -1450 240 / 240 Lab / Micro Data 12/21/22 07:00 12/21/22 07:00 Labs: Laboratory Results - last 24 hr 12/20/22 07:35: Differential Comment SCANNED, Reactive Lymphocytes 1+, Sodium 138, Potassium 3.8, Chloride 107, Carbon Dioxide 22.0, Anion Gap 9, BUN 9, Creatinine 0.76, Estim Creat Clear Calc 65.17, Est GFR (MDRD) Af Amer 129, Est GFR (MDRD) Non-Af 106, BUN/Creatinine Ratio 11.8, Glucose 97, Calcium 8.4 L, Phosphorus 3.8, Magnesium 2.1, Total Bilirubin 0.40, AST 13 L, ALT 35, Alkaline Phosphatase 61, Total Protein 5.9 L, Albumin 2.9 L, Globulin 3.0, Albumin/Globulin Ratio 1.0 12/21/22 07:00: WBC 6.6, RBC 3.05 L, Hgb 9.2 L, Hct 29.2 L, MCV 95.7 H, MCH 30.2, MCHC 31.5 L, RDW Std Deviation 49.7 H, RDW Coeff of Angela 14.0, Plt Count 277, MPV 9.8, Immature Gran % (Auto) 0.600, Neut % (Auto) 63.8, Lymph % (Auto) 21.9, [place] % (Auto) 8.2, Eos % (Auto) 5.0, Baso % (Auto) 0.5, Absolute Neuts (auto) 4.2, Absolute Lymphs (auto) 1.44, Nucleated RBC % 0, Sodium 137, Potassium 3.9, Chloride 111 H, Carbon Dioxide 21.0, Anion Gap 5, BUN 11, Creatinine 0.70, Estim Creat Clear Calc 65.54, Est GFR (MDRD) Af Amer 141, Est GFR (MDRD) Non-Af 117, BUN/Creatinine Ratio 15.6, Glucose 95, Calcium 8.2 L, Phosphorus 3.2, Magnesium 2.0, Total Bilirubin 0.40, AST 11 L, ALT 28, Alkaline Phosphatase 57, Total Protein 5.8 L, Albumin 2.8 L, Globulin 3.0, Albumin/Globulin Ratio 0.9 Physical Exam Const oriented x3 and no apparent distress Resp normal respiratory effort Cardio regular rate GI soft to palpation GI Narrative: Mild abdominal distention, incisions clean dry and intact, minimally tender to palpation, no peritoneal signs Assessment & Plan Assessment/Plan (1) SBO (small bowel obstruction): PLAN: Patient is postop day 3 from laparoscopic exploration with takedown of adhesions. Patient is having bowel function tolerating regular diet-abdomen still mild to moderately distended. Continues to do well possibly discharge tomorrow. Yolette Clinton M.D. Pager: [phone] [facility] [address] [place] [address], [address] [place] [address] Office: [phone]
[2022-12-21 10:35] VITALS: BP 117/62; PULSE 88; RESP 18; TEMP 36.7; O2SAT 97
[2022-12-21 16:31] VITALS: BP 121/58; PULSE 96; RESP 18; TEMP 36.8; O2SAT 99
[2022-12-21] MEDS: Tamsulosin HCl 0.4 MG Capsule 0.8 MG PO (16:34)
[2022-12-21 22:16] VITALS: BP 121/63; PULSE 94; RESP 16; TEMP 36.8; O2SAT 97
[2022-12-22 03:23] VITALS: BP 122/63; PULSE 94; RESP 18; TEMP 36.8; O2SAT 98
[2022-12-22 05:47] LABS: Absolute Lymphocyte Count 1.19 X10^3/uL (0.83-4.51); Absolute Neutrophil Count 4.6 X10^3/uL (2.0-7.7); Basophil# 0.02 X10^3/uL; Basophil% 0.3 % (0-1); Eosinophil# 0.33 X10^3/uL; Hematocrit 26.7 % (40-54); Hemoglobin 8.5 g/dL (13.0-16.5); Lymphocyte # 1.19 X10^3/ul (0.83-4.51); Mean Corp Hgb Conc 31.8 g/dL (32-36); Mean Corpuscular Hgb 30.7 pg (27.0-32.0); Mean Corpuscular Volume 96.4 fL (80-94); Mean Platelet Vol. 9.3 fl (6.2-12.0); Monocyte% 7.6 % (0-10); NRBC Flagged by Analyzer 0 % (0-5); Neutrophil # 4.55 X10^3/uL (2.7-7.7); Neutrophil % 68.6 % (47-70); Platelet Count 239 K/mm3 (150-450); RBC Distribution Width CV 13.7 % (11.6-14.6); RBC Distribution Width SD 48.8 fl (35.1-43.9); Red Blood Count 2.77 M/mm3 (4.6-6.2); White Blood Count 6.6 K/mm3 (4.4-11.0)
[2022-12-22 05:49] VITALS: BMI 21.9
[2022-12-22 06:33] LABS: ALB/GLOB Ratio 0.9 RATIO (0.9-2.4); AST(SGOT) 13 U/L (15-37); Alanine Aminotransfer ALT/SGPT 28 U/L (16-61); Albumin, Serum 2.6 g/dL (3.2-5.0); Alkaline Phosphatase 49 U/L (45-117); Anion Gap 6 (5-15); BUN 15 mg/dL (7-18); BUN/Creat Ratio 21.2 RATIO (10-20); Chloride 109 mmol/L (98-107); Creatinine, Serum 0.71 mg/dL (0.70-1.30); EST Glomerular Filtration Rate 116 mL/min (>60); Est Glom Filt Rate - Afr Amer 141 mL/min (>60); Estimated Creatinine Clearance 65.54 ml/min; Globulin 2.8 g/dL (2.2-4.2); Glucose 104 mg/dL (74-106); Magnesium 1.8 mg/dL (1.6-2.6); Phosphorus 3.5 mg/dL (2.5-4.9); Potassium 3.8 mmol/L (3.5-5.1); Protein, Total 5.4 g/dL (6.4-8.2); Sodium Level 138 mmol/L (136-145)
[2022-12-22 09:20] VITALS: BP 114/59; PULSE 100; RESP 18; TEMP 36.8; O2SAT 97
--- NOTE | 2022-12-22 11:22 | PCM.PN.SRG ---
Subjective Subjective Patient is evaluated sitting comfortably in bed. Patient continues to note flatus and bowel movements. Patient's main concern is his energy level. He notes feeling strong enough to be discharged. He just notes his energy level has not returned. He is concerned about having a sebaceous cyst on his left upper back removed and then he notes he needs a hernia repaired and was inquiring about the time frame for that to be repaired. He denies nausea, vomiting with diet. He is tolerating his diet well. He is urinating well. Objective Data Objective Data Vital Signs: Vital Signs Temp Pulse Resp BP Pulse Ox O2 Del Method O2 Flow Rate 98.2 F 100 18 114/59 L 97 Room Air 2 12/22/22 09:20 12/22/22 09:20 12/22/22 09:20 12/22/22 09:20 12/22/22 09:20 12/22/22 09:20 12/05/22 22:48 Oxygen Flow Rate (L/min) 2 Oxygen Delivery Method Room Air Weight: 153 lb 0.013 oz Body Mass Index (BMI) 21.9 Intake & Output: Intake and Output for Last 24 Hours 12/20/22 12/21/22 12/22/22 23:59 23:59 23:59 Intake Total 1979 / 1979 300 / 300 Output Total 1450 / 1950 1500 / 1500 Balance -1450 / -1450 480 / 480 300 / 300 Lab / Micro Data 12/22/22 05:34 12/22/22 05:34 Labs: Laboratory Results - last 24 hr 12/22/22 05:34: WBC 6.6, RBC 2.77 L, Hgb 8.5 L, Hct 26.7 L, MCV 96.4 H, MCH 30.7, MCHC 31.8 L, RDW Std Deviation 48.8 H, RDW Coeff of Angela 13.7, Plt Count 239, MPV 9.3, Immature Gran % (Auto) 0.500, Neut % (Auto) 68.6, Lymph % (Auto) 18.0 L, Travis % (Auto) 7.6, Eos % (Auto) 5.0, Baso % (Auto) 0.3, Absolute Neuts (auto) 4.6, Absolute Lymphs (auto) 1.19, Nucleated RBC % 0, Sodium 138, Potassium 3.8, Chloride 109 H, Carbon Dioxide 23.0, Anion Gap 6, BUN 15, Creatinine 0.71, Estim Creat Clear Calc 65.54, Est GFR (MDRD) Af Amer 141, Est GFR (MDRD) Non-Af 116, BUN/Creatinine Ratio 21.2 H, Glucose 104, Calcium 8.0 L, Phosphorus 3.5, Magnesium 1.8, Total Bilirubin 0.30, AST 13 L, ALT 28, Alkaline Phosphatase 49, Total Protein 5.4 L, Albumin 2.6 L, Globulin 2.8, Albumin/Globulin Ratio 0.9 Physical Exam GI GI Narrative: Abdomen- moderately distended. Non-tender. Bowel sounds present. Incisions c/d/i. No erythema or infection noted. Ecchymosis is noted. Assessment & Plan Assessment/Plan (1) Postoperative ileus: PLAN: I am following this patient in conjunction with Dr. Clinton in Dr. Rivera's absence. Patient seems to be progressing very well and appears ready for discharge. He is having bowel function and tolerating a diet. He is not having any abdominal pain. Patent to follow-up with Dr. Rivera as an outpatient in 1 week. At that time he can discuss with Dr. Rivera when to remove the sebaceous cyst on his upper back. Patient may have the PICC line discontinued prior to discharge. I have discussed with the patient that he is to continue Ensure high-protein supplementation at home at least 3 times per day or with each meal. Charges/Coding Visit Charges Inpatient E&M: 81130 Subs Hosp L1 (post-op)
--- NOTE | 2022-12-22 15:31 | DCINST_ITS ---
Discharge Instructions Diet Discharge Diet: Light diet - advance as tolerated Activity Discharge Activity: Return to Normal Activity Weight Bearing Status: Full weight bearing Dressing / Incision Call your doctor if your incision/area has: Continuous Slow Oozing, Sudden Increased Bleeding, Increased Pain/ Swelling, Increased Redness, Foul Smelling Discharge and Swelling at the incision site Call your doctor if you observe: Fever of 101 or Higher and Inability to have a bowel movement Cleanse incision/area with: Soap & Water Follow Up Care Please Follow Up With: Donny Rivera MD Test Results: Test results from this visit will be discussed in further detail at your follow- up appointment, if applicable. Discharge Plan Admission Admit Date/Time: 12/03/22 11:48 Primary Reason for Your Visit: Small bowel obstructio, Perforated distal ileum Attending Provider: Wil York Primary Care Provider: Tim Dobbs Consulting Providers: Donny Rivera; Pk Chaves; Ervin Snider; Stan Leung; Karl Thorpe; Marci Deng Discharge Orders/Prescriptions Prescriptions: New acetaminophen 325 mg Tablet 650 mg PO Q4H PRN PRN (Reason: Fever, pain 1-10) Qty: 0 0RF Discontinued pantoprazole [Protonix] 40 mg tablet,delayed release (DR/EC) 40 mg PO BID Qty: 120 0RF Patient Comments: PT STATES JUST STARTED YESTERDAY AND STARTED HAVING ISSUES WITH IT. UNSURE IF HE WANTS TO CONTINUE TAKING DUE TO ISSUES. Referrals / Follow Up: Tim Dobbs DO [Primary Care Provider] - Within 2 Weeks Donny Rivera MD [Med Staff - Active Staff] - In 1 Week Disposition Disposition (needs filled in before D/C Order can be placed): Home, Self Care
--- NOTE | 2022-12-22 15:41 | PCM.DC.SUM ---
Providers Date of Admission: 12/03/22 Date of Discharge: 12/22/22 Primary Care Physician: Dr. Tim Dobbs, Consultations 12/03/22 13:36 Consult: Gastroenterology Routine Consulting Provider: [facility] Reason for Consult: Rectal bleed EMERGENT Consult: No Notified: Yes Date Notified: 12/03/22 Time Notified: 13:37 Method of Notification: Verbal Consult: General Surgery Routine Consulting Provider: Donny Rivera Reason for Consult: Air under the diaphragm EMERGENT Consult: No Notified: Yes Date Notified: 12/03/22 Time Notified: 13:37 Method of Notification: Verbal Reason For Visit: GI BLEED Diagnosis Discharge Diagnosis (1) Postoperative ileus: Status: Acute Code(s): K91.89 - Other postprocedural complications and disorders of digestive system; K56.7 - Ileus, unspecified Plan 1. Acute perforated bowel secondary to recent colonoscopy #2 acute blood loss anemia secondary to acute perforated bowel and recent lower GI hemorrhage #3 severe protein and caloric malnutrition Medications at Discharge Home Medications acetaminophen 325 mg tablet 650 mg (2 x 325 mg) PO Q4H PRN PRN Fever, pain 1-10 #0 tabs 12/19/22 Hospital Course Operations - (Exploratory laparoscopy with ileocecectomy) Procedures None Summary of Care Provided Minutes Spent on Discharge: 32 Hospital Course: 72-year-old white male was seen in the emergency room at [facility] with complaints of bleeding per rectum, patient had recently been admitted at [facility] for rectal bleeding and underwent colonoscopy and EGD which showed 2 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 EGD at that time showed acute gastritis and chronic duodenitis, patient was discharged home in stable condition only to return the following day to the ER for evaluation of lightheadedness and bleeding per rectum. Hemoglobin in the emergency room was 8.5, he was admitted to PCU for rectal bleeding and seen in consultation by general surgery, his CT scan was reviewed which showed a site of perforation in the terminal ileum, it was recommended the patient undergo exploratory laparoscopy with resection of the terminal ileum and ileocecectomy. Patient underwent a long course in the hospital and improved slowly, he was seen by PT and OT. On 12/22/2022, patient was seen and examined: On examination he appeared in good health and spirits. Vital signs as documented. Skin warm and dry and without overt rashes. Neck without JVD, neck was supple, trachea midline, thyroid was normal. Lungs clear bilaterally, normal air movement was noted. Heart exam notable for regular rhythm, normal sounds and absence of murmurs, rubs or gallops. Abdomen unremarkable and without evidence of organomegaly, masses, or abdominal aortic enlargement. Bowel sounds are present, abdomen is not distended. Extremities nonedematous, no cyanosis was noted, no clubbing was noted. Neuro: Cranial nerves II through XII are grossly intact, no focal motor deficits were noted, sensation to light touch and pinprick intact, motor exam 5/5 throughout. Psych: Patient is alert and oriented x3, he does not appear anxious or depressed, he does not appear agitated. Patient appears stable for discharge home on 12/22/2022. Weight / BMI Weight Weight: 69.4 kg Body Mass Index (BMI) 21.9 ABG / Lab / Microbiology Data 12/22/22 05:34 12/22/22 05:34 Laboratory: Laboratory Results - last 24 hr 12/22/22 05:34: WBC 6.6, RBC 2.77 L, Hgb 8.5 L, Hct 26.7 L, MCV 96.4 H, MCH 30.7, MCHC 31.8 L, RDW Std Deviation 48.8 H, RDW Coeff of Angela 13.7, Plt Count 239, MPV 9.3, Immature Gran % (Auto) 0.500, Neut % (Auto) 68.6, Lymph % (Auto) 18.0 L, [place] % (Auto) 7.6, Eos % (Auto) 5.0, Baso % (Auto) 0.3, Absolute Neuts (auto) 4.6, Absolute Lymphs (auto) 1.19, Nucleated RBC % 0, Sodium 138, Potassium 3.8, Chloride 109 H, Carbon Dioxide 23.0, Anion Gap 6, BUN 15, Creatinine 0.71, Estim Creat Clear Calc 65.54, Est GFR (MDRD) Af Amer 141, Est GFR (MDRD) Non-Af 116, BUN/Creatinine Ratio 21.2 H, Glucose 104, Calcium 8.0 L, Phosphorus 3.5, Magnesium 1.8, Total Bilirubin 0.30, AST 13 L, ALT 28, Alkaline Phosphatase 49, Total Protein 5.4 L, Albumin 2.6 L, Globulin 2.8, Albumin/Globulin Ratio 0.9 D/C Instructions Discharge Diet: Light diet - advance as tolerated Weight Bearing Status: Full weight bearing Call your doctor if your incision/area has: Continuous Slow Oozing, Sudden Increased Bleeding, Increased Pain/ Swelling, Increased Redness, Foul Smelling Discharge and Swelling at the incision site Call your doctor if you observe: Fever of 101 or Higher and Inability to have a bowel movement Cleanse incision/area with: Soap & Water Please Follow Up With: Donny Rivera MD When: Please call to schedule 1 week follow up appointment. [phone] Meaningful Use Info Meaningful Use Diagnoses (Choose all that apply): None applicable Discharge Plan Admission Admit Date/Time: 12/03/22 11:48 Primary Reason for Your Visit: Small bowel obstructio, Perforated distal ileum Attending Provider: Wil York Primary Care Provider: Tim Dobbs Consulting Providers: Donny Rivera; Pk Chaves; Ervin Snider; Stan Leung; Karl Thorpe; Marci Deng Discharge Orders/Prescriptions Prescriptions: New acetaminophen 325 mg Tablet 650 mg PO Q4H PRN PRN (Reason: Fever, pain 1-10) Qty: 0 0RF Discontinued pantoprazole [Protonix] 40 mg tablet,delayed release (DR/EC) 40 mg PO BID Qty: 120 0RF Patient Comments: PT STATES JUST STARTED YESTERDAY AND STARTED HAVING ISSUES WITH IT. UNSURE IF HE WANTS TO CONTINUE TAKING DUE TO ISSUES. Referrals / Follow Up: Donny Rivera MD [Med Staff - Active Staff] - In 1 Week (The office will be calling you to schedule this appt. If you haven't heard from the office by 12-25-22 please call the office to schedule an appt. ) Tim Dobbs DO [Primary Care Provider] - 01/05/23 3:00 am (The address to the office where your appt is [address] [place] [address]. If you have any questions please call [phone]. ) Disposition Disposition (needs filled in before D/C Order can be placed): Home, Self Care Charges/Coding Visit Charges Inpatient E&M: 61959 Disch Hosp >30min
--- NOTE | 2022-12-22 16:49 | CASEMGMT ---
Patient had order for discharge. RN CM in to inquire about needs at discharge. Patient denies needs at discharge. Patient had no further questions or concerns at this time.
== END 2022-12-22 18:02 | disposition home or self-care (01) | DRG 329 ==
LOC: ED 11:47 → PCU 11:57
PROVIDERS: Family Medicine; Internal Medicine; Physician Assistant; Surgery; Admitting Provider Hospitalist; Emergency Provider Emergency Medicine; PCP Family Medicine; Visit Provider Internal Medicine
PROC: 0DTH0ZZ Resection of Cecum, Open Approach (ICD-10-PCS; CPT 44202; principal; 2022-12-03 15:40)
PROC: 0DN84ZZ Release Small Intestine, Percutaneous Endoscopic Approach (ICD-10-PCS; CPT 49320; principal; 2022-12-18 14:15)
DX: K91.89 Other postprocedural complications and disorders of digestive system (principal); K63.1 Perforation of intestine (nontraumatic); E43 Unspecified severe protein-calorie malnutrition; K55.21 Angiodysplasia of colon with hemorrhage; K29.01 Acute gastritis with bleeding; K29.81 Duodenitis with bleeding; K57.31 Diverticulosis of large intestine without perforation or abscess with bleeding; K56.51 Intestinal adhesions [bands], with partial obstruction; D62 Acute posthemorrhagic anemia; K40.90 Unilateral inguinal hernia, without obstruction or gangrene, not specified as recurrent; D72.819 Decreased white blood cell count, unspecified; L72.3 Sebaceous cyst; Z68.21 Body mass index [BMI] 21.0-21.9, adult; Z79.899 Other long term (current) drug therapy; Z87.891 Personal history of nicotine dependence
CPT/HCPCS: 36415; 36569; 74018; 74174; 74177; 74250; 80048; 80053; 82962; 83735; 84100; 85014; 85018; 85025; 85027; 85610; 85730; 86850; 86900; 86901; 86920; 86922; 88307; 93005; 94668; 97110; 97161; 97166; 97530; 97535; 97803; 99285; J7030; J7050; J7120; P9016; Q9967; A4216; C1760; J1940; J2405; J3490

== ENCOUNTER 2023-01-31 14:03 | Observation (INO) | payer MEDICARE, MEDICAID, SELFPAY ==
[2023-01-31 14:04] VITALS: BP 161/68; PULSE 104; RESP 18; TEMP 36.6; O2SAT 100; BMI 21.2
--- NOTE | 2023-01-31 14:16 | ED.VIS.CHEST ---
HPI History of Present Illness Chief Complaint: Chest Pain Narrative Narrative: 72-year-old male presents with chest pain and squeezing of his heart that he has had intermittently for the last 3 weeks. There is no predictability to it, and he states it can last anywhere from minutes to 30 minutes to an hour. He denies any nausea or vomiting with this. No shortness of breath. Of note, he states he has had history of colon resection and bleeding ulcers recently. Before while he might of had chest pain, he states this is more of a squeezing sensation of his heart. He states that he can walk for miles and it not happen, but then out of the blue it will hit and when it does it is very uncomfortable. [facility] Medical History GI bleed GI bleed Perforated bowel Sebaceous cyst Home Medications NK 01/31/23 [History Last Taken Unknown] Allergy/AdvReac Type Severity Reaction Status Date / Time No Known Allergies Allergy Verified 01/31/23 14:07 Surgical History S/P exploratory laparotomy S/P partial colectomy Social History Smoking Status: Former smoker ROS ROS ED ROS Narrative Constitutional: No fever, no chills. HEENT: No sore throat. No neck pain. No loss of vision. No rhinorrhea. Cardiovascular: Left-sided, squeezing chest pain. No palpitations. No pedal edema. Respiratory: No cough, no shortness of breath. Abdominal: No abdominal pain. No nausea. No vomiting. Genitourinary: No dysuria. No hematuria. Musculoskeletal: No myalgias. No arthralgias. Neurologic: No headaches. No dizziness. No lightheadedness. Skin: No rash. No change in color. Psychiatric: No depression. No anxiety. EXAM Physical Exam Narrative Exam Narrative: Afebrile. Vital signs noted. HEENT: Normocephalic. Atraumatic. PERRL, EOMI. Neck soft and supple. No point tenderness or step off. Cardiovascular: Regular rate and rhythm with intermittent tachycardia. No murmurs, rubs, or gallops appreciated. Respiratory: No tachypnea. Lungs clear to auscultation bilaterally. Gastrointestinal: Abdomen soft, nontender, with normoactive bowel sounds. No rebound or guarding. Neurological: Awake. Alert. Nonfocal, nonlateralizing. Skin: No rash. Normal color. No pallor. Musculoskeletal: No pedal edema. Full range of motion extremities. Const Vital Signs: 01/31/23 14:04 01/31/23 14:30 01/31/23 14:46 Temperature 97.8 F Temperature Source Temporal Pulse Rate 104 H Respiratory Rate 18 Respiratory Effort Normal Blood Pressure 161/68 H Blood Pressure Mean 99 Pulse Ox 100 98 Oxygen Delivery Method Room Air Room Air MDM MDM MDM Narrative Medical decision making narrative: Sounds as if the patient is describing more coronary artery vasospasm with a squeezing sensation of his heart. In the differential diagnosis as well would be pneumonia, pneumothorax, or acute coronary syndrome. I have low suspicion for pneumothorax because the history and physical is not supportive of that, additionally he has a pulse ox of 100% on room air and equal breath sounds bilaterally. History and physical does not also support pneumonia. I have low concern for pulmonary embolism as his pain is intermittent, only left-sided and he has a pulse ox of 100% on room air without evidence of hypoxia. EKG was obtained and interpreted by myself independently as normal sinus rhythm at 100 bpm without ectopy or acute ST changes. No STEMI. I reviewed the patient's laboratory work, and he has a normal white count of 8.2, hemoglobin normal at 13.0, platelet count normal at 264. His sodium is normal at 139 with a potassium of 4.2, glucose normal at 106. High-sensitivity troponin is 6. Chest x-ray in 1 view interpreted by myself independently shows no evidence of an acute process, no pneumothorax or consolidation. I reviewed the radiology report which confirms my independent interpretation. Patient states that he has some squeezing chest pain. While I do think he may be having more coronary artery vasospasm, he may be having unstable angina as well. He has never had a stress test. I did page the day camp unit leader to see about administering diltiazem, but given his symptoms, his age, and the fact he does not follow-up with a primary care physician and has not had a stress test, I will discuss the patient with the hospitalist for observation. Patient is in stable condition. Regarding aspirin use, given his history of GI bleeding I will not administer here in the emergency department, but the patient did state that he had a headache yesterday and took a full strength aspirin yesterday, within 24 [address] Patient discussed with Dr. Chaves. Disposition is assigned to observation. History & Record Review Discussion w/independent historian: Patient Additional record(s) reviewed:: Prior inpatient record, Prior ED visit and Prior labs Lab Data Attestation: I reviewed the patient's lab results. Labs: Laboratory Results - last 24 hr 01/31/23 14:25 WBC 8.2 RBC 4.43 L Hgb 13.0 Hct 41.4 MCV 93.5 MCH 29.3 MCHC 31.4 L RDW Std Deviation 46.4 H RDW Coeff of Angela 13.6 Plt Count 264 MPV 10.3 Immature Gran % (Auto) 0.200 Neut % (Auto) 59.1 Lymph % (Auto) 29.8 [place] % (Auto) 7.7 Eos % (Auto) 2.3 Baso % (Auto) 0.9 Absolute Neuts (auto) 4.8 Absolute Lymphs (auto) 2.43 Nucleated RBC % 0 Sodium 139 Potassium 4.2 Chloride 107 Carbon Dioxide 26.0 Anion Gap 6 BUN 17 Creatinine 0.87 Estim Creat Clear Calc 72.88 Est GFR (MDRD) Af Amer 110 Est GFR (MDRD) Non-Af 91 BUN/Creatinine Ratio 19.5 Glucose 106 Calcium 9.4 Troponin I High Sens 6 Radiography Chest X-Ray - ED: 1 View and Read by ED Physician Diagnostic Testing: Clinical Impression(s) from Imaging Studies Chest X-Ray 01/31/23 14:35 IMPRESSION: No radiographic evidence of acute cardiopulmonary disease. Electronically Signed: Robinson Garcia MD at 14:51 EDT , Discharge Plan Dx/Rx/DC Orders Clinical Impression: History of GI bleed, Coronary artery vasospasm, Chest pain Disposition Disposition: Acute Care [facility]
[2023-01-31] MEDS: 0.9% Normal Saline (1000mL) 1,000 ML 150 ML IV (14:28)
--- NOTE | 2023-01-31 14:35 | RAD_ITS ---
INDICATION: chest pain EXAMINATION/TECHNIQUE: X-RAY - XR Chest 1 View COMPARISON: No relevant prior comparison study available FINDINGS: LINES/DEVICES: None. LUNGS: No consolidation, edema or effusion. No pneumothorax. MEDIASTINUM AND CARDIOVASCULAR STRUCTURES: Cardiac silhouette not enlarged. Central airways and mediastinal contour are unremarkable. BONES AND SOFT TISSUES: Unremarkable. RAD/Chest 1 View (Portable) IMPRESSION: No radiographic evidence of acute cardiopulmonary disease. Electronically Signed: Robinson Garcia MD at 14:51 EDT ,
[2023-01-31 14:46] VITALS: O2SAT 98
[2023-01-31 14:47] LABS: Absolute Lymphocyte Count 2.43 X10^3/uL (0.83-4.51); Absolute Neutrophil Count 4.8 X10^3/uL (2.0-7.7); Basophil# 0.07 X10^3/uL; Basophil% 0.9 % (0-1); Eosinophil# 0.19 X10^3/uL; Eosinophils% 2.3 % (0-5); Hematocrit 41.4 % (40-54); Lymphocyte # 2.43 X10^3/ul (0.83-4.51); Lymphocyte % 29.8 % (19-41); Mean Corp Hgb Conc 31.4 g/dL (32-36); Mean Corpuscular Hgb 29.3 pg (27.0-32.0); Mean Corpuscular Volume 93.5 fL (80-94); Mean Platelet Vol. 10.3 fl (6.2-12.0); Monocyte# 0.63 X10^3/uL; Monocyte% 7.7 % (0-10); NRBC Flagged by Analyzer 0 % (0-5); Neutrophil # 4.81 X10^3/uL (2.7-7.7); Neutrophil % 59.1 % (47-70); Platelet Count 264 K/mm3 (150-450); RBC Distribution Width CV 13.6 % (11.6-14.6); RBC Distribution Width SD 46.4 fl (35.1-43.9); Red Blood Count 4.43 M/mm3 (4.6-6.2); White Blood Count 8.2 K/mm3 (4.4-11.0)
[2023-01-31 15:03] LABS: Anion Gap 6 (5-15); BUN 17 mg/dL (7-18); BUN/Creat Ratio 19.5 RATIO (10-20); Calcium,Total 9.4 mg/dL (8.5-10.1); Chloride 107 mmol/L (98-107); Creatinine, Serum 0.87 mg/dL (0.70-1.30); EST Glomerular Filtration Rate 91 mL/min (>60); Est Glom Filt Rate - Afr Amer 110 mL/min (>60); Estimated Creatinine Clearance 72.88 ml/min; Glucose 106 mg/dL (74-106); Potassium 4.2 mmol/L (3.5-5.1); Sodium Level 139 mmol/L (136-145); Troponin-I HS (w/2H Reflex) 6 pg/mL (3.0-78.0)
--- NOTE | 2023-01-31 15:34 | PCM.HP.STD ---
HPI - General General Date of Admission: 01/31/23 Date of Service: 01/31/23 Chief Complaint: Intermittent chest pain HPI Narrative SRINIVAS OG, is a 72 M with history of recent prolonged hospitalization (12/03/2022 to 12/22/2022) for acute perforated bowel secondary to recent colonoscopy complicated by GI bleed and severe ileus who [place] [facility] [place] with intermittent chest pain. Patient seen at bedside in the ED. Sitting comfortably in bed, conversing normally, no acute distress. Patient states that he has been having intermittent chest pain over the last 2 to 3 weeks. Pain is located in center to left center of chest. Does not radiate down the arms or up into the neck or head. No abdominal pain, nausea/vomiting with episodes. Patient states these episodes happen at rest and go away on their own. Can last for few minutes or up to a few hours. Has no history of cardiac disease. Has never had chest pain like this before. Patient was discharged home from the hospital at the end of November. Lives on his own, has been able to do everything around the house for himself for the most part. He does report worsening fatigue with activity over the past several weeks. Patient otherwise denies any fevers or chills, shortness of breath at rest or with exertion, abdominal pain or distention, lightheadedness or dizziness, lower extremity edema. No other acute concerns. Vitals in ED notable for mild hypertension with SBP in 160s and mild sinus tachycardia with heart rate in 100s, otherwise unremarkable. Labs notable for WBC count 8, hemoglobin 13.0, platelets 264, INR 1.2, sodium 139, potassium 4.2, chloride 107, bicarb 26, BUN 17, creatinine 0.87, initial troponin 6 with repeat pending. EKG showed sinus tachycardia with heart rate of 100, no ST changes. Chest x-ray nonacute. [facility] Medical History GI bleed GI bleed Perforated bowel Sebaceous cyst Home Medications NK 01/31/23 [History Last Taken Unknown] Allergy/AdvReac Type Severity Reaction Status Date / Time No Known Allergies Allergy Verified 01/31/23 14:07 Surgical History S/P exploratory laparotomy S/P partial colectomy Social History Smoking Status: Former smoker ROS Constitutional Constitutional: Reports fatigue; Denies change in weight, chills, fever(s) or weakness Eyes Eyes: Denies change in vision Cardiovascular Cardiovascular: Reports chest pain; Denies dyspnea on exertion, edema, lightheadedness, orthopnea, palpitations, rapid heart rate or syncope Respiratory/Chest Respiratory/Chest: Denies cough or shortness of breath at rest Gastrointestinal Gastrointestinal: Denies abdominal pain, constipation, diarrhea, nausea or vomiting Genitourinary Genitourinary: Denies dysuria Musculoskeletal Musculoskeletal: Denies back pain Neurologic Neurologic: Denies confusion, dizziness, headache(s), numbness or paresthesias Psychiatric Psychiatric: Reports anxiety; Denies depression Vital Signs Vital Signs Vital Signs: 01/31/23 14:04 01/31/23 14:30 01/31/23 14:46 Temperature 97.8 F Temperature Source Temporal Pulse Rate 104 H Respiratory Rate 18 Respiratory Effort Normal Blood Pressure 161/68 H Blood Pressure Mean 99 Pulse Ox 100 98 Oxygen Delivery Method Room Air Room Air Weight Weight: 67.132 kg Body Mass Index (BMI) 21.2 Physical Exam Const alert and oriented x3 Constitutional Narrative: Pleasant elderly male, sitting comfortably in bed, conversing normally, no acute distress. General Appearance: cooperative and comfortable HEENT normocephalic, head/scalp atraumatic, hearing grossly normal bilaterally, nasal mucous membranes and turbinates normal and moist oral mucous membranes Eyes PERRL, EOMs intact bilaterally and conjunctivae normal Neck full ROM, no lymphadenopathy and supple Lymph Lymphatic: no lymphadenopathy noted Chest inspection of chest normal Resp normal respiratory effort, normal air movement, no use of accessory muscles and clear to auscultation bilaterally Cardio regular rate, regular rhythm, no murmurs and peripheral pulses 2+ throughout GI normal to inspection, nondistended, normoactive bowel sounds, soft to palpation, non-tender and non-distended Back/Spine normal ROM Extremity normal to inspection, full ROM and no pedal edema Skin no rashes or lesions noted Psych mental status grossly normal Results Lab / Micro Data 01/31/23 14:25 01/31/23 14:25 Labs: Laboratory Results - last 24 hr 01/31/23 14:25: WBC 8.2, RBC 4.43 L, Hgb 13.0, Hct 41.4, MCV 93.5, MCH 29.3, MCHC 31.4 L, RDW Std Deviation 46.4 H, RDW Coeff of Angela 13.6, Plt Count 264, MPV 10.3, Immature Gran % (Auto) 0.200, Neut % (Auto) 59.1, Lymph % (Auto) 29.8, [place] % (Auto) 7.7, Eos % (Auto) 2.3, Baso % (Auto) 0.9, Absolute Neuts (auto) 4.8, Absolute Lymphs (auto) 2.43, Nucleated RBC % 0, Sodium 139, Potassium 4.2, Chloride 107, Carbon Dioxide 26.0, Anion Gap 6, BUN 17, Creatinine 0.87, Estim Creat Clear Calc 72.88, Est GFR (MDRD) Af Amer 110, Est GFR (MDRD) Non-Af 91, BUN/Creatinine Ratio 19.5, Glucose 106, Calcium 9.4, Troponin I High Sens 6 Radiology Impression Chest X-Ray 01/31/23 14:35 IMPRESSION: No radiographic evidence of acute cardiopulmonary disease. Electronically Signed: Robinson Garcia MD at 14:51 EDT , Assessment & Plan Assessment/Plan (1) Chest pain: PLAN: Plan Patient is a 72-year-old male with history of recent prolonged hospitalization (12/03/2022 to 12/22/2022) for acute perforated bowel secondary to recent colonoscopy complicated by GI bleed and severe ileus who [place] [facility] [place] with intermittent chest pain. 1. Chest pain Unclear etiology at this time but concern for possible CAD versus coronary vasospasm. Patient reports intermittent central to left-sided chest pain over the last 2 to 3 weeks. Pain is not associated with activity and goes away on its own. Patient has no cardiac history, takes no medications at home. Last episode of chest pain was this morning, lasted for about 30 minutes. Mildly hypertensive and tachycardic on admit. EKG shows normal sinus rhythm, no ST changes. Initial troponin negative. No other significant lab abnormalities. Pain not reproducible on exam. Does appear hemoconcentrated on labs and exam, given 1 L of IV fluids in ED. ? Admit under observation status to PCU. Nuclear stress test ordered. Echo ordered. Trend troponins. Lipid panel ordered, notably had normal A1c and TSH about 2 months ago. LFTs ordered. Daily CBC and BMP. Sublingual nitroglycerin as needed ordered. Okay for regular diet for now. 2. Elevated blood pressure No documented history of hypertension. BP consistently in 160s systolic in ED. Also with sinus tachycardia to 100s consistently. May be secondary to stress and anxiety due to concern for his chest pain. Patient does not seem to be in acute pain or distress on exam. ? IV labetalol 10 mg every 4 hours as needed ordered for SBP greater than 170 for now. Monitor. 3. Chronic anemia, improved Hemoglobin 13.0 on admission, most recent hemoglobin values were an 8 and 9 range during previous admission due to acute blood loss anemia. Suspect patient is somewhat dehydrated, IV fluids given in ED. ? Follow-up a.m. CBC. 4. Chronic fatigue Patient lives at home on his own. Despite prolonged hospitalization recently, he was stable to be discharged home without issue. Is still able to do everything himself around the house, but states he has been more fatigued recently with any activity. ? PT/OT/case management consulted. 5. Recent perforated bowel complicated by severe ileus Has been using Metamucil as needed at home for constipation. Has largely been having regular bowel movements over the last few weeks. Denies any abdominal pain or distention on admit. Abdomen soft, nontender and nondistended in ED. ? Senna and MiraLAX as needed ordered, monitor. DVT prophylaxis: Lovenox CODE STATUS: Full code, verified Expected disposition: Home, 1 to 2 days Total clinical time spent by myself addressing the patient's medical issues, reviewing all the data, and collaborating with patient's care team: 55 minutes. Charges/Coding Visit Charges Inpatient E&M: 80866 Init Hosp L2
[2023-01-31 15:47] VITALS: BP 166/86; PULSE 105; RESP 18; TEMP 37; O2SAT 99
[2023-01-31 16:25] VITALS: BMI 21.3
[2023-01-31 16:28] LABS: International Normalized Ratio 1.2; Prothrombin Time (Protime)PT. 15.3 SECONDS (11.7-14.9)
[2023-01-31 16:33] VITALS: BP 164/77; PULSE 105; RESP 18; TEMP 36.8; O2SAT 100
[2023-01-31 16:33] LABS: Reflex Troponin-HS? (from REC) Y
--- NOTE | 2023-01-31 16:58 | EKG12_ITS ---
Test Reason : CP ADMIT Blood Pressure : / mmHG Vent. Rate : 109 BPM Atrial Rate : 109 BPM P-R Int : 148 ms QRS Dur : 078 ms QT Int : 350 ms P-R-T Axes : 066 -02 044 degrees QTc Int : 471 ms Sinus tachycardia Otherwise normal ECG When compared with ECG of 31-JAN-2023 14:34, MANUAL COMPARISON REQUIRED, DATA IS UNCONFIRMED Confirmed by SHREYA LANE, KRISSY ([id number]), city editor NICHOLAS HIGGINS ([id number]) on 02/19/2023 11:31:54 AM Referred By: Confirmed By:KRISSY CASH MD
[2023-01-31 17:12] LABS: Troponin-I HS 5 pg/mL (3.0-78.0)
[2023-01-31 17:16] VITALS: O2SAT 99
[2023-01-31] MEDS: LORazepam 2 MG/ML Syringe 0.5 MG IV (17:24)
[2023-01-31] MEDS: 0.9% Normal Saline (1000mL) 1,000 ML 999 ML IV (17:24)
[2023-01-31 18:31] LABS: AST(SGOT) 18 U/L (15-37); Alanine Aminotransfer ALT/SGPT 30 U/L (16-61); Albumin, Serum 3.7 g/dL (3.2-5.0); Alkaline Phosphatase 85 U/L (45-117); Bilirubin, Direct 0.13 mg/dL (0.00-0.30); Cholesterol 189 mg/dL (200); Globulin 3.4 g/dL (2.2-4.2); High Density Lipoprotein 49 mg/dL; Protein, Total 7.1 g/dL (6.4-8.2); Triglycerides 185 mg/dL; Very Low Density Lipoprotein 37 mg/dL (5-40)
[2023-01-31 20:45] LABS: Troponin-I HS 6 pg/mL (3.0-78.0)
[2023-01-31 21:43] VITALS: BP 151/84; PULSE 85; RESP 18; TEMP 37; O2SAT 95
[2023-02-01 03:10] VITALS: BP 155/88; PULSE 88; RESP 16; TEMP 36.5; O2SAT 96
[2023-02-01 06:03] LABS: Hematocrit 33.9 % (40-54); Hemoglobin 10.6 g/dL (13.0-16.5); Mean Corp Hgb Conc 31.3 g/dL (32-36); Mean Corpuscular Hgb 29.2 pg (27.0-32.0); Mean Corpuscular Volume 93.4 fL (80-94); Mean Platelet Vol. 10.8 fl (6.2-12.0); Platelet Count 207 K/mm3 (150-450); RBC Distribution Width CV 13.8 % (11.6-14.6); RBC Distribution Width SD 46.6 fl (35.1-43.9); Red Blood Count 3.63 M/mm3 (4.6-6.2); White Blood Count 5.8 K/mm3 (4.4-11.0)
[2023-02-01 07:30] LABS: Anion Gap 5 (5-15); BUN 15 mg/dL (7-18); BUN/Creat Ratio 20.9 RATIO (10-20); Chloride 111 mmol/L (98-107); Creatinine, Serum 0.72 mg/dL (0.70-1.30); EST Glomerular Filtration Rate 114 mL/min (>60); Est Glom Filt Rate - Afr Amer 138 mL/min (>60); Estimated Creatinine Clearance 63.66 ml/min; Glucose 84 mg/dL (74-106); Sodium Level 141 mmol/L (136-145)
[2023-02-01 07:40] VITALS: O2SAT 98
[2023-02-01 08:30] VITALS: BP 158/87; PULSE 91; RESP 18; TEMP 36.6; O2SAT 98
--- NOTE | 2023-02-01 10:22 | PN_ITS ---
Subjective Subjective Patient seen and examined. He was admitted with a complaint of chest pain. Chest pain hasnt recurred again. He denied any fever, chills, cough, chest pain, palpitations, dizziness, nausea, vomiting or any other symptoms. Review of systems is otherwise negative. He is for stress test tomorrow. Objective Data Objective Data Vital Signs: Vital Signs Temp Pulse Resp BP Pulse Ox O2 Del Method 97.8 F 91 18 158/87 H 98 Room Air 02/01/23 08:30 02/01/23 08:30 02/01/23 08:30 02/01/23 08:30 02/01/23 08:30 02/01/23 08:30 Oxygen Delivery Method Room Air Weight: 148 lb 9.465 oz Body Mass Index (BMI) 21.3 Intake & Output: Intake and Output for Last 24 Hours 01/30/23 01/31/23 02/01/23 23:59 23:59 23:59 Intake Total 1330 / 1330 Balance 1330 / 1330 Lab / Micro Data 02/01/23 05:13 02/01/23 05:13 Labs: Laboratory Results - last 24 hr 01/31/23 14:25: WBC 8.2, RBC 4.43 L, Hgb 13.0, Hct 41.4, MCV 93.5, MCH 29.3, MCH C 31.4 L, RDW Std Deviation 46.4 H, RDW Coeff of Angela 13.6, Plt Count 264, MPV 10.3, Immature Gran % (Auto) 0.200, Neut % (Auto) 59.1, Lymph % (Auto) 29.8, [place] % (Auto) 7.7, Eos % (Auto) 2.3, Baso % (Auto) 0.9, Absolute Neuts (auto) 4.8, Absolute Lymphs (auto) 2.43, Nucleated RBC % 0, Sodium 139, Potassium 4.2, Chloride 107, Carbon Dioxide 26.0, Anion Gap 6, BUN 17, Creatinine 0.87, Estim Creat Clear Calc 72.88, Est GFR (MDRD) Af Amer 110, Est GFR (MDRD) Non-Af 91, BUN/Creatinine Ratio 19.5, Glucose 106, Calcium 9.4, Troponin I High Sens 6 01/31/23 16:05: PT 15.3 H, INR 1.2 01/31/23 16:45: Total Bilirubin 0.50, Direct Bilirubin 0.13, AST 18, ALT 30, Alkaline Phosphatase 85, Troponin I High Sens 5, Total Protein 7.1, Albumin 3.7, Globulin 3.4, Triglycerides 185, Cholesterol 189, LDL Cholesterol 103, VLDL Cholesterol 37, HDL Cholesterol 49 01/31/23 20:06: Troponin I High Sens 6 02/01/23 05:13: WBC 5.8, RBC 3.63 L, Hgb 10.6 L, Hct 33.9 L, MCV 93.4, MCH 29.2, MCHC 31.3 L, RDW Std Deviation 46.6 H, RDW Coeff of Angela 13.8, Plt Count 207, MPV 10.8, Sodium 141, Potassium 4.0, Chloride 111 H, Carbon Dioxide 25.0, Anion Gap 5, BUN 15, Creatinine 0.72, Estim Creat Clear Calc 63.66, Est GFR (MDRD) Af Amer 138, Est GFR (MDRD) Non-Af 114, BUN/Creatinine Ratio 20.9 H, Glucose 84, Calcium 9.0 Radiography Diagnostic Testing: Radiology Impression Chest X-Ray 01/31/23 14:35 IMPRESSION: No radiographic evidence of acute cardiopulmonary disease. Electronically Signed: Robinson Garcia MD at 14:51 EDT , Physical Exam Const alert, oriented x3 and no apparent distress General Appearance: cooperative and well developed HEENT normocephalic, head/scalp atraumatic, moist oral mucous membranes and oropharynx normal Eyes PERRL and EOMs intact bilaterally Neck no lymphadenopathy, supple and no JVD Lymph Lymphatic: no lymphadenopathy noted and no lymphedema noted Resp normal respiratory effort, normal air movement and clear to auscultation bilaterally Cardio regular rate, regular rhythm, S1 normal heart sound, S2 normal heart sound and no murmurs Peripheral Pulses: pulses 2+ throughout GI normal to inspection, nondistended, normoactive bowel sounds, soft to palpation, non-tender and non-distended Extremity normal capillary refill, no clubbing, cyanosis or edema and no calf tenderness Skin General Skin Exam: no breakdown and turgor normal Neuro CN's II-XII intact bilaterally, no focal motor deficits, no sensory deficits noted and deep tendon reflexes 2+ bilaterally Motor Exam: strength 5/5 throughout Psych thought process normal and cooperative Appearance: appropriate Assessment & Plan Assessment/Plan (1) Chest pain: PLAN: Plan #Chest pain * had right sided chest pain a few weeks ago but now having left sided chest pain * EKG showed no acute ST changes * troponins were negative * 2D echo and stress test ordered for tomorrow * SL nitroglycerin prn * keep NPO past midnight for stress test tomorrow * #Elevated BP * not a known hypertensive * IV hydralazine prn. Will start on oral BP meds if BP remains elevated * #Chronic anemia due to recent acute blood loss anemia * Hb now stable at 10.6 * #Chronic fatigue: stable. PT/.OT On board. Fall precautions #Recent perforated bowel with severe ileus * had recent small perforation due to colonoscopy and had GI bleed and severe ileus. He had had EGD and colonoscopy due to bleeding per rectum; scopes showed 2 bleding angiodysplasic lesions in the cecum which were treated with a heater probe. EGD showed acute gastritis and chronic duodenitis. He was discharged home and subsequently came back the next day with lightheadedness and dizziness. CT done at that time showed perforation in terminal ileum. He had exploratory laparoscopy with resection of terminal ileum and ileocecectomy * now stable * DVT prophylaxis; lovenox Charges/Coding Visit Charges Inpatient E&M: 06180 Subs Hosp L2
[2023-02-01 13:27] VITALS: BP 146/71; PULSE 92; RESP 18; TEMP 37.1; O2SAT 97
[2023-02-01] MEDS: 0.9% Saline Lock 10 ML Syringe IV (13:35)
[2023-02-01 20:00] VITALS: BP 143/76; PULSE 92; RESP 16; TEMP 36.7; O2SAT 96
[2023-02-01 20:22] VITALS: O2SAT 95
[2023-02-02 03:00] VITALS: BP 155/90; PULSE 82; RESP 16; TEMP 36.6; O2SAT 98
[2023-02-02 04:36] LABS: Absolute Lymphocyte Count 2.37 X10^3/uL (0.83-4.51); Absolute Neutrophil Count 3.1 X10^3/uL (2.0-7.7); Basophil# 0.07 X10^3/uL; Basophil% 1.1 % (0-1); Eosinophil# 0.41 X10^3/uL; Eosinophils% 6.3 % (0-5); Hematocrit 34.2 % (40-54); Hemoglobin 10.7 g/dL (13.0-16.5); Lymphocyte # 2.37 X10^3/ul (0.83-4.51); Lymphocyte % 36.3 % (19-41); Mean Corp Hgb Conc 31.3 g/dL (32-36); Mean Corpuscular Hgb 29.2 pg (27.0-32.0); Mean Corpuscular Volume 93.4 fL (80-94); Mean Platelet Vol. 10.3 fl (6.2-12.0); Monocyte# 0.56 X10^3/uL; Monocyte% 8.6 % (0-10); NRBC Flagged by Analyzer 0 % (0-5); Neutrophil # 3.09 X10^3/uL (2.7-7.7); Neutrophil % 47.2 % (47-70); Platelet Count 210 K/mm3 (150-450); RBC Distribution Width CV 13.8 % (11.6-14.6); RBC Distribution Width SD 47.3 fl (35.1-43.9); Red Blood Count 3.66 M/mm3 (4.6-6.2); White Blood Count 6.5 K/mm3 (4.4-11.0)
[2023-02-02 05:52] LABS: Anion Gap 5 (5-15); BUN 23 mg/dL (7-18); BUN/Creat Ratio 26.2 RATIO (10-20); Calcium,Total 8.6 mg/dL (8.5-10.1); Chloride 110 mmol/L (98-107); Creatinine, Serum 0.88 mg/dL (0.70-1.30); EST Glomerular Filtration Rate 91 mL/min (>60); Est Glom Filt Rate - Afr Amer 110 mL/min (>60); Estimated Creatinine Clearance 72.34 ml/min; Glucose 91 mg/dL (74-106); Potassium 3.9 mmol/L (3.5-5.1); Sodium Level 141 mmol/L (136-145)
--- NOTE | 2023-02-02 05:55 | EKG12_ITS ---
Test Reason : A.M. EKG Blood Pressure : / mmHG Vent. Rate : 083 BPM Atrial Rate : 083 BPM P-R Int : 164 ms QRS Dur : 082 ms QT Int : 372 ms P-R-T Axes : 067 016 047 degrees QTc Int : 437 ms Normal sinus rhythm Normal ECG When compared with ECG of 31-JAN-2023 17:08, MANUAL COMPARISON REQUIRED, DATA IS UNCONFIRMED Confirmed by SHREYA LANE, KRISSY ([id number]), editor city NICHOLAS HIGGINS ([id number]) on 02/12/2023 1:14:10 PM Referred By: SHELBY Confirmed By:KRISSY CASH MD
[2023-02-02 06:17] VITALS: BP 159/96; PULSE 85; RESP 16; TEMP 36.8; O2SAT 97
[2023-02-02 12:17] VITALS: BP 141/80; PULSE 90; RESP 12; TEMP 36.1; O2SAT 98
--- NOTE | 2023-02-02 13:32 | STRESSREP ---
Stress Test Report Exercise myocardial perfusion stress test. 72-year-old male with a history of chest pain Stress protocol: Resting EKG demonstrates sinus tachycardia with a rate of 101 bpm resting blood pressure is 158/88 mmHg. The patient exercised according to the regular Jovan protocol for a total duration of 8 minutes and 15 seconds attaining a maximum heart rate of 160 bpm which was 108% of maximum predicted heart rate; the maximum workload was 10.1 metabolic equivalents. At rest there were no ST or T wave changes noted to suggest ischemia and at peak exercise upsloping ST changes only were noted which did not meet the criteria for ischemia. No clinical angina was noted the test was terminated due to the target heart rate being achieved/fatigue. The peak blood pressure was 202/50 mmHg. Rate-pressure product was 32,300. Myocardial perfusion protocol. 11.4 mCi of technetium 99m sestamibi was injected at rest. The patient exercised according to regular Jovan protocol for total duration of 8 minutes and 15 seconds and at peak exercise 32.7 mCi of technetium 99m sestamibi was injected stress images were obtained stress and rest images were reconstructed in comparing the short axis vertical long and horizontal long axis. Gated images were also obtained. Perfusion SPECT analysis: Review of the stress images demonstrate normal uptake of tracer noted in all areas of the myocardium. The resting images similarly demonstrate normal uptake of tracer noted in all areas of the myocardium. No areas of reversibility are noted to suggest ischemia no previous infarct was noted. Gated SPECT analysis: The gated ejection fraction is 70%. Conclusion: Normal exercise myocardial perfusion stress test at a high workload Preserved ejection fraction.
--- NOTE | 2023-02-02 13:47 | DS.PCM_ITS ---
Providers Date of Admission: 01/31/23 Date of Discharge: 02/02/23 Primary Care Physician: No Primary Care Phys Reason For Visit: CHEST PAIN Diagnosis Discharge Diagnosis (1) Chest pain: Status: Acute Code(s): R07.9 - Chest pain, unspecified Medications at Discharge Home Medications pantoprazole 40 mg tablet,delayed release (Protonix) 40 mg PO DAILY #30 tabs 02/02/23 Hospital Course Procedures EKG, Nuclear stress test and - (CTA chest) Summary of Care Provided Minutes Spent on Discharge: 37 Hospital Course: Mr. Monson is a 72-year-old male who had a recent prolonged hospitalization from 12/03/2022 through 12/22/2022 after he had a perforated bowel secondary to colonoscopy complicated by GI bleed and severe ileus who presented to the [facility] emergency department on 01/31/2023 with intermittent chest pain. Patient reported that he was having almost daily intermittent chest pain for the last 2 to 3 weeks. It is located on the left center of the chest under the left breast area and does not radiate. He has no associated shortness of breath, nausea, or vomiting. He does complain of fatigue but he states this has been a chronic issue for him. He indicated he does not sleep well at night because he is up urinating frequently. He has not followed up with a primary care physician with regards to this. He does have significant anxiety throughout the entire time of my evaluation. His vital signs on presentation were overall unremarkable. He had a mild anemia which is stable compared to previous. His cardiac enzymes were cycled x3 and were 6, 5, and 6 respectively. A TSH was done in November which was unremarkable. His EKG showed no changes consistent with acute ischemia. Stress test was performed on 02/02/2023 and was unremarkable for any acute findings at a good workload producing 10.8 METS and his heart rate was 108% of predicted value. He indicated he had ongoing pain intermittently with his most recent episode being last evening. He is having no pain at this time. With his ongoing pain we obtained a CTA of his chest which demonstrated no dissection or pulmonary embolism or any other acute abnormality of the chest given his unremarkable work-up for any life-threatening issues we did discharge him home but did add Protonix daily to see if he had any associated reflux that may have been exacerbating his symptoms and encouraged outpatient follow-up. I do suspect his fatigue may be related to lack of good sleep per my discussion with him with regards to his sleeping habits and he does seem quite anxious and I am wondering if some of his symptoms are related to anxiety as well. We gave him of list of primary care doctors in the area and he is to make a follow-up appointment to be seen within the next 2 to 4 weeks. He was able to be discharged home in stable condition. Discharge diagnoses: Intermittent chest pain with unremarkable cardiac work-up including negative stress test and negative CTA of the chest Elevated blood pressure-Seems to fluctuate-Recommend ambulatory blood pressure medicine treatment and initiation of antihypertensive if remains elevated Tachycardia-resolved Chronic anemia-Stable Chronic fatigue--> patient with poor sleep due to what sounds to be BPH I have recommended outpatient follow-up, TSH was normal Recent perforated bowel-resolved Severe ileus-resolved Anxiety Physical Exam Const alert, oriented x3, no apparent distress, average body habitus, no limitations, healthy appearing and well nourished Constitutional Narrative: Older, white male, normal weight, sitting up at the edge of the bed in close, appears comfortable and nontoxic, appears anxious and sounds anxious during conversation General Appearance: cooperative, comfortable, well kempt and well developed Orientation / Consciousness: awake, oriented to person, oriented to place and oriented to time Exam Limitations: no limitations HEENT normocephalic, head/scalp atraumatic, hearing grossly normal bilaterally and moist oral mucous membranes Eyes PERRL and EOMs intact bilaterally Eyes Narrative: No scleral icterus Neck Neck Narrative: Trachea midline, no noted thyroid enlargement Resp normal respiratory effort, no retractions, no use of accessory muscles and clear to auscultation bilaterally Auscultation: Negative for rales, rhonchi or wheezes Cardio regular rate, regular rhythm, S1 normal heart sound, S2 normal heart sound, no murmurs, no rub, no gallops and no clicks Cardio Narrative: No pain with palpation to the anterior chest wall in the area of reported pain GI normal to inspection, nondistended, normoactive bowel sounds, soft to palpation and non-tender Extremity no clubbing, cyanosis or edema Extremity Narrative: Pedal pulses are 2+ Skin no rashes or lesions noted, no wounds, skin turgor normal and no jaundice Neuro oriented x3, CN's II-XII intact bilaterally, moves all extremities, no focal motor deficits and no sensory deficits noted Neuro Narrative: Ambulates around the room independently without gait deficit Speech: speech normal Psych Psych Narrative: Patient appears anxious Weight / BMI Weight Weight: 67.4 kg Body Mass Index (BMI) 21.3 ABG / Lab / Microbiology Data 02/02/23 04:12 02/02/23 04:12 Laboratory: Laboratory Results - last 24 hr 02/02/23 04:12: WBC 6.5, RBC 3.66 L, Hgb 10.7 L, Hct 34.2 L, MCV 93.4, MCH 29.2, MCHC 31.3 L, RDW Std Deviation 47.3 H, RDW Coeff of Angela 13.8, Plt Count 210, MPV 10.3, Immature Gran % (Auto) 0.500, Neut % (Auto) 47.2, Lymph % (Auto) 36.3, [place] % (Auto) 8.6, Eos % (Auto) 6.3 H, Baso % (Auto) 1.1 H, Absolute Neuts (auto) 3.1, Absolute Lymphs (auto) 2.37, Nucleated RBC % 0, Sodium 141, Potassium 3.9, Chloride 110 H, Carbon Dioxide 26.0, Anion Gap 5, BUN 23 H, Creatinine 0.88, Estim Creat Clear Calc 72.34, Est GFR (MDRD) Af Amer 110, Est GFR (MDRD) Non-Af 91, BUN/Creatinine Ratio 26.2 H, Glucose 91, Calcium 8.6 D/C Instructions Discharge Diet: No restrictions Discharge Activity: Return to Normal Activity Return to work on: 02/03/23 Meaningful Use Info Meaningful Use Diagnoses (Choose all that apply): None applicable Discharge Plan Admission Admit Date/Time: 01/31/23 15:40 Primary Reason for Your Visit: Chest pain Attending Provider: Sandy Mukherjee Primary Care Provider: Care Physician,No Primary Consulting Providers: Pk Chaves; Elen Frazier Discharge Orders/Prescriptions Prescriptions: New pantoprazole [Protonix] 40 mg tablet,delayed release (DR/EC) 40 mg PO DAILY Qty: 30 0RF Referrals / Follow Up: Tim Dobbs DO [Non-Staff] - Within 2 Weeks Care Physician,No Primary [Primary Care Provider] - Disposition Disposition (needs filled in before D/C Order can be placed): Home, Self Care Charges/Coding Visit Charges Inpatient E&M: 56244 Disch Hosp >30min
--- NOTE | 2023-02-02 14:13 | CT_ITS ---
STUDY: CTA CHEST REASON FOR EXAM: Male, 72 years old. chest pain RADIATION DOSAGE (If Supplied By Facility): CTDIvol = ( 5.84 ) mGy, DLP = ( 216.36 ) mGycm TECHNIQUE: The examination was performed with the intravenous administration of IV 100mL Isovue-370. Post-processing of the angiographic images was performed, with multiplanar reformation and 3D reconstruction. Individualized dose optimization techniques were used for this CT. COMPARISON: No relevant prior comparison study available FINDINGS: PULMONARY ARTERIES: Normal enhancement of the main pulmonary artery and right and left pulmonary arteries. Normal enhancement of the bilateral peripheral pulmonary arteries. There is no demonstrated pulmonary embolism. AORTA: Normal thoracic aorta and visualized great vessels. There is no demonstrated aortic dissection. MEDIASTINUM: Normal heart and pericardium. There are calcifications of the coronary arteries. Normal mediastinum. Normal hilar regions. LUNGS/PLEURA: Normal visualized trachea and bronchi. The lungs are well expanded. No consolidation. Fissural lymph node along the right major fissure peripherally. Mild dependent atelectasis. Normal pleura. No pneumothorax. CHEST WALL: Normal chest wall structures. UPPER ABDOMEN: No acute abnormality. Simple cyst at the upper pole of the left kidney which requires no specific follow-up. OSSEOUS STRUCTURES: No acute or suspicious osseous abnormality. CT/CTA Chest W/WO Contrast IMPRESSION: No pulmonary embolism or other acute intrathoracic abnormality. Electronically Signed: Alek Randall MD at 15:12 EDT ,
--- NOTE | 2023-02-02 14:20 | CASEMGMT ---
Met with patient to complete MCCOLLUM form. MCCOLLUM form explained to patient who voiced understanding and signed form. Original form placed in pt?s chart and copy provided to patient. Gisele Paris, Discharge Planning Asst.
--- NOTE | 2023-02-02 14:24 | CASEMGMT ---
RN CM updated by hospitalist that patient is requesting PCP list. RN CM in to discuss needs at discharge with patient. PCP list provided to patient, patient encouraged to schedule appointment, patient voiced understanding. Patient had no further questions or concerns at this time.
--- NOTE | 2023-02-02 14:31 | PHA.DC.MC.R ---
Pharmacy [facility] has performed discharge medication reconciliation and counseling for this patient. The patient's discharge medication list was reviewed for discrepancies and discrepancies were resolved. The patient was counseled on the following discharge medications and changes in medications for homegoing were reviewed. The Reason for Use, instructions for use, and potential side effects were reviewed for all new medications. The patient's questions regarding all of their medications were answered. 1. Pantoprazole 40 mg PO daily The patient was able to verbally demonstrate an understanding of their discharge medications. Medications at Discharge Home Medications pantoprazole 40 mg tablet,delayed release (Protonix) 40 mg PO DAILY #30 tabs 02/02/23
--- NOTE | 2023-02-02 14:55 | ECHOD_ITS ---
Reason For Study: CHEST PAIN Procedure This was a 2D Doppler, Color Flow transthoracic echocardiogram. Exam performed in department. Left Ventricle Normal LV size. Left ventricular systolic function is normal. Stage 1 diastolic dysfunction. The estimated ejection fraction is 65 %. Right Ventricle Normal RV size. Normal systolic function. Atria Normal left atrium. Normal right atrium. Bubble contrast study negative for right to left interatrial shunt. Mitral Valve Normal mitral valve. Tricuspid Valve Normal tricuspid valve. Aortic Valve Normal aortic valve. Trisinus/trileaflet aortic valve. Pulmonic Valve Normal pulmonic valve. Great Vessels Normal aortic root. The pulmonary artery is normal size. Normal inferior vena cava. Pericardium/Pleural No pericardial effusion. Medication Performed a rapid injection of agitated mix of 9 cc saline and 1cc air to assess for atrial septal defect. MMode/2D Measurements & Calculations LVIDd: 3.8 cm IVSd: 1.2 cm Ao root diam: 3.2 cm LVIDs: 2.3 cm LVPWd: 1.1 cm FS: 38.4 % LAV(MOD-sp4): 31.4 ml LVAd ap4: 21.1 cm2 SV(MOD-sp4): 30.3 ml LVLd ap4: 7.7 cm EDV(MOD-sp4): 49.3 ml EDV(sp4-el): 49.6 ml LVAs ap4: 11.8 cm2 LVLs ap4: 6.5 cm ESV(MOD-sp4): 19.0 ml ESV(sp4-el): 18.3 ml EF(MOD-sp4): 61.5 % EF(sp4-el): 63.2 % SV(sp4-el): 31.3 ml LA A4 area: 14.4 cm2 LA dimension(2D): 3.0 cm RA A4 area: 10.2 cm2 TAPSE: 1.8 cm Time Measurements MV dec time: 0.06 sec Doppler Measurements & Calculations MV E max victor m: 58.1 cm/sec Lat Peak E' Victor M: 9.0 cm/sec Med Peak E' Victor M: 6.8 cm/sec MV A max victor m: 99.0 cm/sec E/E' lat: 6.5 E/E' med: 8.6 MV E/A: 0.59 MV V2 max: 102.6 cm/sec MV dec slope: 1049 cm/sec2 Ao V2 max: 100.8 cm/sec MV max P.2 mmHg Ao max P.1 mmHg MV V2 mean: 63.6 cm/sec Ao V2 mean: 74.2 cm/sec MV mean P.8 mmHg Ao mean P.4 mmHg MV V2 VTI: 18.9 cm Ao V2 VTI: 20.5 cm AV (velocity ratio): 0.85 LV V1 max: 90.4 cm/sec PA V2 max: 115.8 cm/sec LV V1 max P.3 mmHg PA V2 mean: 74.9 cm/sec LV V1 mean P.7 mmHg LV V1 mean: 61.9 cm/sec LV V1 VTI: 17.5 cm ECHO/Echo Complete Interpretation Summary Normal LV size. Left ventricular systolic function is normal. Stage 1 diastolic dysfunction. The estimated ejection fraction is 65 %. Bubble contrast study negative for right to left interatrial shunt. Ordering Physician: Pk Chaves Referring Physician: DELVIN PCP Performed By: Leilani Leija RCS
[2023-02-02 16:00] VITALS: BP 148/67; PULSE 105; RESP 14; TEMP 37.1; O2SAT 98
== END 2023-02-02 18:13 | disposition home or self-care (01) ==
LOC: ED 15:46 → PCU 16:01
PROVIDERS: Student in an Organized Health Care Education/Training Program; Admitting Provider Hospitalist; Emergency Provider Emergency Medicine; Visit Provider Internal Medicine
DX: R07.89 Other chest pain (principal); R51.9 Headache, unspecified; D64.9 Anemia, unspecified; Z87.891 Personal history of nicotine dependence; R03.0 Elevated blood-pressure reading, without diagnosis of hypertension; F41.9 Anxiety disorder, unspecified; R53.82 Chronic fatigue, unspecified
CPT/HCPCS: 36415; 71045; 71275; 78452; 80048; 80061; 80076; 84484; 85025; 85027; 85610; 93005; 93017; 93306; 94668; 96360; 96361; 99221; 99284; A9500; J7030; Q9967; A4216; G0378; J2785

== ENCOUNTER → 2023-02-26 | Outpatient (CLI) | payer MEDICARE, MEDICAID, SELFPAY ==
[2023-02-26 17:40] LABS: Absolute Lymphocyte Count 1.52 X10^3/uL (0.83-4.51); Absolute Neutrophil Count 5.2 X10^3/uL (2.0-7.7); Basophil# 0.06 X10^3/uL; Basophil% 0.8 % (0-1); Eosinophil# 0.16 X10^3/uL; Eosinophils% 2.1 % (0-5); Hematocrit 41.8 % (40-54); Hemoglobin 13.2 g/dL (13.0-16.5); Lymphocyte # 1.52 X10^3/ul (0.83-4.51); Lymphocyte % 20.3 % (19-41); Mean Corp Hgb Conc 31.6 g/dL (32-36); Mean Corpuscular Hgb 29.1 pg (27.0-32.0); Mean Corpuscular Volume 92.3 fL (80-94); Mean Platelet Vol. 10.7 fl (6.2-12.0); Monocyte% 6.7 % (0-10); NRBC Flagged by Analyzer 0 % (0-5); Neutrophil # 5.23 X10^3/uL (2.7-7.7); Neutrophil % 69.8 % (47-70); Platelet Count 260 K/mm3 (150-450); RBC Distribution Width CV 13.8 % (11.6-14.6); RBC Distribution Width SD 47.2 fl (35.1-43.9); Red Blood Count 4.53 M/mm3 (4.6-6.2); White Blood Count 7.5 K/mm3 (4.4-11.0)
[2023-02-26 18:08] LABS: ALB/GLOB Ratio 1.1 RATIO (0.9-2.4); AST(SGOT) 16 U/L (15-37); Alanine Aminotransfer ALT/SGPT 34 U/L (16-61); Albumin, Serum 3.9 g/dL (3.2-5.0); Alkaline Phosphatase 81 U/L (45-117); Anion Gap 7 (5-15); BUN 21 mg/dL (7-18); BUN/Creat Ratio 20.6 RATIO (10-20); Calcium,Total 9.4 mg/dL (8.5-10.1); Chloride 105 mmol/L (98-107); Creatinine, Serum 1.02 mg/dL (0.70-1.30); EST Glomerular Filtration Rate 76 mL/min (>60); Est Glom Filt Rate - Afr Amer 92 mL/min (>60); Globulin 3.7 g/dL (2.2-4.2); Glucose 106 mg/dL (74-106); PSA,Total - Annual Screen 2.34 ng/mL (0.00-4.00); Potassium 4.4 mmol/L (3.5-5.1); Protein, Total 7.6 g/dL (6.4-8.2); Sodium Level 139 mmol/L (136-145); Thyroid Stim Hormone (TSH) 0.93 uIU/mL (0.358-3.74)
[2023-02-28 11:09] LABS: Lyme Scn Total Ab w/Rflx Negative (Negative); Myoglobin, Serum 25 ng/mL (28-72)
== END | disposition home or self-care (01) ==
LOC: MFPLAB 15:04
PROVIDERS: PCP Family Medicine; Visit Provider Family Medicine
DX: Z13.21 Encounter for screening for nutritional disorder (principal); R53.83 Other fatigue; N40.0 Benign prostatic hyperplasia without lower urinary tract symptoms; Z12.5 Encounter for screening for malignant neoplasm of prostate
CPT/HCPCS: 36415; 80053; 83874; 84153; 84443; 85025; 86618; G0103

== ENCOUNTER → 2023-03-18 | Outpatient (CLI) | payer MEDICARE, MEDICAID, SELFPAY ==
[2023-03-23 14:07] LABS: Testosterone, Total 400 ng/dL (264-916)
[2023-03-25 15:08] LABS: Testosterone, % Free 1.31 % (1.50-4.20); Testosterone, Free 5.24 ng/dL (5.00-21.00)
== END | disposition home or self-care (01) ==
LOC: MFPLAB 08:29
PROVIDERS: PCP Family Medicine; Visit Provider Family Medicine
DX: M79.10 Myalgia, unspecified site (principal)
CPT/HCPCS: 36415; 84402; 84403

== ENCOUNTER 2023-03-23 05:49 | Day surgery (SDC) | payer MEDICARE, MEDICAID, SELFPAY ==
[2023-03-23] MEDS: Lactated Ringers 1,000 ML 15 ML IV (06:20)
[2023-03-23 06:28] VITALS: BP 147/78; PULSE 100; RESP 14; TEMP 36.3; O2SAT 100; BMI 21.7
--- NOTE | 2023-03-23 06:43 | PCM.HP.BLA ---
History and Physical Date of Admission: 03/23/23 Intake Vital Signs 02/01/2316:25 02/12/2309:56 Height 5 ft 10 in BP 145/92 H Blood Pressure Location Rt brachial Position Sitting Respiration 17 Pulse 107 H Pulse Source Monitor Pulse Oximetry (%) 98 Oxygen Delivery Method room air Intake Visit Reasons: DISCUSS SURGERY Chief Complaint: discuss surgery Allergies No Known Allergies Allergy (Verified 02/12/23 09:58) Medications pantoprazole 40 mg tablet,delayed release (Protonix) 40 mg PO DAILY #30 tabs 02/02/23 [Rx Confirmed 02/12/23] [facility] Medical History (Updated 02/13/23 @ 09:[address] Donny Rivera MD) Alcohol use Anemia Chest pain Former smoker Gastric reflux GI bleed GI bleed History of echocardiogram History of GI bleed History of stress test Migraine headache Overactive bladder Perforated bowel Sebaceous cyst Wears glasses Surgical History S/P exploratory laparotomy S/P partial colectomy Social History Smoking Status: Former smoker HPI HPI HPI: Patient says that he feels like he is getting sick and he has no energy and he is concerned that he has Lyme disease. The patient also was recently admitted with chest pain and had stress test. ROS General General: Yes weight change and fatigue; No appetite, colon cancer, breast cancer or weakness HEENT HEENT: No difficulty swallowing, eye injury, eye surgery, swollen glands or hoarseness Endo Endocrine: No thyroid disease, diabetes mellitus, thyroid cancer, Hair loss, heat intolerance or cold intolerance Skin Skin: Yes rash; No changing moles Musc Musculoskeletal: Yes back problems; No arthritis, rheumatoid arthritis, gout or joint pain Cardio Cardiovascular: Yes murmur and atrial fibrillation; No pacemaker, heart disease, high blood pressure, heart attack, heart stent, palpitations, shortness of breat with exertion or chest pain Psych Psychiatric: No depression, anxiety or hearing voices Resp Respiratory: No shortness of breath, No sleep apnea, No cough, No COPD, No asthma, No emphysema and No wheezing Gastro Gastrointestinal: No abdominal pain, No nausea or vomiting, No diarrhea, No constipation, No blood in stool, No acid reflux, No hemorrhoids, No ulcers, No gallbladder problem and No black,tarry stools Félix Hematologic: No blood thinners, No blood disorders, No bleeding, No anemia and No blood clots Neuro Neurologic: No system reviewed and no additional complaints, except as documented, No as per HPI, No abnormal gait, No abnormal hearing, No abnormal movements, No abnormal speech, No behavioral changes, No burning sensations, No confusion, No convulsions, No disequilibrium, No dizziness, No localized weakness, No frequent falls, No headache(s), No lack of coordination, No loss of vision, No memory loss, No numbness, No other visual disturbances, No radicular pain, No restless legs, No sensory deficit, No syncope, No tingling, No tremor(s), No weakness and No other Exam Const General: cooperative Orientation: alert and oriented x3 HENDC Head: normal to inspection Neck Neck: normal visual inspection and full ROM Chest Chest palpation & inspection: normal inspection of the chest Resp Effort & Inspection: normal respiratory effort Auscultation: clear to auscultation bilaterally Cardio Rate: regular rate Rhythm: regular rhythm GI Inspection: non-distended Palpation: soft and nontender Skin General: no rashes or lesions noted Neuro General: patient alert and patient oriented x3 Extrem General: full ROM Psych Appearance: grossly normal Mental Status: mental status grossly normal Assessment and Plan Assessment and Plan (1) Bilateral inguinal hernia: Status: Acute Qualifiers: Obstruction and gangrene presence: without obstruction or gangrene Recurrence: non-recurrent Qualified Code(s): K40.20 - Bilateral inguinal hernia, without obstruction or gangrene, not specified as recurrent Plan: The patient has bilateral inguinal hernias and I had previously discussed robotic assisted laparoscopic bilateral inguinal hernia repair with mesh. The patient put off surgery to have a stress test. He is now worried that he has Lyme disease and he is getting this worked up. I will reschedule surgery for a later date. I once again discussed robotic assisted inguinal hernia with the patient. I discussed the risks including modality to bleeding, infection, injury other organs such as the bowel, bladder, blood supply the testicle or leg. Patient understands the risks and is willing to proceed. I also discussed the possibility of having to convert to open if I am unable to get through scar tissue from his prior surgery. Donny Rivera MD Pager: [facility] [address] [place] [address], [address] [place] [address] Office: I have examined the patient and the H&P has been reviewed. There are no clinical changes since date of exam.
[2023-03-23] MEDS: Cefazolin 2 GM in 0.9% Normal Saline (100mL Bag) 100 ML IV (07:25)
[2023-03-23] MEDS: Bupivacaine Mpf 0.5% 30 ML VIAL (08:26)
[2023-03-23 08:43] VITALS: BP 139/67; BP 147/78; PULSE 80; RESP 16; TEMP 36.3; O2SAT 100
--- NOTE | 2023-03-23 08:46 | PCM.OPRPT ---
Report of Operation Date of Procedure: 03/23/23 Pre-Operative Diagnosis: Bilateral inguinal hernias Post-Operative Diagnosis: Same Surgery/Procedure Performed:: Robotic assisted laparoscopic bilateral inguinal hernia repair with mesh Type of Anesthesia: General/Regional Estimated Blood Loss (mL): 10 Description of Procedure: Patient was brought back to the operating room and general anesthesia was induced. The abdomen was prepped and draped in usual sterile fashion. A small midline incision was made in the middle of his prior midline incision. The fascia was elevated and incised and a finger sweep was performed and then a port was placed into the abdomen. The abdomen was insufflated to 15 mmHg. Patient was placed in Trendelenburg position and actually there was no scar tissue. Next under direct visualization an 8 mm port was placed in the right lateral abdominal sidewall and left lateral abdominal sidewall. Robot was then docked. Next electrocautery scissors were used to make an incision in the peritoneum in the left lower quadrant. Dissection was carried inferiorly until the direct inguinal hernia was identified. The hernia sac was reduced. After appropriate dissection a piece of ProGrip mesh was placed in the left groin and unfolded across the hernia defect completely covering it. The peritoneum was reapproximated using a running 3-0 unidirectional suture. The mesh was completely covered by peritoneum. Next attention was paid to the right groin. In the same fashion and an incision was made in the peritoneum the dissection was carried inferiorly until the right direct inguinal hernia was dissected free. Next a piece of ProGrip mesh was placed in the right groin completely covering the right inguinal hernia. The peritoneum was then reapproximated using a running 3 oh V-Loc suture. There was good coverage of the mesh at the end of the procedure. The robot was undocked and the abdomen was allowed to desufflate. The ports were removed and the incisions were injected with local anesthetic. The fascia at the midline incision was closed with an 0 Vicryl suture in a [id number] fashion. The skin incision were closed with interrupted 4-0 Monocryl suture. Steri-Strips and bandages were applied. The scrotum was checked at the end of the case and obtained both testicles. Patient was awoken and taken to PACU in stable condition and tolerated the procedure well. Grafts/Implants Used: ProGrip bilaterally Admit VTE Documentation VTE Mechan Device Prophylaxis: SCD's
[2023-03-23 08:48] VITALS: BP 136/68; BP 147/78; PULSE 81; RESP 16; O2SAT 100
--- NOTE | 2023-03-23 08:49 | DCINST_ITS ---
Discharge Instructions Procedure Hernia Diet Discharge Diet: Light diet - advance as tolerated Activity Discharge Activity: May Not Drive (for 2-3 days or while taking narcotic pain meds.) and May Shower (with the bandage in place 1-2 days after surgery.) Lifting Restrictions: 20 pounds for 4 weeks. Additional Activity Instructions:: Climbing stairs is fine, walking is encouraged. Sitting in bed may be uncomfortable. Sitting up using your lateral muscles (sitting up sideways) is usually more comfortable. Do not drive, work heavy equipment of sign legal documents for 24 hours. If your hernia repair was an inguinal repair, you may have scrotal swelling, an ice pack and/or athletic support can provide more comfort. Pain medications may cause nausea, you should typically eat light foods as you take your pain medications. Pain medications may also cause constipation. If you have difficulty with this, discuss with your doctor. Dressing / Incision Call your doctor if your incision/area has: Continuous Slow Oozing, Sudden Increased Bleeding, Increased Pain/ Swelling, Increased Redness and Foul Smelling Discharge Call your doctor if you observe: Fever of 101 or Higher Suture Line Care: Avoid Pulling/Pushing and Avoid Pinching/Bending Remove Dressing in: 2 days (Remove clear bandages in 2 days, remove Steri-Strips in 7 to 10 days.) Follow Up Care Please Follow Up With: Donny Rivera MD When: Please call to schedule 2 week follow up appointment. [phone] Test Results: Test results from this visit will be discussed in further detail at your follow- up appointment, if applicable. Discharge Plan Admission Attending Provider: Donny Rivera Primary Care Provider: Germán Dent Instructions Additional Instructions / Restrictions: Ibuprofen and Tylenol alternating for pain. Oxycodone for breakthrough. Discharge Orders/Prescriptions Prescriptions: New oxycodone 5 mg tablet 5 - 10 mg PO Q6H PRN (Reason: pain) 5 Days Qty: 15 0RF No Action tamsulosin 0.4 mg capsule 0.4 mg PO BID Patient Comments: TAKE 1 CAPSULE BY MOUTH 2TTIMES A DAY pantoprazole [Protonix] 40 mg tablet,delayed release (DR/EC) 40 mg PO DAILY Qty: 30 0RF Patient Comments: NO LONGER TAKING Referrals / Follow Up: Germán Dent MD [Primary Care Provider] - Disposition Disposition (needs filled in before D/C Order can be placed): Home, Self Care
[2023-03-23 09:00] VITALS: BP 142/60; BP 147/78; PULSE 80; RESP 16; TEMP 36.2; O2SAT 99
[2023-03-23] MEDS: Tamsulosin HCl 0.4 MG Capsule PO (09:30)
--- NOTE | 2023-03-23 09:54 | SUR.PHASEII ---
PATIENT REQUESTED TO TAKE A WALK. HE WALKED AROUND THE DEPARTMENT. PATIENT WAS PAINFUL BUT STILL DENIES NEED FOR PAIN MEDICATTION. PATIENT EDUCATED ON THE IMPORTANCE OF NOT WAITING TILL PAIN GETS TOO HIGH BEFORE TAKING SOMETHING.
[2023-03-23 10:55] VITALS: BP 147/78; BP 150/78; PULSE 88; RESP 20; TEMP 36.8; O2SAT 98
[2023-03-23 11:45] VITALS: BP 147/78
--- NOTE | 2023-03-23 12:01 | SUR.PHASEII ---
THIS NURSE TOOK THE PATIENT OUT TO THE [place] TO GET SOME COFFEE. HE IS WALKING WELL, BUT IS A LITTLE SHAKY HE SAID. I ENCOURAGED HIM AGAIN TO EAT SOMETHING BUT HE REFUSED. STATES HE IS GOING OUT TO EAT WITH HIS BROTHER. HE GOT HIS COFFEE AND I WALKED WITH HIM TO A CHAIR TO THE MAIN ENTRANCE. HIS RIDE IS NOT COMING FOR 30 MINUTES.
== END 2023-03-23 12:04 | disposition home or self-care (01) ==
LOC: SDC 05:50 → AC 05:51
PROVIDERS: PCP Family Medicine; Referring Provider Surgery; Visit Provider Surgery
PROC: (CPT 49650; principal; 2023-03-23 07:10)
DX: K40.20 Bilateral inguinal hernia, without obstruction or gangrene, not specified as recurrent (principal); K21.9 Gastro-esophageal reflux disease without esophagitis; Z87.891 Personal history of nicotine dependence; Z79.899 Other long term (current) drug therapy
CPT/HCPCS: 49650; S2900; 00840; J7120; J2405

== ENCOUNTER → 2023-06-25 | Outpatient (CLI) | payer MEDICARE, MEDICAID, SELFPAY ==
--- NOTE | 2023-06-25 09:37 | CT_ITS ---
STUDY: CT PELVIS WITH CONTRAST REASON FOR EXAM: Male, 72 years old. Severe left groin pain/mass left inguinal region. Prior inguinal hernia repair. RADIATION DOSAGE (If Supplied By Facility): CTDIvol = ( 27.03 ) mGy, DLP = ( 1060.04 ) mGycm TECHNIQUE: Transaxial imaging of the pelvis was performed without oral contrast. Oral and amp; IV Gastrografin and amp; 100mL Isovue-300 was administered intravenously. Multiplanar coronal and sagittal images were reformatted. Individualized dose optimization techniques were used for this CT. COMPARISON: Comparison is made with prior CT scan of the abdomen and pelvis dated December 17, 2022. FINDINGS: 1 cm cyst is seen in the lower pole of the right kidney. Normal urinary bladder. Heterogeneous enlargement of the prostate. The prostate measures 5 cm x 4.5 cm. This causes indentation at the bladder base. Normal visualized small intestine. There are multiple colonic diverticula of the sigmoid colon consistent with chronic diverticulosis. There is no pelvic fluid. There is no pelvic lymphadenopathy or mass lesion. Normal visualized pelvic arteries. There is a small left inguinal hernia containing fat. There are degenerative changes of the visualized lumbar spine. CT/Pelvis WITH IV Contrast IMPRESSION: Sigmoid diverticulosis. Small residual left inguinal hernia. Diffuse heterogeneous enlargement of the prostate with indentation at the bladder base. Electronically Signed: Jan Clement MD at 12:32 EST ,
[2023-06-25 12:19] LABS: CREATININE FINGERSTICK < 1.0 mg/dL (0.70-1.30); EGFR FINGERSTICK > 60.0000 mL/min (>60)
== END | disposition home or self-care (01) ==
LOC: CT 09:36
PROVIDERS: PCP Family Medicine; Referring Provider Physician Assistant; Visit Provider Physician Assistant
DX: R10.32 Left lower quadrant pain (principal)
CPT/HCPCS: 72193; Q9967

== ENCOUNTER 2023-07-01 09:30 | Outpatient (RCR) | payer MEDICARE, MEDICAID, SELFPAY ==
--- NOTE | 2023-06-23 10:41 | HP.PTEVAL ---
Patient's Visit Information Visit Information Visit Information: SRINIVAS OG is a 72 year old M referred to Physical Therapy by Germán Dent MD with a diagnosis of vertigo. Date of Evaluation: 06/23/23 Physical Therapist: Karl Dunn DPT, OCS, CSCS Visit Plan Frequency: 1x/Week Duration: 4-6 Weeks Plan: weekly as needed for 4-6 for positional checks and treatments/exercises. Check oculomotor if not improved otherwise positional treatment. Subjective Subjective: For one month now when he lies down or gets up he gets dizzy very bad. Was using a cream for skin condition and thought it might be that. But is off that now and it did not help. Had a positive r positional test in the doctor office according to patient. No prior history. lasts 4-5 seconds , feels normal in between episode. Getting around well otherwise, no balance deficits then says it miught be off a little bit. Activities: normal retired. Not overly active. sleeping Ok., at least normal for him. Objective Objective: Walks i into PT and transfers and steps I and reciprocally without UE. cervical aROM WFL and without pain today. UE aROM WFL and strength at 4/5 - L hallpike luis felipe + R hallpike luis felipe for up torsional 12 second nystagmus(eyes very uncomfortable and hard to keep open until dizzyness stopped. Treated with R modified romulo and then - HD test today after treatment. Balance/Special Test Scores Functional Gait Assessment Score: 28 % Disability: 6.6700 Dizziness Score: 24 Goals Goal 1:: bolish dizzyness sitting up and lying down Goal Time Frame: 2-4 Weeks Goal 2:: Patient feel dizzyness 100% abolished and back to baseline Goal Time Frame: 2-4 Weeks Rehabilitation Potential Physical Therapy Diagnosis: Likely BPPV effecting comfortable funciton with trasnfers. Rehabilitation Potential: Good Anticipated Interventions Patient/Client Instruction: Educate patient on: Condition For the Purpose of:: To increase tolerance to activity/condition/position Comment: positional treatments and exercises as helpful, vestibualr For the Purpose of:: To increase tolerance to activity/condition/position Text: Thank you for the opportunity to evaluate your patient. For Medicare and Medicare HMO plans, please review the plan of care and approve it. It will need to be FAXED BACK to us at [phone] for Medicare purposes. For Medicare only, by signing this I certify the plan of care. Please let me know if there are questions or concerns regarding this plan of care. Physician Signature: Date:
--- NOTE | 2023-07-01 09:48 | HP.PTDCSUM ---
Discharge Summary D/C summary: It has been my pleasure to treat SRINIVAS OG referred by Germán Dent MD, with the diagnosis of vertigo for a total of 2 visit(s). Discharge Date: 07/01/23 Please see the following information for a summary of their discharge status. Subjective Subjective: Much better. I can lie down and turn head and that dizzyness is completely gone. Gets a quick episode if standing for a second or two. Maybe every other day. Sees surgeon tomorrow after double hernia surgery last February. To Dr. Dent in September. Overall Improvement % Improvement: 92 Objective Objective/Function: No balance deficits today compared to last session. - B hallpike luis felipe. - roll test. Oculomotor is normal with gaze and head shake - skew eye deviation - ocular tilt test. VOR and purusit and saccades all normal and asymptomatic. Pt blinks very often adn will check with eye doctor in the near future. Goals Goal 1:: bolish dizzyness sitting up and lying down Goal Progress: Goal Met Goal 2:: Patient feel dizzyness 100% abolished and back to baseline Goal Progress: 92% Plan Plan: d/c D/C Information Discharge Comments: To contact doctor if dizzyness returns. d/c sentence: If there are questions or concerns regarding this patient's physical therapy, please feel free to call me at [phone]. Thank you for the referral of this patient. Sincerely, Karl Dunn, DPT, OCS, CSCS Balance/Gait/Functional tests Balance/Special Test Scores Functional Gait Assessment Score: 28 % Disability: 6.6700 Dizziness Score: 0 Improvement % Improvement: 92
== END 2023-07-01 10:56 | disposition home or self-care (01) ==
LOC: PT 09:30
PROVIDERS: PCP Family Medicine; Referring Provider Family Medicine; Visit Provider Family Medicine
DX: R42 Dizziness and giddiness (principal)
CPT/HCPCS: 97161; 97530

== ENCOUNTER → 2024-04-11 | Outpatient (CLI) | payer MEDICARE, MEDICAID, SELFPAY ==
--- NOTE | 2024-04-11 14:19 | RAD_ITS ---
STUDY: X-RAY - CERVICAL SPINE REASON FOR EXAM: Male, 73 years old. 4. pain with left arm numbness TECHNIQUE: 5 view(s) of the cervical spine were obtained. COMPARISON: None FINDINGS: Normal anterior atlantoaxial articulation. Normal odontoid process. Normal cervical lordosis. Normal vertebral bodies and endplates. There is multi-level degenerative disc disease with multilevel disc space narrowing. There is multi-level osseous foraminal stenosis. The soft tissue structures are unremarkable. There is no demonstrated fracture of the cervical spine. RAD/Cerv Spine 4 or 5 Views IMPRESSION: No acute abnormality. Multilevel degenerative changes, typical for age. Electronically Signed: Patricio Abdul MD at 16:12 [facility] ,
== END | disposition home or self-care (01) ==
LOC: MTRAD 14:18
PROVIDERS: PCP Family Medicine; Referring Provider Family Medicine; Visit Provider Family Medicine
DX: R41.3 Other amnesia (principal)
CPT/HCPCS: 72050